=== PATIENT | male | born 1950 | race Caucasian/White ===

== ENCOUNTER 2017-01-28 09:51 | Outpatient (RCR) | payer MEDICARE | END 2017-02-01 | LOC: M PT 09:51 | PROVIDERS: ATTEND Family Medicine | DX: Z51.89 Encounter for other specified aftercare (principal); G91.9 Hydrocephalus, unspecified; R26.81 Unsteadiness on feet | CPT/HCPCS: 97110; 97162; G8978; G8979 ==

== ENCOUNTER → 2017-01-28 | Outpatient (CLI) | payer MEDICARE ==
--- NOTE | 2017-02-11 16:36 | REP ---
CT Head without contrast HISTORY: Hydrocephalus COMPARISON: None The examination is available for review at 04:30 p.m. 02/11/2017 Areas of decreased attenuation are present in the the right basal ganglia, internal capsule and thalamus. These represent old lacunar infarctions. Areas of decreased attenuation are present in the periventricular and subcortical white matter. This represents small-vessel ischemic disease. There is no intraparenchymal hemorrhage, acute infarct, mass or midline shift. A shunt is present in the anterior horn of the left lateral ventricle. The ventricular system and cortical sulci as well as subarachnoid space in the posterior fossa are dilated consistent with moderate volume loss. There is no extra cerebral collection. There is no fracture. The visualized sinuses are clear. IMPRESSION: 1. Old right basal ganglia , internal capsule and thalamic lacunar infarctions. 2. Small vessel ischemic disease. 3. Moderate volume loss. 4. A shunt is present in the left lateral ventricle. There is no hydrocephalus. Signed by Jean-Pierre Olvera MD 02/11/2017 04:28 P
== END ==
LOC: M RAD 08:36
PROVIDERS: ATTEND Psychiatry & Neurology Neurology
DX: G91.0 Communicating hydrocephalus (principal); R26.81 Unsteadiness on feet; I63.9 Cerebral infarction, unspecified; Z98.2 Presence of cerebrospinal fluid drainage device

== ENCOUNTER 2017-02-02 10:18 | Outpatient (RCR) | payer MEDICARE | END 2017-03-04 | LOC: M PT 10:18 | PROVIDERS: ATTEND Family Medicine | DX: Z51.89 Encounter for other specified aftercare (principal); G91.9 Hydrocephalus, unspecified; R26.81 Unsteadiness on feet ==

== ENCOUNTER 2018-07-25 13:12 | Inpatient (IN) | payer MEDICARE ==
[~2018-07-25] VITALS: Ht 175.3 cm; Wt 77.5 kg
[2018-07-25] MEDS ORDERED: ACETAMINOPHEN TAB 650MG DOSE (2X325MG) PO PRN (17:30)
[2018-07-25] MEDS ORDERED: DEXTROSE 50% 50 ML SYRINGE IV PRN (17:30)
[2018-07-25] MEDS ORDERED: GLUCAGON FOR INJ 1 MG VIAL (J1610) SC PRN (17:30)
[2018-07-25] MEDS ORDERED: GLUCOSE 4 GM CHEW TABLET PO PRN (17:30)
[2018-07-25] MEDS ORDERED: ONDANSETRON 4 MG TAB (S0181) PO PRN (17:30)
[2018-07-25 19:24] VITALS: BP 121/76
[2018-07-25] MEDS ORDERED: METF10004 PO (19:38)
[2018-07-25] MEDS ORDERED: HUMA100I3 SC (19:38)
[2018-07-25] MEDS ORDERED: NORC1TAB4 PO (19:38)
[2018-07-25] MEDS ORDERED: ATOR1TAB19 PO (19:38)
[2018-07-25] MEDS ORDERED: HYDR-3910 PO (19:38)
[2018-07-25] MEDS ORDERED: AMLO10TA5 PO (19:38)
[2018-07-25] MEDS ORDERED: LOSA25TA14 PO (19:38)
[2018-07-25] MEDS: HumaLOG INSULIN (NovoLOG) PER UNIT SC SCH (19:51)
[2018-07-25] MEDS ORDERED: PERCOCET 5MG/325MG TAB PO PRN (20:00)
[2018-07-25] MEDS ORDERED: PILL CRUSHER/CUTTER 1 EACH XX PRN (20:15)
[2018-07-25] MEDS: **hydrALAZINE HCL** 25 MG TAB PO SCH (20:21)
[2018-07-25] MEDS: HEPARIN SOD (PORCINE) 5000 UNITS/ML VIAL SQ SCH (20:22)
[2018-07-25] MEDS ORDERED: ATORVASTATIN 5MG PER 1/2 TABLET PO SCH (21:00)
[2018-07-25] MEDS ORDERED: **hydrALAZINE HCL** 25 MG TAB PO SCH (21:00)
[2018-07-25] MEDS ORDERED: ATORVASTATIN 10 MG TAB PO SCH (21:00)
[2018-07-26 06:00] VITALS: BP 133/78
[2018-07-26 06:48] LABS: BASO % 0.6 % (0.0-1.0); EOS # 0.4 10^3/uL (0.0-0.50); EOS % 5.9 % (0.0-3.0); HEMATOCRIT 36.7 % (42.0-52.0); HEMOGLOBIN 12.3 g/dl (13.5-17.5); LYMPH # 1.7 10^3/uL (1.5-4.5); LYMPH % 25.3 % (24.0-44.0); MEAN CORPUSCULAR HEMOGLOBIN 29.4 pg (27.0-33.0); MEAN CORPUSCULAR HGB CONC 33.5 g/dl (32.0-36.5); MEAN CORPUSCULAR VOLUME 87.6 fl (80.0-96.0); MONO # 0.5 10^3/uL (0.0-0.8); NEUTROPHILS % 59.9 % (36.0-66.0); PLATELET COUNT, AUTOMATED 264 10^3/uL (150-450); RED BLOOD COUNT 4.19 10^6/uL (4.30-6.10); WHITE BLOOD COUNT 6.6 10^3/uL (4.0-10.0)
[2018-07-26 07:18] LABS: ALBUMIN 3.2 GM/DL (3.2-5.2); ALT/SGPT 676 U/L (12-78); BILIRUBIN,TOTAL 0.5 MG/DL (0.2-1.0); BLOOD UREA NITROGEN 21 MG/DL (7-18); CALCIUM LEVEL 8.7 MG/DL (8.8-10.2); CARBON DIOXIDE LEVEL 23 MEQ/L (21-32); CHLORIDE LEVEL 103 MEQ/L (98-107); CREATININE FOR GFR 1.04 MG/DL (0.70-1.30); GLOMERULAR FILTRATION RATE > 60.0 (>49); GLUCOSE, FASTING 142 MG/DL (70-100); POTASSIUM SERUM 4.3 MEQ/L (3.5-5.1); SODIUM LEVEL 136 MEQ/L (136-145); TOTAL PROTEIN 6.5 GM/DL (6.4-8.2)
[2018-07-26] MEDS: HumaLOG INSULIN (NovoLOG) PER UNIT SC SCH ×3 (07:57→18:08)
[2018-07-26] MEDS: HEPARIN SOD (PORCINE) 5000 UNITS/ML VIAL SQ SCH ×2 (07:57→20:48)
[2018-07-26] MEDS: **hydrALAZINE HCL** 25 MG TAB PO SCH ×2 (07:58→20:48)
[2018-07-26] MEDS: LOSARTAN 25 MG TAB PO SCH (07:58)
[2018-07-26 09:42] VITALS: BP 113/69
[2018-07-26] MEDS: amLODIPine 10 MG TAB PO SCH (09:45)
--- NOTE | 2018-07-26 09:59 | HPEPDOC ---
[facility] Medical History & Physical Date of Admission Jul 26, 2018 History and Physical CONSULTATION REPORT FOR: Dr Thorne REASON FOR CONSULTATION: Medical Management ATTENDING: Dr. Cathy Aldana PCP: Dr Gutiérrez Neurosurgery [facility] Dr Albert Singh HPI: 67year old M admitted to [facility] 07/20/18-07/25/18 for revision of Rt ICHTHYOLOGY TEACHER shunt. Postoperatively complicated by pneumothorax s/p CT placement. Transferred to [facility] ARU 07/25/18 to the care of Dr Thorne. No acute medical complaints today. Denies any fevers, chills, weakness, fatigue, Headache, Chest Pain, Shortness of breath, cough, palpitations, abdominal pain, N/V/D or changes in bowel or bladder habits. PMHx: HTN DLP DM NPH S/P LP Shunt then Rt frontal VPS shunt first placed 05/19, followed by Dr Key since 01/17 with multiple revisions. SOCHX: Resides in: [facility] Marital Status: Tobacco use: denies ETOH: denies ROS: As noted in HPI, otherwise 11pt ROS of systems reviewed and remarkable only for S/P CT Rt chest now removed, area healed. PE: GEN: 67yoM, appears stated age. No acute distress. Alert and oriented x 3. Affect flat. Reduced facial expressions. HEENT: Normocephalic, atraumatic. Sclera are nonicteric. Conjunctiva without injection. No facial asymmetry. Moist mucous membranes. Dentition poor. CHEST: Regular rate and rhythm, +S1, +S2 LUNGS: Clear to auscultation bilaterally. No wheezes, rales, or rhonchi. ABD: Round, soft, non-tender, non-distended. +Bowel sounds throughout. No rebound or guarding. No costovertebral angle tenderness. EXT: Pulses 2+ bilaterally dorsalis pedis and radial. No lower extremity edema appreciated. SKIN: [place], dry, warm. No rashes. NEURO: Alert and oriented x 3. No focal deficits appreciated. A&P: 67year old M admitted to [facility] 07/20/18-07/25/18 for revision of Rt ICHTHYOLOGY TEACHER shunt. Postoperatively complicated by pneumothorax s/p CT placement. Transferred to [facility] ARU 07/25/18 to the care of Dr Thorne. 1. NPH S/P shunt revision. Mgmt as per Neurosurgery. Outpt f/u planned in 2 weeks. Mgmt as per ARU. Pain control as per ARU Bowel care . as per ARU PT/OT/ST as per ARU. DVT prophylaxis as per ARU. 2. HTN Hydralazine 75 mg BID Norvasc 10 mg daily. Losartan 12.5 mg daily. SBP 113-133. 3. DM. CC diet. FSBS Metformin 1000mg BID. 4. DLP. Lipitor 10 mg daily started recently per . 5. Transaminitis. Pt is asymptomatic. Temporarily HOLD Statin. Add Hepatitis profile. Add RUQ U/S. Obtain copy of last LFTs from [facility]. Monitor CMP. Pt states she believes he has had side effects with statin in the past. Recommend to consider GI consultation, discussed with attending Dr Thorne 07/26/18. Monitor. Vital Signs Vital Signs Date Time Temp Pulse Resp B/P (MAP) Pulse Ox O2 Delivery O2 Flow Rate FiO2 07/26/18 09:45 67 113/69 07/26/18 06:00 97.5 18 93 Room Air Laboratory Data Labs 24H Laboratory Tests 2 07/25/18 19:59: Bedside Glucose (Misc Panel) 157H 07/26/18 06:23: Immature Granulocyte % (Auto) 0.3, White Blood Count 6.6, Red Blood Count 4.19L, Hemoglobin 12.3L, Hematocrit 36.7L, Mean Corpuscular Volume 87.6, Mean Corpuscular Hemoglobin 29.4, Mean Corpuscular Hemoglobin Concent 33.5, Red Cell Distribution Width 13.1, Platelet Count 264, Neutrophils (%) (Auto) 59.9, Lymphocytes (%) (Auto) 25.3, Monocytes (%) (Auto) 8.0H, Eosinophils (%) (Auto) 5.9H, Basophils (%) (Auto) 0.6, Neutrophils # (Auto) 4.0, Lymphocytes # (Auto) 1.7, Monocytes # (Auto) 0.5, Eosinophils # (Auto) 0.4, Basophils # (Auto) 0.0, Nucleated Red Blood Cells % (auto) 0.0, Anion Gap 10, Glomerular Filtration Rate > 60.0, Blood Urea Nitrogen 21H, Creatinine 1.04, Sodium Level 136, Potassium Le martha 4.3, Chloride Level 103, Carbon Dioxide Level 23, Calcium Level 8.7L, Aspartate Amino Transf (AST/SGOT) 666H, Alanine Aminotransferase (ALT/SGPT) 676H, Alkaline Phosphatase 209H, Total Bilirubin 0.5, Total Protein 6.5, Albumin 3.2, Albumin/Globulin Ratio 0.97L CBC/BMP Laboratory Tests 07/26/18 06:23 Red Blood Count 4.19 L, Mean Corpuscular Volume 87.6, Mean Corpuscular He moglobin 29.4, Mean Corpuscular Hemoglobin Concent 33.5, Red Cell Distribution Width 13.1, Neutrophils (%) (Auto) 59.9, Lymphocytes (%) (Auto) 25.3, Monocytes (%) (Auto) 8.0 H, Eosinophils (%) (Auto) 5.9 H, Basophils (%) (Auto) 0.6, Neutrophils # (Auto) 4.0, Lymphocytes # (Auto) 1.7, Monocytes # (Auto) 0.5, Eosinophils # (Auto) 0.4, Basophils # (Auto) 0.0, Calcium Level 8.7 L, Aspartate Amino Transf (AST/SGOT) 666 H, Alanine Aminotransferase (ALT/SGPT) 676 H, Alkaline Phosphatase 209 H, Total Bilirubin 0.5, Total Protein 6.5, Albumin 3.2 Home Medications Scheduled Amlodipine Besylate (Amlodipine Besylate) 10 Mg Tab, 10 MG PO DAILY Atorvastatin Calcium (Atorvastatin Calcium) 10 Mg Tab, 5 MG PO QHS Hydralazine HCl (Hydralazine HCl) 25 Mg Tab, 75 MG PO BID Insulin Human Lispro (Humalog) 100 Unit/Ml Inj, 1 DOSE SC ACHS PER SLIDING SCALE BG 201-250 2 UNITS BG 251-300 4 UNITS BG 301-350 6 UNITS BG 351-400 8 UNITS Losartan Potassium (Losartan Potassium) 25 Mg Tab, 25 MG PO DAILY Metformin Hydrochloride (Metformin HCl) 1,000 Mg Tab, 1,000 MG PO BID Scheduled PRN Acetaminophen/Hydrocodone ([place] 5-325 mg) 1 Tab Tab, 1 TAB PO Q4H PRN for PAIN Allergies Coded Allergies: Penicillins (Unverified Allergy, Intermediate, RASH/HIVES, 07/25/18) Lillie Awad Jul 26, 2018 09:59
--- NOTE | 2018-07-26 11:26 | NUR ---
Pt w/ severe cognitive impairment s/p shunt replacement w/ medical complications. Recommend ELECTRONICS LEAD tx targeting orientation, memory, sequencing, and following directions. Addendum: 07/26/18 at 1127 by ANDRA RODRIGUEZ [facility] SP Amended: Links added.
[2018-07-26 14:00] VITALS: BP 142/78
--- NOTE | 2018-07-26 17:21 | REP ---
RIGHT UPPER QUADRANT ULTRASOUND: Real-time sonographic evaluation of the right upper quadrant performed. Gallbladder demonstrates no evidence of calculi, wall thickening or pericholecystic fluid. There is no intrahepatic or extrahepatic biliary dilatation, common duct measuring 6 mm. Some degree of fibrofatty infiltration is suspected of the liver. No gross liver or pancreatic mass is seen, pancreatic tail not well seen due to overlying bowel gas. Right kidney demonstrates no hydronephrosis with length of 9.5 cm. IMPRESSION: Essentially negative right upper quadrant ultrasound. Suspect mild fibrofatty infiltration of the liver. Electronically Signed by Chet Soto MD 07/26/2018 07:28 P
--- NOTE | 2018-07-26 17:33 | HPEPDOC ---
Criminal Justice Department Chair Note DATE OF ADMISSION: Jul 25, 2018 at 18:50 SOURCE OF ADMISSION INFORMATION: [place] [facility] records, patient and his CHIEF COMPLAINT: NPH s/p VPS HISTORY OF PRESENT ILLNESS: 67M pmh Normal Pressure Hydrocephalus s/p multiple shuntings recent complication in December 2017 by shunt infection secondary to diverticular disease followed by removal was referred to [facility] for VPS replacement. He was evaluated by Dr. Segura and Dr. Singh who on 07/20/18 performed a right sided VPS placement with a Medtronic Valve set at 1.[address] Albert Singh. CTH on 07/20/18 showed, Microvascular change in subcortical white matter and focal low-density in the upper white matter bilaterally without change compared to prior CT. Initially post-Op CXR was negative for pneumothorax, stating a right-sided chest tube and a right sided shunt catheter remain in place. Shunt series also performed on 07/21/18 showed, Uncomplicated appearance of ventriculo-pleural shunt catheter placemen. There is no evidence of catheter discontinuity or fracture. However the following day patient developed increase work of breathing and found to have a right sided pneumothorax and subcutaneous emphysema for which a chest tube was placed bedside. Repeat imaging initially showed increasing size of the pneumothorax which later resolved and chest tube was removed. He was evaluated by therapy and found to have significant ADL and gait impairments and deemed medically appropriate for discharge to ARU on 07/25/18. REVIEW OF SYSTEMS: The following is a completed review of systems and has been reviewed. Review of systems otherwise unremarkable. PAIN: Patient self reports no pain EYES: Negative EARS, NOSE, & THROAT: no dysphagia CARDIOVASCULAR: no chest pain PULMONARY: Negative. Denies shortness of breath GASTROINTESTINAL: Negative for constipation/diarrhea GENITOURINARY: Negative for dysuria MUSCULOSKELETAL: weakness NEUROLOGICAL:NPH s/p VPS HEMATOLOGICAL: Negative SKIN: right frontotemporal incision PSYCHIATRIC: Unremarkable All other review of systems found to be negative. PAST MEDICAL HISTORY: NPH, DM, HTN PAST SURGICAL HISTORY: multiple VPS ALLERGIES: Please see below. MEDICATIONS: Please see below. 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 GENERAL: Pleasant and cooperative. No acute distress. HEENT: PERRL. Extraocular movements intact. Clear conjunctiva CARDIOVASCULAR: Regular rate and rhythm. No murmurs, rubs, or gallops LUNGS: Clear to auscultation bilaterally. No wheezes. No rhonchi. ABDOMEN: Soft, nontender, nondistended. Positive bowel sounds. Normal active bowel sounds NEUROLOGICAL: Alert and oriented times three. Cranial nerves II through XII grossly intact. Sensation grossly intact. Able to follow 3 step commands, thought it was 2018, otherwise oriented EXTREMITIES:5 \5 strength bilateral upper extremities. >3/5 strength bilateral lower extremities +apraxia SKIN: right frontoparietal incision, right upper axillary chest tube incision healing well IMAGING: Imaging documentation personally reviewed by record FUNCTIONAL STATUS: Premorbid: Requiring assistance with activities of daily life as well as mobil ity On Admission: Mod-Max assist for functional transfers, dressing, bathing, ambulation with RW. GOALS: CG-Supervision for ambulation household distances wit RW, Min Assist for dressing/grooming/bathing, family training, medical optimization, assess for DME needs. 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 PLAN: 1. 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 Neuro: s/p at least 10 shunt revisions/replacements with recent ventriculopleural shunt placed on 07/20/18 will need f/u in one week with neurosurgery in [place] 2. Cardio: pmh HTN continue home meds-medicine consulted 3. Endo: pmh DM continue home meds and adjust prn 4. DVT ppx: heparin and 5. : f.u admission UA and monitor PVRs 6. Dispo: TBD POST ADMISSION PHYSICIAN EVALUATION: Medical and functional status: Description of medical status, medical assessment: As above. Rehabilitation diagnosis and current and prior cold morbid medical conditions as above. Risk of complications and plans to mitigate them as above. Description of functional status current status is as above. Prior status as above. Status compared to preadmission: There are no clinically significant differences between the patient's current status and the information described on the preadmission screening document. Treatment plan anticipated: Treatment plan is as described above. Required disciplines including physical therapy, occupational therapy, others as noted above Intensity of services: 3 hours a day, 6 days a week. Special considerations: There are no specific special or safety considerations that would likely preclude immediate implementation of an intensive rehabilitation program or subsequently influence the plan of care ATTESTATION: Considering all the information above, it is my best judgment that this patient requires intensive rehabilitation therapy as described above and an inpatient hospital environment due to the complexity of nursing, medical, and rehabilitation needs required by the patient. Furthermore, this patient can reasonably be expected to participate in an benefit from an inpatient rehabilitation stay with an interdisciplinary team approach to the delivery of rehabilitation care under the direction and supervision of rehabilitation physician PROGNOSIS: fair ESTIMATED LENGTH OF [id number] days. PROJECTED DISCHARGE DESTINATION: Home with family support and any durable medical equipment required to increase functional safety and mobility TIME SPENT COUNSELING AND COORDINATING INITIAL CARE: Greater than 70 minutes. Vital Signs Vital Sign - Last 24 Hours 07/25/18 07/25/18 07/26/18 07/26/18 19:24 20:21 06:00 07:58 Temp 98.8 97.5 Pulse 73 75 Resp 18 18 B/P (MAP) 121/76 (91) 121/76 133/78 (96) 127/70 Pulse Ox 95 93 O2 Delivery Room Air Room Air 07/26/18 07/26/18 07/26/18 07:58 09:42 09:45 Pulse 67 67 B/P (MAP) 127/70 113/69 (84) 113/69 Laboratory Data CBC/BMP Laboratory Tests 07/26/18 06:23 Red Blood Count 4.19 L, Mean Corpuscular Volume 87.6, Mean Corpuscular Hemoglobin 29.4, Mean Corpuscular Hemoglobin Concent 33.5, Red Cell Distribution Width 13.1, Neutrophils (%) (Auto) 59.9, Lymphocytes (%) (Auto) 25.3, Monocytes (%) (Auto) 8.0 H, Eosinophils (%) (Auto) 5.9 H, Basophils (%) (Auto) 0.6, Neutrophils # (Auto) 4.0, Lymphocytes # (Auto) 1.7, Monocytes # (Auto) 0.5, Eosinophils # (Auto) 0.4, Basophils # (Auto) 0.0, Calcium Level 8.7 L, Aspartate Amino Transf (AST/SGOT) 666 H, Alanine Aminotransferase (ALT/SGPT) 676 H, Alkaline Phosphatase 209 H, Total Bilirubin 0.5, Total Protein 6.5, Albumin 3.2 Labs 24H Laboratory Tests 2 07/25/18 19:59: Bedside Glucose (Misc Panel) 157H 1/22/19 06:23: Immature Granulocyte % (Auto) 0.3, White Blood Count 6.6, Red Blood Count 4.19L, Hemoglobin 12.3L, Hematocrit 36.7L, Mean Corpuscular Volume 87.6, Mean Corpuscular Hemoglobin 29.4, Mean Corpuscular Hemoglobin Concent 33.5, Red Cell Distribution Width 13.1, Platelet Count 264, Neutrophils (%) (Auto) 59.9, Lymphocytes (%) (Auto) 25.3, Monocytes (%) (Auto) 8.0H, Eosinophils (%) (Auto) 5.9H, Basophils (%) (Auto) 0.6, Neutrophils # (Auto) 4.0, Lymphocytes # (Auto) 1.7, Monocytes # (Auto) 0.5, Eosinophils # (Auto) 0.4, Basophils # (Auto) 0.0, Nucleated Red Blood Cells % (auto) 0.0, Anion Gap 10, Glomerular Filtration Rate > 60.0, Blood Urea Nitrogen 21H, Creatinine 1.04, Sodium Level 136, Potassium Level 4.3, Chloride Level 103, Carbon Dioxide Level 23, Calcium Level 8.7L, Aspartate Amino Transf (AST/SGOT) 666H, Alanine Aminotransferase (ALT/SGPT) 676H, Alkaline Phosphatase 209H, Total Bilirubin 0.5, Total Protein 6.5, Albumin 3.2, Albumin/Globulin Ratio 0.97L 07/26/18 10:19: 07/26/18 11:47: Bedside Glucose (Misc Panel) 147H FSBS Laboratory Tests Test 07/25/18 19:59 07/26/18 11:47 Range/Units Bedside Glucose (Misc Panel) 157 147 80-115 MG/DL Home Medications Scheduled Amlodipine Besylate (Amlodipine Besylate) 10 Mg Tab, 10 MG PO DAILY, (Reported) Atorvastatin Calcium (Atorvastatin Calcium) 10 Mg Tab, 5 MG PO QHS, (Reported) Hydralazine HCl (Hydralazine HCl) 25 Mg Tab, 75 MG PO BID, (Reported) Insulin Human Lispro (Humalog) 100 Unit/Ml Inj, 1 DOSE SC ACHS, (Reported) PER SLIDING SCALE BG 201-250 2 UNITS BG 251-300 4 UNITS BG 301-350 6 UNITS BG 351-400 8 UNITS Losartan Potassium (Losartan Potassium) 25 Mg Tab, 25 MG PO DAILY, (Reported) Metformin Hydrochloride (Metformin HCl) 1,000 Mg Tab, 1,000 MG PO BID, (Reported) Scheduled PRN Acetaminophen/Hydrocodone ([place] 5-325 mg) 1 Tab Tab, 1 TAB PO Q4H PRN for PAIN, (Reported) Allergies Coded Allergies: Penicillins (Unverified Allergy, Intermediate, RASH/HIVES, 07/25/18) PILY POLLARD MD Jul 26, 2018 14:36
[2018-07-26 20:00] VITALS: BP 135/85
[2018-07-27 06:00] VITALS: BP 161/85
[2018-07-27 06:53] LABS: ALBUMIN 3.2 GM/DL (3.2-5.2); ALT/SGPT 496 U/L (12-78); BILIRUBIN,TOTAL 0.5 MG/DL (0.2-1.0); BLOOD UREA NITROGEN 23 MG/DL (7-18); CARBON DIOXIDE LEVEL 23 MEQ/L (21-32); CHLORIDE LEVEL 104 MEQ/L (98-107); CREATININE FOR GFR 1.04 MG/DL (0.70-1.30); GLOMERULAR FILTRATION RATE > 60.0 (>49); GLUCOSE, FASTING 142 MG/DL (70-100); POTASSIUM SERUM 3.7 MEQ/L (3.5-5.1); SODIUM LEVEL 137 MEQ/L (136-145)
[2018-07-27] MEDS: HEPARIN SOD (PORCINE) 5000 UNITS/ML VIAL SQ SCH ×2 (08:22→21:00)
[2018-07-27] MEDS: HumaLOG INSULIN (NovoLOG) PER UNIT SC SCH ×3 (08:22→17:11)
[2018-07-27] MEDS: **hydrALAZINE HCL** 25 MG TAB PO SCH ×2 (08:22→21:00)
[2018-07-27] MEDS: LOSARTAN 25 MG TAB PO SCH (08:23)
--- NOTE | 2018-07-27 09:34 | NUR ---
Pt w/ mild pharyngeal phase dysphagia characterized by minimally delayed swallow and post-swallow cough on thin liquids via straw sips. Recommend regular solids and thin liquids no straw. Please encourage liquids via pt's personal water bottle as desired by . Please assist w/ meal set up and PO intake prn. Assist w/ oral care 3x/day. Addendum: 07/27/[address] [facility] SP Amended: Links added.
[2018-07-27] MEDS: amLODIPine 10 MG TAB PO SCH (11:13)
[2018-07-27 14:00] VITALS: BP 123/75
--- NOTE | 2018-07-27 15:12 | IPNPDOC ---
Date Seen The patient was seen on 07/27/18. Progress Note ATTENDING: Dr. Cathy Aldana PCP: Dr Gutiérrez Neurosurgery [facility] Dr Albert Singh HPI: 67year old M admitted to [facility] 07/20/18-07/25/18 for revision of Rt HOSPITALITY INTERNSHIP shunt. Postoperatively complicated by pneumothorax s/p CT placement. Transferred to [facility] 07/25/18 to the care of Dr Thorne. The pt is OOB working with therapy. Denies abdominal pain, N/V/D. Denies any fevers, chills, weakness, fatigue, Headache, Chest Pain, Shortness of breath, cough, palpitations, or changes in bowel or bladder habits. PMHx: HTN DLP DM NPH S/P LP Shunt then Rt frontal VPS shunt first placed 05/19, followed by Dr Key since 01/17 with multiple revisions. PE: GEN: 67yoM, appears stated age. Affect flat. Reduced facial expressions. HEENT: Normocephalic, atraumatic. Sclera are nonicteric. Conjunctiva without injection. Moist mucous membranes. CHEST: Regular rate and rhythm, +S1, +S2 LUNGS: Clear to auscultation bilaterally. No wheezes, rales, or rhonchi. ABD: Round, soft, non-tender, non-distended. +Bowel sounds throughout. No rebound or guarding. No costovertebral angle tenderness. EXT: No lower extremity edema appreciated. SKIN: [place], dry, warm. No rashes. A&P: 67year old M admitted to [facility] 07/20/18-07/25/18 for revision o f Rt HOSPITALITY INTERNSHIP shunt. Postoperatively complicated by pneumothorax s/p CT placement. Transferred to [facility]U 07/25/18 to the care of Dr Thorne. 1. NPH S/P shunt revision. Mgmt as per Neurosurgery. Outpt f/u planned in 2 weeks. Mgmt as per ARU. Pain control as per ARU Bowel care . as per ARU PT/OT/ST as per ARU. DVT prophylaxis as per ARU. 2. HTN Hydralazine 75 mg BID Norvasc 10 mg daily. Losartan 12.5 mg daily. 3. DM. CC diet. FSBS Metformin 1000mg BID. 4. DLP. Lipitor 10 mg daily started recently per . Statin on hold related to elevated LFTs. reports previous h/o adverse reaction with statins. 5. Transaminitis. Pt is asymptomatic. Trending downward this AM. Continue to HOLD Statin. Hepatitis profile pending. RUQ U/S with mild fatty infiltration. Obtain copy of last LFTs from [facility]. Consider GI consultation pending trend, discussed with attending Dr Thorne 07/26/18. Monitor CMP. VS, I&O, 24H, Fishbone Vital Signs/I&O Vital Signs Date Time Temp Pulse Resp B/P (MAP) Pulse Ox O2 Delivery O2 Flow Rate FiO2 07/27/18 11:13 83 132/74 07/27/18 06:00 97.3 18 96 Room Air I&O- Last 24 Hours up to 6 AM 07/27/18 06:00 Intake Total 270 ml Output Total 0 ml Balance 270 ml Laboratory Data 24H LABS Laboratory Tests 2 07/26/18 16:51: Bedside Glucose (Misc Panel) 136H 07/26/18 20:00: Bedside Glucose (Misc Panel) 225H 07/27/18 05:28: Anion Gap 10, Glomerular Filtration Rate > 60.0, Blood Urea Nitrogen 23H, Creatinine 1.04, Sodium Level 137, Potassium Level 3.7, Chloride Level 104, Carbon Dioxide Level 23, Calcium Level 9.0, Aspartate Amino Transf (AST/SGOT) 303H, Alanine Aminotransferase (ALT/SGPT) 496H, Alkaline Phosphatase 182H, Total Bilirubin 0.5, Total Protein 7.0, Albumin 3.2, Albumin/Globulin Ratio 0.84L CBC/BMP Laboratory Tests 07/27/18 05:28 Calcium Level 9.0, Aspartate Amino Transf (AST/SGOT) 303 H, Alanine Aminotransferase (ALT/SGPT) 496 H, Alkaline Phosphatase 182 H, Total Bilirubin 0.5, Total Protein 7.0, Albumin 3.2 Lillie Awad Jul 27, 2018 15:12
[2018-07-27 16:05] LABS: HEPATITIS A ANTIBODY IGM NEGATIVE (NEGATIVE); HEPATITIS B CORE ANTIBODY IGM NEGATIVE (NEGATIVE); HEPATITIS B SURFACE ANTIGEN NEGATIVE (NEGATIVE)
--- NOTE | 2018-07-27 19:59 | IPNPDOC ---
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 REVIEW OF SYSTEMS: The following is a completed review of systems and has been reviewed. Review of systems otherwise unremarkable. PAIN: Patient self reports no pain EYES: Negative EARS, NOSE, & THROAT: no dysphagia CARDIOVASCULAR: no chest pain PULMONARY: Negative. Denies shortness of breath GASTROINTESTINAL: Negative for constipation/diarrhea GENITOURINARY: Negative for dysuria MUSCULOSKELETAL: weakness NEUROLOGICAL:NPH s/p VPS HEMATOLOGICAL: Negative SKIN: right frontotemporal incision PSYCHIATRIC: Unremarkable All other review of systems found to be negative. PHYSICAL EXAMINATION: VITAL SIGNS: Please see below. GENERAL: Pleasant and cooperative. No acute distress. HEENT: PERRL. Extraocular movements intact. Clear conjunctiva CARDIOVASCULAR: Regular rate and rhythm. No murmurs, rubs, or gallops LUNGS: Clear to auscultation bilaterally. No wheezes. No rhonchi. ABDOMEN: Soft, nontender, nondistended. Positive bowel sounds. Normal active bowel sounds NEUROLOGICAL: Alert and oriented times three. Cranial nerves II through XII grossly intact. Sensation grossly intact. Able to follow 3 step commands, thought it was 2018, otherwise oriented EXTREMITIES:5 \5 strength bilateral upper extremities. >3/5 strength bilateral lower extremities +apraxia SKIN: right frontoparietal incision, right upper axillary chest tube incision healing well IMAGING: Imaging documentation personally reviewed by record FUNCTIONAL STATUS: Premorbid: Requiring assistance with activities of daily life as well as mobility On Admission: Mod-Max assist for functional transfers, dressing, bathing, ambulation with RW. GOALS: CG-Supervision for ambulation household distances wit RW, Min Assist for dressing/grooming/bathing, family training, medical optimization, assess for DME needs. 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 PLAN: 1. Rehab: OT and OT, PHARMACY GRAD INTERN, assess for DMEs, requiring two for [id number], therapists encouraged to utilize tilt table to work on truncal control and UE dexterity in lieu of standing frame which is not available at this time 2. Neuro: s/p at least 10 shunt revisions/replacements with recent ventriculopleural shunt placed on 07/20/18 will need f/u in one week with neurosurgery in [place] -elevate head of bed to 30 degrees 2. Cardio: pmh HTN continue home meds-medicine consulted, recs appreciated 3. Endo: pmh DM continue home meds and adjust prn 4 GI: elevated LFTs on admisison, holding statin and improving, Abdominal US + mildly fatty liver otherwise normal, patient not complaning of abdominal pain or tenderness, no nausea, eating fine -hepatitis panel negative, medicine recs appreciated 4. DVT ppx: heparin and 5. : f.u admission UA and monitor PVRs 6. Dispo: TBD Allergies Coded Allergies: Penicillins (Unverified Allergy, Intermediate, RASH/HIVES, 07/25/18) Vital Signs Vital Signs Date Time Temp Pulse Resp B/P (MAP) Pulse Ox O2 Delivery O2 Flow Rate FiO2 07/27/18 14:00 98.4 81 18 123/75 (91) 97 Room Air Laboratory Data CBC/BMP Laboratory Tests 07/27/18 05:28 Calcium Level 9.0, Aspartate Amino Transf (AST/SGOT) 303 H, Alanine Aminotransferase (ALT/SGPT) 496 H, Alkaline Phosphatase 182 H, Total Bilirubin 0.5, Total Protein 7.0, Albumin 3.2 Labs 24H Laboratory Tests 2 07/26/18 20:00: Bedside Glucose (Misc Panel) 225H 07/27/18 05:28: Anion Gap 10, Glomerular Filtration Rate > 60.0, Blood Urea Nitrogen 23H, Creatinine 1.04, Sodium Level 137, Potassium Level 3.7, Chloride Level 104, Carbon Dioxide Level 23, Calcium Level 9.0, Aspartate Amino Transf (AST/SGOT) 303H, Alanine Aminotransferase (ALT/SGPT) 496H, Alkaline Phosphatase 182H, Total Bilirubin 0.5, Total Protein 7.0, Albumin 3.2, Albumin/Globulin Ratio 0.84L Current Medications Current Medications Current Medications Acetaminophen (Tylenol Tab) 650 mg Q4HP PRN PO fever/MILD PAIN (PS 1-4) Last administered on 07/26/18at 07:59; Start 07/25/18 at 17:30 Amlodipine Besylate (Norvasc) 10 mg DAILY@1000 PO Last administered on 07/27/18at 11:13; Start 07/26/18 at 10:00 Atorvastatin Calcium (Lipitor) 5 mg QHS PO ; Start 07/25/18 at 21:00; Stop 07/25/18 at 21:00; Status DC Atorvastatin Calcium (Lipitor) 10 mg QHS PO Last administered on 07/25/18at 20:21; Start 07/25/18 at 21:00; Stop 07/26/18 at 11:25; Status DC Dextrose (Dextrose 50%) 25 ml ASDIRECTED PRN IV SEE LABEL COMMENTS; Start 07/25/18 at 17:30 Glucagon (Glucagon) 1 mg ASDIRECTED PRN SC SEE LABEL COMMENTS; Start 07/25/18 at 17:30 Glucose (Glucose) 16 GM ASDIRECTED PRN PO SEE LABEL COMMENTS; Start 07/25/18 at 17:30 Heparin Sodium (Porcine) (Heparin) 5,000 units Q12H SQ Last administered on 07/27/18at 08:22; Start 07/25/18 at 21:00 Home Med (Med Rec Complete!) ASDIRECTED XX ; Start 07/25/18 at 19:45; Stop 07/25/18 at 20:02; Status DC Hydralazine HCl (Apresoline) 75 mg BID PO ; Start 07/25/18 at 21:00; Stop 07/25/18 at 21:00; Status DC Hydralazine HCl (Apresoline) 75 mg BID PO Last administered on 07/27/18at 08:22; Start 07/25/18 at 21:00 Insulin Human Lispro (HumaLOG INSULIN) SEE PROTOCOL TABLE AC SC Last administered on 07/27/18at 17:11; Start 07/25/18 at 17:30 Losartan Potassium (Cozaar) 12.5 mg DAILY PO Last administered on 07/27/18at 08:23; Start 07/26/18 at 09:00 Ondansetron HCl (Zofran) 4 mg Q6HP PRN PO NAUSEA; Start 07/25/18 at 17:30 Oxycodone/ Acetaminophen (Percocet 5mg/ 325mg Tablet) 1 tab Q4HP PRN PO MILD/MODERATE PAIN (PS 1-7); Start 07/25/18 at 20:00 PILY POLLARD MD Jul 27, 2018 19:59
[2018-07-27 22:00] VITALS: BP 102/70
[2018-07-28 06:00] VITALS: BP 122/78
[2018-07-28 06:46] LABS: HEMATOCRIT 34.7 % (42.0-52.0); HEMOGLOBIN 11.8 g/dl (13.5-17.5); MEAN CORPUSCULAR HEMOGLOBIN 29.7 pg (27.0-33.0); MEAN CORPUSCULAR VOLUME 87.4 fl (80.0-96.0); PLATELET COUNT, AUTOMATED 243 10^3/uL (150-450); RED BLOOD COUNT 3.97 10^6/uL (4.30-6.10)
[2018-07-28 07:14] LABS: ALBUMIN 3.2 GM/DL (3.2-5.2); ALT/SGPT 496 U/L (12-78); BILIRUBIN,TOTAL 0.4 MG/DL (0.2-1.0); BLOOD UREA NITROGEN 24 MG/DL (7-18); CALCIUM LEVEL 8.7 MG/DL (8.8-10.2); CARBON DIOXIDE LEVEL 22 MEQ/L (21-32); CHLORIDE LEVEL 104 MEQ/L (98-107); CREATININE FOR GFR 1.05 MG/DL (0.70-1.30); GLOMERULAR FILTRATION RATE > 60.0 (>49); GLUCOSE, FASTING 149 MG/DL (70-100); POTASSIUM SERUM 3.8 MEQ/L (3.5-5.1); SODIUM LEVEL 137 MEQ/L (136-145); TOTAL PROTEIN 6.6 GM/DL (6.4-8.2)
[2018-07-28] MEDS: HEPARIN SOD (PORCINE) 5000 UNITS/ML VIAL SQ SCH ×2 (08:16→20:37)
[2018-07-28] MEDS: HumaLOG INSULIN (NovoLOG) PER UNIT SC SCH ×3 (08:16→17:35)
[2018-07-28] MEDS: LOSARTAN 25 MG TAB PO SCH (08:17)
[2018-07-28] MEDS: **hydrALAZINE HCL** 25 MG TAB PO SCH ×2 (08:17→20:37)
[2018-07-28] MEDS: amLODIPine 10 MG TAB PO SCH (10:15)
[2018-07-28 14:00] VITALS: BP 141/72
--- NOTE | 2018-07-28 14:09 | IPNPDOC ---
Date Seen The patient was seen on 07/28/18. Progress Note ATTENDING: Dr. Cathy Aldana PCP: Dr Gutiérrez Neurosurgery 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 Postoperatively complicated by pneumothorax s/p CT placement. Transferred to [facility] 07/25/18 to the care of Dr Thorne. The pt is in bed. Denies abdominal pain, N/V/D. Eating and drinking well. Denies any fevers, chills, weakness, fatigue, Headache, Chest Pain, Shortness of breath, cough, palpitations, or changes in bowel or bladder habits. PMHx: HTN DLP DM NPH S/P LP Shunt then Rt frontal VPS shunt first placed 05/19, followed by Dr Key since 01/17 with multiple revisions. PE: GEN: 67yoM, appears stated age. Affect flat. Reduced facial expressions. HEENT: Normocephalic, atraumatic. Sclera are nonicteric. Conjunctiva without injection. Moist mucous membranes. CHEST: Regular rate and rhythm, +S1, +S2 LUNGS: Clear to auscultation bilaterally. No wheezes, rales, or rhonchi. ABD: Round, soft, non-tender, non-distended. +Bowel sounds throughout. No rebound or guarding. No costovertebral angle tenderness. EXT: No lower extremity edema appreciated. SKIN: [place], dry, warm. No rashes. A&P: 67year old M admitted to [facility] 07/20/18-07/25/18 for revision of Rt EXCAVATOR OPERATOR shunt. Postoperatively complicated by pneumothorax s/p CT placement. Transferred to [facility] 07/25/18 to the care of Dr Thorne. 1. NPH S/P shunt revision. Mgmt as per Neurosurgery. Outpt f/u planned in 2 weeks. Mgmt as per ARU. Pain control as per ARU Bowel care . as per ARU PT/OT/ST as per ARU. DVT prophylaxis as per ARU. 2. HTN Hydralazine 75 mg BID Norvasc 10 mg daily. BP 121-142. 3. DM. CC diet. FSBS Metformin 1000mg BID. 4. DLP. Lipitor 10 mg daily started recently per . Statin on hold related to elevated LFTs. reports previous h/o adverse reaction with statins. 5. Transaminitis. Pt is asymptomatic. has been trending downward. Continue to HOLD Statin. Losartan on Hold. Avoid Tylenol. Hepatitis profile neg. RUQ U/S with mild fatty infiltration. Obtain copy of last LFTs from [facility]. Recommended to consider GI consultation discussed with attending Dr Thorne 07/26/18. This was also discussed with Pt who declined GI consultation or additional imaging at this time. Wishes to continue to monitor. Pt is asymptomatic. Monitor CMP. VS, I&O, 24H, Fishbone Vital Signs/I&O Vital Signs Date Time Temp Pulse Resp B/P (MAP) Pulse Ox O2 Delivery O2 Flow Rate FiO2 07/28/18 10:15 80 132/74 07/28/18 06:00 98.4 18 96 Room Air I&O- Last 24 Hours up to 6 AM 07/28/18 06:00 Intake Total 2720 ml Balance 2720 ml Laboratory Data 24H LABS Laboratory Tests 2 07/27/18 16:49: Bedside Glucose (Misc Panel) 174H 07/27/18 20:41: Bedside Glucose (Misc Panel) 174H 07/28/18 06:20: Nucleated Red Blood Cells % (auto) 0.0, Anion Gap 11, Glomerular Filtration Rate > 60.0, Blood Urea Nitrogen 24H, Creatinine 1.05, Sodium Level 137, Potassium Level 3.8, Chloride Level 104, Carbon Dioxide Level 22, Calcium Level 8.7L, Aspartate Amino Transf (AST/SGOT) 337H, Alanine Aminotransferase (ALT/SGPT) 496H, Alkaline Phosphatase 196H, Total Bilirubin 0.4, Total Protein 6.6, Albumin 3.2, Albumin/Globulin Ratio 0.94L 07/28/18 11:57: Bedside Glucose (Misc Panel) 154H CBC/BMP Laboratory Tests 07/28/18 06:20 Red Blood Count 3.97 L, Mean Corpuscular Volume 87.4, Mean Corpuscular Hemoglobin 29.7, Mean Corpuscular Hemoglobin Concent 34.0, Red Cell Distribution Width 13.2, Calcium Level 8.7 L, Aspartate Amino Transf (AST/SGOT) 337 H, Alanine Aminotransferase (ALT/SGPT) 496 H, Alkaline Phosphatase 196 H, Total Bilirubin 0.4, Total Protein 6.6, Albumin 3.2 Lillie Awad Jul 28, 2018 14:09
[2018-07-28 20:00] VITALS: BP_SYST 121; BP_SYST 162; BP_DIAS 74; BP_DIAS 84
--- NOTE | 2018-07-28 22:01 | IPNPDOC ---
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 REVIEW OF SYSTEMS: The following is a completed review of systems and has been reviewed. Review of systems otherwise unremarkable. PAIN: Patient self reports no pain EYES: Negative EARS, NOSE, & THROAT: no dysphagia CARDIOVASCULAR: no chest pain PULMONARY: Negative. Denies shortness of breath GASTROINTESTINAL: Negative for constipation/diarrhea GENITOURINARY: Negative for dysuria MUSCULOSKELETAL: weakness NEUROLOGICAL:NPH s/p VPS HEMATOLOGICAL: Negative SKIN: right frontotemporal incision PSYCHIATRIC: Unremarkable All other review of systems found to be negative. PHYSICAL EXAMINATION: VITAL SIGNS: Please see below. GENERAL: Pleasant and cooperative. No acute distress. HEENT: PERRL. Extraocular movements intact. Clear conjunctiva CARDIOVASCULAR: Regular rate and rhythm. No murmurs, rubs, or gallops LUNGS: Clear to auscultation bilaterally. No wheezes. No rhonchi. ABDOMEN: Soft, nontender, nondistended. Positive bowel sounds. Normal active bowel sounds NEUROLOGICAL: Alert and oriented times three. Cranial nerves II through XII grossly intact. Sensation grossly intact. Able to follow 3 step commands, thought it was 2018, otherwise oriented EXTREMITIES:5 \5 strength bilateral upper extremities. 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 PLAN: 1. Rehab: OT and OT, PATROL AGENT, assess for DMEs, requiring two for [id number], therapists encouraged to utilize tilt table to work on truncal control and UE dexterity in lieu of standing frame which is not available at this time 2. Neuro: s/p at least 10 shunt revisions/replacements with recent ventriculopleural shunt placed on 07/20/18 will need f/u in one week with neurosurgery in [employer] -elevate head of bed to 30 degrees 2. Cardio: pmh HTN continue home meds-medicine consulted, recs appreciated 3. Endo: pmh DM continue home meds and adjust prn 4 GI: elevated LFTs on admisison, holding statin and Losartan, Abdominal US + mildly fatty liver otherwise normal, patient not complaining of abdominal pain or tenderness, no nausea, eating fine- refusing GI work up at this time wi ll continue to trend, medicine following -hepatitis panel negative, medicine recs appreciated 4. DVT ppx: heparin and 5. : f.u admission UA and monitor PVRs 6. Dispo: 08/16/18 to home, slowly progressing towards goals Allergies Coded Allergies: Penicillins (Unverified Allergy, Intermediate, RASH/HIVES, 07/25/18) Vital Signs Vital Signs Date Time Temp Pulse Resp B/P (MAP) Pulse Ox O2 Delivery O2 Flow Rate FiO2 07/28/18 20:37 121/74 07/28/18 20:00 98.3 82 20 98 Room Air Laboratory Data CBC/BMP Laboratory Tests 07/28/18 06:20 Red Blood Count 3.97 L, Mean Corpuscular Volume 87.4, Mean Corpuscular Hemoglobin 29.7, Mean Corpuscular Hemoglobin Concent 34.0, Red Cell Distribution Width 13.2, Calcium Level 8.7 L, Aspartate Amino Transf (AST/SGOT) 337 H, Al anine Aminotransferase (ALT/SGPT) 496 H, Alkaline Phosphatase 196 H, Total Bilirubin 0.4, Total Protein 6.6, Albumin 3.2 Labs 24H Laboratory Tests 2 07/28/18 06:20: Nucleated Red Blood Cells % (auto) 0.0, Anion Gap 11, Glomerular Filtration Rate > 60.0, Blood Urea Nitrogen 24H, Creatinine 1.05, Sodium Level 137, Potassium Level 3.8, Chloride Level 104, Carbon Dioxide Level 22, Calcium Level 8.7L, Aspartate Amino Transf (AST/SGOT) 337H, Alanine Aminotransferase (ALT/SGPT) 496H, Alkaline Phosphatase 196H, Total Bilirubin 0.4, Total Protein 6.6, Albumin 3.2, Albumin/Globulin Ratio 0.94L 07/28/18 11:57: Bedside Glucose (Misc Panel) 154H 07/28/18 16:26: Bedside Glucose (Misc Panel) 165H Current Medications Current Medications Current Medications Acetaminophen (Tylenol Tab) 650 mg Q4HP PRN PO fever/MILD PAIN (PS 1-4) Last administered on 07/26/18at 07:59; Start 07/25/18 at 17:30; Stop 07/28/18 at 15:59; Status DC Amlodipine Besylate (Norvasc) 10 mg DAILY@1000 PO Last administered on 07/28/18at 10:15; Start 07/26/18 at 10:00 Atorvastatin Calcium (Lipitor) 5 mg QHS PO ; Start 07/25/18 at 21:00; Stop 07/25/18 at 21:00; Status DC Atorvastatin Calcium (Lipitor) 10 mg QHS PO Last administered on 07/25/18at 20:21; Start 07/25/18 at 21:00; Stop 07/26/18 at 11:25; Status DC Dextrose (Dextrose 50%) 25 ml ASDIRECTED PRN IV SEE LABEL COMMENTS; Start 07/25 at 17:30 Glucagon (Glucagon) 1 mg ASDIRECTED PRN SC SEE LABEL COMMENTS; Start 07/25/18 at 17:30 Glucose (Glucose) 16 GM ASDIRECTED PRN PO SEE LABEL COMMENTS; Start 07/25/18 at 17:30 Heparin Sodium (Porcine) (Heparin) 5,000 units Q12H SQ Last administered on 07/28/18at 20:37; Start 07/25/18 at 21:00 Home Med (Med Rec Complete!) ASDIRECTED XX ; Start 07/25/18 at 19:45; Stop 07/25/18 at 20:02; Status DC Hydralazine HCl (Apresoline) 75 mg BID PO ; Start 07/25/18 at 21:00; Stop 07/25/18 at 21:00; Status DC Hydralazine HCl (Apresoline) 75 mg BID PO Last administered on 07/28/18at 20:37; Start 07/25/18 at 21:00 Insulin Human Lispro (HumaLOG INSULIN) SEE PROTOCOL TABLE AC SC Last administe red on 07/28/18at 17:35; Start 07/25/18 at 17:30 Losartan Potassium (Cozaar) 12.5 mg DAILY PO Last administered on 07/28/18at 08:17; Start 07/26/18 at 09:00; Stop 07/28/18 at 15:56; Status DC Ondansetron HCl (Zofran) 4 mg Q6HP PRN PO NAUSEA; Start 07/25/18 at 17:30 Oxycodone/ Acetaminophen (Percocet 5mg/ 325mg Tablet) 1 tab Q4HP PRN PO MILD/MODERATE PAIN (PS 1-7); Start 07/25/18 at 20:00 PILY POLLARD MD Jul 28, 2018 22:01
[2018-07-29 06:00] VITALS: BP 142/80
[2018-07-29 08:11] LABS: ALBUMIN 3.1 GM/DL (3.2-5.2); ALT/SGPT 381 U/L (12-78); BILIRUBIN,TOTAL 0.4 MG/DL (0.2-1.0); BLOOD UREA NITROGEN 23 MG/DL (7-18); CALCIUM LEVEL 8.5 MG/DL (8.8-10.2); CARBON DIOXIDE LEVEL 23 MEQ/L (21-32); CHLORIDE LEVEL 105 MEQ/L (98-107); CREATININE FOR GFR 1.18 MG/DL (0.70-1.30); GLOMERULAR FILTRATION RATE > 60.0 (>49); GLUCOSE, FASTING 145 MG/DL (70-100); POTASSIUM SERUM 3.9 MEQ/L (3.5-5.1); SODIUM LEVEL 137 MEQ/L (136-145); TOTAL PROTEIN 6.6 GM/DL (6.4-8.2)
[2018-07-29] MEDS: HumaLOG INSULIN (NovoLOG) PER UNIT SC SCH ×3 (08:42→18:11)
[2018-07-29] MEDS: HEPARIN SOD (PORCINE) 5000 UNITS/ML VIAL SQ SCH ×2 (08:43→21:22)
[2018-07-29] MEDS: **hydrALAZINE HCL** 25 MG TAB PO SCH ×2 (08:44→21:22)
[2018-07-29] MEDS: amLODIPine 10 MG TAB PO SCH (11:21)
[2018-07-29 14:00] VITALS: BP 128/69
--- NOTE | 2018-07-29 14:28 | IPNPDOC ---
Date Seen The patient was seen on 07/29/18. Progress Note HPI: 67year old M admitted to 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 Postoperatively complicated by pneumothorax s/p CT placement. Transferred to [facility] 07/25/18 to the care of Dr Thorne. The pt is in bed. at bedside. States he feels tired today. Denies abdominal pain, N/V/D. Eating and drinking. Denies any fevers, chills, weakness, fatigue, Headache, Chest Pain, Shortness of breath, cough, palpitations, or changes in bowel or bladder habits. PMHx: HTN DLP DM NPH S/P LP Shunt then Rt frontal VPS shunt first placed 05/19, followed by Dr Key since 01/17 with multiple revisions. PE: GEN: 67yoM, appears stated age. Affect flat. Reduced facial expressions. HEENT: Normocephalic, atraumatic. Sclera are nonicteric. Conjunctiva without injection. Moist mucous membranes. CHEST: Regular rate and rhythm, +S1, +S2 LUNGS: Clear to auscultation bilaterally. No wheezes, rales, or rhonchi. ABD: Round, soft, non-tender, non-distended. +Bowel sounds throughout. No rebound or guarding. No costovertebral angle tenderness. EXT: No lower extremity edema appreciated. SKIN: [place], dry, warm. No rashes. A&P: 67year old M admitted to 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 Postoperatively complicated by pneumothorax s/p CT placement. Transferred to [facility] 07/25/18 to the care of Dr Thorne. 1. NPH S/P shunt revision. Mgmt as per Neurosurgery. Outpt f/u planned in 2 weeks. Mgmt as per ARU. Bowel care . as per ARU PT/OT/ST as per ARU. DVT prophylaxis as per ARU. SQ Heparin. 2. HTN Hydralazine 75 mg BID Norvasc 10 mg daily. BP controlled. 3. DM. CC diet. FSBS Metformin 1000mg BID. 4. DLP. Lipitor 10 mg daily started recently per . Statin on hold related to elevated LFTs. reports previous h/o adverse reaction with statins. 5. Transaminitis. Pt is asymptomatic. LFTs trending downward. Continue to HOLD Statin. Losartan on Hold. Avoid Tylenol. Hepatitis profile neg. RUQ U/S with mild fatty infiltration. Obtain copy of last LFTs from [facility]. Previously recommended to consider GI consultation discussed with attending Dr Thorne 07/26/18. This was also discussed with Pt who declined GI consultation or additional imaging at this time. Wishes to continue to monitor. Pt is asymptomatic. Monitor CMP. VS, I&O, 24H, Fishbone Vital Signs/I&O Vital Signs Date Time Temp Pulse Resp B/P (MAP) Pulse Ox O2 Delivery O2 Flow Rate FiO2 07/29/18 11:21 63 130/76 07/29/18 06:00 97.3 18 95 Room Air I&O- Last 24 Hours up to 6 AM 07/29/18 06:00 Intake Total 2220 ml Balance 2220 ml Laboratory Data 24H LABS Laboratory Tests 2 07/28/18 16:26: Bedside Glucose (Misc Panel) 165H 07/29/18 06:20: Bedside Glucose (Misc Panel) 150H 07/29/18 06:29: Anion Gap 9, Glomerular Filtration Rate > 60.0, Blood Urea Nitrogen 23H, Creatinine 1.18, Sodium Level 137, Potassium Level 3.9, Chloride Level 105, Carbon Dioxide Level 23, Calcium Level 8.5L, Aspartate Amino Transf (AST/SGOT) 183H, Alanine Aminotransferase (ALT/SGPT) 381H, Alkaline Phosphatase 169H, Total Bilirubin 0.4, Total Protein 6.6, Albumin 3.1L, Albumin/Globulin Ratio 0.89L 07/29/18 11:40: Bedside Glucose (Misc Panel) 189H CBC/BMP Laboratory Tests 07/29/18 06:29 Calcium Level 8.5 L, Aspartate Amino Transf (AST/SGOT) 183 H, Alanine Aminotransferase (ALT/SGPT) 381 H, Alkaline Phosphatase 169 H, Total Bilirubin 0.4, Total Protein 6.6, Albumin 3.1 L Lillie Awad Jul 29, 2018 14:28
[2018-07-29 20:00] VITALS: BP 143/70
[2018-07-30 07:00] VITALS: BP 152/82
[2018-07-30 08:20] LABS: ALBUMIN 3.4 GM/DL (3.2-5.2); ALT/SGPT 294 U/L (12-78); BILIRUBIN,TOTAL 0.4 MG/DL (0.2-1.0); BLOOD UREA NITROGEN 22 MG/DL (7-18); CALCIUM LEVEL 9.1 MG/DL (8.8-10.2); CARBON DIOXIDE LEVEL 25 MEQ/L (21-32); CHLORIDE LEVEL 106 MEQ/L (98-107); CREATININE FOR GFR 1.05 MG/DL (0.70-1.30); GLOMERULAR FILTRATION RATE > 60.0 (>49); GLUCOSE, FASTING 145 MG/DL (70-100); POTASSIUM SERUM 4.1 MEQ/L (3.5-5.1); SODIUM LEVEL 139 MEQ/L (136-145)
[2018-07-30] MEDS: HumaLOG INSULIN (NovoLOG) PER UNIT SC SCH ×3 (08:35→17:53)
[2018-07-30] MEDS: HEPARIN SOD (PORCINE) 5000 UNITS/ML VIAL SQ SCH ×2 (08:35→20:27)
[2018-07-30] MEDS: **hydrALAZINE HCL** 25 MG TAB PO SCH ×2 (08:36→20:25)
[2018-07-30] MEDS: amLODIPine 10 MG TAB PO SCH (10:00)
--- NOTE | 2018-07-30 12:36 | IPNPDOC ---
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 He is enjoying therapy. REVIEW OF SYSTEMS: The following is a completed review of systems and has been reviewed. Review of systems otherwise unremarkable. PAIN: Patient self reports no pain EYES: Negative EARS, NOSE, & THROAT: no dysphagia CARDIOVASCULAR: no chest pain PULMONARY: Negative. Denies shortness of breath GASTROINTESTINAL: Negative for constipation/diarrhea GENITOURINARY: Negative for dysuria MUSCULOSKELETAL: weakness NEUROLOGICAL:NPH s/p VPS HEMATOLOGICAL: Negative SKIN: right frontotemporal incision PSYCHIATRIC: Unremarkable All other review of systems found to be negative. PHYSICAL EXAMINATION: VITAL SIGNS: Please see below. GENERAL: Pleasant and cooperative. No acute distress. HEENT: PERRL. Extraocular movements intact. Clear conjunctiva CARDIOVASCULAR: Regular rate and rhythm. No murmurs, rubs, or gallops LUNGS: Clear to auscultation bilaterally. No wheezes. No rhonchi. ABDOMEN: Soft, nontender, nondistended. Positive bowel sounds. Normal active bowel sounds NEUROLOGICAL: Alert and oriented times three. Cranial nerves II through XII grossly intact. Sensation grossly intact. Able to follow 3 step commands, thought it was 2018, otherwise oriented EXTREMITIES:5 \5 strength bilateral upper extremities. 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 PLAN: 1. 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 Neuro: s/p at least 10 shunt revisions/replacements with recent ventriculopleural shunt placed on 07/20/18 will need f/u in one week with neurosurgery in [place] -elevate head of bed to 30 degrees 2. Cardio: pmh HTN continue home meds-medicine consulted, recs appreciated 3. Endo: pmh DM continue home meds and adjust prn 4 GI: elevated LFTs on admisison, holding statin and Losartan, Abdominal US + m ildly fatty liver otherwise normal, patient not complaining of abdominal pain or tenderness, no nausea, eating fine- refusing GI work up at this time will continue to trend, medicine following -hepatitis panel negative, medicine recs appreciated 4. DVT ppx: heparin and 5. : f.u admission UA and monitor PVRs 6. Dispo: 08/16/18 to home, slowly progressing towards goals Allergies Coded Allergies: Penicillins (Unverified Allergy, Intermediate, RASH/HIVES, 07/25/18) Vital Signs Vital Signs Date Time Temp Pulse Resp B/P (MAP) Pulse Ox O2 Delivery O2 Flow Rate FiO2 07/30/18 10:00 80 132/74 07/30/18 07:00 98.1 18 97 Room Air Laboratory Data CBC/BMP Laboratory Tests 07/30/18 07:32 Calcium Level 9.1, Aspartate Amino Transf (AST/SGOT) 119 H, Alanine Ami notransferase (ALT/SGPT) 294 H, Alkaline Phosphatase 172 H, Total Bilirubin 0.4, Total Protein 7.0, Albumin 3.4 Labs 24H Laboratory Tests 2 07/29/18 16:45: Bedside Glucose (Misc Panel) 156H 07/29/18 20:33: Bedside Glucose (Misc Panel) 231H 07/30/18 07:19: Bedside Glucose (Misc Panel) 140H 07/30/18 07:32: Anion Gap 8, Glomerular Filtration Rate > 60.0, Blood Urea Nitrogen 22H, Creatinine 1.05, Sodium Level 139, Potassium Level 4.1, Chloride Level 106, Carbon Dioxide Level 25, Calcium Level 9.1, Aspartate Amino Transf (AST/SGOT) 119H, Alanine Aminotransferase (ALT/SGPT) 294H, Alkaline Phosphatase 172H, Total Bilirubin 0.4, Total Protein 7.0, Albumin 3.4, Albumin/Globulin Ratio 0.94L Current Medications Current Medications Current Medications Acetaminophen (Tylenol Tab) 650 mg Q4HP PRN PO fever/MILD PAIN (PS 1-4) Last administered on 07/26/18at 07:59; Start 07/25/18 at 17:30; Stop 07/28/18 at 15:59; Status DC Amlodipine Besylate (Norvasc) 10 mg DAILY@1000 PO Last administered on 07/30/18at 10:00; Start 07/26/18 at 10:00 Atorvastatin Calcium (Lipitor) 5 mg QHS PO ; Start 07/25/18 at 21:00; Stop 07/25/18 at 21:00; Status DC Atorvastatin Calcium (Lipitor) 10 mg QHS PO Last administered on 07/25/18at 20:21; Start 07/25/18 at 21:00; Stop 07/26/18 at 11:25; Status DC Dextrose (Dextrose 50%) 25 ml ASDIRECTED PRN IV SEE LABEL COMMENTS; Start 07/25/18 at 17:30 Glucagon (Glucagon) 1 mg ASDIRECTED PRN SC SEE LABEL COMMENTS; Start 07/25/18 at 17:30 Glucose (Glucose) 16 GM ASDIRECTED PRN PO SEE LABEL COMMENTS; Start 07/25/18 at 17:30 Heparin Sodium (Porcine) (Heparin) 5,000 units Q12H SQ Last administered on 07/30/18at 08:35; Start 07/25/18 at 21:00 Home Med (Med Rec Complete!) ASDIRECTED XX ; Start 07/25/18 at 19:45; Stop 07/25/18 at 20:02; Status DC Hydralazine HCl (Apresoline) 75 mg BID PO ; Start 07/25/18 at 21:00; Stop 07/25/18 at 21:00; Status DC Hydralazine HCl (Apresoline) 75 mg BID PO Last administered on 07/30/18at 08:36; Start 07/25/18 at 21:00 Insulin Human Lispro (HumaLOG INSULIN) SEE PROTOCOL TABLE AC SC Last administered on 07/30/18at 08:35; Start 07/25/18 at 17:30 Losartan Potassium (Cozaar) 12.5 mg DAILY PO Last administered on 07/28/18at 08:17; Start 07/26/18 at 09:00; Stop 07/28/18 at 15:56; Status DC Ondansetron HCl (Zofran) 4 mg Q6HP PRN PO NAUSEA; Start 07/25/18 at 17:30 Oxycodone/ Acetaminophen (Percocet 5mg/ 325mg Tablet) 1 tab Q4HP PRN PO MILD/MODERATE PAIN (PS 1-7); Start 07/25/18 at 20:00; Stop 07/29/18 at 14:26; Status DC PILY POLLARD MD Jul 30, 2018 12:36
[2018-07-30 17:08] VITALS: BP 150/78
[2018-07-30 20:00] VITALS: BP 130/77
[2018-07-31 06:45] VITALS: BP 160/84
[2018-07-31 07:05] LABS: ALBUMIN 3.3 GM/DL (3.2-5.2); ALT/SGPT 267 U/L (12-78); BILIRUBIN,TOTAL 0.4 MG/DL (0.2-1.0); BLOOD UREA NITROGEN 20 MG/DL (7-18); CALCIUM LEVEL 8.6 MG/DL (8.8-10.2); CARBON DIOXIDE LEVEL 21 MEQ/L (21-32); CHLORIDE LEVEL 108 MEQ/L (98-107); CREATININE FOR GFR 1.07 MG/DL (0.70-1.30); GLOMERULAR FILTRATION RATE > 60.0 (>49); GLUCOSE, FASTING 144 MG/DL (70-100); POTASSIUM SERUM 4.3 MEQ/L (3.5-5.1); SODIUM LEVEL 139 MEQ/L (136-145); TOTAL PROTEIN 6.3 GM/DL (6.4-8.2)
[2018-07-31] MEDS: HEPARIN SOD (PORCINE) 5000 UNITS/ML VIAL SQ SCH ×2 (09:16→20:43)
[2018-07-31] MEDS: HumaLOG INSULIN (NovoLOG) PER UNIT SC SCH ×3 (09:17→16:57)
[2018-07-31] MEDS: **hydrALAZINE HCL** 25 MG TAB PO SCH ×2 (09:17→20:43)
[2018-07-31] MEDS: amLODIPine 10 MG TAB PO SCH (10:50)
[2018-07-31 18:00] VITALS: BP 134/74
[2018-07-31 20:00] VITALS: BP 128/76
[2018-08-01 05:43] VITALS: BP 139/79
[2018-08-01 06:42] LABS: ALBUMIN 3.3 GM/DL (3.2-5.2); ALT/SGPT 240 U/L (12-78); BILIRUBIN,TOTAL 0.4 MG/DL (0.2-1.0); BLOOD UREA NITROGEN 19 MG/DL (7-18); CALCIUM LEVEL 8.9 MG/DL (8.8-10.2); CARBON DIOXIDE LEVEL 22 MEQ/L (21-32); CHLORIDE LEVEL 109 MEQ/L (98-107); CREATININE FOR GFR 0.98 MG/DL (0.70-1.30); GLOMERULAR FILTRATION RATE > 60.0 (>49); GLUCOSE, FASTING 145 MG/DL (70-100); POTASSIUM SERUM 4.2 MEQ/L (3.5-5.1); SODIUM LEVEL 138 MEQ/L (136-145); TOTAL PROTEIN 6.8 GM/DL (6.4-8.2)
[2018-08-01] MEDS: HumaLOG INSULIN (NovoLOG) PER UNIT SC SCH ×3 (08:20→17:31)
[2018-08-01] MEDS: HEPARIN SOD (PORCINE) 5000 UNITS/ML VIAL SQ SCH ×2 (08:20→21:24)
[2018-08-01] MEDS: **hydrALAZINE HCL** 25 MG TAB PO SCH ×2 (08:21→21:24)
[2018-08-01] MEDS: amLODIPine 10 MG TAB PO SCH (10:28)
--- NOTE | 2018-08-01 13:38 | IPNPDOC ---
Date Seen The patient was seen on 08/01/18. Progress Note HPI: 67year old M admitted to [facility] 07/20/18-07/25/18 for revision of Rt SYRUP MIXER shunt. Postoperatively complicated by pneumothorax s/p CT placement. Transferred to [facility] 07/25/18 to the care of Dr Thorne. The pt is in bed. at bedside. She feels he is doing well today. Denies abdominal pain, N/V/D. Eating and drinking. Denies any fevers, chills, weakness, fatigue, Headache, Chest Pain, Shortness of breath, cough, palpitations, or changes in bowel or bladder habits. PMHx: HTN DLP DM NPH S/P LP Shunt then Rt frontal VPS shunt first placed 05/19, followed by Dr Key since 01/17 with multiple revisions. PE: GEN: 67yoM, appears stated age. Affect flat. Reduced facial expressions. HEENT: Normocephalic, atraumatic. Sclera are nonicteric. Conjunctiva without injection. Moist mucous membranes. CHEST: Regular rate and rhythm, +S1, +S2 LUNGS: Clear to auscultation bilaterally. No wheezes, rales, or rhonchi. ABD: Round, soft, non-tender, non-distended. +Bowel sounds throughout. No rebound or guarding. No costovertebral angle tenderness. EXT: No lower extremity edema appreciated. SKIN: [place], dry, warm. No rashes. A&P: 67year old M admitted to [facility] 07/20/18-07/25/18 for revision of Rt SYRUP MIXER shunt. Postoperatively complicated by pneumothorax s/p CT placement. Transferred to [facility] 07/25/18 to the care of Dr Thorne. 1. NPH S/P shunt revision. Mgmt as per Neurosurgery. Outpt f/u planned in 2 weeks. Mgmt as per ARU. Bowel care . as per ARU PT/OT/ST as per ARU. DVT prophylaxis as per ARU. SQ Heparin. 2. HTN Hydralazine 75 mg BID Norvasc 10 mg daily. BP controlled. 3. DM. CC diet. FSBS Metformin 1000mg BID. 4. DLP. Lipitor 10 mg daily started recently per . Statin on hold related to elevated LFTs. reports previous h/o adverse reaction with statins. 5. Transaminitis. Pt is asymptomatic. LFTs trending downward. Continue to HOLD Statin. Losartan on Hold. Avoid Tylenol. Hepatitis profile neg. RUQ U/S with mild fatty infiltration. Requested copy of [facility] LFTs from [facility]. Previously recommended to consider GI consultation discussed with attending Dr Thorne 07/26/18. This was also discussed with Pt who declined GI consultation or additional imaging at this time. Wishes to continue to monitor. Pt is asymptomatic. Monitor CMP. VS, I&O, 24H, Fishbone Vital Signs/I&O Vital Signs Date Time Temp Pulse Resp B/P (MAP) Pulse Ox O2 Delivery O2 Flow Rate FiO2 08/01/18 10:28 77 127/70 08/01/18 05:43 98.6 17 96 Room Air I&O- Last 24 Hours up to 6 AM 08/01/18 06:00 Intake Total 1440 ml Balance 1440 ml Laboratory Data 24H LABS Laboratory Tests 2 07/31/18 16:53: Bedside Glucose (Misc Panel) 149H 07/31/18 20:34: Bedside Glucose (Misc Panel) 191H 08/01/18 05:38: Bedside Glucose (Misc Panel) 143H 08/01/18 06:16: Anion Gap 7L, Glomerular Filtration Rate > 60.0, Blood Urea Nitrogen 19H, Creatinine 0.98, Sodium Level 138, Potassium Level 4.2, Chloride Level 109H, Carbon Dioxide Level 22, Calcium Level 8.9, Aspartate Amino Transf (AST/SGOT) 110H, Alanine Aminotransferase (ALT/SGPT) 240H, Alkaline Phosphatase 162H, Total Bilirubin 0.4, Total Protein 6.8, Albumin 3.3, Albumin/Globulin Ratio 0.94L 08/01/18 11:55: Bedside Glucose (Misc Panel) 207H CBC/BMP Laboratory Tests 08/01/18 06:16 Calcium Level 8.9, Aspartate Amino Transf (AST/SGOT) 110 H, Alanine Aminotransferase (ALT/SGPT) 240 H, Alkaline Phosphatase 162 H, Total Bilirubin 0.4, Total Protein 6.8, Albumin 3.3 Lillie Awad Aug 01, 2018 13:38
[2018-08-01 14:00] VITALS: BP 145/76
--- NOTE | 2018-08-01 15:50 | IPNPDOC ---
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 Review of systems otherwise unremarkable. PAIN: Patient self reports no pain EYES: Negative EARS, NOSE, & THROAT: no dysphagia CARDIOVASCULAR: no chest pain PULMONARY: Negative. Denies shortness of breath GASTROINTESTINAL: Negative for constipation/diarrhea GENITOURINARY: Negative for dysuria MUSCULOSKELETAL: weakness NEUROLOGICAL:NPH s/p VPS HEMATOLOGICAL: Negative SKIN: right frontotemporal incision PSYCHIATRIC: Unremarkable All other review of systems found to be negative. PHYSICAL EXAMINATION: VITAL SIGNS: Please see below. GENERAL: Pleasant and cooperative. No acute distress. HEENT: PERRL. Extraocular movements intact. Clear conjunctiva CARDIOVASCULAR: Regular rate and rhythm. No murmurs, rubs, or gallops LUNGS: Clear to auscultation bilaterally. No wheezes. No rhonchi. ABDOMEN: Soft, nontender, nondistended. Positive bowel sounds. Normal active bow el sounds NEUROLOGICAL: Alert and oriented times three. Cranial nerves II through XII grossly intact. Sensation grossly intact. Able to follow 3 step commands, thought it was 2018, otherwise oriented +babibksi bilat, no clonus +knee bilat flexion tone EXTREMITIES:5 \5 strength bilateral upper extremities. 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 PLAN: 1. 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 Neuro: s/p at least 10 shunt revisions/replacements with recent ventriculopleural shunt placed on 07/20/18 -has f/u with neurosurgery in [place] 08/03/18 prepared to transport him -elevate head of bed to 30 degrees -sill continue spasticity medication for LE tone if does not improve with stretching 2. Cardio: pmh HTN continue home meds-medicine consulted, recs appreciated 3. Endo: pmh DM continue home meds and adjust prn 4 GI: elevated LFTs on admisison, holding statin and Losartan, Abdominal US + mildly fatty liver otherwise normal, patient not complaining of abdominal pain or tenderness, no nausea, eating fine- refusing GI work up at this time will continue to trend, medicine following -hepatitis panel negative, medicine recs appreciated 4. DVT ppx: heparin and 5. : f.u admission UA and monitor PVRs 6. Dispo: 08/16/18 to home, slowly progressing towards goals Allergies Coded Allergies: Penicillins (Unverified Allergy, Intermediate, RASH/HIVES, 07/25/18) Vital Signs Vital Signs Date Time Temp Pulse Resp B/P (MAP) Pulse Ox O2 Delivery O2 Flow Rate FiO2 08/01/18 10:28 77 127/70 08/01/18 05:43 98.6 17 96 Room Air Laboratory Data CBC/BMP Laboratory Tests 08/01/18 06:16 Calcium Level 8.9, Aspartate Amino Transf (AST/SGOT) 110 H, Alanine Aminotransf erase (ALT/SGPT) 240 H, Alkaline Phosphatase 162 H, Total Bilirubin 0.4, Total Protein 6.8, Albumin 3.3 Labs 24H Laboratory Tests 2 07/31/18 16:53: Bedside Glucose (Misc Panel) 149H 07/31/18 20:34: Bedside Glucose (Misc Panel) 191H 08/01/18 05:38: Bedside Glucose (Misc Panel) 143H 08/01/18 06:16: Anion Gap 7L, Glomerular Filtration Rate > 60.0, Blood Urea Nitrogen 19H, Creatinine 0.98, Sodium Level 138, Potassium Level 4.2, Chloride Level 109H, Carbon Dioxide Level 22, Calcium Level 8.9, Aspartate Amino Transf (AST/SGOT) 110H, Alanine Aminotransferase (ALT/SGPT) 240H, Alkaline Phosphatase 162H, Total Bilirubin 0.4, Total Protein 6.8, Albumin 3.3, Albumin/Globulin Ratio 0.94L 08/01/18 11:55: Bedside Glucose (Misc Panel) 207H Current Medications Current Medications Current Medications Acetaminophen (Tylenol Tab) 650 mg Q4HP PRN PO fever/MILD PAIN (PS 1-4) Last administered on 07/26/18at 07:59; Start 07/25/18 at 17:30; Stop 07/28/18 at 15:59; Status DC Amlodipine Besylate (Norvasc) 10 mg DAILY@1000 PO Last administered on 08/01/18at 10:28; Start 07/26/18 at 10:00 Atorvastatin Calcium (Lipitor) 5 mg QHS PO ; Start 07/25/18 at 21:00; Stop 07/25/18 at 21:00; Status DC Atorvastatin Calcium (Lipitor) 10 mg QHS PO Last administered on 07/25/18at 20:21; Start 07/25/18 at 21:00; Stop 07/26/18 at 11:25; Status DC Dextrose (Dextrose 50%) 25 ml ASDIRECTED PRN IV SEE LABEL COMMENTS; Start 07/25/18 at 17:30 Glucagon (Glucagon) 1 mg ASDIRECTED PRN SC SEE LABEL COMMENTS; Start 07/25/18 at 17:30 Glucose (Glucose) 16 GM ASDIRECTED PRN PO SEE LABEL COMMENTS; Start 07/25/18 at 17:30 Heparin Sodium (Porcine) (Heparin) 5,000 units Q12H SQ Last administered on 08/01/18at 08:20; Start 07/25/18 at 21:00 Home Med (Med Rec Complete!) ASDIRECTED XX ; Start 07/25/18 at 19:45; Stop 07/25/18 at 20:02; Status DC Hydralazine HCl (Apresoline) 75 mg BID PO ; Start 07/25/18 at 21:00; Stop 07/25/18 at 21:00; Status DC Hydralazine HCl (Apresoline) 75 mg BID PO Last administered on 08/01/18at 08:21; Start 07/25/18 at 21:00 Insulin Human Lispro (HumaLOG INSULIN) SEE PROTOCOL TABLE AC SC Last administered on 08/01/18at 12:37; Start 07/25/18 at 17:30 Losartan Potassium (Cozaar) 12.5 mg DAILY PO Last administered on 07/28/18at 08:17; Start 07/26/18 at 09:00; Stop 07/28/18 at 15:56; Status DC Miscellaneous (Unresolved Clarification Entry) SEE LABEL COMMENTS DAILY XX Last administered on 08/01/18at 08:21; Start 08/01/18 at 09:00; Stop 08/01/18 at 10:35; Status DC Ondansetron HCl (Zofran) 4 mg Q6HP PRN PO NAUSEA; Start 07/25/18 at 17:30 Oxycodone/ Acetaminophen (Percocet 5mg/ 325mg Tablet) 1 tab Q4HP PRN PO MIL D/MODERATE PAIN (PS 1-7); Start 07/25/18 at 20:00; Stop 07/29/18 at 14:26; Status DC PILY POLLARD MD Aug 01, 2018 15:50
[2018-08-01 20:00] VITALS: BP 136/88
[2018-08-02 06:00] VITALS: BP 133/80
[2018-08-02] MEDS: HumaLOG INSULIN (NovoLOG) PER UNIT SC SCH ×3 (09:28→18:24)
[2018-08-02] MEDS: HEPARIN SOD (PORCINE) 5000 UNITS/ML VIAL SQ SCH ×2 (09:30→20:21)
[2018-08-02] MEDS: **hydrALAZINE HCL** 25 MG TAB PO SCH ×2 (09:30→20:21)
[2018-08-02] MEDS: amLODIPine 10 MG TAB PO SCH (11:35)
[2018-08-02 14:00] VITALS: BP 129/71
[2018-08-02 20:00] VITALS: BP 130/79
[2018-08-03] MEDS: BACTRIM 160MG/800MG DS TAB PO SCH ×2 (00:21→08:38)
[2018-08-03 07:30] VITALS: BP 150/91
[2018-08-03] MEDS: HumaLOG INSULIN (NovoLOG) PER UNIT SC SCH ×2 (08:37→12:00)
[2018-08-03 08:38] VITALS: BP 150/91
[2018-08-03] MEDS: HEPARIN SOD (PORCINE) 5000 UNITS/ML VIAL SQ SCH (08:38)
[2018-08-03] MEDS: LACTOBACILLUS ACIDOPHILUS CAP (BACID) PO SCH ×2 (08:38→12:15)
[2018-08-03] MEDS: **hydrALAZINE HCL** 25 MG TAB PO SCH (08:38)
[2018-08-03] MEDS ORDERED: ACETAMINOPHEN TAB 650MG DOSE (2X325MG) PO PRN (09:00)
[2018-08-03 09:49] LABS: ALBUMIN 3.7 GM/DL (3.2-5.2); ALT/SGPT 227 U/L (12-78); BILIRUBIN,TOTAL 0.6 MG/DL (0.2-1.0); BLOOD UREA NITROGEN 18 MG/DL (7-18); CALCIUM LEVEL 9.2 MG/DL (8.8-10.2); CARBON DIOXIDE LEVEL 24 MEQ/L (21-32); CHLORIDE LEVEL 104 MEQ/L (98-107); CREATININE FOR GFR 1.17 MG/DL (0.70-1.30); GLOMERULAR FILTRATION RATE > 60.0 (>49); GLUCOSE, FASTING 188 MG/DL (70-100); SODIUM LEVEL 136 MEQ/L (136-145)
[2018-08-03] MEDS: amLODIPine 10 MG TAB PO SCH (09:54)
--- NOTE | 2018-08-03 21:56 | IPNPDOC ---
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 REVIEW OF SYSTEMS: The following is a completed review of systems and has been reviewed. Review of systems otherwise unremarkable. PAIN: Patient self reports no pain EYES: Negative EARS, NOSE, & THROAT: no dysphagia CARDIOVASCULAR: no chest pain PULMONARY: Negative. Denies shortness of breath GASTROINTESTINAL: Negative for constipation/diarrhea GENITOURINARY: Negative for dysuria MUSCULOSKELETAL: weakness NEUROLOGICAL:NPH s/p VPS HEMATOLOGICAL: Negative SKIN: right frontotemporal incision PSYCHIATRIC: Unremarkable All other review of systems found to be negative. PHYSICAL EXAMINATION: VITAL SIGNS: Please see below. GENERAL: Pleasant and cooperative. No acute distress. HEENT: PERRL. Extraocular movements intact. Clear conjunctiva CARDIOVASCULAR: Regular rate and rhythm. No murmurs, rubs, or gallops LUNGS: Clear to auscultation bilaterally. No wheezes. No rhonchi. ABDOMEN: Soft, nontender, nondistended. Positive bowel sounds. Normal active bowel sounds NEUROLOGICAL: Alert and oriented times three. Cranial nerves II through XII grossly intact. Sensation grossly intact. Able to follow 3 step commands, thought it was 2018, otherwise oriented +babibksi bilat, no clonus +knee bilat flexion tone EXTREMITIES:5 \5 strength bilateral upper extremities. 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 PLAN: 1. 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 Neuro: s/p at least 10 shunt revisions/replacements with recent ventriculopleural shunt placed on 07/20/18 -has f/u with neurosurgery in [place] 08/03/18 prepared to transport him -elevate head of bed to 30 degrees -will continue spasticity medication for LE tone if does not improve with str etching 2. Cardio: pmh HTN continue home meds-medicine consulted, recs appreciated 3. Endo: pmh DM continue home meds and adjust prn 4 GI: elevated LFTs on admisison, holding statin and Losartan, Abdominal US + mildly fatty liver otherwise normal, patient not complaining of abdominal pain or tenderness, no nausea, eating fine- refusing GI work up at this time will continue to trend, medicine following -hepatitis panel negative, medicine recs appreciated 4. DVT ppx: heparin and 5. : admission UA with +LE, will start Bactrim and await culture and monitor PVRs 6. Dispo: 08/16/18 to home, slowly progressing towards goals Allergies Coded Allergies: Penicillins (Unverified Allergy, Intermediate, RASH/HIVES, 07/25/18) Vital Signs Vital Signs Date Time Temp Pulse Resp B/P (MAP) Pulse Ox O2 Delivery O2 Flow Rate FiO2 08/03/18 08:38 150/91 08/03/18 07:30 100.1 89 18 97 Room Air Laboratory Data CBC/BMP Laboratory Tests 08/03/18 09:02 Calcium Level 9.2, Aspartate Amino Transf (AST/SGOT) 98 H, Alanine Aminotransferase (ALT/SGPT) 227 H, Alkaline Phosphatase 178 H, Total Bilirubin 0.6, Total Protein 8.0, Albumin 3.7 Labs 24H Laboratory Tests 2 08/03/18 08:08: Bedside Glucose (Misc Panel) 155H 08/03/18 09:02: Anion Gap 8, Glomerular Filtration Rate > 60.0, Blood Urea Nitrogen 18, Cre atinine 1.17, Sodium Level 136, Potassium Level 4.0, Chloride Level 104, Carbon Dioxide Level 24, Calcium Level 9.2, Aspartate Amino Transf (AST/SGOT) 98H, Alanine Aminotransferase (ALT/SGPT) 227H, Alkaline Phosphatase 178H, Total Bilirubin 0.6, Total Protein 8.0, Albumin 3.7, Albumin/Globulin Ratio 0.86L Microbiology Microbiology 08/02/18 Urine Culture - Final, Complete Current Medications Current Medications Current Medications Acetaminophen (Tylenol Tab) 650 mg Q4HP PRN PO fever/MILD PAIN (PS 1-4) Last administered on 07/26/18at 07:59; Start 07/25/18 at 17:30; Stop 07/28/18 at 15:59; Status DC Acetaminophen (Tylenol Tab) 650 mg Q6HP PRN PO PAIN / FEVER Last administered on 08/03/18at 09:00; Start 08/03/18 at 09:00; Stop 08/03/18 at 14:57; Status DC Amlodipine Besylate (Norvasc) 10 mg DAILY@1000 PO Last administered on 08/02/18at 11:35; Start 07/26/18 at 10:00; Stop 08/03/18 at 14:57; Status DC Atorvastatin Calcium (Lipitor) 5 mg QHS PO ; Start 07/25/18 at 21:00; Stop 07/25/18 at 21:00; Status DC Atorvastatin Calcium (Lipitor) 10 mg QHS PO Last administered on 07/25/18at 20:21; Start 07/25/18 at 21:00; Stop 07/26/18 at 11:25; Status DC Dextrose (Dextrose 50%) 25 ml ASDIRECTED PRN IV SEE LABEL COMMENTS; Start 07/25/18 at 17:30; Stop 08/03/18 at 14:57; Status DC Glucagon (Glucagon) 1 mg ASDIRECTED PRN SC SEE LABEL COMMENTS; Start 07/25/18 at 17:30; Stop 08/03/18 at 14:57; Status DC Glucose (Glucose) 16 GM ASDIRECTED PRN PO SEE LABEL COMMENTS; Start 07/25/18 at 17:30; Stop 08/03/18 at 14:57; Status DC Heparin Sodium (Porcine) (Heparin) 5,000 units Q12H SQ Last administered on 08/03/18at 08:38; Start 07/25/18 at 21:00; Stop 08/03/18 at 14:57; Status DC Home Med (Med Rec Complete!) ASDIRECTED XX ; Start 07/25/18 at 19:45; Stop 07/25/18 at 20:02; Status DC Hydralazine HCl (Apresoline) 75 mg BID PO ; Start 07/25/18 at 21:00; Stop 07/25/18 at 21:00; Status DC Hydralazine HCl (Apresoline) 75 mg BID PO Last administered on 08/03/18at 08:38; Start 07/25/18 at 21:00; Stop 08/03/18 at 14:57; Status DC Insulin Human Lispro (HumaLOG INSULIN) SEE PROTOCOL TABLE AC SC Last administered on 08/03/18at 08:37; Start 07/25/18 at 17:30; Stop 08/03/18 at 14:57; Status DC Lactobacillus Acidophilus (Bacid) 2 ea WM PO Last administered on 08/03/18at 08:38; Start 08/03/18 at 08:00; Stop 08/03/18 at 14:57; Status DC Losartan Potassium (Cozaar) 12.5 mg DAILY PO Last administered on 07/28/18at 08:17; Start 07/26/18 at 09:00; Stop 07/28/18 at 15:56; Status DC Miscellaneous (Unresolved Clarification Entry) SEE LABEL COMMENTS DAILY XX Last administered on 08/01/18at 08:21; Start 08/01/18 at 09:00; Stop 08/01/18 at 10:35; Status DC Ondansetron HCl (Zofran) 4 mg Q6HP PRN PO NAUSEA; Start 07/25/18 at 17:30; Stop 08/03/18 at 14:57; Status DC Oxycodone/ Acetaminophen (Percocet 5mg/ 325mg Tablet) 1 tab Q4HP PRN PO MILD/MODERATE PAIN (PS 1-7); Start 07/25/18 at 20:00; Stop 07/29/18 at 14:26; Status DC Trimethoprim/ Sulfamethoxazole (Bactrim Ds, Septra Ds 160mg/ 800mg) 1 tab BID PO Last administered on 08/03/18at 08:38; Start 08/03/18 at 00:21; Stop 08/03/18 at 08:51; Status DC PILY POLLARD MD Aug 03, 2018 21:56
--- NOTE | 2018-08-09 19:28 | PMRDS ---
DATE OF ADMISSION: 07/25/2018 DATE OF DISCHARGE: 08/03/2018 DISCHARGE DIAGNOSIS/CHIEF COMPLAINT: Normal pressure hydrocephalus, status post ventriculoperitoneal (PLASTIC FIXTURE BUILDER) shunt. HISTORY OF PRESENT ILLNESS: This is a 67-year-old man with a past medical history of normal pressure hydrocephalus, status post multiple shuntings with recent complications in December of 2017, complicated by a shunt infection secondary to diverticular disease followed by removal and was referred to [facility] for a ventriculoperitoneal shunt (VPS) replacement. He was evaluated by Dr. Segura and Dr. Singh, who on 07/20/2018 performed a right-sided VPS placement with a Medtronic valve set at 1.[address] head on 07/20/2018 showed "microvascular change and subcortical white matter and focal low density in the upper white matter bilaterally without change compared to prior CT." Initially, postoperative chest x-ray was negative for pneumothorax stating "a right-sided chest tube and a right-sided shunt catheter remained in place." Shunt series also performed on 07/21/2018 showed "uncomplicated appearance of ventricular pleural shunt catheter placement." There was no evidence of catheter discontinuity or fracture. However, the following day, the patient developed increased work of breathing and was found to have a right-sided pneumothorax and subcutaneous emphysema for which a chest tube was placed at bedside. Repeat imaging initially showed increasing pneumothorax which later resolved when chest tube was removed. He was evaluated by therapy and found to have significant activities of daily living (ADLs) and gait impairments and deemed medically appropriate for discharge to acute rehabilitation unit on 07/25/2018. PAST MEDICAL HISTORY: 1. Normal pressure hydrocephalus. 2. Diabetes. 3. Hypertension. HOSPITAL COURSE: The patient was admitted and enrolled in a comprehensive physical therapy (PT), occupational therapy (OT), speech and language pathology program. He received 24-hour nursing supervision and weekly team meetings were held to discuss his prognosis. For his normal pressure hydrocephalus status post shunting, the patient had the head of his bed elevated to 30 degrees and received one hour rest each day after therapy per his 's request. His blood pressure was well-controlled with his home medications as well as his diabetes. He had elevated liver function tests (LFTs) on admission for which statin and losartan were held and the LFTs did trend down. Abdominal ultrasound was positive for a mildly fatty liver, otherwise was normal, and the patient did not complain of any abdominal pain, tenderness, nausea, and was eating well. refused gastrointestinal (GI) workup at the time and hepatitis panel was negative. The patient was maintained on heparin for deep vein thrombosis (DVT) prophylaxis. He was found to have positive leukocyte esterase on his admission urinalysis (UA) and was initially started on Bactrim. However, culture report was that specimen appeared contaminated. The patient left for a surgical evaluation on 08/03/2018 with his and upon arrival to the surgeon's office was found to have a temperature and was admitted and discharged from acute rehabilitation unit that day. DISCHARGE MEDICATIONS: Amlodipine, hydralazine, insulin, Zofran. FUNCTIONAL HISTORY: Upon discharge, the patient was dependent for car transfers, dependent for [id number], maximum assist for transfers times two.
== END 2018-08-03 14:10 | disposition short-term general hospital (02) | DRG 949 ==
LOC: M PM&R 18:50
PROVIDERS: ADMIT Physical Medicine & Rehabilitation; ATTEND Physical Medicine & Rehabilitation
DX: Z48.811 Encounter for surgical aftercare following surgery on the nervous system (principal); G91.2 (Idiopathic) normal pressure hydrocephalus; I10 Essential (primary) hypertension; E11.9 Type 2 diabetes mellitus without complications; Z88.0 Allergy status to penicillin; Z79.899 Other long term (current) drug therapy; R26.89 Other abnormalities of gait and mobility; Z98.2 Presence of cerebrospinal fluid drainage device

== ENCOUNTER → 2018-08-12 | Outpatient (REF) | payer MEDICARE ==
[~2018-08-12] MED LIST: AMLO10TA5 PO; ATOR1TAB19 PO; HUMA100I3 SC; HYDR-3910 PO; LOSA25TA14 PO; METF10004 PO; NORC1TAB4 PO
[2018-08-12 18:51] LABS: HEMATOCRIT 38.1 % (42.0-52.0); HEMOGLOBIN 12.4 g/dl (13.5-17.5); MEAN CORPUSCULAR HEMOGLOBIN 29.3 pg (27.0-33.0); MEAN CORPUSCULAR HGB CONC 32.5 g/dl (32.0-36.5); MEAN CORPUSCULAR VOLUME 90.1 fl (80.0-96.0); PLATELET COUNT, AUTOMATED 322 10^3/uL (150-450); RED BLOOD COUNT 4.23 10^6/uL (4.30-6.10); WHITE BLOOD COUNT 8.2 10^3/uL (4.0-10.0)
[2018-08-12 19:01] LABS: CREATININE FOR GFR 1.06 MG/DL (0.70-1.30); GLOMERULAR FILTRATION RATE > 60.0 (>49)
== END ==
LOC: M LAB REF 17:46
DX: A49.01 Methicillin susceptible Staphylococcus aureus infection, unspecified site (principal)

== ENCOUNTER → 2018-09-16 | Outpatient (CLI) | payer MEDICARE ==
[2018-09-16 18:04] LABS: ALBUMIN 4.6 GM/DL (3.2-5.2); ALT/SGPT 15 U/L (12-78); BILIRUBIN,TOTAL 0.4 MG/DL (0.2-1.0); BLOOD UREA NITROGEN 27 MG/DL (7-18); CALCIUM LEVEL 9.8 MG/DL (8.8-10.2); CARBON DIOXIDE LEVEL 24 MEQ/L (21-32); CHLORIDE LEVEL 104 MEQ/L (98-107); CREATININE FOR GFR 1.15 MG/DL (0.70-1.30); GLOMERULAR FILTRATION RATE > 60.0 (>49); GLUCOSE, FASTING 104 MG/DL (70-100); POTASSIUM SERUM 4.3 MEQ/L (3.5-5.1); SODIUM LEVEL 138 MEQ/L (136-145); TOTAL PROTEIN 8.5 GM/DL (6.4-8.2)
== END ==
LOC: M LAB 16:55
PROVIDERS: ATTEND Family Medicine
DX: Z01.812 Encounter for preprocedural laboratory examination (principal)

== ENCOUNTER → 2018-09-21 | Outpatient (CLI) | payer MEDICARE | LOC: M RAD 18:03 | DX: G91.2 (Idiopathic) normal pressure hydrocephalus (principal); Z53.9 Procedure and treatment not carried out, unspecified reason ==

== ENCOUNTER → 2019-01-23 | Outpatient (REF) | payer MEDICARE ==
[~2019-01-23] MED LIST changes: +CEFT1INJ65 IV; +ENOX80IN3 SQ; -NORC1TAB4 PO; +NORC1TAB7 PO; +VIMP100T PO
[2019-01-23 16:32] LABS: HEMATOCRIT 34.1 % (42.0-52.0); HEMOGLOBIN 10.7 g/dl (13.5-17.5); MEAN CORPUSCULAR HEMOGLOBIN 31.3 pg (27.0-33.0); MEAN CORPUSCULAR HGB CONC 31.4 g/dl (32.0-36.5); MEAN CORPUSCULAR VOLUME 99.7 fl (80.0-96.0); PLATELET COUNT, AUTOMATED 343 10^3/uL (150-450); RED BLOOD COUNT 3.42 10^6/uL (4.30-6.10); WHITE BLOOD COUNT 5.8 10^3/uL (4.0-10.0)
[2019-01-23 16:51] LABS: ALBUMIN 3.1 GM/DL (3.2-5.2); ALT/SGPT 35 U/L (12-78); BILIRUBIN,DIRECT < 0.1 MG/DL (0.0-0.2); BILIRUBIN,TOTAL 0.1 MG/DL (0.2-1.0); C REACTIVE PROTEIN QUANTITATIV < 0.30 MG/DL (0.00-0.30)
[2019-01-23 17:37] LABS: ERYTHROCYTE SEDIMENTATION RATE 67 mm/hr (0-20)
== END ==
LOC: M SHH 15:18
DX: G06.0 Intracranial abscess and granuloma (principal); T85.730D Infection and inflammatory reaction due to ventricular intracranial (communicating) shunt, subsequent encounter; B95.61 Methicillin susceptible Staphylococcus aureus infection as the cause of diseases classified elsewhere; Y84.8 Other medical procedures as the cause of abnormal reaction of the patient, or of later complication, without mention of misadventure at the time of the procedure

== ENCOUNTER 2019-01-27 16:16 | Emergency (ER) | payer MEDICARE ==
[~2019-01-27] VITALS: Ht 175.3 cm; Wt 68.2 kg
[~2019-01-27 16:16] MED LIST changes: -CEFT1INJ65 IV; -ENOX80IN3 SQ; -VIMP100T PO
[2019-01-27 16:18] VITALS: BP 114/72
[2019-01-27] MEDS ORDERED: ENOX80IN3 SQ (16:29)
[2019-01-27] MEDS ORDERED: VIMP100T PO (16:29)
[2019-01-27] MEDS ORDERED: CEFT1INJ65 IV (16:29)
== END 2019-01-27 19:15 | disposition left against medical advice (07) ==
LOC: M ED 16:16
DX: T82.898A Other specified complication of vascular prosthetic devices, implants and grafts, initial encounter (principal); Y92.9 Unspecified place or not applicable; Y93.9 Activity, unspecified; Z53.21 Procedure and treatment not carried out due to patient leaving prior to being seen by health care provider

== ENCOUNTER → 2019-01-30 | Outpatient (REF) | payer MEDICARE ==
[~2019-01-30] MED LIST changes: +CEFT1INJ65 IV; +ENOX80IN3 SQ; +VIMP100T PO
[2019-01-30 13:44] LABS: ALBUMIN 3.2 GM/DL (3.2-5.2); ALT/SGPT 15 U/L (12-78); BILIRUBIN,DIRECT < 0.1 MG/DL (0.0-0.2); BILIRUBIN,TOTAL 0.2 MG/DL (0.2-1.0); C REACTIVE PROTEIN QUANTITATIV < 0.30 MG/DL (0.00-0.30); HEMATOCRIT 35.5 % (42.0-52.0); MEAN CORPUSCULAR HEMOGLOBIN 31.6 pg (27.0-33.0); PLATELET COUNT, AUTOMATED 367 10^3/uL (150-450); RED BLOOD COUNT 3.48 10^6/uL (4.30-6.10); WHITE BLOOD COUNT 5.9 10^3/uL (4.0-10.0)
[2019-01-30 14:11] LABS: ERYTHROCYTE SEDIMENTATION RATE 43 mm/hr (0-20)
== END ==
LOC: M LAB REF 13:12
DX: G06.0 Intracranial abscess and granuloma (principal); T85.730D Infection and inflammatory reaction due to ventricular intracranial (communicating) shunt, subsequent encounter; S06.5X0A Traumatic subdural hemorrhage without loss of consciousness, initial encounter; B95.61 Methicillin susceptible Staphylococcus aureus infection as the cause of diseases classified elsewhere

== ENCOUNTER → 2019-02-03 | Outpatient (REF) | payer MEDICARE ==
[2019-02-03 16:06] LABS: HEMATOCRIT 40.8 % (42.0-52.0); HEMOGLOBIN 12.2 g/dl (13.5-17.5); MEAN CORPUSCULAR HEMOGLOBIN 30.3 pg (27.0-33.0); MEAN CORPUSCULAR HGB CONC 29.9 g/dl (32.0-36.5); MEAN CORPUSCULAR VOLUME 101.5 fl (80.0-96.0); PLATELET COUNT, AUTOMATED 374 10^3/uL (150-450); RED BLOOD COUNT 4.02 10^6/uL (4.30-6.10); WHITE BLOOD COUNT 12.4 10^3/uL (4.0-10.0)
[2019-02-03 16:28] LABS: ERYTHROCYTE SEDIMENTATION RATE 40 mm/hr (0-20)
[2019-02-03 16:32] LABS: ALBUMIN 3.2 GM/DL (3.2-5.2); ALT/SGPT 18 U/L (12-78); BILIRUBIN,DIRECT 0.1 MG/DL (0.0-0.2); BILIRUBIN,TOTAL 0.3 MG/DL (0.2-1.0); C REACTIVE PROTEIN QUANTITATIV < 0.30 MG/DL (0.00-0.30); TOTAL PROTEIN 7.2 GM/DL (6.4-8.2)
== END ==
LOC: M SHH 15:24
PROVIDERS: ATTEND Student in an Organized Health Care Education/Training Program
DX: G06.0 Intracranial abscess and granuloma (principal); T85.730D Infection and inflammatory reaction due to ventricular intracranial (communicating) shunt, subsequent encounter; B95.61 Methicillin susceptible Staphylococcus aureus infection as the cause of diseases classified elsewhere; Y83.1 Surgical operation with implant of artificial internal device as the cause of abnormal reaction of the patient, or of later complication, without mention of misadventure at the time of the procedure

== ENCOUNTER 2019-09-01 09:00 | Outpatient (RCR) | payer MEDICARE | END 2019-09-02 | LOC: M PT 09:00 | PROVIDERS: ATTEND Family Medicine | DX: G91.2 (Idiopathic) normal pressure hydrocephalus (principal) ==

== ENCOUNTER 2019-09-14 10:00 | Outpatient (RCR) | payer MEDICARE | END 2019-10-03 | LOC: M ST 10:00 | PROVIDERS: ATTEND Family Medicine | DX: Z51.89 Encounter for other specified aftercare (principal); G91.2 (Idiopathic) normal pressure hydrocephalus ==

== ENCOUNTER 2020-01-31 10:30 | Outpatient (RCR) | payer MEDICARE ==
[~2020-01-31 10:30] MED LIST changes: -AMLO10TA5 PO; +AMLO1TAB25 PO
== END 2020-02-02 ==
LOC: M PT 10:30
PROVIDERS: ATTEND Family Medicine
DX: Z98.890 Other specified postprocedural states (principal); G93.9 Disorder of brain, unspecified

== ENCOUNTER 2020-02-09 11:00 | Outpatient (RCR) | payer MEDICARE | END 2020-03-04 | LOC: M PT 11:00 | PROVIDERS: ATTEND Family Medicine | DX: G93.89 Other specified disorders of brain (principal) ==

== ENCOUNTER 2020-04-17 10:30 | Outpatient (RCR) | payer MEDICARE | END 2020-05-04 | LOC: M PT 10:30 | PROVIDERS: ATTEND Family Medicine | DX: G91.2 (Idiopathic) normal pressure hydrocephalus (principal) ==

== ENCOUNTER 2020-06-02 18:49 | Emergency (ER) | payer MEDICARE ==
[~2020-06-02] VITALS: Ht 175.3 cm; Wt 67.3 kg
[2020-06-02] MEDS ORDERED: ACET25TA12 PO (19:04)
[2020-06-02] MEDS ORDERED: ACET-683 PO (19:05)
[2020-06-02] MEDS ORDERED: METOCLOPRAMIDE INJ 10MG/2ML VIAL (J2765 PER 1) IV ONE (20:45)
[2020-06-02 21:08] LABS: BASO % 0.3 % (0.0-1.0); EOS # 0.1 10^3/uL (0.0-0.5); EOS % 0.7 % (0.0-3.0); HEMATOCRIT 43.3 % (42.0-52.0); HEMOGLOBIN 14.1 g/dl (13.5-17.5); LYMPH % 7.7 % (24.0-44.0); MEAN CORPUSCULAR HEMOGLOBIN 28.5 pg (27.0-33.0); MEAN CORPUSCULAR HGB CONC 32.6 g/dl (32.0-36.5); MEAN CORPUSCULAR VOLUME 87.5 fl (80.0-96.0); MONO # 0.7 10^3/uL (0.0-0.8); MONO % 5.1 % (0.0-5.0); NEUTROPHILS # 11.4 10^3/uL (1.5-8.5); NEUTROPHILS % 85.8 % (36.0-66.0); PLATELET COUNT, AUTOMATED 238 10^3/uL (150-450); RED BLOOD COUNT 4.95 10^6/uL (4.30-6.10); WHITE BLOOD COUNT 13.3 10^3/uL (4.0-10.0)
[2020-06-02 21:18] LABS: INR 0.99; PROTHROMBIN TIME 13.3 SECONDS (12.5-14.3)
[2020-06-02 21:49] LABS: VENOUS BASE EXCESS -8.5 (-2.0-2.0); VENOUS HCO3 15.4 MEQ/L (23.0-27.0); VENOUS PARTIAL PRESSURE CO2 27.7 mmHg (38.0-50.0); VENOUS PARTIAL PRESSURE O2 38.7 mmHg (30.0-50.0); VENOUS PH 7.363 UNITS (7.330-7.430); VENOUS STANDARD HCO3 17.2 MEQ/L; VENOUS TOTAL CO2 16.3 MEQ/L (24.0-28.0)
[2020-06-02] MEDS ORDERED: ISOVUE-370 76% 100ML VIAL As Ordered ONE (22:34)
[2020-06-02 22:54] LABS: ALBUMIN 3.9 GM/DL (3.2-5.2); ALT/SGPT 46 U/L (12-78); BILIRUBIN,DIRECT < 0.1 MG/DL (0.0-0.2); BILIRUBIN,TOTAL 0.4 MG/DL (0.2-1.0); BLOOD UREA NITROGEN 33 MG/DL (7-18); CALCIUM LEVEL 9.4 MG/DL (8.8-10.2); CARBON DIOXIDE LEVEL 21 MEQ/L (21-32); CHLORIDE LEVEL 106 MEQ/L (98-107); CK-MB VALUE MASS 3.9 NG/ML (<3.6); CPK CREATINE PHOSPHOKINASE 108 U/L (39-308); CREATININE FOR GFR 1.58 MG/DL (0.70-1.30); GLOMERULAR FILTRATION RATE 46.7 (>49); GLUCOSE, FASTING 223 MG/DL (70-100); MB/CK RELATIVE INDEX 3.61 (< OR =4); POTASSIUM SERUM 5.3 MEQ/L (3.5-5.1); SODIUM LEVEL 135 MEQ/L (136-145); TOTAL PROTEIN 7.9 GM/DL (6.4-8.2)
--- NOTE | 2020-06-02 22:55 | REPVR ---
PROCEDURE INFORMATION: Exam: XR Shunt Series With 4 XR Procedures Exam date and time: 06/02/2020 10:42 PM Age: 69 years old Clinical indication: Other: Shunt; Additional info: Tachypnea TECHNIQUE: Imaging protocol: XR Shunt Series was performed with skull less than 4 views, neck 1 view, chest 1 view, and abdomen 1 view. COMPARISON: CT Head without contrast 01/28/2017 8:48 AM FINDINGS: Tubes, catheters and devices: Codman Hakim intraventricular shunt demonstrated. Shunt pressure appears to be set at 80 mm. Shunt tubing is intact coiled in the patient's pelvis. Sinuses: Visualized paranasal sinuses are well aerated. Airway: Upper airway and trachea are unremarkable in the neck and chest. Lungs: No consolidations. Gastrointestinal tract: Peg tube demonstrated. Bowel is unremarkable. Bones/joints: Osteoporosis. Degenerative changes both hip joints. The spine demonstrates mild degenerative changes. Soft tissues: Stimulator battery pack in the right lower quadrant. Otherwise unremarkable. IMPRESSION: No acute findings. Electronically signed by: Varun Tirado On 06/02/2020 22:55:02 PM
--- NOTE | 2020-06-03 00:09 | REPVR ---
PROCEDURE INFORMATION: Exam: CT Head Without Contrast Exam date and time: 06/02/2020 11:45 PM Age: 69 years old Clinical indication: Pain; Headache; Additional info: Hydrocephaly TECHNIQUE: Imaging protocol: Computed tomography of the head without contrast. Radiation optimization: All CT scans at this facility use at least one of these dose optimization techniques: automated exposure control; mA and/or kV adjustment per patient size (includes targeted exams where dose is matched to clinical indication); or iterative reconstruction. COMPARISON: CT Head without contrast 01/28/2017 8:48 AM FINDINGS: Tubes, catheters and devices: Right frontal ventriculostomy catheter has been removed. There is a new right parietal ventriculostomy catheter terminating within the medial left frontal horn. Brain: Decreased attenuation of the supratentorial white matter is likely secondary to chronic microvascular ischemia. No acute intracranial hemorrhage or midline shift. Chronic lacunar infarcts involving the basal ganglia. There is bifrontal encephalomalacia. Cerebral ventricles: Interval increase in ventricular size. Third ventricle now measures up to 1.7 cm in width compared to 1.3 cm on prior. Right frontal horn measures up to 3.1 cm compared to 2 cm on prior. Left frontal horn measures up to 2.9 cm compared to 1.8 cm on prior. Bones/joints: There is calvarial postoperative change. No acute fracture. Paranasal sinuses: Visualized sinuses are unremarkable. No fluid levels. Mastoid air cells: Visualized mastoid air cells are well aerated. Soft tissues: Unremarkable. IMPRESSION: 1. Interval placement of right parietal ventriculostomy catheter as above with removal of previous right frontal catheter. 2. Interval increase in ventricular size as above. Electronically signed by: Maxim Pickering On 06/03/2020 00:09:04 AM
--- NOTE | 2020-06-03 00:16 | REPVR ---
PROCEDURE INFORMATION: Exam: CT Angiography Chest With Contrast Exam date and time: 06/02/2020 11:45 PM Age: 69 years old Clinical indication: Chest pain; Additional info: SOB TECHNIQUE: Imaging protocol: Computed tomographic angiography of the chest with intravenous contrast. 3D rendering (Not supervised by radiologist): MIP and/or 3D reconstructed images were created by the technologist. Radiation optimization: All CT scans at this facility use at least one of these dose optimization techniques: automated exposure control; mA and/or kV adjustment per patient size (includes targeted exams where dose is matched to clinical indication); or iterative reconstruction. Contrast material: ISO 370; Contrast volume: 75 ml; Contrast route: INTRAVENOUS (IV); COMPARISON: CR SHUNT SERIES 06/02/2020 10:23 PM FINDINGS: Limitations: Examination is limited by motion artifact. Tubes, catheters and devices: Percutaneous gastric tube in place. Pulmonary arteries: No large pulmonary emboli. Evaluation of the segmental pulmonary arteries are limited by motion. Aorta: Mild atherosclerotic disease. No aortic aneurysm. Tracheobronchial tree: Visualized airway is unremarkable. Lungs: Scattered linear atelectasis in the lungs. No acute consolidation. Pleural space: Unremarkable. No pneumothorax. No pleural effusion. Heart: Unremarkable. No cardiomegaly. No pericardial effusion. Coronary arteries: Moderate coronary artery calcification. Lymph nodes: Unremarkable. No enlarged lymph nodes. Gallbladder and bile ducts: Layering hyperdensity within the gallbladder. No gallbladder wall thickening. Bones/joints: Chronic right rib fractures. 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 Soft tissues: Unremarkable. IMPRESSION: 1. Limited evaluation. 2. No large pulmonary emboli. Evaluation of the segmental pulmonary arteries are limited by motion. 3. Layering hyperdensity within the gallbladder. Vicarious excretion of contrast versus gallstones. 4. Additional findings as described. Electronically signed by: Leeann Pickering On 06/03/2020 00:16:49 AM
[2020-06-03 01:30] VITALS: BP 114/77
--- NOTE | 2020-06-03 04:14 | ECGEPIP ---
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
--- NOTE | 2020-06-03 10:50 | ED PDOC ---
Post-Departure Follow-Up lashell vargas , charge hand , to contact pt, obtain n surgeon name and fax ct h ead for fu Chi Hammond MD Jun 03, 2020 10:50
== END 2020-06-03 01:40 | disposition home or self-care (01) ==
LOC: M ED 18:49
DX: R06.00 Dyspnea, unspecified (principal); G91.9 Hydrocephalus, unspecified; R00.0 Tachycardia, unspecified; I10 Essential (primary) hypertension; Z93.1 Gastrostomy status; Z79.899 Other long term (current) drug therapy; Z88.0 Allergy status to penicillin
CPT/HCPCS: 36600; 70450; 71275; 75809; 80048; 80076; 81001; 82550; 82553; 82803; 84484; 85025; 85610; 87486; 87581; 87633; 87798; 93005; 93041; 96374; 99285; J2765; Q9967

== ENCOUNTER 2021-04-24 11:29 | Emergency (ER) | payer MEDICARE ==
[~2021-04-24] VITALS: Ht 175.3 cm; Wt 81.8 kg
[~2021-04-24 11:29] MED LIST changes: +ACET-683 PO; +ACET25TA12 PO
[2021-04-24 11:31] VITALS: BP 124/84
--- OUTSIDE RECORDS SUMMARY | 2021-04-24 12:24 | CCD | Clinical Summary ---
Author Author [employer] [facility] Address [address] [place] [address] Phone Care Team Providers Care Solid Glass Rod Dowel Machine Operator Name Role Phone Marichuy CORBETT Clotilde Amin Unavailable [phone] Rob Gutiérrez DO PP [phone] Shahid HERRON, Ravinder Sands Unavailable [phone] Reason for Referral Date Encounter Description Provider Reason for Referral 04/17/21 Rob Gutiérrez DO Request Consultation By Specialist Reason for Visit and Chief Complaint visit for: Dario is a 70-year-old with normal pressure hydrocephalus he has fa iled multiple shunts he is here with his because he has been essentially le thargic for a few days. ~ ~Going back about a month ago they did a CSF culture o n his shunt which was negative he was intermittently having issues back then wit h lethargy and they called him and told him that his cultures were negative rece ntly did not pursue any further testing as far as the is reporting to me. ~ ~For the past 2 or so days he has been acting more sedated. He has not had fev ers he is not had vomiting no diarrhea no cough no signs of shortness of breath or respiratory difficulty ~ ~On physical exam he is a wheelchair-bound gentleman with contractures that appears to be in no acute distress but did appear lethar gic on exam today this is apparently naptime also for him. He is also had worse ruddy blood sugar readings has been running sometimes over 200 recently his blood sugar this morning was 163 average over 7 days of 180. ~ ~Vital signs were list ed pulse ox 93% on room air. ~ ~Cardiac exam regular without tachycardia lungs d iminished breath sounds but clear abdomen felt benign no signs of tenderness ~ ~ Evaluated in wheelchair contracture deformities of upper and lower extremities. ~ ~Assessment and plan as documented normal pressure hydrocephalus with possible UTI versus other work-up as outlined labs plus urinalysis and recommendations a fter seen. ~ ~ mocerate complexity OV with Dx treated - The Chief Complaint is: Patient brought to exam room 19 vis wheelchair with his . Per his , radha guzman has been having symtoms for approximately 2 months. Patient has stopped ta lking and his blood sugars have been higher than normal. He is very lethargic. Simone galaviz's suspects he may have a UTI. Screened for 10 minutes. Chely ORANTES Problems Includes: Problems addressed during this encounter and other active Problems Current Visit Onset Date - Time Resolved Date - Time Provider C ondition Status Diabetes Mellitus Type 2 04/17/2019 - 12:00AM Rob Gutiérrez DO Active Hydrocephalus Normal Pressure 08/03/2015 - 12:00AM Pul aski Nurse Active Note: Neuro on 10/15/16- CT s howed slight decrese in ventricle size and no transependymal fluid. no hygromass/SDH Past Visits Onset Date - Time Resolved Date - Time Provider Co ndition Status Risk: Dvt/pulmonary Embolism 02/13/2019 - 12:00AM Wendi Todd, RN Active Note: 2019 Chronic Cutaneous Pressure Ulcer Stage 2 12/27/2018 - 12:00AM Mary Rojas DO Active Arthralgia - Pelvis / Hip / Femur Right 12/27/2018 - 12:00AM Mary Rojas DO Active Kidney Injury Acute Nontraumatic 04/14/2017 - 12:00AM Rob Gutiérrez DO Active Note: hosp stay 2017 Abdominal Pain 11/09/2016 - 12:00AM Brandie Sullivan YARDAGE CONTROL CLERK Active Cellulitis 02/15/2016 - 12:00AM Kenyetta Pagan P Active Organic Sleep Apnea 09/23/2015 - 12:00AM Kenyetta león NP Active Urinary Incontinence 09/23/2015 - 12:00AM Kenyetta reyes NP Active Carpal tunnel syndrome, right upper limb 08/13/2015 - 12:00AM Kenyetta Muñoz YARDAGE CONTROL CLERK Active Prostate Cancer 08/13/2015 - 12:00AM Kenyetta pagan NP Active Obesity 08/13/2015 - 12:00AM Kenyetta A Creedon N P Active Hyperlipidemia 08/13/2015 - 12:00AM Kenyetta Muñoz YARDAGE CONTROL CLERK Active Hypertension (Systemic) 08/03/2015 - 12:00AM Kenyetta Muñoz NP Active Plan of Treatment Pending Tests Order Diagnosis Results Due Ordering Provi adrián Lab CBC w/ Auto Diff 10/14/21 Rob mcgill DO Lab COMPREHENSIVE METABOLIC PANEL 10/14/21 Rob Gutiérrez DO Lab Lyme Total Ab w/ Reflex,S 10/14/21 Pa ruma Gutiérrez DO Lab TSH 10/14/21 Rob floreso Lab URINALYSIS 10/14/21 Rob reina DO Lab URINE CULTURE 10/14/21 Rob hagen DO Future Appointments Date Time Location Provider [facility] 06/02/2021 9:00AM [facility] Rob ramos DO - Instructions for patient - Return to the clinic if condition wors ens or new symptoms arise - Follow-up visit Assessments Includes: Assessments from this encounter - Lethargy - Type 2 diabetes mellitus - Normal pressure hydrocephalus - Fatigue See updated problem list for history/discussion/assessment and plan for today's problems. See also health tab and appropriate flow sheets. Instructions Includes: Instructions from this encounter Instructions to patient Instructions for patient Education and Decision Aids were provide d during visit for: Patient appeared to understand therapeut ic regimen Medical Equipment - Implanted Devices Includes: Current DevicesNo Medical Equipment Recorded Medications Includes: Medications discussed during this encounter and other current Medicati ons Current Medications (continue as prescribed) Losartan Potassium 25 MG Oral Tablet 02/13/2021 Pro vider: Rob Gutiérrez DO Diagnosis: Essential (primary) hypertension once a day metFORMIN HCl 500 MG Oral Tablet 02/13/2021 Provide r: Rob Gutiérrez DO Diagnosis: Type 2 diabetes tanvir itus without complications once a day Lancets Miscellaneous 08/13/2020 Provider: Rob Gutiérrez DO Diagnosis: Type 2 diabetes tanvir itus with unspecified complications as directed use to test BG Four times pe r day. please dispense onetouch verio lancets OneTouch Verio In Vitro Strip 08/13/2020 Provider: Rob Gutiérrez DO Diagnosis: Type 2 diabetes tanvir itus with unspecified complications as directed use to test BG four times per day Acetaminophen 325 MG Oral Tablet 03/02/2020 Provide r: Diagnosis: Take 2 tabs (650mg) po every 4 hours prn Mupirocin 2% External Ointment 02/08/2020 Provider: Shea Jackson NP Diagnosis: sacral decub AAA TID- Vimpat 100 MG Oral Tablet 04/17/2019 Provider: Diagnosis: neuro OneTouch Verio w/Device Kit 04/27/2018 Provider: Iveth Chong NP Diagnosis: Type 2 diabetes tanvir itus with unspecified complications as directed dispence on meter Past Medications on file Mupirocin 2% External Ointment 09/09/2020 - 03/08/2021 Provi adrián: Rob Gutiérrez DO Diagnosis: AAA bid around G tube Medications Administered Includes: Administered Medications from this encounterNo Administered Medications Recorded Vital Signs Includes: Vital Signs from this encounter Vital Name 04/17/2021 01:48P 04/17/2021 01:15P Oxygen Saturation (%) 93 Flow Rate (l/min) (None (Room Air)) FiO2 (%) 21 Blood Pressure Sitting L 116/70 BP Cuff Size Large Pulse Rate-Sitting (bpm) 64 Respiration Rate (breaths/min) 20 Temp-Tympanic (F) 98.1 Pain Level 0 Results Includes: Results discussed during this encounter Hgb A1c In-House Labs Ordered by Rob Gutiérrez DO on 02/13/2021 Specimen Source: Whole blood Collected: 02/13/2021 Reported: 02/13/2021 15:56 Hgb A1c 6.6 A (Abnormal) Reviewed on 02/13/2021; All test result s are final unless otherwise noted. History of Present Illness Includes: History of Present Illness from this encounter Dario Shelton is a 70 year old male. - Allergy list reviewed - Medication reconciliation performed - Medication list reviewed with patient and updated in EMR - - No request for consultation by special ist no previous emergency room visit Social History Description Last Updated Smoking status 04/17/2021 : Never smoker 04/17/2021 No secondhand cigarette smoke exposure 03/08/2020 Physical disability 03/08/2020 Procedures and Surgical History Includes: Procedures from this encounter Procedures Code Diagnosis Performing Provider Service Location Service Date continue current medication except where otherwise no oscar Transition in care medication list update medical regimen review Clinical summary provided to patient Clinical summary provided to patient Summary provided electronically in CCDA format & reasonable certainty of receipt Surgical History Last Updated Surgical / procedural history 07/20/2018 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 03/08/2020 Medical History Includes: Medical History addressed during this encounter Description Last Updated Replacement of ventricular shunt 07/03/2017 03/08/2020 Family History Includes: Family History addressed during this encounter Description Last Updated Maternal history of not using drugs 03/08/2020 No maternal history of depression 03/08/2020 No paternal history of depression 03/08/2020 Paternal history of not using drugs 03/08/2020 Review of Systems Includes: Review of Systems from this encounterNo Review of Systems Recorded Mental Status Includes: Mental Status from this encounter Description Oriented to time, place, and person Functional Status Includes: Functional Status from this encounterNo Functional Status Recorded Physical Exam Includes: Physical Exam from this encounter Skin: -the skin color and pigmentation were normal -the skin general appearance was normal Eyes: -the conjunctiva exhibited no abnormalities -the extraocular movements were normal Ears, Nose, Throat: -no external nose deformities -no nasal discharge seen -the oropharynx was normal Neck: -the neck demonstrated no decrease in suppleness -the thyroid showed no abnormalities -no cervical mass was seen -No carotid bruits Lymph Nodes: -the supraclavicular lymph nodes were not enlarged -no adenopathy Lungs: -normal breath sounds/voice sounds -no wheezing was heard -no rhonchi were heard -no rales/crackles were heard Cardiovascular System: -no murmurs were heard -no pitting edema -heart rate and rhythm normal -no bradycardia present -no tachycardia present Abdomen: -abdominal non-tender Psychiatric Exam: -the affect was normal Head: -no evidence of a head injury -the head was normocephalic Neurological System: -oriented to time, place, and person General Status: -in no acute distress -well developed -well nourished Musculoskeletal System: -overall findings were normal Vital Signs: -current vital signs reviewed Immunizations Includes: Immunizations addressed during this encounterNo Immunizations Recorded Allergies Includes: Active Allergies Substance Type Reaction Onset Date - Time Resolved Date - Ti me Status Penicillin G Benzathine Allergy Skin Rashes, Hives 07/30/2015 - 12 :00AM Active Lipitor Intolerance abnormal LFT's 09/16/2018 - 12:00AM Active Cipro Allergy Skin Rashes, Hives 04/18/2018 - 12:00AM Active Note: per Encounters Encounter Provider Location Date Check-In Time Check-Out Time D iagnosis Acute L3 Rob Gutiérrez [facility] 04/17/2021 1:10PM 1:54PM Hydrocephalus Normal Pressure, Diabetes Mellitus Type 2, Lethargy, Fatigue Insurance Includes: Active Insurance Policies Plan Name Member ID Group # Subscriber Relationship Effective Da tereza 1 - [employer] [id number] Dario Shelton Self 07/2016 - Unknown 2 - [employer] [id number] Dario Shelton Self 07/2016 - Unknown Advance Directives Includes: Current Advance Directives Directive Pat Aware Third Republican Effective Date Reviewed Status RHIO Yes 07/30/2015 Current and Ve rified packet given Pt Bill of Rights, Priv Prac, Ad Dir Yes 08/08/2019 Current and Verified Note: Pt declined AD packet Ebola Screening Performed Yes 02/22/2020 Current and Verified Note: Within the last month, have you traveled outside of the [place]? - NO COVID Screening Performed Yes 04/17/2021 Current and Verified Health Concerns Includes: Health Concerns for current assessmentsNo Active Health Concerns Recorded Goals Includes: Active Goals for current assessmentsNo Active Goals Recorded Interventions Includes: Interventions for current assessmentsNo Interventions Recorded Evaluations & Outcomes Includes: Evaluations & Outcomes for current assessmentsNo Outcomes Recorded
--- OUTSIDE RECORDS SUMMARY | 2021-04-24 13:33 | CCD | Summary of Care ---
Author Author [facility] Organization [facility] Address Unknown Phone Unavailable Care Team Providers Care Ehr Trainer Name Role Phone NazarioRob mims DO PCP Reason for Visit * Reason Comments Neurologic Problem * Surgical (Routine) Referred By Contact Referred To Contact Status Reason Specialty Diagnoses / Procedures Gracia Silvestre PA [address] [facility] [address] [place] [phone] Email: [email or web address] Christopher Brenner MD [address] [facility] [address] [place] [phone] Email: [email or web address] Authorized Specialty Services Neurosurgery Diagnoses Required Hydrocephalus in adult S/P SHERIFF shunt Encounter Details Care Team Description Date Type Department Christopher Brenner MD [address] [facility] [address] [place] [phone] Hydrocephalus in adult (Primary Dx) 02/06/2021 Telemedicine [facility] [address] [facility] [address] [place] [phone] Allergies Comments Active Allergy Reactions Severity Noted Date Ciprofloxacin 2020 Penicillins Hives 05/26/2013 documented as of this encounter (statuses as of 02/06/2021) Medications End Date Status Medication Sig Dispensed Refills Start Date Active acetaminophen (TYLENOL) Take 1,000 mg 0 500 MG tablet by mouth every 6 (six) hours as needed for Pain Active losartan (COZAAR) 25 MG Take 25 mg by 0 tablet mouth every morning Active diphenhydramine-acetamino Take 2 0 phen (TYLENOL PM) 25-500 tablets by MG TABS mouth nightly as needed Active metFORMIN HCl 500 MG Oral Take 500 mg 0 Tablet (GLUCOPHAGE) by mouth daily with breakfast documented as of this encounter (statuses as of 02/06/2021) Active Problems Problem Noted Date Demand ischemia 12/19/2020 Acute coronary syndrome with high troponin 1 Weakness 12/18/2020 ACS (acute coronary syndrome) 12/18/2020 Generalized tonic-clonic seizure 12/06/2018 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 Continue IV Ciprofloxacin and Flagyl. 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 12/16 Essential hypertension 08/04/2017 Type 2 diabetes mellitus with hyperglycemia 08/04/19 18 Hydrocephalus in adult 08/03/2017 Back pain 03/26/2015 Urge incontinence of urine 12/05/2013 Distal radius fracture, right 08/29/2013 Stress incontinence, male 06/04/2013 Hyperlipidemia Prostate cancer Incontinence documented as of this encounter (statuses as of 02/06/2021) Resolved Problems Problem Noted Date Resolved Date Diverticulitis 12/18/2017 12/19/2017 documented as of this encounter (statuses as of 02/06/2021) Immunizations Name Administration Dates Next Due Influenza Quad IM Pres 08/26/2017 Free (0.5 mL dose) documented as of this encounter Social History Date Tobacco Use Types Packs/Day Years Used Never Smoker Smokeless Tobacco: Never Used Comments Alcohol Use Standard Drinks/Week No 0 (1 standard drink = 0.6 o z pure alcohol) Sex Assigned at Date Recorded Not on file Date Recorded COVID-19 Exposure Response 01/07/2021 11:16 AM EDT In the last month, have you been in contact with No / Unsure someone who was confirmed or suspected to have Coronavirus / COVID-19? documented as of this encounter Last Filed Vital Signs Not on filedocumented in this encounter Progress Notes * Christopher Brenner MD - 02/06/2021 1:00 PM EDT The telephone service was performed during the state of emergency during the COV ID-19 outbreak. I have discussed this request and the patient has given their verbal consent to use Telecommunications in lieu of a [id number] visit in the office. I have spent 70 minutes reviewing imaging and discussing current symptoms, findi ngs and recommendations. Patient with normal pressure hydrocephalus. He was recently admitted for emesis. He has had multiple shunt revisions. His last shunt revision was in 09/2020. His shunt history is as follows. Reason for Initial Placement: [facility] Type of Shunt Valve: Codman Hakim Shunt Setting per record: 30-40 Current Shunt Setting based on xray/interrogation: 40 Additions to shunt system: none Based on reviewing the patient's history and imaging studies it appears to me th at his present shunt is working. I do not think that the shunt needs to be revised or replaced. Today, he complains of inability to talk. He is currently sleeping. His states he has a poor quality of life. The patient is scheduled to see a neurosurgeon in [place]. He also has an appointment to see his primary care physician. I have encouraged her to keep the scheduled appointment. RTC PRN. documented in this encounter Plan of Treatment Order Schedule Name Type Priority Associated Diag noses Ordered: 2020 Referral to Neurosurgery Outpatient Routine [place] cephalus in adult Referral S/P SHERIFF shunt Health Maintenance Due Date Last Done Comments Lipid Disorder Screening 1950 MMR Vaccines (1 of 1 - [birth year]10/1951 Standard series) Varicella Vaccines (1 of [birth year]10/1951 2 - 2-dose childhood series) Pneumococcal Vaccine: 65+ 12[birth year]10/1956 Years (1 of 4 - PCV13) Pneumococcal Vaccine: 12[birth year]10/1956 Pediatrics (0 to 5 Years) and At-Risk Patients (6 to 64 Years) (1 of 4 - PCV13) DTaP,Tdap,and Td Vaccines 12/10/1958 (1 - Tdap) Diabetic Foot Exam 12/10/1969 Dilated Retinal Exam 12/10/1969 Urine Microalbumin 12/10/1969 Colon Cancer Screening 10 12/10/2001 yrs Zoster Vaccines (1 of 2) 12/10/2001 Influenza Vaccine 04/04/2021 06/20/2020, 04/17/2019, 03/28/2018, Additional history exists Hemoglobin A1c 06/20/2021 12/19/2020, 12/18/2020, 01/08/2018, Additional history exists Hepatitis C Screening (B. Completed 12/18/2017, [id number]) 12/18/2017 HIB Vaccines Aged Out No longer eligible based on patient's age to complete this topic Hepatitis A Vaccines Aged Out No longer eligibl e based on patient's age to complete this topic Hepatitis B Vaccines Aged Out No longer eligibl e based on patient's age to complete this topic IPV Vaccines Aged Out No longer eligible based on patient's age to complete this topic documented as of this encounter Implants Device Identifier Shelf Expiration Date Model / Serial / L ot Implanted Type Area Manufactur er 01/09/2018 [id number] / / [id number] Interstim Lead Kit Tined - [id number] N/A: Buttocks M [employer] Implanted: Qty: 1 on 03/12/2014 by [employer] Castillo Bass MD at [facility] 02/15/2015 [id number] / [id number] / Interstim Pulse Generator Quad - [employer] [id number] Implanted: Qty: 1 on 03/22/2014 by Castillo Bass MD at [facility] documented as of this encounter Results Not on filedocumented in this encounter Visit Diagnoses Diagnosis Hydrocephalus in adult - Primary documented in this encounter
--- OUTSIDE RECORDS SUMMARY | 2021-04-24 13:36 | CCD ---
Author Author [facility] Organization [facility] Address Unknown Phone Unavailable Care Team Providers Care Employment Coach Name Role Phone Brandon CASTANEDA MD Unavailable Unavailable Brandon CASTANEDA MD Unavailable Unavailable Brandon CASTANEDA MD Unavailable Unavailable Brandon CASTANEDA MD Unavailable Unavailable Derrick DURAN DPM Unavailable Unavailable Derrick DURAN DPM Unavailable Unavailable Derrick DURAN DPM Unavailable Unavailable Derrick DURAN DPM Unavailable Unavailable Derrick DURAN DPM Unavailable Unavailable Derrick DURAN DPM Unavailable Unavailable Derirck DURAN DPM Unavailable Unavailable Derrick DURAN DPM Unavailable Unavailable Derrick DURAN DPM Unavailable Unavailable Derrick DURAN DPM Unavailable Unavailable Derrick DURAN DPM Unavailable Unavailable Derrick DURAN DPM Unavailable Unavailable Derrick DURAN DPM Unavailable Unavailable Derrick DURAN DPM Unavailable Unavailable Derrick DURAN DPM Unavailable Unavailable Derrick DURAN DPM Unavailable Unavailable Derrick DURAN DPM Unavailable Unavailable Derrick DURAN DPM Unavailable Unavailable Derrick DURAN DPM Unavailable Unavailable Derrick DURAN DPM Unavailable Unavailable Derrick DURAN DPM Unavailable Unavailable Derrick DURAN DPM Unavailable Unavailable Derrick DURAN DPM Unavailable Unavailable MAJAK, R HOLDEN DPM Unavailable Unavailable MAJAK, R HOLDEN DPM Unavailable Unavailable MAJAK, R HOLDEN DPM Unavailable Unavailable MAJAK, R HOLDEN DPM Unavailable Unavailable MAJAK, R HOLDEN DPM Unavailable Unavailable MAJAK, R HOLDEN DPM Unavailable Unavailable MAJAK, R HOLDEN DPM Unavailable Unavailable MAJAK, R HOLDEN DPM Unavailable Unavailable Adin AMES MD Unavailable Unavailable Adin AMES MD Unavailable Unavailable Adin AMES MD Unavailable Unavailable Adin AMES MD Unavailable Unavailable Adin AMES MD Unavailable Unavailable Adin AMES MD Unavailable Unavailable Adin AMES MD Unavailable Unavailable Adin AMES MD Unavailable Unavailable Adin AMES MD Unavailable Unavailable Adin AMES MD Unavailable Unavailable Adin AMES MD Unavailable Unavailable Adin AMES MD Unavailable Unavailable Adin AMES MD Unavailable Unavailable Adin AMES MD Unavailable Unavailable Adin AMES MD Unavailable Unavailable BirklinArmando Unavailable Unavailable BirklinArmando Unavailable Unavailable BirklinArmando Unavailable Unavailable BirklinArmando Unavailable Unavailable BirklinArmando Unavailable Unavailable BirklinArmando Unavailable Unavailable BirklinArmando Unavailable Unavailable BirklinArmando Unavailable Unavailable BirklinArmando Unavailable Unavailable BirklinArmando Unavailable Unavailable BirklinArmando Unavailable Unavailable BirklinArmando Unavailable Unavailable BirklinArmando Unavailable Unavailable BirklinArmando Unavailable Unavailable BirklinArmando Unavailable Unavailable BirklinArmando Unavailable Unavailable BirklinArmando Unavailable Unavailable BirklinArmando Unavailable Unavailable BirklinArmando Unavailable Unavailable BirklinArmando Unavailable Unavailable BirklinArmando Unavailable Unavailable BirklinArmando Unavailable Unavailable BirklinArmando Unavailable Unavailable BirklinArmando Unavailable Unavailable BirklinArmando Unavailable Unavailable BirklinArmando Unavailable Unavailable BirklinArmando Unavailable Unavailable BirklinArmando Unavailable Unavailable Dianna Gutiérrez DO Unavailable Unavailable Carguello, J Rob DO Unavailable Unavailable Carguello J Rob DO Unavailable Unavailable Carguello, J Rob DO Unavailable Unavailable Carguello J Rob DO Unavailable Unavailable Carguello, J Rob DO Unavailable Unavailable Carguello, J Rob DO Unavailable Unavailable Carguello, J Rob DO Unavailable Unavailable Carguello, J Rob DO Unavailable Unavailable Carguello, J Rob DO Unavailable Unavailable Carguello, J Rob DO Unavailable Unavailable Carguello, J Rob DO Unavailable Unavailable Carguello, J Rob DO Unavailable Unavailable Carguello, J Rob DO Unavailable Unavailable Carguello, J Rob DO Unavailable Unavailable Carguello, J Rob DO Unavailable Unavailable Carguello, J Rob DO Unavailable Unavailable Carguello, J Rob DO Unavailable Unavailable Carguello, J Rob DO Unavailable Unavailable Carguello, J Rob DO Unavailable Unavailable Carguello, J Rob DO Unavailable Unavailable Carguello, J Rob DO Unavailable Unavailable Carguello, J Rob DO Unavailable Unavailable Carguello, J Rob DO Unavailable Unavailable Carguello J Rob DO Unavailable Unavailable Carguello J Rob DO Unavailable Unavailable Carguello J Rob DO Unavailable Unavailable Carguello, J Rob DO Unavailable Unavailable Carguello, J Rob DO Unavailable Unavailable Carguello, J Rob DO Unavailable Unavailable Carguello, J Rob DO Unavailable Unavailable Carguello, J Rob DO Unavailable Unavailable Carguello, J Rob DO Unavailable Unavailable Carguello, J Rob DO Unavailable Unavailable Carguello, J Rob DO Unavailable Unavailable Carguello, J Rob DO Unavailable Unavailable Carguello J Rob DO Unavailable Unavailable Carguello J Rob DO Unavailable Unavailable Carguello J Rob DO Unavailable Unavailable Carguello J Rob DO Unavailable Unavailable Carguello, J Rob DO Unavailable Unavailable Carguello, J Rob DO Unavailable Unavailable Carguello J Rob DO Unavailable Unavailable Carguello J Rob DO Unavailable Unavailable Carguello J Rob DO Unavailable Unavailable Carguello, J Rob DO Unavailable Unavailable Carguello, J Rob DO Unavailable Unavailable Carguello, J Rob DO Unavailable Unavailable Carguello J Rob DO Unavailable Unavailable Carguello J Rob DO Unavailable Unavailable Carguello J Rob DO Unavailable Unavailable Carguello, J Rob DO Unavailable Unavailable Carguello, J Rob DO Unavailable Unavailable Carguello, J Rob DO Unavailable Unavailable Carguello, J Rob DO Unavailable Unavailable Carguello, J Rob DO Unavailable Unavailable Carguello, J Rob DO Unavailable Unavailable Carguello, J Rob DO Unavailable Unavailable Carguello, J Rob DO Unavailable Unavailable Carguello, J Rob DO Unavailable Unavailable Carguello, J Rob DO Unavailable Unavailable Carguello, J Rob DO Unavailable Unavailable Carguello, J Rob DO Unavailable Unavailable Carguello, J Rob DO Unavailable Unavailable Carguello, J Rob DO Unavailable Unavailable Carguello, J Rob DO Unavailable Unavailable Carguello, J Rob DO Unavailable Unavailable Carguello, J Rob DO Unavailable Unavailable Carguello, J Rob DO Unavailable Unavailable Carguello, J Rob DO Unavailable Unavailable Carguello, J Rob DO Unavailable Unavailable Carguello, J Rob DO Unavailable Unavailable Carguello, J Rob DO Unavailable Unavailable Carguello, J Rob DO Unavailable Unavailable Carguello, J Rob DO Unavailable Unavailable Carguello, J Rob DO Unavailable Unavailable Carguello, J Rob DO Unavailable Unavailable Carguello, J Rob DO Unavailable Unavailable Carguello, J Rob DO Unavailable Unavailable Carguello, J Rob DO Unavailable Unavailable Carguello, J Rob DO Unavailable Unavailable Carguello, J Rob DO Unavailable Unavailable Carguello, J Rob DO Unavailable Unavailable Carguello, J Rob DO Unavailable Unavailable Carguello, J Rob DO Unavailable Unavailable Carguello, J Rob DO Unavailable Unavailable Carguello, J Rob DO Unavailable Unavailable Carguello, J Rob DO Unavailable Unavailable Stuck, K Gracia PA Unavailable Unavailable Stuck, K Gracia PA Unavailable Unavailable Stuck, K Gracia PA Unavailable Unavailable Stuck, K Gracia PA Unavailable Unavailable Stuck, K Gracia PA Unavailable Unavailable Stuck, K Gracia PA Unavailable Unavailable Stuck, K Gracia PA Unavailable Unavailable Stuck, K Gracia PA Unavailable Unavailable Stuck, K Gracia PA Unavailable Unavailable Stuck, K Gracia PA Unavailable Unavailable Stuck, K Gracia PA Unavailable Unavailable Stuck, K Gracia PA Unavailable Unavailable Stuck, K Gracia PA Unavailable Unavailable Stuck, K Gracia PA Unavailable Unavailable Stuck, K Gracia PA Unavailable Unavailable Stuck, K Gracia PA Unavailable Unavailable Stuck, K Gracia PA Unavailable Unavailable Stuck, K Gracia PA Unavailable Unavailable Stuck, K Gracia PA Unavailable Unavailable Stuck, K Gracia PA Unavailable Unavailable Stuck, K Gracia PA Unavailable Unavailable Stuck, K Gracia PA Unavailable Unavailable Stuck, K Gracia PA Unavailable Unavailable Stuck, K Gracia PA Unavailable Unavailable Stuck, K Gracia PA Unavailable Unavailable Stuck, K Gracia PA Unavailable Unavailable Stuck, K Gracia PA Unavailable Unavailable Stuck, K Gracia PA Unavailable Unavailable Stuck, K Gracia PA Unavailable Unavailable Stuck, K Gracia PA Unavailable Unavailable Stuck, K Gracia PA Unavailable Unavailable Stuck, K Gracia PA Unavailable Unavailable Stuck, K Gracia PA Unavailable Unavailable Stuck, K Gracia PA Unavailable Unavailable Stuck, K Gracia PA Unavailable Unavailable Stuck, K Gracia PA Unavailable Unavailable Stuck, K Gracia PA Unavailable Unavailable Stuck, K Gracia PA Unavailable Unavailable Stuck, K Gracia PA Unavailable Unavailable Stuck, K Gracia PA Unavailable Unavailable Stuck, K Gracia PA Unavailable Unavailable Stuck, K Gracia PA Unavailable Unavailable JOSIE HUI MD Unavailable Unavailable JOSIE HUI MD Unavailable Unavailable JOSIE HUI MD Unavailable Unavailable JOSIE HUI MD Unavailable Unavailable JOSIE HUI MD Unavailable Unavailable JOSIE HUI MD Unavailable Unavailable JOSIE HUI MD Unavailable Unavailable JOSIE HUI MD Unavailable Unavailable JOSIE HUI MD Unavailable Unavailable JOSIE HUI MD Unavailable Unavailable JOSIE HUI MD Unavailable Unavailable JOSIE HUI MD Unavailable Unavailable JOSIE HUI MD Unavailable Unavailable JOSIE HUI MD Unavailable Unavailable JOSIE HUI MD Unavailable Unavailable Rotella, D Lobito DO Unavailable Unavailable Rotella, D Lobito DO Unavailable Unavailable Rotella, D Lobito DO Unavailable Unavailable Rotella, D Lobito DO Unavailable Unavailable Rotella, D Lobito DO Unavailable Unavailable Rotella, D Lobito DO Unavailable Unavailable Rotella, D Lobito DO Unavailable Unavailable Rotella, D Lobito DO Unavailable Unavailable Rotella, D Lobito DO Unavailable Unavailable Rotella, D Lobito DO Unavailable Unavailable Rotella, D Lobito DO Unavailable Unavailable Rotella, D Lobito DO Unavailable Unavailable Rotella, D Lobito DO Unavailable Unavailable Rotella, D Lobito DO Unavailable Unavailable Rotella, D Lobito DO Unavailable Unavailable Rotella, D Lobito DO Unavailable Unavailable Rotella, D Lobito DO Unavailable Unavailable Rotella, D Lobito DO Unavailable Unavailable Rotella, D Lobito DO Unavailable Unavailable Rotella, D Lobito DO Unavailable Unavailable Rotella, D Lobito DO Unavailable Unavailable Rotella, D Lobito DO Unavailable Unavailable Rotella, D Lobito DO Unavailable Unavailable Rotella, D Lobito DO Unavailable Unavailable Rotella, D Lobito DO Unavailable Unavailable Rotella, D Lobito DO Unavailable Unavailable Rotella, D Lobito DO Unavailable Unavailable Rotella, D Lobito DO Unavailable Unavailable Rotella, D Lobito DO Unavailable Unavailable Rotella, D Lobito DO Unavailable Unavailable Rotella, D Lobito DO Unavailable Unavailable Rotella, D Lobito DO Unavailable Unavailable Rotella, D Lobito DO Unavailable Unavailable Rotella, D Lobito DO Unavailable Unavailable Rotella, D Lobito DO Unavailable Unavailable Rotella, D Lobito DO Unavailable Unavailable Rotella, D Lobito DO Unavailable Unavailable Rotella, D Lobito DO Unavailable Unavailable Rotella, D Lobito DO Unavailable Unavailable Rotella, D Lobito DO Unavailable Unavailable Rotella, D Lobito DO Unavailable Unavailable Rotella, D Lobito DO Unavailable Unavailable Rotella, D Lobito DO Unavailable Unavailable Rotella, D Lobito DO Unavailable Unavailable Rotella, D Lobito DO Unavailable Unavailable Rotella, D Lobito DO Unavailable Unavailable Rotella, D Lobito DO Unavailable Unavailable Rotella, D Lobito DO Unavailable Unavailable Rotella, D Lobito DO Unavailable Unavailable Rotella, D Lobito DO Unavailable Unavailable Rotella, D Lobito DO Unavailable Unavailable Rotella, D Lobito DO Unavailable Unavailable Rotella, D Lobito DO Unavailable Unavailable Rotella, D Lobito DO Unavailable Unavailable Rotella, D Lobito DO Unavailable Unavailable Rotella, D Lobito DO Unavailable Unavailable Rotella, D Lobito DO Unavailable Unavailable Rotella, D Lobito DO Unavailable Unavailable Rotella, D Lobito DO Unavailable Unavailable Rotella, D Lobito DO Unavailable Unavailable Rotella, D Lobito DO Unavailable Unavailable Rotella, D Lobito DO Unavailable Unavailable Rotella, D Lobito DO Unavailable Unavailable Rotella, D Lobito DO Unavailable Unavailable Rotella, D Lobito DO Unavailable Unavailable Rotella, D Lobito DO Unavailable Unavailable Rotella, D Lobito DO Unavailable Unavailable Rotella, D Lobito DO Unavailable Unavailable Rotella, D Lobito DO Unavailable Unavailable Carguello, J Rob DO Unavailable Unavailable Carguello, J Rob DO Unavailable Unavailable Carguello, J Rob DO Unavailable Unavailable Carguello J Rob DO Unavailable Unavailable Carguello, J Rob DO Unavailable Unavailable Carguello, J Rob DO Unavailable Unavailable Carguello, J Rob DO Unavailable Unavailable Carguello, J Rob DO Unavailable Unavailable Carguello, J Rob DO Unavailable Unavailable Carguello, J Rob DO Unavailable Unavailable Carguello, J Rob DO Unavailable Unavailable Carguello, J Rob DO Unavailable Unavailable Carguello, J Rob DO Unavailable Unavailable Carguello, J Rob DO Unavailable Unavailable Carguello, J Rob DO Unavailable Unavailable Carguello, J Rob DO Unavailable Unavailable Carguello, J Rob DO Unavailable Unavailable Carguello, J Rob DO Unavailable Unavailable Carguello, J Rob DO Unavailable Unavailable Carguello, J Rob DO Unavailable Unavailable Carguello, J Rob DO Unavailable Unavailable Carguello, J Rob DO Unavailable Unavailable Carguello J Rob DO Unavailable Unavailable Carguello J Rob DO Unavailable Unavailable Carguello J Rob DO Unavailable Unavailable Carguello, J Rob DO Unavailable Unavailable Carguello, J Rob DO Unavailable Unavailable Carguello, J Rob DO Unavailable Unavailable Carguello, J Rob DO Unavailable Unavailable Carguello J Rob DO Unavailable Unavailable Carguello, J Rob DO Unavailable Unavailable Carguello, J Rob DO Unavailable Unavailable Carguello, J Rob DO Unavailable Unavailable Carguello J Rob DO Unavailable Unavailable Carguello J Rob DO Unavailable Unavailable Carguello J Rob DO Unavailable Unavailable Carguello J Rob DO Unavailable Unavailable Carguello J Rob DO Unavailable Unavailable Carguello, J Rob DO Unavailable Unavailable Carguello J Rob DO Unavailable Unavailable Carguello J Rob DO Unavailable Unavailable Carguello J Rob DO Unavailable Unavailable Carguello J Rob DO Unavailable Unavailable Carguello, J Rob DO Unavailable Unavailable Carguello J Rob DO Unavailable Unavailable Carguello J Rob DO Unavailable Unavailable Carguello J Rob DO Unavailable Unavailable Carguello J Rob DO Unavailable Unavailable Carguello, J Rob DO Unavailable Unavailable CarguelloDianna Rob DO Unavailable Unavailable Carguello J Rob DO Unavailable Unavailable Carguello J Rob DO Unavailable Unavailable Carguello J Rob DO Unavailable Unavailable CarguelloDianna Rob DO Unavailable Unavailable Carguello J Rob DO Unavailable Unavailable Carguello J Rob DO Unavailable Unavailable Carguello J Rob DO Unavailable Unavailable Carguello J Rob DO Unavailable Unavailable Carguello J Rob DO Unavailable Unavailable Carguello J Rob DO Unavailable Unavailable Carguello J Rob DO Unavailable Unavailable Carguello J Rob DO Unavailable Unavailable Carguello J Rob DO Unavailable Unavailable Carguello J Rob DO Unavailable Unavailable Carguello J Rob DO Unavailable Unavailable CarguelloDianna Rob DO Unavailable Unavailable Carguello J Rob DO Unavailable Unavailable Carguello J Rob DO Unavailable Unavailable Carguello J Rob DO Unavailable Unavailable CarguelloDianna Rob DO Unavailable Unavailable Carguello J Rob DO Unavailable Unavailable CarguelloDianna Rob DO Unavailable Unavailable CarguelloDianna Rob DO Unavailable Unavailable CarguelloDianna Rob DO Unavailable Unavailable CarguelloDianna Rob DO Unavailable Unavailable Carguello J Rob DO Unavailable Unavailable CarguelloDianna Rob DO Unavailable Unavailable CarguelloDianna Rob DO Unavailable Unavailable CarguelloDianna Rob DO Unavailable Unavailable Carguello J Rob DO Unavailable Unavailable CarguelloDianna Rob DO Unavailable Unavailable Carguello J Rob DO Unavailable Unavailable CarguelloDianna Rob DO Unavailable Unavailable CarguelloDianna Rob DO Unavailable Unavailable CarguelloDianna Rob DO Unavailable Unavailable Carguello J Rob DO Unavailable Unavailable Carguello J Rob DO Unavailable Unavailable Carguello J Rob DO Unavailable Unavailable BRYAN RUFF MD Unavailable Unavailable BRYAN RUFF MD Unavailable Unavailable BRYAN RUFF MD Unavailable Unavailable BRYAN RUFF MD Unavailable Unavailable BRYAN RUFF MD Unavailable Unavailable BRYAN RUFF MD Unavailable Unavailable BRYAN RUFF MD Unavailable Unavailable BRYAN RUFF MD Unavailable Unavailable BRYAN RUFF MD Unavailable Unavailable BRYAN RUFF MD Unavailable Unavailable HEGAZY, HOUSAM MD Unavailable Unavailable HEGAZY, HOUSAM MD Unavailable Unavailable HEGAZY, HOUSAM MD Unavailable Unavailable HEGAZY, HOUSAM MD Unavailable Unavailable HEGAZY, HOUSAM MD Unavailable Unavailable HEGAZY, HOUSAM MD Unavailable Unavailable HEGAZY, HOUSAM MD Unavailable Unavailable Yadava, Javier Unavailable Unavailable Yadava, Javier Unavailable Unavailable Yadava, Javier Unavailable Unavailable Brenner, A Christopher MD Unavailable Unavailable Brenner, A Christopher MD Unavailable Unavailable Brenner, A Christopher MD Unavailable Unavailable Brenner, A Christopher MD Unavailable Unavailable Brenner, A Christopher MD Unavailable Unavailable Brenner, A Christopher MD Unavailable Unavailable Brenner, A Christopher MD Unavailable Unavailable Brenner, A Christopher MD Unavailable Unavailable Brenner, A Christopher MD Unavailable Unavailable Brenner, A Chritsopher MD Unavailable Unavailable Brenner, A Christopher MD Unavailable Unavailable Brenner, A Christopher MD Unavailable Unavailable Brenner, A Christopher MD Unavailable Unavailable Brenner, A Christopher MD Unavailable Unavailable Brenner, A Christopher MD Unavailable Unavailable Brenner, A Christopher MD Unavailable Unavailable Brenner, A Christopher MD Unavailable Unavailable Brenner, A Christopher MD Unavailable Unavailable Brenner, A Christopher MD Unavailable Unavailable Brenner, A Christopher MD Unavailable Unavailable Brenner, A Christopher MD Unavailable Unavailable Brenner, A Christopher MD Unavailable Unavailable Brenner, A Christopher MD Unavailable Unavailable Brenner, A Christopher MD Unavailable Unavailable Brenner, A Christopher MD Unavailable Unavailable Brenner, A Christopher MD Unavailable Unavailable Brenner, A Christopher MD Unavailable Unavailable Brenner, A Christopher MD Unavailable Unavailable Brenner, A Christopher MD Unavailable Unavailable Brenner, A Christopher MD Unavailable Unavailable Brenner, A Christopher MD Unavailable Unavailable Brenner, A Christopher MD Unavailable Unavailable Brenner, A Christopher MD Unavailable Unavailable Brenner, A Christopher MD Unavailable Unavailable Brennre, A Christopher MD Unavailable Unavailable Brenner, A Christopher MD Unavailable Unavailable Brenner, A Christopher MD Unavailable Unavailable Brenner, A Christopher MD Unavailable Unavailable Brenner, A Christopher MD Unavailable Unavailable Brenner, A Christopher MD Unavailable Unavailable Brenner, A Christopher MD Unavailable Unavailable Brenner, A Christopher MD Unavailable Unavailable Brenner, A Christopher MD Unavailable Unavailable Brenner, A Christopher MD Unavailable Unavailable Brenner, A Christopher MD Unavailable Unavailable Brenner, A Christopher MD Unavailable Unavailable Brenner, A Chrisotpher MD Unavailable Unavailable Brenner, A Christopher MD Unavailable Unavailable Brenner, A Christopher MD Unavailable Unavailable Brenner, A Christopher MD Unavailable Unavailable Brenner, A Christopher MD Unavailable Unavailable Brenner, A Christopher MD Unavailable Unavailable Brenner, A Christopher MD Unavailable Unavailable Brenner, A Christopher MD Unavailable Unavailable Brenner, A Christopher MD Unavailable Unavailable Brenner, A Christopher MD Unavailable Unavailable Brenner, A Christopher MD Unavailable Unavailable Brenner, A Christopher MD Unavailable Unavailable Brenner, A Christopher MD Unavailable Unavailable Brenner, A Christopher MD Unavailable Unavailable Brenner, A Christopher MD Unavailable Unavailable Brenner, A Christopher MD Unavailable Unavailable Brenner, A Christopher MD Unavailable Unavailable Brenner, A Christopher MD Unavailable Unavailable Brenner, A Christopher MD Unavailable Unavailable Brenner, A Christopher MD Unavailable Unavailable Brenner, A Christopher MD Unavailable Unavailable Brenner, A Christopher MD Unavailable Unavailable Brenner, A Christopher MD Unavailable Unavailable Brenner, A Christopher MD Unavailable Unavailable Brenner, A Christopher MD Unavailable Unavailable Brenner, A Christopher MD Unavailable Unavailable Brenner, A Christopher MD Unavailable Unavailable Brenner, A Christopher MD Unavailable Unavailable Brenner, A Christopher MD Unavailable Unavailable Brenner, A Christopher MD Unavailable Unavailable Brenner, A Christopher MD Unavailable Unavailable Brenner, A Christopher MD Unavailable Unavailable Brenner, A Christopher MD Unavailable Unavailable Brenner, A Christopher MD Unavailable Unavailable Brenner, A Christopher MD Unavailable Unavailable Brenner, A Christopher MD Unavailable Unavailable Brenner, A Christopher MD Unavailable Unavailable Brenner, A Christopher MD Unavailable Unavailable MargaritoBrandon MD Unavailable Unavailable Re-disclosure Warning The records that you are about to access may contain information from federally-assisted alcohol or drug abuse programs. If such information is present, then the following federally mandated warning applies: This information has been disclosed to you from records protected by federal confidentiality rules (42 CFR part 2). The federal rules prohibit you from making any further disclosure of this information unless further disclosure is expressly permitted by the written consent of the person to whom it pertains or as otherwise permitted by 42 CFR part 2. A general authorization for the release of medical or other information is NOT sufficient for this purpose. The Federal rules restrict any use of the information to criminally investigate or prosecute any alcohol or drug abuse patient.The records that you are about to access may contain highly sensitive health information, the redisclosure of which is protected by Article 27-F of the [facility] Public Health law. If you continue you may have access to information: Regarding HIV / AIDS; Provided by facilities licensed or operated by the [facility] Office of Mental Health; or Provided by the [facility] Office for People With Developmental Disabilities. If such information is present, then the following [facility] mandated warning applies: This information has been disclosed to you from confidential records which are protected by state law. State law prohibits you from making any further disclosure of this information without the specific written consent of the person to whom it pertains, or as otherwise permitted by law. Any unauthorized further disclosure in violation of state law may result in a fine or mcfp sentence or both. A general authorization for the release of medical or other information is NOT sufficient authorization for further disc losure. Advance Directives Directive Description Ctc Operator Vice Chancellor Status Observation Descr iption Data Source(s) COVID Screening Performed completed COVI D Screening [facility] Allergies and Adverse Reactions Type Description Substance Reaction Status Data Source(s ) Propensity to adverse reactions [facility] Family History Family Member Name Family Member Gender Family Member Status Date o f Status Description Data Source(s) Unknown Unknown Problem [facility] ([facility]) Unknown Unknown Problem [facility] ([facility]) Unknown Unknown Problem [facility] ([facility]) Unknown Female Encounters Encounter Providers Location Date Indications Data Source(s ) Outpatient Attender: Rob Gutiérrez DO 04/17/2021 04:57 :00 PM EDT 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 [facility] Outpatient Attender: Rob Gutiérrez DO 04/17/2021 02:00 :00 PM EDT Lab [facility] <td ID="encounterTypeDescriptionID0">Acu te L3</td><td>Rob Gutiérrez DO</td><td>[facility]</td><td>04/17/2021</td><td>1:10PM</td><td>1:54PM</td><td><content ID="encounterDiagnosisID0-0">Hydrocephalus Normal Pressure</content>, <content ID="encounterDiagnosisID0-1">Diabetes Mellitus Type 2</content>, <content ID="encounterDiagnosisID0-2">Lethargy</content>, <content ID="encounterDiagnosisID0-3">Fatigue</content></td>Outpatient Attender: Rob Gutiérrez DO [facility] 04/17/2021 01:10:00 PM EDT - 04/17/2021 01:54:47 PM EDT FatigueLethargyDiabetes Mellitus Type 2Hydrocephalus N ormal Pressure [facility] ([facility]) Fatigue Lethargy Diabetes Mellitus Type 2 Hydrocephalus Normal Pressure Outpatient Attender: Rob Gutiérrez DO 02/18/2021 12:02 :00 PM EDT pullab [facility] pullab Outpatient Attender: Christopher Brenner MDReferrer: Gracia MEREDITH [id number] 02/06/2021 12:00:00 AM EDT Hydrocephalus, unspecified [facility] Hydrocephalus, unspecified Outpatient Attender: Chet MEREDITH [id number] 01/07/2021 12:00:0 0 AM EDT [facility] Outpatient Referrer: Chet MEREDITH 01/07/2021 12 :00:00 AM EDT Fracture of unspecified part of neck of left femur, initial encounter for closed fracture [facility] Fracture of unspecified part of neck of left femur, initial encounter for closed fracture Inpatient Attender: JOSIE Amin DAttender: BRYAN RUFF MDAttender: ANTONIO CASTANEDA MDAttender: MEHDI AMES MDAdmitter: JOSIE HUI MDReferrer: Javier Corral [id number] 12/18/2020 12:00:00 AM EDT - 12/21/2020 04:45:00 PM EDT Shunt; failure to thrive; Headache [facility] Shunt; failure to thrive; Headache Patient discharged. Outpatient Attender: Gracia MEREDITH [id number] 12:00:00 AM EDT - 2020 04:16:51 PM EDT [facility] Outpatient Attender: Rob Gutiérrez DO 11/29/2020 03:02:00 PM EDT R10.9 Abd pain. 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 PEG and STERILE PREPARATION TECHNICIAN shunt placeme nt Outpatient Attender: Rob Gutiérrez DO 11/21/2020 03:26 :00 PM EDT Lab [facility] Outpatient<td ID="encounterTypeDescripti onID0">Acute L3</td><td>Rob Dianna Gutiérrez DO</td><td>[facility]</td><td>11/21/2020</td><td>1:45PM</td><td>3:28PM</td><td><content ID="encounterDiagnosisID0-0">Hydrocephalus Normal Pressure</content>, <content ID="encounterDiagnosisID0-1">Abdominal Pain</content></td> Attender: Rob Gutiérrez DO [facility] 11/21/2020 01:45:00 PM EDT - 11/21/2020 03:28:11 PM EDT Abdominal PainHydrocephalus Normal Pressure [facility] ( [facility]) Abdominal Pain Hydrocephalus Normal Pressure Outpatient Attender: Ravinder Pimentel MD 10/15/2020 01:0 4:00 PM EDT G91.0 communic hyrocephalus, G91.9 hyrdocephalus [facility] G91.0 communic hyrocephalus, G91.9 hyrdo cephalus Outpatient Attender: Ravinder Pimentel MD 10/10/2020 11:32:00 A M EDT lab 1 of 1 [facility] lab 1 of 1 Outpatient Attender: HOLDEN DURAN [facility] 07/05 02:30:00 PM EST [facility] ([facility] Outpatient<td ID="encounterTypeDescripti onID0">Primary Care Telehealth Qliq</td><td>Rob Gutiérrez DO</td><td>[facility]</td><td>06/20/2020</td><td><content ID="encounterDiagnosisID0- 0">Diabetes Mellitus Type 2</content>, <content ID="encounterDiagnosisID0- 1">Hydrocephalus Normal Pressure</content>, <content ID="encounterDiagnosisID0-2">Hypertension (systemic)</content></td> Attender: Rob Gutiérrez [facility] 06/20/2020 03:50:00 PM EST - 06/20/2020 11:59:00 PM EST Diabetes Mellitus Type 2Hypertension (sy stemic)Hydrocephalus Normal Pressure [facility] ([facility]) Diabetes Mellitus Type 2 Hypertension (systemic) Hydrocephalus Normal Pressure Outpatient Attender: Rob Gutiérrez DO 06/20/2020 11:21 :00 AM EST Lab [facility] <td ID="encounterTypeDescriptionID1">Lab Order</td><td>Rob Gutiérrez DO</td><td></td><td>06/20/2020</td><td></td>Obstetrics Attender: Rob Gutiérrez DO 06/20/2020 09:26:00 AM EST - 06/20/2020 11:59:00 PM EST [facility] ([facility]) Outpatient Attender: Ravinder Pimentel MD 05/08/2020 11:49:00 A M EST Lab [facility] <td ID="encounterTypeDescriptionID2">Cor respondence</td><td>Rob Gutiérrez DO</td><td></td><td>04/02/2020</td><td></td>Unknown Attender: Rob Gutiérrez DO 04/02/2020 01:48:00 PM EDT - 04/02/2020 11:59:00 PM EDT [facility] ([facility]) Unknown<td ID="encounterTypeDescriptionI D3">Referral Order</td><td>Rob Gutiérrez DO</td><td></td><td>03/29/2020</td><td></td> Attender: Rob Gutiérrez DO 03/29/2020 11:47:00 AM EDT - 03/29/2020 11:59:00 PM EDT [facility]) Outpatient Attender: Rob Gutiérrez DO 03/29/2020 11:41 :00 AM EDT Lab [facility] Obstetrics<td ID="encounterTypeDescripti onID4">Lab Order</td><td>Rob Gutiérrez DO</td><td></td><td>03/29/2020</td><td></td> Attender: Rob Gutiérrez DO 03/29/2020 10:38:00 AM EDT - 03/29/2020 11:59:00 PM EDT [facility] ([facility]) Obstetrics<td ID="encounterTypeDescripti onID5">Lab Order</td><td>Rob Gutiérrez DO</td><td></td><td>03/15/2020</td><td></td> Attender: Rob Gutiérrez DO 03/15/2020 08:43:00 AM EDT - 03/15/2020 11:59:00 PM EDT [facility]) Outpatient Attender: Rob Gutiérrez DO 03/13/2020 11:17 :00 AM EDT Lab [facility] <td ID="encounterTypeDescriptionID6">Acu te Follow-up Telephonic</td><td>Rob Gutiérrez DO</td><td></td><td>03/07/2020</td><td><content ID="encounterDiagnosisID6-0">Diabetes Mellitus Type 2</content>, <content ID="encounterDiagnosisID6-1">Hydrocephalus Normal Pressure</content>, <content ID="encounterDiagnosisID6-2">Hypertension (systemic)</content>, <content ID="encounterDiagnosisID6-3">Hyperlipidemia</content>, <content ID="encounterDiagnosisID6-4">Leukocytosis</content></td>Outpatient Attender: Rob Gutiérrez DO 03/07/2020 01:02:00 PM EDT - 03/07/2020 11:59:00 PM EDT LeukocytosisLeukocytosisDiabetes Mellitus Type 2Diabetes Mellitus Type 2HyperlipidemiaHyperlipidemiaHypertension (systemic)Hydrocephalus Normal PressureHypertension (systemic)Hydrocephalus Normal Pressure [facility] ([facility]) Leukocytosis Leukocytosis Diabetes Mellitus Type 2 Diabetes Mellitus Type 2 Hyperlipidemia Hyperlipidemia Hypertension (systemic) Hydrocephalus Normal Pressure Hypertension (systemic) Hydrocephalus Normal Pressure Obstetrics<td ID="encounterTypeDescripti onID7">Lab Order</td><td>Rob Gutiérrez DO</td><td></td><td>03/07/2020</td><td></td> Attender: Rob Gutiérrez DO 03/07/2020 11:49:00 AM EDT - 03/07/2020 11:59:00 PM [facility]<td ID="encounterTypeDescriptionI D8">Referral Order</td><td>Rob Gutiérrez DO</td><td></td><td>03/06/2020</td><td></td> Attender: Rob Gutiérrez DO 03/06/2020 01:35:00 PM EDT - 03/06/2020 11:59:00 PM EDT [facility] Outpatient Attender: Rob Gutiérrez DO 03/06/2020 01:20:00 PM EDT STAT- D72.829 Elevated White blood count [facility] STAT-D72.829 Elevated White blood count Outpatient<td ID="encounterTypeDescripti onID9">Acute Telehealth Qliq</td><td>Rob Gutiérrez DO</td><td>[facility]</td><td>03/04/2020</td><td><content ID="encounterDiagnosisID9-0"> Diabetes Mellitus Type 2</content>, <content ID="encounterDiagnosisID9- 1">Hydrocephalus Normal Pressure</content>, <content ID="encounterDiagnosisID9- 2">Hypertension (systemic)</content>, <content ID="encounterDiagnosisID9- 3">Hyperlipidemia</content>, <content ID="encounterDiagnosisID9-4">Leukocytosis</content></td> Attender: Rob Gutiérrez DO [facility] 03/04/2020 03:20:00 PM EDT - 03/04/2020 05:00:00 PM EDT LeukocytosisLeukocytosisLeukocytosisDiab etes Mellitus Type 2Diabetes Mellitus Type 2Diabetes Mellitus Type 2HyperlipidemiaHyperlipidemiaHyperlipidemiaHypertension (systemic)Hydrocephalus Normal PressureHypertension (systemic)Hydrocephalus Normal PressureHypertension (systemic)Hydrocephalus Normal Pressure [facility] ([facility]) Leukocytosis Leukocytosis Leukocytosis Diabetes Mellitus Type 2 Diabetes Mellitus Type 2 Diabetes Mellitus Type 2 Hyperlipidemia Hyperlipidemia Hyperlipidemia Hypertension (systemic) Hydrocephalus Normal Pressure Hypertension (systemic) Hydrocephalus Normal Pressure Hypertension (systemic) Hydrocephalus Normal Pressure Outpatient<td ID="encounterTypeDescripti onID10">Primary Care Telehealth Zoom</td><td>Lobito Skip Lee DO</td><td>[facility]</td><td>03/02/2020</td><td><content ID="ecdbefzhuCzxmgfvluNA37-6">Cellulitis</content></td> Attender: Lobito Lee DO [facility] 03/02/2020 12:03:00 PM EDT - 03/02/2020 12:38:00 PM EDT CellulitisCellulitisCellulitisCellulitis [facility] ([facility]) Cellulitis Cellulitis Cellulitis Cellulitis Outpatient Attender: Rob Gutiérrez DO 03/01/2020 11:32 :00 AM EDT Lab [facility] Outpatient Attender: Rob Gutiérrez DO 02/27/2020 02:05 :00 AM EDT 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 COVID-19 VACCINE Moderna 08/07/2020 12:00:00 AM EST completed [facility] Vaccine Series Complete: NOThis Data was Submitted to [facility] Via [employer]. IIV3. This is one of two codes replacing CVX 15, which is being retired. 06/20/2020 02:29:00 PM EST completed <td ID="Cfvfglbnvxpvj-Vgzhpocrmhf-AF7">Influenza, seasonal, injectable</td><td ID="ImmunizationDose-6">3</td><td>06/20/2020</td><td ID="Jimvfsocxvbuh-ArqepNisj-WH0">Right Deltoid</td><td></td><td ID="Frkfongkofnba-Ldwkxc-VO4">Complete (Administered)</td><td>[facility]td><td ID="Omfzivbvmhgfa-Gtsbn-Ougd-Comment-ID6"></td> [facility] Medications Medication Brand Name Start Date Product Form Dose Route Admi nistrative Instructions Pharmacy Instructions Status Indications Reaction Description Data Source(s) 25 mg 03/27/2021 12:00:00 AM EDT tablet 90 TAKE ONE TABLET BY MOUTH EVERY DAY TAKE ONE TABLET BY MOUTH EVERY DAY SOLD: 04/02/2021 [facility] 500 mg 02/14/2021 12:00:00 AM EDT tablet 90 TAKE ONE TABLET BY MOUTH EVERY DAY TAKE ONE TABLET BY MOUTH EVERY DAY SOLD: 02/20/2021 [facility] Metformin hydrochloride 500 MG Oral Tablet metFORMIN H Cl 500 MG Oral Tablet metFORMIN HCl 500 MG Oral Tablet 02/13/2021 12:00:00 AM EDT 1 active metformin hydrochloride 500 MG Oral Tablet [facility] Losartan Potassium 25 MG Oral Tablet Losartan Potassium 25 M G Oral Tablet 02/13/2021 12:00:00 AM EDT 1 active losartan potassium 25 MG Oral Tablet [facility] Amlodipine 5 MG Oral Tablet amlodipine (NORVASC) table t 5 mg amlodipine (NORVASC) tablet 5 mg 12/21/2020 09:00:00 AM EDT 5 mg Oral active 5 mg, Oral, Daily Standard, First dose on Wed12/21/20 at 0900, For 30 days
Check vital signs before administering
[facility] Medication administered onsite heparin (porcine) 5000 UNIT/ML injection 5,000 Units [id number] 12/20/2020 09:00:00 PM EDT 5000 U Subcutaneous active 5,000 Units, Subcutaneous, 2 Times Daily, First dose on Wed12/20/20 at 2100, For 30 days [facility] Medication administered onsite insulin lispro (HumaLOG) injection LOW DOSE EATING INS ULIN patients 1-8 Units [id number] 12/20/2020 08:00:00 AM EDT U Subcutaneous active 1-8 Units, Subcutaneous, Three Times Daily-With Meals, First dose on Wed12/20/20 at 0800, For 30 days
Nursing MUST open the 'SQ Insulin Dosing Charts' Sidebar Report, or, the Patient Summary or Summary Report within the ED.
[facility] Medication administered onsite NaCl infusion 0.9 % 12/19/2020 03:30:00 PM EDT Intravenous aborted at 75 mL/hr, Intrave nous, Continuous, Starting on Wed12/19/20 at 1530, For 12 hours [facility] Medication administered onsite Losartan Potassium 25 MG Oral Tablet losartan (COZAAR) tablet 25 mg losartan (COZAAR) tablet 25 mg 12/19/2020 09:00:00 AM EDT 25 mg Oral active 25 mg, Oral, Every morning, First dose on Wed12/19/20 at 0900, For 30 days
Check vital signs before administering
[facility] Medication administered onsite NaCl infusion 0.9 % 12/19/2020 01:30:00 AM EDT Intravenous completed at 75 mL/hr, Intrave nous, Continuous, Starting on Wed12/19/20 at 0130, For 12 hours [facility] Medication administered onsite Famotidine 20 MG Oral Tablet famotidine (PEPCID) table t 20 mg famotidine (PEPCID) tablet 20 mg 12/19/2020 01:30:00 AM EDT 20 mg Oral active 20 mg, Oral, Daily Standard, First dose on Wed12/19/20 at 0130, For 30 days [facility] Medication administered onsite Acetaminophen 325 MG Oral Tablet acetaminophen (TYLENO L) tablet 650 mg acetaminophen (TYLENOL) tablet 650 mg 12/18/2020 11:37:57 PM EDT 65 0 mg Oral active 650 mg, Oral, E very 4 hours PRN, Mild Pain (Pain Scale Score 1- 3), Starting on Wed12/18/20 at 2337, For 30 days
Maximum daily dose of acetaminophen is 3,000 mg from all sources in 24 hours.
[facility] Medication administered onsite Glucose 0.417 MG/MG Oral Gel glucose (GLUTOSE) 40 % or al gel 15 g glucose (GLUTOSE) 40 % oral gel 15 g 12/18/2020 11:32:53 PM EDT 15 g Oral active 15 g, Oral, PRN, Low blood s ugar, for gluose 55-69 mg/dl and able to take PO, Starting on Wed12/18/20 at 2332, For 30 days [facility] Medication administered onsite Glucagon 1 MG Injection glucagon (human recombinant) ( GLUCAGEN) injection 1 mg glucagon (human recombinant) (GLUCAGEN) injection 1 mg 12/18/2020 11:32:53 PM EDT 1 mg Intramuscular active 1 mg, Intramuscular, PRN, for glucose <55 without IV access, Starting on Wed12/18/20 at 2332, For 30 days [facility] Medication administered onsite dextrose 50 % IV solution 25 mL [id number] 12/18/2020 11:32:53 PM E DT 25 mL Intravenous active 25 mL, Intrav enous, PRN, Other, blood glucose <55, Starting on Wed12/18/20 at 2332, For 30 days
Not for midline administration.
[facility] Medication administered onsite lactated ringers bolus 1,000 mL [id number] 12/18/2020 06:15:00 PM EDT 1000 mL Intravenous completed 1,000 mL , Intravenous, Once, On Wed12/18/20 at 1815, For 1 dose [facility] Medication administered onsite 2 % 09/10/2020 12:00:00 AM EST ointment 22 APPLY TO AFFECTED AREA(S) TWO TIMES A DAY AROUND G-TUBE APPLY TO AFFECTED AREA(S) TWO TIMES A DA Y AROUND G-TUBE SOLD: 02/07/2021 [facility] 2 % 09/10/2020 12:00:00 AM EST ointment 22 APPLY TO AFFECTED AREA(S) TWO TIMES A DAY AROUND G-TUBE APPLY TO AFFECTED AREA(S) TWO TIMES A DA Y AROUND G-TUBE SOLD: 09/14/2020 [facility] Mupirocin 0.02 MG/MG Topical Ointment Mupirocin 2% Ext ernal Ointment Mupirocin 2% External Ointment 09/09/2020 12:00:00 AM EST completed mupirocin 0.02 MG/MG Topical Ointment [facility] ([facility]) BLOOD SUGAR DIAGNOSTIC 08/14/2020 12:00:00 AM EST strip 100 TEST BLOOD GLUCOSE FOUR TIMES A DAY DIRECTED TEST BLOOD GLUCOSE FOUR TIMES A DAY DIRECTED SOLD: 01/13/2021 [facility] 33 gauge 08/14/2020 12:00:00 AM EST misc 100 TEST BLOOD GLUCOSE FOUR TIMES A DAY DIRECTED TEST BLOOD GLUCOSE FOUR TIMES A DAY DIRECTED SOLD: 01/13/2021 [facility] 33 gauge 08/14/2020 12:00:00 AM EST misc 100 TEST BLOOD GLUCOSE FOUR TIMES A DAY DIRECTED TEST BLOOD GLUCOSE FOUR TIMES A DAY DIRECTED SOLD: 08/16/2020 [facility] 33 gauge 08/14/2020 12:00:00 AM EST misc 100 TEST BLOOD GLUCOSE FOUR TIMES A DAY DIRECTED TEST BLOOD GLUCOSE FOUR TIMES A DAY DIRECTED SOLD: 11/30/2020 [facility] BLOOD SUGAR DIAGNOSTIC 08/14/2020 12:00:00 AM EST strip 100 TEST BLOOD GLUCOSE FOUR TIMES A DAY DIRECTED TEST BLOOD GLUCOSE FOUR TIMES A DAY DIRECTED SOLD: 04/15/2021 [facility] BLOOD SUGAR DIAGNOSTIC 08/14/2020 12:00:00 AM EST strip 100 TEST BLOOD GLUCOSE FOUR TIMES A DAY DIRECTED TEST BLOOD GLUCOSE FOUR TIMES A DAY DIRECTED SOLD: 08/16/2020 [facility] Lancets Miscellaneous Lancets Miscellaneous 08/13/2020 12:00:00 AM EST active Lancets [facility] ([facility] OneTouch Verio In Vitro Strip OneTouch Verio In Vitro Strip 08/13/2020 12:00:00 AM EST active OneTouch Verio GR [facility] ([facility]) BLOOD SUGAR DIAGNOSTIC 05/22/2020 12:00:00 AM EST strip 100 USE TO TEST BLOOD SUGAR FOUR TIMES A DAY DIRECTED USE TO TEST BLOOD SUGAR FOUR TIMES A DAY DIRECTED SOLD: 06/04/2020 [facility] OneTouch Verio In Vitro Strip OneTouch Verio In Vitro Strip 05/21/2020 12:00:00 AM EST active OneTouch Verio GR [facility] ([facility]) 2 % 03/08/2020 12:00:00 AM EDT ointment 22 APPLY TO AFFECTED AREA AROUND G- TUBE TWO TIMES A DAY APPLY TO AFFECTED AREA AROUND G-TUBE TWO TIMES A DAY S OLD: 06/12/2020 [facility] 2 % 03/08/2020 12:00:00 AM EDT ointment 22 APPLY TO AFFECTED AREA AROUND G- TUBE TWO TIMES A DAY APPLY TO AFFECTED AREA AROUND G-TUBE TWO TIMES A DAY S OLD: 07/13/2020 [facility] 2 % 03/08/2020 12:00:00 AM EDT ointment 22 APPLY TO AFFECTED AREA AROUND G- TUBE TWO TIMES A DAY APPLY TO AFFECTED AREA AROUND G-TUBE TWO TIMES A DAY S OLD: 03/08/2020 [facility] 2 % 03/08/2020 12:00:00 AM EDT ointment 22 APPLY TO AFFECTED AREA AROUND G- TUBE TWO TIMES A DAY APPLY TO AFFECTED AREA AROUND G-TUBE TWO TIMES A DAY S OLD: 05/11/2020 [facility] 2 % 03/08/2020 12:00:00 AM EDT ointment 22 APPLY TO AFFECTED AREA AROUND G- TUBE TWO TIMES A DAY APPLY TO AFFECTED AREA AROUND G-TUBE TWO TIMES A DAY S OLD: 04/08/2020 [facility] 2 % 03/08/2020 12:00:00 AM EDT ointment 22 APPLY TO AFFECTED AREA AROUND G- TUBE TWO TIMES A DAY APPLY TO AFFECTED AREA AROUND G-TUBE TWO TIMES A DAY S OLD: 08/12/2020 [facility] Mupirocin 0.02 MG/MG Topical Ointment Mupirocin 2% Ext ernal Ointment Mupirocin 2% External Ointment 03/07/2020 12:00:00 AM EDT active mupirocin 0.02 MG/MG Topical Ointment [facility] ([facility]) 25 mg 03/02/2020 12:00:00 AM EDT tablet 90 TAKE ONE TABLET BY MOUTH EVERY DAY TAKE ONE TABLET BY MOUTH EVERY DAY SOLD: 09/30/2020 [facility] 25 mg 03/02/2020 12:00:00 AM EDT tablet 90 TAKE ONE TABLET BY MOUTH EVERY DAY TAKE ONE TABLET BY MOUTH EVERY DAY SOLD: 06/29/2020 [facility] 25 mg 03/02/2020 12:00:00 AM EDT tablet 90 TAKE ONE TABLET BY MOUTH EVERY DAY TAKE ONE TABLET BY MOUTH EVERY DAY SOLD: 12/30/2020 [facility] 25 mg 03/02/2020 12:00:00 AM EDT tablet 90 TAKE ONE TABLET BY MOUTH EVERY DAY TAKE ONE TABLET BY MOUTH EVERY DAY SOLD: 03/02/2020 [facility] Acetaminophen 325 MG Oral Tablet Acetaminophen 325 MG Oral T ablet 03/02/2020 12:00:00 AM EDT active acetamin ophen 325 MG Oral Tablet [facility] ([facility]) doxycycline hyclate 100 MG Oral Capsule Doxycycline Hy clate 100 MG Oral Capsule Doxycycline Hyclate 100 MG Oral Capsule 02/22/2020 12:00:00 AM EDT 1 aborted doxycycline hyclate 100 MG Oral Capsule [facility] ([facility]) 33 gauge 05/16/2019 12:00:00 AM EST misc 100 TEST FOUR TIMES A DAY TEST FOUR TIMES A DAY SOLD: 04/27/2020 [facility] OneTouch Verio In Vitro Strip OneTouch Verio In Vitro Strip 05/16/2019 12:00:00 AM EST aborted OneTouch Verio [facility] ([facility]) BLOOD SUGAR DIAGNOSTIC 05/16/2019 12:00:00 AM EST strip 100 TEST FOUR TIMES A DAY TEST FOUR TIMES A DAY SOLD: 02/23/2020 [facility] 0.4 ML Enoxaparin sodium 100 MG/ML Prefi lled Syringe [Lovenox] Lovenox 40 MG/0.4ML Subcutaneous Solution Lovenox 40 MG/0.4ML Subcutaneous Solution 04/27/2019 12:00:00 AM EDT 1 aborted 0.4 ML enoxaparin sodium 100 MG/ML Prefilled Syringe [Lovenox] [facility] Metformin hydrochloride 500 MG Oral Tablet METFORMIN HCL 04/18/2019 12:00:00 AM EDT tablet 60 TAKE ONE TABLET BY MOUTH TWI CE A DAY TAKE ONE TABLET BY MOUTH TWICE A DAY SOLD: 04/08/2020 [facility] 500 mg 04/18/2019 12:00:00 AM EDT tablet 60 TAKE ONE TABLET BY MOUTH TWICE A DAY TAKE ONE TABLET BY MOUTH TWICE A DAY SOLD: 03/02/2020 [facility] Acetaminophen 325 MG Oral Tablet Acetaminophen 325MG O ral Tablet Acetaminophen 325MG Oral Tablet 12/27/2018 12:00:00 AM EDT aborted acetaminophen 325 MG Oral Tablet [facility] ([facility]) Levetiracetam 1000 MG Oral Tablet levetiracetam (KEPPR A) 1000 MG tablet levetiracetam (KEPPRA) 1000 MG tablet 12/07/2018 12:00:00 AM EDT 10 00 mg Oral aborted Take 1 tablet by mouth Tw o Times Daily [facility] Diphenhydramine Hydrochloride 25 MG Oral Capsule diphenhydrAMINE (BENADRYL) 25 mg capsule diphenhydrAMINE (BENADRYL) 25 mg capsule 25 mg Oral aborted Take 25 mg by mouth nightly as needed [facility] Cefuroxime 250 MG Oral Tablet cefUROXime (CEFTIN) 250 MG tablet cefUROXime (CEFTIN) 250 MG tablet 500 mg Oral aborted Take 500 mg by mouth every 12 (twelve) hours For 10 days. Started 12/02/18 [facility] Hydralazine Hydrochloride 25 MG Oral Tab let hydrALAZINE (APRESOLINE) 25 MG tablet hydrALAZINE (APRESOLINE) 25 MG tablet 75 mg Oral aborted Take 75 mg by mouth every 8 (eight) hours [facility] Amlodipine 10 MG Oral Tablet amlodipine (NORVASC) 10 M G tablet amlodipine (NORVASC) 10 MG tablet 10 mg Oral aborted Take 10 mg by mouth every morning [facility] 24 HR Metformin hydrochloride 500 MG Ext ended Release Oral Tablet metformin (GLUCOPHAGE-XR) 500 MG 24 hr tablet metformin (GLUCOPHAGE-XR) 500 MG 24 hr tablet 500 mg Oral aborted Take 500 mg by m outh daily [facility] diphenhydrAMINE-APAP, sleep, (TYLENOL PM EXTRA STRENGTH PO) 500 mg Oral aborted Take 500 mg by mouth nightly [facility] Insurance Providers Payer name Policy type / Coverage type Policy ID Covered libertarian ID Covered libertarian's relationship to vazquez Policy Vazquez Plan Information BLUE CROSS [id number] SP [id number] BCBS GENERIC C [id number] Self NUAA [id number] [facility] Other 0 [id number] Self 0 BLUE CROSS [id number] SP [id number] [employer] of [facility] Other 0 [id number] Self 0 [employer] [facility] Other 0 [id number] Self 0 EXCELLUS C [id number] Self [id number] BLUE CROSS [id number] SP [id number] BLUE CROSS [id number] SP [id number] Medicare [place] Other 0 [id number] Self 0 MEDICARE A [id number] Self [id number] A BLUE CROSS [id number] SP [id number] [place] Other 0 [id number] Self 0 MEDICARE A [id number] Self [id number] Medicare [place] Other 0 [id number] Self 0 Medicare [place] Other 0 [id number] Self 0 Medicare [place] Other 0 [id number] Self 0 Medicare [place] Other 0 [id number] Self 0 Medicare [place] Other 0 [id number] Self 0 Medicare [place] Other 0 [id number] Self 0 [place] Other 0 [id number] Self 0 [place] Other 0 [id number] Self 0 Medicare [place] Other 0 [id number] Self 0 Medicare [place] Other 0 [id number] Self 0 [place] Other 0 [id number] Self 0 Medicare [place] Other 0 [id number] Self 0 Medicare [place] Other 0 [id number] Self 0 [place] Other 0 [id number] Self 0 Medicare [place] Other 0 [id number] Self 0 Medicare [place] Other 0 [id number] Self 0 Medicare [place] Other 0 [id number] Self 0 Medicare Part [place] Other 0 [id number] Self 0 Medicare Part [place] Other 0 [id number] Self 0 Medicare [place] Other 0 [id number] Self 0 MEDICARE [id number] SP [id number] MEDICARE [id number] SP [id number] A Medicare [place] Other 0 [id number] Self 0 Medicare Part [place] of [place] Other 0 [id number] Self 0 AARP HEALTHCARE OPTIONS [id number] SP [id number] AARP U [id number] Self [id number] AARP U [id number] Self [id number] AARP U [id number] Self [id number] MEDICARE [id number] SP [id number] W67 AARP HE[employer]CARE OPTIONS [id number] SP [id number] SELF PAY SELF PAY AARP HE[employer]CARE OPTIONS [id number] SP [id number] MEDICARE [id number] SP [id number] W67 A[employer] OPTIONS [id number] SP [id number] MEDICARE [id number] SP [id number] W67 SELF PAY AARP HE[employer]CARE OPTIONS [id number] SP [id number] SELF PAY MEDICARE [id number] SP [id number] W67 MEDICARE [id number] SP [id number] W67 SELF PAY A[employer] HE[employer] OPTIONS [id number] SP [id number] MEDICARE [id number] SP [id number] W67 SELF PAY A[employer] OPTIONS [id number] SP [id number] MEDICARE [id number] SP [id number] W67 SELF PAY A[employer] HE[employer] OPTIONS [id number] SP [id number] SELF PAY MEDICARE [id number] SP [id number] W67 A[employer] OPTIONS [id number] SP [id number] A[employer] OPTIONS [id number] SP [id number] MEDICARE [id number] SP [id number] W67 SELF PAY SELF PAY [employer] OPTIONS [id number] SP [id number] MEDICARE [id number] SP [id number] W67 SELF PAY [employer] OPTIONS [id number] SP [id number] MEDICARE [id number] SP [id number] W67 SELF PAY [employer] OPTIONS [id number] SP [id number] MEDICARE [id number] SP [id number] W67 SELF PAY MEDICARE [id number] SP [id number] W67 A[employer] OPTIONS [id number] SP [id number] [employer] OPTIONS [id number] SP [id number] SELF PAY MEDICARE [id number] SP [id number] W67 SELF PAY [employer] OPTIONS [id number] SP [id number] MEDICARE [id number] SP [id number] W67 [employer] OPTIONS [id number] SP [id number] MEDICARE [id number] SP [id number] W67 SELF PAY A[employer] OPTIONS [id number] SP [id number] MEDICARE [id number] SP [id number] W67 SELF PAY [employer] OPTIONS [id number] SP [id number] MEDICARE [id number] SP [id number] W67 SELF PAY [employer] OPTIONS [id number] SP [id number] MEDICARE [id number] SP [id number] W67 SELF PAY SELF PAY A[employer] OPTIONS [id number] SP [id number] MEDICARE [id number] SP [id number] W67 A[employer] OPTIONS [id number] SP [id number] MEDICARE [id number] SP [id number] W67 SELF PAY SELF PAY MEDICARE [id number] SP [id number] W67 [employer] OPTIONS [id number] SP [id number] MEDICARE [id number] SP [id number] W67 SELF PAY [employer] OPTIONS [id number] SP [id number] SELF PAY [employer] OPTIONS [id number] SP [id number] MEDICARE [id number] SP [id number] W67 A[employer] OPTIONS [id number] SP [id number] SELF PAY MEDICARE [id number] SP [id number] W67 [employer] OPTIONS [id number] SP [id number] MEDICARE [id number] SP [id number] W67 SELF PAY MEDICARE [id number] SP [id number] MEDICARE [id number] SP [id number] EXCELLUS BCBS B [id number] S NUA [id number] BCBS OF [place] WATN [id number] SP [id number] SELF PAY ONLY UNAVAILABLE UNAV AILABLE BCBS ANTHEM IN 130/630 [id number] SP [id number] BCBS/Blue Card Commercial [id number] Self BS [place] Commercial [id number] Self AARP HE[employer] CARE OPTIONS [id number] SP [id number] [facility] HMO BLUEPOINT O [id number] S [id number] ANTHEM B C B S O [id number] S NU [id number] BS ANTHEM [place] O [id number] NU [id number] [facility] HMO [employer] O [id number] S [id number] MEDICARE [id number] SP [id number] A UNAVAILABLE UNAVAILA BLE MEDICARE [id number] SP [id number] A Medicare Part A of [facility] [employer] Other 0 [id number] Self 0 Medicare Part A of [facility] [employer] Other 0 [id number] Self 0 Medicare Part A of [facility] [employer] Other 0 [id number] Self 0 MEDICARE C [id number] S [id number] AARP O [id number] S [id number] MEDICARE [id number] SP [id number] W67 MEDICARE C [id number] S [id number] A Problems, Conditions, and Diagnoses Code Display Name Description Problem Type Effective Dates Data Source(s) G91.2 (Idiopathic) normal pressure hydrocephal G91.2 - (Idiopathic) normal pressure hydrocephalus Diagnosis 04/17/2021 04:57:00 PM EDT [facility] lt R53.83 Other fatigue R53.83 - Other fatigue Diagnosis 04/04 04:57:00 PM EDT [facility] I10 Essential (primary) hypertension I10 - Essential (primary) hypertension Diagnosis 02/18/2021 12:02:00 PM EDT [facility] S72.002A Fracture of unspecified part of neck of left femur, initial encounter for closed fracture Fracture of unspecified part of neck of left femur, initial encounter for closed fracture Diagnosis 01/07/2021 11:22:11 AM EDT [facility] G91.9 Hydrocephalus, unspecified Hydrocephalus, unspecified Diagnosis 12/19/2020 11:10:09 AM EDT [facility] Shunt; failure to thrive; Headache Shunt; failur e to thrive; Headache Diagnosis 12/18/2020 03:26:00 PM EDT [facility] E11.9 Type 2 diabetes mellitus without complic ations E11.9 - Type 2 diabetes mellitus without complications Diagnosis 11/21/2020 03:26:00 PM EDT [facility] E78.5 Hyperlipidemia, unspecified E78.5 - Hyperlipidemia, un specified Diagnosis 06/20/2020 11:21:00 AM EST [facility] D72.829 Elevated white blood cell count, unspeci fied D72.829 - Elevated white blood cell count, unspecified Diagnosis 03/13/2020 11:17:00 AM EDT [facility] R32 Unspecified urinary incontinence R32 - Unspecifi ed urinary incontinence Diagnosis 02/27/2020 02:05:00 AM [facility] Sur[facility]Proced[facility] Procedure Description Date Indications Data Source(s) Summary provided electronically in CCDA format & reasonable certainty of receipt 04/17/2021 12:00:00 AM EDT - 04/17/2021 12:00:00 AM EDT [facility] ([facility]) Clinical summary provided to patient 12:00:00 AM EDT - 04/17/2021 12:00:00 AM EDT [facility] ([facility]) Clinical summary provided to patient 12:00:00 AM EDT - 04/17/2021 12:00:00 AM EDT [facility] medical regimen review 04/17/2021 12:00: 00 AM EDT - 04/17/2021 12:00:00 AM EDT [facility] ([facility]) Transition in care medication list update 04/17/2021 12:00:00 AM EDT - 04/17/2021 12:00:00 AM EDT [facility] ([facility]) continue current medication except where otherwise noted 04/17/2021 12:00:00 AM EDT - 04/17/2021 12:00:00 AM EDT [facility] POCT GLUCOSE, DOCKED <td>POCT GLUCOSE, DOCKED</td ><td>Routine</td><td>12/21/2020 11:59 AM EDT</td><td></td><td> </td> 12/21/2020 11:59:00 AM [facility] POCT GLUCOSE, DOCKED <td>POCT GLUCOSE, DOCKED</td ><td>Routine</td><td>12/21/2020 7:13 AM EDT</td><td></td><td> </td> 12/21/2020 07:13:00 AM [facility] BASIC METABOLIC PANEL CALCIUM TOTAL <td>BASIC METABOLI C PANEL</td><td>Routine</td><td>12/21/2020 2:28 AM EDT</td><td></td><td> </td> 12/21/2020 02:28:00 AM [facility] GLUCOSE QUANTITATIVE BLOOD XCPT REAGENT STRIP <td>POCT GLUCOSE, DOCKED</td><td>Routine</td><td>12/20/2020 10:01 PM EDT</td><td></td><td> </td> 12/20/2020 10:01:00 PM [facility] GLUCOSE QUANTITATIVE BLOOD XCPT REAGENT STRIP <td>POCT GLUCOSE, DOCKED</td><td>Routine</td><td>12/20/2020 4:23 PM EDT</td><td></td><td> </td> 12/20/2020 04:23:00 PM [facility] GLUCOSE QUANTITATIVE BLOOD XCPT REAGENT STRIP <td>POCT GLUCOSE, DOCKED</td><td>Routine</td><td>12/20/2020 11:09 AM EDT</td><td></td><td> </td> 12/20/2020 11:09:00 AM [facility] GLUCOSE QUANTITATIVE BLOOD XCPT REAGENT STRIP <td>POCT GLUCOSE, DOCKED</td><td>Routine</td><td>12/20/2020 7:23 AM EDT</td><td></td><td> </td> 12/20/2020 07:23:00 AM [facility] BLOOD COUNT COMPLETE AUTO&AUTO DIFRNTL WBC COUNT <td>C BC AND DIFFERENTIAL</td><td>Routine</td><td>12/20/2020 5:33 AM EDT</td><td></td><td> </td> 12/20/2020 05:33:00 AM [facility] BASIC METABOLIC PANEL CALCIUM TOTAL <td>BASIC METABOLI C PANEL</td><td>Routine</td><td>12/20/2020 5:33 AM EDT</td><td></td><td> </td> 12/20/2020 05:33:00 AM [facility] GLUCOSE QUANTITATIVE BLOOD XCPT REAGENT STRIP <td>POCT GLUCOSE, DOCKED</td><td>Routine</td><td>12/19/2020 9:45 PM EDT</td><td></td><td> </td> 12/19/2020 09:45:00 PM [facility] SEDIMENTATION RATE RBC AUTOMATED <td>SEDIMENTATION RAT E, AUTOMATED</td><td>Routine</td><td>12/19/2020 6:37 PM EDT</td><td></td><td> </td> 12/19/2020 06:37:00 PM [facility] GLUCOSE QUANTITATIVE BLOOD XCPT REAGENT STRIP <td>POCT GLUCOSE, DOCKED</td><td>Routine</td><td>12/19/2020 6:24 PM EDT</td><td></td><td> </td> 12/19/2020 06:24:00 PM [facility] GLUCOSE QUANTITATIVE BLOOD XCPT REAGENT STRIP <td>POCT GLUCOSE, DOCKED</td><td>Routine</td><td>12/19/2020 5:09 PM EDT</td><td></td><td> </td> 12/19/2020 05:09:00 PM [facility] GLUCOSE QUANTITATIVE BLOOD XCPT REAGENT STRIP <td>POCT GLUCOSE, DOCKED</td><td>Routine</td><td>12/19/2020 12:00 PM EDT</td><td></td><td> </td> 12/19/2020 12:00:00 PM [facility] XR HIP- UNILAT, MINIMUM OF 4 VIEWS 39943 <td>XR HIP- UNILAT, MINIMUM OF 4 VIEWS 21132</td><td>Urgent</td><td>12/19/2020 10:19 AM EDT</td><td></td><td> </td> 12/19/2020 10:19:00 AM [facility] URNLS DIP STICK/TABLET REAGENT AUTO MICROSCOPY <td>URI NALYSIS WITH MICROSCOPIC</td><td>STAT</td><td>12/19/2020 9:30 AM EDT</td><td></td><td> </td> 12/19/2020 09:30:00 AM [facility] GLUCOSE QUANTITATIVE BLOOD XCPT REAGENT STRIP <td>POCT GLUCOSE, DOCKED</td><td>Routine</td><td>12/19/2020 8:48 AM EDT</td><td></td><td> </td> 12/19/2020 08:48:00 AM [facility] ECHO TTHRC R-T 2D W/WOM-MODE COMPL SPEC&COLR DOP <td>E CHOCARDIOGRAM 2D COMPLETE</td><td>Routine</td><td>12/19/2020 8:24 AM EDT</td><td></td><td> </td> 12/19/2020 08:24:10 AM [facility] TROPONIN T HIGH SENSITIVITY <td>TROPONIN T HIGH SENSITIVITY</td><td>Timed</td><td>12/19/2020 7:15 AM EDT</td><td></td><td> </td> 12/19/2020 07:15:00 AM [facility] BLOOD COUNT COMPLETE AUTO&AUTO DIFRNTL WBC COUNT <td>C BC AND DIFFERENTIAL</td><td>Routine</td><td>12/19/2020 7:15 AM EDT</td><td></td><td> </td> 12/19/2020 07:15:00 AM [facility] C-REACTIVE PROTEIN <td>INFLAMMATORY C-REACTIVE PROTEIN (CRP)</td><td>Routine</td><td>12/19/2020 7:15 AM EDT</td><td></td><td> </td> 12/19/2020 07:15:00 AM [facility] EKG 12-LEAD - CMAXX REPORT <td>EKG 12-LEAD - CMAXX REPORT</td><td></td><td>12/19/2020 5:08 AM EDT</td><td></td><td></td> 12/19/2020 05:08:08 AM [facility] EKG 12-LEAD - CMAXX REPORT <td>EKG 12-LEAD - CMAXX REPORT</td><td></td><td>12/19/2020 5:08 AM EDT</td><td></td><td></td> 12/19/2020 05:08:08 AM [facility] EKG 12-LEAD <td>EKG 12-LEAD</td><td>Rout ine</td><td>12/19/2020 5:08 AM EDT</td><td></td><td> </td> 12/19/2020 05:08:08 AM [facility] GLUCOSE QUANTITATIVE BLOOD XCPT REAGENT STRIP <td>POCT GLUCOSE, DOCKED</td><td>Routine</td><td>12/19/2020 5:00 AM EDT</td><td></td><td> </td> 12/19/2020 05:00:00 AM [facility] RADIOLOGIC EXAMINATION PELVIS 1/2 VIEWS <td>XR PELVIS 1-2 VIEWS 93421</td><td>Routine</td><td>12/19/2020 3:37 AM EDT</td><td></td><td> </td> 12/19/2020 03:37:00 AM [facility] TROPONIN T HIGH SENSITIVITY <td>TROPONIN T HIGH SENSITIVITY</td><td>Routine</td><td>12/19/2020 3:09 AM EDT</td><td></td><td> </td> 12/19/2020 03:09:00 AM [facility] BLOOD COUNT COMPLETE AUTO&AUTO DIFRNTL WBC COUNT <td>C BC AND DIFFERENTIAL</td><td>Routine</td><td>12/19/2020 3:09 AM EDT</td><td></td><td> </td> 12/19/2020 03:09:00 AM [facility] BASIC METABOLIC PANEL CALCIUM TOTAL <td>BASIC METABOLI C PANEL</td><td>Routine</td><td>12/19/2020 3:09 AM EDT</td><td></td><td> </td> 12/19/2020 03:09:00 AM [facility] ECHO TTHRC R-T 2D W/WOM-MODE COMPL SPEC&COLR DOP <td>E CHOCARDIOGRAM 2D COMPLETE</td><td>Pending Discharge</td><td>12/19/2020 2:33 AM EDT</td><td></td><td></td> 12/19/2020 02:33:04 AM EDT [facility] EKG ED PHYSICIAN INTERPRETATION <td>EKG ED PHYSICIAN INTERPRETATION</td><td>Routine</td><td>12/18/2020 10:21 PM EDT</td><td></td><td> </td> 12/18/2020 10:21:06 PM [facility] BLOOD GASES ANY COMBINATION PH PCO2 PO2 CO2 HCO3 <td>P OCT ISTAT VBG/LAC</td><td>Routine</td><td>12/18/2020 10:00 PM EDT</td><td></td><td> </td> 12/18/2020 10:00:00 PM [facility] TROPONIN T HIGH SENSITIVITY <td>TROPONIN T HIGH SENSITIVITY</td><td>STAT</td><td>12/18/2020 9:58 PM EDT</td><td></td><td> </td> 12/18/2020 09:58:00 PM [facility] EKG 12 LEAD (UNSOLICITED COMPUTER ORDER) <td>EKG 12 LE AD (UNSOLICITED COMPUTER ORDER)</td><td>Routine</td><td>12/18/2020 9:46 PM EDT</td><td></td><td></td> 12/18/2020 09:46:47 PM [facility] EKG 12-LEAD - CMAXX REPORT <td>EKG 12-LEAD - CMAXX REPORT</td><td></td><td>12/18/2020 9:46 PM EDT</td><td></td><td></td> 12/18/2020 09:46:47 PM [facility] EKG 12-LEAD - CMAXX REPORT <td>EKG 12-LEAD - CMAXX REPORT</td><td></td><td>12/18/2020 9:46 PM EDT</td><td></td><td></td> 12/18/2020 09:46:47 PM [facility] EKG 12-LEAD <td>EKG 12-LEAD</td><td>STAT </td><td>12/18/2020 9:46 PM EDT</td><td></td><td> </td> 12/18/2020 09:46:47 PM [facility] EKG 12-LEAD - CMAXX REPORT <td>EKG 12-LEAD - CMAXX REPORT</td><td></td><td>12/18/2020 9:46 PM EDT</td><td></td><td></td> 12/18/2020 09:46:00 PM [facility] GLUCOSE QUANTITATIVE BLOOD XCPT REAGENT STRIP <td>POCT GLUCOSE, DOCKED</td><td>Routine</td><td>12/18/2020 9:21 PM EDT</td><td></td><td> </td> 12/18/2020 09:21:00 PM [facility] RESPIRATORY PATHOGEN PANEL <td>RESPIRATORY PATHOGEN PANEL</td><td>Routine</td><td>12/18/2020 8:11 PM EDT</td><td></td><td> </td> 12/18/2020 08:11:00 PM [facility] COVID-19 PCR <td>COVID-19 PCR</td><td>Rou saud</td><td>12/18/2020 8:11 PM EDT</td><td></td><td> </td> 12/18/2020 08:11:[address] [facility] [address] HEAD/BRAIN W/O CONTRAST MATERIAL <td>CT HEAD WITHOU T CONTRAST 81115</td><td>STAT</td><td>12/18/2020 7:51 PM EDT</td><td></td><td> </td> 12/18/2020 07:51:06 PM [facility] XR ABDOMEN AP SUPINE AND LATERAL VIEW 50685 <td>XR ABD OMEN AP SUPINE AND LATERAL VIEW 23832</td><td>STAT</td><td>12/18/2020 7:29 PM EDT</td><td></td><td> </td> 12/18/2020 07:29:00 PM [facility] RADIOLOGIC EXAMINATION SKULL < 4 VIEWS <td>XR SKULL LI MITED 62800</td><td>STAT</td><td>12/18/2020 7:29 PM EDT</td><td></td><td> </td> 12/18/2020 07:29:00 PM [facility] XR CHEST FRONTAL AND LATERAL 40060 <td>XR CHEST FRONTA L AND LATERAL 71791</td><td>STAT</td><td>12/18/2020 7:29 PM EDT</td><td></td><td> </td> 12/18/2020 07:29:00 PM [facility] BASIC METABOLIC PANEL CALCIUM IONIZED <td>POCT ISTAT CHEM8</td><td>Routine</td><td>12/18/2020 6:46 PM EDT</td><td></td><td> </td> 12/18/2020 06:46:00 PM [facility] EKG ED PHYSICIAN INTERPRETATION <td>EKG ED PHYSICIAN INTERPRETATION</td><td>Routine</td><td>12/18/2020 6:32 PM EDT</td><td></td><td> </td> 12/18/2020 06:32:03 PM [facility] BLOOD GASES ANY COMBINATION PH PCO2 PO2 CO2 HCO3 <td>P OCT ISTAT VBG/LAC</td><td>Routine</td><td>12/18/2020 6:29 PM EDT</td><td></td><td> </td> 12/18/2020 06:29:00 PM [facility] EKG 12 LEAD (UNSOLICITED COMPUTER ORDER) <td>EKG 12 LE AD (UNSOLICITED COMPUTER ORDER)</td><td>Routine</td><td>12/18/2020 6:15 PM EDT</td><td></td><td></td> 12/18/2020 06:15:43 PM [facility] EKG 12-LEAD - CMAXX REPORT <td>EKG 12-LEAD - CMAXX REPORT</td><td></td><td>12/18/2020 6:15 PM EDT</td><td></td><td></td> 12/18/2020 06:15:43 PM [facility] EKG 12-LEAD - CMAXX REPORT <td>EKG 12-LEAD - CMAXX REPORT</td><td></td><td>12/18/2020 6:15 PM EDT</td><td></td><td></td> 12/18/2020 06:15:43 PM [facility] EKG 12-LEAD <td>EKG 12-LEAD</td><td>STAT </td><td>12/18/2020 6:15 PM EDT</td><td></td><td> </td> 12/18/2020 06:15:43 PM [facility] TROPONIN T HIGH SENSITIVITY <td>TROPONIN T HIGH SENSITIVITY</td><td>STAT</td><td>12/18/2020 6:15 PM EDT</td><td></td><td> </td> 12/18/2020 06:15:00 PM [facility] EKG 12-LEAD - CMAXX REPORT <td>EKG 12-LEAD - CMAXX REPORT</td><td></td><td>12/18/2020 6:15 PM EDT</td><td></td><td></td> 12/18/2020 06:15:00 PM [facility] CULTURE BACTERIAL BLOOD AEROBIC W/ID ISOLATES <td>BLOO D CULTURE</td><td>Routine</td><td>12/18/2020 6:15 PM EDT</td><td></td><td></td> 12/18/2020 06:15:00 PM [facility] CULTURE BACTERIAL BLOOD AEROBIC W/ID ISOLATES <td>BLOO D CULTURE</td><td>Routine</td><td>12/18/2020 6:15 PM EDT</td><td></td><td></td> 12/18/2020 06:15:00 PM [facility] PROTHROMBIN TIME <td>PROTIME INR</td><td>STAT </td><td>12/18/2020 6:15 PM EDT</td><td></td><td> </td> 12/18/2020 06:15:00 PM [facility] BLOOD COUNT COMPLETE AUTO&AUTO DIFRNTL WBC COUNT <td>C BC AND DIFFERENTIAL</td><td>Routine</td><td>12/18/2020 6:15 PM EDT</td><td></td><td> </td> 12/18/2020 06:15:00 PM [facility] HEMOGLOBIN GLYCOSYLATED A1C <td>HEMOGLOBIN A1C</td><td>Routine</td><td>12/18/2020 6:15 PM EDT</td><td></td><td> </td> 12/18/2020 06:15:00 PM [facility] AMMONIA <td>AMMONIA LEVEL</td><td>ST AT</td><td>12/18/2020 6:15 PM EDT</td><td></td><td> </td> 12/18/2020 06:15:00 PM [facility] HEPATIC FUNCTION PANEL <td>HEPATIC FUNCTION PANEL A</td><td>STAT</td><td>12/18/2020 6:15 PM EDT</td><td></td><td> </td> 12/18/2020 06:15:00 PM [facility] BASIC METABOLIC PANEL CALCIUM TOTAL <td>BASIC METABOLI C PANEL</td><td>STAT</td><td>12/18/2020 6:15 PM EDT</td><td></td><td> </td> 12/18/2020 06:15:00 PM [facility] GLUCOSE QUANTITATIVE BLOOD XCPT REAGENT STRIP <td>POCT GLUCOSE, DOCKED</td><td>Routine</td><td>12/18/2020 3:48 PM EDT</td><td></td><td> </td> 12/18/2020 03:48:00 PM [facility] Summary provided electronically in CCDA format & reasonable certainty of receipt 11/21/2020 12:00:00 AM EDT - 11/21/2020 12:00:00 AM EDT [facility] ([facility]) Clinical summary provided to patient 12:00:00 AM EDT - 11/21/2020 12:00:00 AM EDT [facility]) Clinical summary provided to patient 12:00:00 AM EDT - 11/21/2020 12:00:00 AM EDT [facility] ([facility]) medical regimen review 11/21/2020 12:00: 00 AM EDT - 11/21/2020 12:00:00 AM EDT [facility] ([facility]) Transition in care medication list update 11/21/2020 12:00:00 AM EDT - 11/21/2020 12:00:00 AM EDT [facility] ([facility]) continue current medication except where otherwise noted 11/21/2020 12:00:00 AM EDT - 11/21/2020 12:00:00 AM EDT [facility] ([facility]) DEBRIDEMENT NAIL ANY METHOD /> 07/17/2020 12:00:00 AM EST [facility] ([facility] Influenza virus vaccine, preservative free, 6 months a nd up Influenza virus vaccine, preservative free, 6 months and up 06/20/2020 12:00:00 AM EST [facility] Surgical / procedural history 07/20/2018 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 Surgical / procedural history 07/20/2018 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 03/08/2020 12:00:00 AM EDT [facility] Surgical / procedural history 07/20/2018 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 Surgical / procedural history 07/20/2018 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 03/08/2020 12:00:00 AM EDT [facility] ([facility]) Replacement of ventricular shunt 07/03/2017 Replacemen t of ventricular shunt 07/03/2017 03/08/2020 12:00:00 AM EDT [facility] ([facility]) Surgical / procedural history 07/20/2018 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 Surgical / procedural history 07/20/2018 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 03/08/2020 12:00:00 AM EDT [facility] ([facility]) RHC/FQHC code for distant site telehealt h services (Synchronous telemedicine service rendered via real-time interactive audio and video telecommunication system) [facility]/FQ code for distant site telehealt h services (Synchronous telemedicine service rendered via real-time interactive audio and video telecommunication system) 03/04/2020 12:00:00 AM EDT [facility] ([facility]) Replacement of ventricular shunt 07/03/2017 Replacemen t of ventricular shunt 07/03/2017 03/04/2020 12:00:00 AM EDT [facility] ([employer] [facility]) Surgical / procedural history 07/20/2018 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 Surgical / procedural history 07/20/2018 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 03/04/2020 12:00:00 AM EDT JADIEL ([facility]) [facility] code for distant site telehealth services [facility] /[facility] code for distant site telehealth services 03/02/2020 12:00:00 AM EDT JADIEL ([facility]) Results ID Date Data Source [id number] 04/18/2021 02:26:00 PM EDT [facility] Run: 04/20/21 0730 INTERFACED REPORT Name: VarunbenDario Age/Sex: 70/M Location: [facility] Acct: [id number] Unit: [id number] Status: REG REF Room/Bed: Re04/17/21 Disch: Att Dr: Rob Gutiérrez DO Specimen #: [id number] Ordered : 04/18/21 Collected : 04/18/21 By: JONATAN Received: 04/18/21 By: JONATAN Source: URINE CC Specimen Description: Procedure Result - COLONY COUNT Final COLONY COUNT 10,000 CFU/ML URINE CULTURE Final NO SIGNIFICANT GROWTH 24 HOURS NO SIGNIFICANT GROWTH 48 HOURS URINE CULTURE Preliminary (Corrected) NO SIGNIFICANT GROWTH 24 HOURS END OF REPORT Name Value Range Interpretation Code Description Data Dinora rce(s) Supporting Document(s) COLOR,UR YELLOW YELLOW [facility] APPEARANCE,UR CLEAR CLEAR [facility] PH,UR 5.0 5.0-8.0 [facility] SPECIFIC GRAVITY,UR 1.012 1.002-1.035 [facility] PROTEIN,UR NEGATIVE MG/DL NEGATIVE [facility] GLUCOSE, UR 50 MG/DL NEGATIVE A [facility] KETONES,UR NEGATIVE MG/DL NEGATIVE [facility] OCCULT BLOOD,UR NEGATIVE NEGATIVE [facility] NITRATE,UR NEGATIVE NEGATIVE [facility] LEUKOCYTE ESTERASE ,UR NEGATIVE NEGATIVE [facility] BILIRUBIN,UR NEGATIVE NEGATIVE [facility] UROBILINOGEN,UR 0.2-1.0 EU MG/DL NEG-0-1.0 [facility] ID Date Data Source [id number] 04/20/2021 07:29:00 AM EDT [facility] Run: 04/20/21 0730 INTERFACED REPORT Name: Dario Shelton Age/Sex: 70/M Location: [facility] Acct: [id number] Unit: [id number] Status: REG REF Room/Bed: Re04/17/21 Disch: Att Dr: Rob Gutiérrez DO Specimen #: [id number] Ordered : 04/18/21 Collected : 04/18/21 By: JONATAN Received: 04/18/21 By: JONATAN Source: URINE CC Specimen Description: Procedure Result - COLONY COUNT Final COLONY COUNT 10,000 CFU/ML URINE CULTURE Final NO SIGNIFICANT GROWTH 24 HOURS NO SIGNIFICANT GROWTH 48 HOURS URINE CULTURE Preliminary (Corrected) NO SIGNIFICANT GROWTH 24 HOURS END OF REPORT Name Value Range Interpretation Code Description Data Dinora rce(s) Supporting Document(s) ID Date Data Source [id number] 04/17/2021 05:36:00 PM EDT [facility] Run: 04/20/21 0730 INTERFACED REPORT Name: Dario Shelton Age/Sex: 70/M Location: [facility] Acct: [id number] Unit: [id number] Status: REG REF Room/Bed: Re04/17/21 Disch: Shankar Dr: Rob Gutiérrez DO Specimen #: [id number] Ordered : 04/18/21 Collected : 04/18/21 By: JONATAN Received: 04/18/21 By: JONATAN Source: URINE CC Specimen Description: Procedure Result - COLONY COUNT Final COLONY COUNT 10,000 CFU/ML URINE CULTURE Final NO SIGNIFICANT GROWTH 24 HOURS NO SIGNIFICANT GROWTH 48 HOURS URINE CULTURE Preliminary (Corrected) NO SIGNIFICANT GROWTH 24 HOURS END OF REPORT Name Value Range Interpretation Code Description Data Dinora rce(s) Supporting Document(s) WHITE BLOOD COUNT 13.21 10^3/uL 4.00-10.50 [facility] 4.84 10^6/uL 4.30-5.80 [facility] 14.8 G/DL 13.0-17.5 N [facility] HEMATOCRIT 46.0 % 41.0-53.0 N [facility] MCV 95.0 FL 80.0-100.0 N [facility] MCH 30.6 PG 27.0-34.0 N [facility] MCHC 32.2 G/DL 32-36 N [facility] RDW 14.5 % 11.5-14.5 N [facility] PLATELET COUNT 278 10^3/uL 130-400 N [facility] MPV 10.7 FL 8.7-13.2 N [facility] GRAN % (AUTO) 66.5 % 42.0-75.0 N [facility] LYMPH % (AUTO) 27.2 % 20.0-51.0 N [facility] MONO % (AUTO) 4.6 % 2.0-15.0 N [facility] EOS % (AUTO) 0.9 % 0.0-11.0 N [facility] BASO % (AUTO) 0.4 % 0.0-2.0 N [facility] IG % (AUTO) 0.4 % 1.00-5.00 [facility] IG # (AUTO) 0.1 10^3/uL <0.5 [facility] GRAN # (AUTO) 8.79 10^3/uL 1.50-6.50 [facility] LYMPH # (AUTO) 3.6 k/uL 1.0-5.0 N [facility] MONO # (AUTO) 0.61 k/uL 0.20-1.50 N [facility] EOS # (AUTO) 0.12 10^3/uL 0.00-1.10 N [facility] BASO # (AUTO) 0.05 10^3/uL 0.00-0.20 N [facility] ID Date Data Source [id number] 04/17/2021 06:03:00 PM EDT [facility] Run: 04/20/21 0730 INTERFACED REPORT Name: Dario Shelton Age/Sex: 70/M Location: [facility] Acct: [id number] Unit: [id number] Status: REG REF Room/Bed: Re04/17/21 Disch: Att Dr: Rob Gutiérrez DO Specimen #: [id number] Ordered : 04/18/21 Collected : 04/18/21 By: JONATAN Received: 04/18/21 By: JONATAN Source: URINE CC Specimen Description: Procedure Result - COLONY COUNT Final COLONY COUNT 10,000 CFU/ML URINE CULTURE Final NO SIGNIFICANT GROWTH 24 HOURS NO SIGNIFICANT GROWTH 48 HOURS URINE CULTURE Preliminary (Corrected) NO SIGNIFICANT GROWTH 24 HOURS END OF REPORT Name Value Range Interpretation Code Description Data Dinora rce(s) Supporting Document(s) SODIUM 144 MEQ/L 135-145 N [facility] POTASSIUM 4.5 MEQ/L 3.5-5.3 N [facility] CHLORIDE 114 MEQ/L 94-110 [facility] CARBON DIOXIDE 16 MEQ/L 22-33 L [facility] ANION GAP 19 5-16 H [facility] BLOOD UREA NITRO 65 MG/DL 7-25 H [facility] CREATININE 1.6 MG/DL 0.6-1.4 H [facility] GFR 43.1 ML/MIN [facility] Stage G3b - Moderately to severely decr eased kidney function The GFR is an estimate of the Glomerular Filtration Rate. It is an aid to assess a patient's renal function. It is not a conclusive diagnosis of kidney disease. GFR normal is >=90 The MDRD GFR calculation is considered valid between the ages of 18 and 75 years only. BUN/CREAT RATIO 40 8-36 H [facility] GLUCOSE 285 MG/DL 70-100 H [facility] CA 10.0 MG/DL 8.7-10.5 N [facility] BILIRUBIN,TOTAL 0.7 MG/DL 0.1-1.3 N [facility] AST 20 U/L 5-40 N [facility] ALT 39 U/L 5-48 N [facility] ALKALINE PHOSPHATASE 101 U/L 40-140 N [facility] TOTAL PROTEIN 7.4 G/DL 5.9-8.3 N [facility] ALBUMIN 4.7 G/DL 3.0-5.1 N [facility] GLOBULIN 2.7 G/DL 1.5-3.5 N [facility] ALB/GLOB RATIO 1.7 G/DL 1.0-3.0 N [facility] ID Date Data Source [id number] 04/19/2021 11:47:00 PM EDT [facility] Run: 04/20/21 0730 INTERFACED REPORT Name: Dario Shelton Age/Sex: 70/M Location: [facility] Acct: [id number] Unit: [id number] Status: REG REF Room/Bed: Re04/17/21 Disch: Att Dr: Rob Gutiérrez DO Specimen #: [id number] Ordered : 04/18/21 Collected : 04/18/21 By: JONATAN Received: 04/18/21 By: JONATAN Source: URINE CC Specimen Description: Procedure Result - COLONY COUNT Final COLONY COUNT 10,000 CFU/ML URINE CULTURE Final NO SIGNIFICANT GROWTH 24 HOURS NO SIGNIFICANT GROWTH 48 HOURS URINE CULTURE Preliminary (Corrected) NO SIGNIFICANT GROWTH 24 HOURS END OF REPORT Name Value Range Interpretation Code Description Data Dinora rce(s) Supporting Document(s) Lyme IgG/IgM Ab,S <0.91 ISR 0.00-0.90 [facility] Negativ e <0.91 Equivocal 0.91 - 1.09 Positive >1.09 Performed at: RN - [facility] [address] [id number] Skid Wrapper: Beth Huizar MD, Phone: [phone] CDC Recommendations for Lyme Disease Testing 1.The Western Blot should not be run without first performing an EIA or IFA. 2.The Western Blot should not be run if the EIA or IFA tests are negative. 3.A positive IgM Western Blot is only meaningful during the first 4 weeks of illness 4.If the patient has been ill for longer than 4-6 weeks and the IgG Western Blot test is negative, it is unlikely that the patient has Lyme disease, even if the IgM immunoblot is positive. ID Date Data Source [id number] 04/17/2021 06:03:00 PM EDT [facility] Run: 04/20/21 0730 INTERFACED REPORT Name: Dario Shelton Age/Sex: 70/M Location: [facility] Acct: [id number] Unit: [id number] Status: REG REF Room/Bed: Re04/17/21 Disch: Att Dr: Rob Gutiérrez DO Specimen #: [id number] Ordered : 04/18/21 Collected : 04/18/21 By: JONATAN Received: 04/18/21 By: JONATAN Source: URINE CC Specimen Description: Procedure Result - COLONY COUNT Final COLONY COUNT 10,000 CFU/ML URINE CULTURE Final NO SIGNIFICANT GROWTH 24 HOURS NO SIGNIFICANT GROWTH 48 HOURS URINE CULTURE Preliminary (Corrected) NO SIGNIFICANT GROWTH 24 HOURS END OF REPORT Name Value Range Interpretation Code Description Data Dinora rce(s) Supporting Document(s) TSH 1.088 uIU/ML 0.470-4.200 N [facility] Patients should not be tested for 73 ho urs post fluorescein dye angiography. A false depression of result may occur. ID Date Data Source [id number] 04/18/2021 08:56:00 AM EDT [facility] NO URINE REC'D FOR UA AND CULTURE Name Value Range Interpretation Code Description Data Dinora rce(s) Supporting Document(s) NO URINE RECEIVED FROM PATIENT NO URINE RECEIVED [facility] Patient informed to return with specime n. ID Date Data Source [id number] 02/18/2021 01:40:00 PM EDT [facility] Name Value Range Interpretation Code Description Data Dinora rce(s) Supporting Document(s) WHITE BLOOD COUNT 9.09 10^3/uL 4.00-10.50 N [facility] RED BLOOD COUNT 4.62 10^6/uL 4.30-5.80 N [facility] th HEMOGLOBIN 13.9 G/DL 13.0-17.5 N [facility] HEMATOCRIT 42.8 % 41.0-53.0 N [facility] MCV 92.6 FL 80.0-100.0 N [facility] MCH 30.1 PG 27.0-34.0 N [facility] MCHC 32.5 G/DL 32-36 N [facility] RDW 13.2 % 11.5-14.5 N [facility] PLATELET COUNT 290 10^3/uL 130-400 N [facility] MPV 9.5 FL 8.7-13.2 N [facility] GRAN % (AUTO) 55.4 % 42.0-75.0 N [facility] LYMPH % (AUTO) 34.9 % 20.0-51.0 N [facility] MONO % (AUTO) 6.4 % 2.0-15.0 N [facility] EOS % (AUTO) 2.4 % 0.0-11.0 N [facility] BASO % (AUTO) 0.6 % 0.0-2.0 N [facility] IG % (AUTO) 0.3 % 1.00-5.00 [facility] IG # (AUTO) 0.0 10^3/uL <0.5 [facility] GRAN # (AUTO) 5.04 10^3/uL 1.50-6.50 N [facility] LYMPH # (AUTO) 3.2 k/uL 1.0-5.0 N [facility] MONO # (AUTO) 0.58 k/uL 0.20-1.50 N [facility] EOS # (AUTO) 0.22 10^3/uL 0.00-1.10 N [facility] BASO # (AUTO) 0.05 10^3/uL 0.00-0.20 N [facility] ID Date Data Source [id number] 02/20/2021 08:20:00 AM EDT [facility] Name Value Range Interpretation Code Description Data Dinora rce(s) Supporting Document(s) Lyme IgG/IgM Ab,S <0.91 ISR 0.00-0.90 [facility] Negativ e <0.91 Equivocal 0.91 - 1.09 Positive >1.09 Performed at: RN - [facility] [address] [id number] Skid Wrapper: Beth Huizar MD, Phone: [phone] CDC Recommendations for Lyme Disease Testing 1.The Western Blot should not be run without first performing an EIA or IFA. 2.The Western Blot should not be run if the EIA or IFA tests are negative. 3.A positive IgM Western Blot is only meaningful during the first 4 weeks of illness 4.If the patient has been ill for longer than 4-6 weeks and the IgG Western Blot test is negative, it is unlikely that the patient has Lyme disease, even if the IgM immunoblot is positive. ID Date Data Source [id number] 02/13/2021 03:56:00 PM EDT [facility]) Name Value Range Interpretation Code Description Data Dinora rce(s) Supporting Document(s) Hemoglobin A1c/Hemoglobin.total in Blood 6.6 Abnormal (applies to non-numeric results) Hgb A1c [facility] ID Date Data Source [id number] 02/07/2021 12:00:00 AM EDT [facility] Name Value Range Interpretation Code Description Data Dinora rce(s) Supporting Document(s) COVID PCR NEGATIVE [facility] This lab was ordered by [facility] are and reported by [facility]. ID Date Data Source [id number] 02/06/2021 02:55:09 PM EDT [facility] Name Value Range Interpretation Code Description Data Dinora rce(s) Supporting Document(s) Progress Note [facility] GEGHGs9hJxTUDjRy88/YTZbwKWQwf7EhKFrhVJc1DLrpIGAaM3GeYNS3hX0nMZR3QXgGAkNrCyInOLI9 lbm TmYrtAIeBgJJVuCwmWItEoTBgtLwdhbREoQB4YeDE4FREpT79bQUHaNPIzB8GuYUH1BHI+Kk3QHIAjqN AnNU4GMzoN1FzKkaj1LB4i3C6ZiTAbBFZ88W9IQqQZOwnzRiMYTxO3V4CnMC3bB5thFaX/E4NP8Jtqm3 nwpjN8hF9yQE1nB621AXBfpOo/96IV+o7jiMW/5a9h xWR4pcf4J6Rv7couc4NdyFQFjBzIFeNW+lsKnt5dwtioEy5vRgDjL291SVVsqs5WIWY5/6TzVHT/EtJ1 aWggvmdzTO4AKLmGDV/VoHVCX7g0TDmiLrqWTGZRsMViFOjVYxuVRetIHgqAR8BrerO0AOfUifxqfQ5C rS2lIJks0Fw6GurRdPU31zePkxc7ledw1xjWpLHJdm TDRrOQ1eFLEp0havpyQiHbtDgVN4DE4qvTCy9R9SE62Uh2DEES3AUCMCYi0UppwensL7+yG9CUWIFfdw NClQjH18MdWLFNhuW/3TW5rcShLocC/vR5UYl6Aasn+N48bij08Rm5UUn7qTEfo17NQqHTMpWzJzPNM8 yTe09jNu0yiopv3J59ruo19ykgIt3XIPBbQknHolBn ywPitp0DZCF2VCf8OM3dXL94fdBMptopqR62x/p6ZpqsSXdwG09P+4izXxKicaGX93a6uDUNyk4Ikxa2 mcU8TcV+j8w7z7N1G245U1QlFanMcPtad+fwRBy90/OtLNB6o20JBj3+7njXy/HIolstJi/E50p/Kwzl WzWIkwa5rhQ+TmwmUAWzQoYlszhndjg+Q1nsbaP9wU AXxBm/O23qjyDRh3u/SS5CZouecdYkCzb7UzWY9w2rvqYW4MzbmKqSD51UJSBdwNRgviun42ChUpAEGq 9arXVP6eykPY4gr2EgCNOkbRoc05sd4hnp5pMA65yC+F50U/Peter+kCYZrq7cgXf0UNxvl29Jrqthe421 [file] EX8aHEy+Gh8Kl9BcheN8dzSwWZlvADPyVi3YSTOWE4BUTv== ID Date Data Source [id number] 01/08/2021 08:22:25 AM EDT [facility] XR FEMUR, MINIMUM OF 2 VIEWS [id number] RESULTInterpreted by:MARY Hebertlinical history: Left proximal femur fractureViews: 2 views left femurIndication: Check left hip fractureFindings: The patient's previous Tanaf[place] femoral neck fracture is once again identified. Fracture is displaced with collapse of the head and some proximal migration of the femur. Remaining midshaft of the femur appears uninjured. Extensive atherosclerotic disease of the femur is appreciated.Impression: Impending nonunion of left femoral neck fractureThis document has been electronically signed by Samuel Johnson MD on 01/08/2021 8:20 AM Name Value Range Interpretation Code Description Data Dinora rce(s) Supporting Document(s) ID Date Data Source [id number] 01/07/2021 04:50:29 PM T [facility] Name Value Range Interpretation Code Description Data Dinora rce(s) Supporting Document(s) Progress Note [facility] SRYSHs7yLbOLZiSt57/UQYsnBXOrl3KsQWozZBq5TKuwMNQxS7PzLIE4rI7sVCY0YXtKNrMtLqYkCnS3 lbm [file] rvYENUQlY1CpjdGBvwWAFHNn4Z ID Date Data Source [id number] 01/03/2021 12:41:59 PM EDT [facility] Name Value Range Interpretation Code Description Data Dinora rce(s) Supporting Document(s) Consultation [facility] TAABHc2qVxLTUuOx23/HXJsyHQCtz8CpHQgcDOx3QRhbHJZlI6XvPAU0bR2fYIQ5HJvYWiVjCaFyJsQe lbm [file] ICAgICAgICAgICAgICAgICAgICAgICAgICAgICAgIC AgICAgICAgICAgICAgICAgICAgICAgICAgICAgICAgICAgICAgICAgICAgICAgICAgICAgICAgDQogIC AgICAgICAgICAgICAgICAgICAgICAgICAgICAgICAgICAgICAgICAgICAgICAgICAgICAgICAgICAgIC AgICAgICAgICAgICAgICAgICAgICAgICAgICAgICAg ICAgICAgDQogICAgICAgICAgICAgICAgICAgICAgICAgICAgICAgICAgICAgICAgICAgICAgICAgICAg ICAgICAgICAgICAgICAgICAgICAgICAgICAgICAgICAgICAgICAgICAgICAgICAgDQogICAgICAgICAg ICAgICAgICAgICAgICAgICAgICAgICAgICAgICAgIC AgICAgICAgICAgICAgICAgICAgICAgICAgICAgICAgICAgICAgICAgICAgICAgICAgICAgICAgICAgDQ ogICAgICAgICAgICAgICAgICAgICAgICAgICAgICAgICAgICAgICAgICAgICAgICAgICAgICAgICAgIC AgICAgICAgICAgICAgICAgICAgICAgICAgICAgICAg ICAgICAgICAgDQogICAgICAgICAgICAgICAgICAgICAgICAgICAgICAgICAgICAgICAgICAgICAgICAg ICAgICAgICAgICAgICAgICAgICAgICAgICAgICAgICAgICAgICAgICAgICAgICAgICAgDQogICAgICAg ICAgICAgICAgICAgICAgICAgICAgICAgICAgICAgIC AgICAgICAgICAgICAgICAgICAgICAgICAgICAgICAgICAgICAgICAgICAgICAgICAgICAgICAgICAgIC AgDQogICAgICAgICAgICAgICAgICAgICAgICAgICAgICAgICAgICAgICAgICAgICAgICAgICAgICAgIC AgICAgICAgICAgICAgICAgICAgICAgICAgICAgICAg ICAgICAgICAgICAgDQogICAgICAgICAgICAgICAgICAgICAgICAgICAgICAgICAgICAgICAgICAgICAg ICAgICAgICAgICAgICAgICAgICAgICAgICAgICAgICAgICAgICAgICAgICAgICAgICAgICAgDQogICAg ICAgICAgICAgICAgICAgICAgICAgICAgICAgICAgIC AgICAgICAgICAgICAgICAgICAgICAgICAgICAgICAgICAgICAgICAgICAgICAgICAgICAgICAgICAgIC FpFWBwQSs3Y9gvHGJbASObJZ7nDXi2Qo5+SFmMKvXiQLW0pyRcjI7YQK1qi4TcCVxzPWRdy3LdTTi6JB 2OUBPbZNxkZP7HQYoyft3GEAFjKXHhkXMQw3rrTzCl UAA1FWEfIhssYG9YLAHfC7auljJqTUAoZZIFDAlkFXAYFRczJHLWGPXpBSNlNtCvZnLrGFQbDRVtHCMX HY3UCrMxH1CkhU08JRMCXq3+YOpmgcGsXivVAdD4NLOob1ZcVYs8CP6RSFPfQnrom6CdJoIaLIIFSAci ZI3XYDQ7LSV1WMDlQv0HRPYcU144drDtNB7ZZb0RCa IpJD7vxe7EAvPdJMEdRemOWvj9RVlqSE0LkQAwHDkNv46gfCv9kxJrmNXMxiWoKTppEoSZWLhkmGDqCP EMBEAvqOK3UqX6RbGtGoTmZPK3QwUoYT5aUPmaXY4SFKK2TMgiZVDgTRQfY6qSTqUyPLSqBHNirTfnKU 5KIyEuG2YoznWmsHJfJEDcSNEUXe0+DQplbmRvYmoN UaA6QIYiw7DiBSb1VV7GLCRzQNiuRO2QVMMwrT2qBAlxGC1BKvPsQqFeLBTONzWlS25yuEAxRWt1Z6Fg YmVkZGVkRmlsZXMgPDwvTmFtZXMgWyBdDQogID4+ID4+LVevZI9RZWjqgeKhYEMuVe4GPWMsKQGwTT6k OJRpZMQgC3P5iNetEQMHUrDfG7kvufxnUX8yPWMhJ0 61rGnzkqQrAHG2CJKeNr0THQTzZDT1NCHvwOIoYgEaAWNXBOovNL0EgSRcJSU8kQ6nBKbiYDUoJNLnJ4 kOUdTnqQkqKN57sEtferIndCGmEEv+Ok9WUL7mi8CeBNj5btInHZcpELX2ZHhqRVZdFAKtZLJgAUQ4NS E0ZZRPJkWpTIClZUBvLKkpHNBlHBStpa4SGQSoVEBp Axq2DRRlSJTyODEvJCtkGXPqZWK1FsDbRXWbNQCjHT2WZqIzGUZpHJYlVJrvMOBlCHQpmb4YBSZqIULo RvX6GmEiJWDxOVYqODdiOPXrXWOvAMf5ULZqOWQdAG2YZyLbXPUkGIWcExdwDIAkUENfkx9ESKXdKUUy FaC5UwKvNHNfZCCxBKblITDaRKE6QBrtAJUxKOTwPP 6JKiHhYAKcGAnaMWDgMPBdEXEevo0GRDGhJGQkWxF8RRGkKUXyMYHgNKrcFOKeDDZqOwc6FGXtKTIxZA 6GGbWlZBTvLWDdUkSeBRYyFSSjkd8DCTBcNJHqShS9ERGkEWEoDZUyBAtdCYYrGXT5YYT3SVNtXCVyTW 6LZyLpSIStWUnrMvYcOONoTYYfmf8DBEUeWIXfGHL2 SuSjKWPkLWMzXZuiKWClVTGlVCb5UFSuULMwDA5YHfRvZXJzMsX1HoCdKIHeUITgeb2ORRQiEZXhALQg VRAjENIlDCPpPEubWOVxHHChWACpEAYmMFLnIM0WPtHwCORdClMdRcBaZAVcAWNuxw2XEURyFBUzWyd6 BRFtFNYyOJMvMYxbECQjWWErDLo3TUEaWAYxSI5IGg QmVTNvVfJzMyEzPDFuGHNebr1HVEQhXKBlJXo4VmFeXIBiPQAuSYooLWYsGBN4BPN5HEQfLFKcZB5MFl HpDYWsZeCnBdQhHJMtNTKvfz8KOWTjLABxZBIhLzVxHZOfOKSfEOgtHDRpNSB5KcN3HZNcJWBdKF8OJy DjCWLyVgP1BPBdNLJrWOOqsz7KAOAcAHIvDrr9VQXm AJMzPYQdHXyrWOBmLOE3NMP6YIYdNZUvOD9LEoXsYJUqOgj2LTXpRHDnBPTduj1KQZXpLKMbLPl7VeHl XBFuRHCyXXsfNHMrWPN7XIJxGHHtZDLkGK8MLiAtAGVrYpwfQZynAHIgPYCqvt1EqLPyiHbwhn8BKKhA Zc5GjLpvKUX0ZKzxZq7jdALlMuBkXHYLFz8GnuGjQG KzOZHKLEgmIPOuWUJaCKLuG0IdLgRfPqQtCdZgWmAuQSR2P8EeI8IaDxt7FxX2BPBpHcH3WqKoAiTcNl RwDOV8IbY9KkHzDHXeFDD7Yvb+CS0gVUm+Qv3Lv2CsjrK6miLzRVhkJCNjPf1PWJFIU4QMKx== ID Date Data Source [id number] 12/30/2020 07:26:03 AM EDT [facility] Name Value Range Interpretation Code Description Data Dinora rce(s) Supporting Document(s) Discharge Summary [facility] PGISIs7xIvYJAwWd38/HIAtgRIKlc3KuZBgzGGc1NQhkBFOoN2GqJYT1tV9sRGS3VLiNEaNlEbIxCsW9 lbm [file] ICAgICAgICAgICAgICAgICAgICAgICAgICAgICAgIC AgICAgICAgICAgICAgICAgICAgICAgICAgICAgICAgICAgICAgICAgICAgICAgICAgICAgICAgICAgIC JlHNEaUJ2ZYVWpZEIzVHLjPBCnGMOvALVoMXUeYNEcQXWjWYPjGUSrWVRiNTSaKCLrWTNeQFDwDRFgRS AgICAgICAgICAgICAgICAgICAgICAgICAgICAgICAg OVMuTDVbTHKvURTgXNJiTT3XEXFxVXTsJCWwPFXvFDNhKZJmWXPpTEOxBHXxQAKsEWEdPEVlJVBsCRHq PLNiOMXaOTXsCRPzBWPaMJPyFHQtTYWwIJRjXWGjETSvWAUtCYZbOFNgUTHbZHIlFOFyEJToBHZoBP0U ICAgICAgICAgICAgICAgICAgICAgICAgICAgICAgIC AgICAgICAgICAgICAgICAgICAgICAgICAgICAgICAgICAgICAgICAgICAgICAgICAgICAgICAgICAgIC OrDSKwHXYaZV6PASVoSENyGCWnGICyRAIyPMHyPVYsWYGnGNRmJZBqJYIxATLeELCuJGBbRTJvJDWcCT AgICAgICAgICAgICAgICAgICAgICAgICAgICAgICAg GLDoBSXnRWShUZZfHZTzOUHiOJ2CTZLjJJLnOVPzPALlMOZdYGFkMPHuHGCeXLNvEEWoZAHkWWSrTJTa ICAgICAgICAgICAgICAgICAgICAgICAgICAgICAgICAgICAgICAgICAgICAgICAgICAgICAgICAgICAg PZ8YTKZyYHXzNHXsWCDzPHSlKKOiIQYpWRJcHTJmIH AgICAgICAgICAgICAgICAgICAgICAgICAgICAgICAgICAgICAgICAgICAgICAgICAgICAgICAgICAgIC YzLOUgAXXqZDLaVV9QRLFiMYDzWJViWIByXJEkRAQwHIFdYCLfFPDbKPRqMGPrCLBfQNQyBDEzYPTqMZ AgICAgICAgICAgICAgICAgICAgICAgICAgICAgICAg XDPwMPSbNLTdXCOxGZMeGKMoJPWtWC4MUVPnDSTiRHVcRCNmANHaIKFgIBSvOLDwDANxHWHeYTUaIEHd ICAgICAgICAgICAgICAgICAgICAgICAgICAgICAgICAgICAgICAgICAgICAgICAgICAgICAgICAgICAg ZIRjAU3XZTIjKPFyANJzWRJrMFXwBTIcQGNpCJGgGO AgICAgICAgICAgICAgICAgICAgICAgICAgICAgICAgICAgICAgICAgICAgICAgICAgICAgICAgICAgIC WvPRRwGRGdRZGiAAXsOY1CKX48kARyo4G7HFQkCZ8unrr/Qn9XXSjfnlObzMAxGQ9FXmJfON9htu8LVa FoJX4nwr5EXRuUDgGfX2I6kQHiLVBtHAEQPrKdL20w BQitPk47XYojZVMhGpHqHLs4Pa1UZgSiA7khAAUnSyV8DBViNjN6JKJvSeW8KEQsQkMxDMjqXC2Vv7Qf dCAzDQo+Nd0FAP1as1QoTDpnQSQmJB7upq0LGLeRRwTgN4VnsjI0OLKpDVTaLl6TWDMjQOVniYCnVmMc KVXRXpKtM3RgoZ68JOGGIs1+DQplbmRvYmoNCjIyID Lot1WxITb1OP9AVGQwQEj1yYNvXNvnA9zslhbjKUF4hT3zhflhYgnlMju1YL3kLAZfnAZciQKoBCghCX BsPMJhNr8nIC0vQIKdJZP9YaX9YWMXBU4NDGLaTOJibQFbAHEqWLDIYE2QSXlwSKH5ESKtafQrySPfJM raAU4MRCPggtLkUkBtCJMTQWr+Md6NHF5kp8UqSXtz PhSgBC0fyv1OKYdDTuChR8R9uHStG0Q1FSfoTg9NWSCmLPRlZQwjWOWXIJblFB4SQJ3rboT3DB6DlASn AXSzGFQmpSLrRWl6M11eqAOhDRwkAA5ISMD+Denise+Hs0PUUNcYKYsDCUrSiAbSWFOLmKxL6FiL4BZu0Ax L7LsJQ03wYdsumKeKQpqUC3HRD4eEPSnNWKRNC7HfR YhiV6rbuOvWMWxSIPFGtLoA04fjVTbGDJrGMMxMOVpPh6SOOHwG0TflxAolXcqriPqXVHfRRYVPZ4VLR lgxcPruRJguVwrUT33tGlkHM4MIf3JNzXdZH8ayc1XnKJzTs4GZWJvXY1UXNZvGGMuEAReKYI0JVNyVu EpCNuwXLVmOATdKGN5PSWdGQZsSH0NNvOsENGdNPJ9 CTGbQMZyFZVpcc0TDORbSYKfEJqsVbJgVJFtZROuCPtiZFFhDQUwGMU1QSQlHQEoYP9CZeOkJWOqNZD7 YgXmQEIdAKUoxs4VRBVcNSNsUBRdOYQcTMSuKUMlFJsoXSIvWEL5EHXcNSMyEBKeFA2SIjLzGOLkVGe3 YwUfZGRiEPLbab5HNXUoKAXkEIunTuApLLRwRVIdYI tbBMWdJDB6TTP2FZJeBEJvYO2IOkGlDFGuYZJ3TublKAFzZAWuol0NPIRyNPWzSPG3HHDpOKVyCHUbIV xbCYRoGGRfVpL6JCGdSOSeXP9LCoSbTWRbMLGqNSEcLYMkUOYstn4TXODcQRJyQhNfGZArVATxJPHiPP ieLLRgEXXlJsY0HZRaZHPhOC1MYjJaURHuQMM9LzDd FJZbVQSwwp5XBDGxLFLcMxj8NAZrJEMqWUMcCQwrHFMaZHRrEXYsALQxCJNlNG5ILkYyABEfENVoMKWu SDHyZXDusc5OEPGxCTZaJEeyApFhSLWeDILzJVuyLLErOHM6YYM0IHLcYSNxMJ8AFlOzKEXqFXLkIQjw ZSJbWMVxrd4FhMVpgFkdgt8PTFaXQk9FrMezOIW9VT pgYs5mjSWqBaQqOXNVFr6WqhUkUGGqTBCLPUunMZHoUIqiFUJ8RAYwWrUeZEBjNZywJOJwLodbFbI0Ad PtCFbmIyK8YHDiLkqbCtFcFMJ2FNQ8YJG2B1AcGPLbZTjzNrM8ZYJ+JT9nLFv+Gp8Eq9NqdhH4ulFiBA gyMkTsUc7JESSOM6JLIi== ID Date Data Source [id number] 12/26/2020 12:36:12 PM EDT [facility] CT PELVIS WITHOUT CONTRAST [id number] RE SULTInterpreted by:EDDA PazROCEDURE INFORMATION: Exam: CT Pelvis Without Contrast; Skeletal Exam date and time: 12/19/2020 3:18 PM Age: 70 years old Clinical indication: Weakness; Other: FX; Additional info: Fracture TECHNIQUE: Imaging protocol: Computed tomography images of the pelvis without contrast. Exam focused on the skeletal structures. Radiation optimization: All CT scans at this facility use at least one of these dose optimization techniques: automated exposure control; mA and/or kV adjustment per patient size (includes targeted exams where dose is matched to clinical indication); or iterative reconstruction. COMPARISON: 1. CT ABDOMEN PELVIS WITH CONTRAST [id number] 12/20/2017 8:42 PM 2. 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 Stomach and bowel: Rectum is distended with stool. Is the patient clinically constipated?; Impression. Bones/joints: There is a displaced com minuted transcervical fracture of the left femur with superior subluxation of the femoral shaft. Redemonstrated compression deformity of L4, unchanged. Degenerative disc disease lumbosacral level. Compression deformity of L3 with approximately 50% loss of height, not present on the prior examination but not radiographically acute. Soft tissues: Unremarkable. IMPRESSION: 1. There is a displaced comminuted transcervical fracture of the left femur with superior subluxation of the femoral shaft. 2. Compression deformity of L3 with approximately 50% loss of height, not present on the prior examination but not radiographically acute. THIS DOCUMENT HAS BEEN ELECTRONICALLY SIGNED BY KATLIN HUGHES MDThis document has been electronically signed by Katlin Hughes MD on 12/26/2020 12:35 PM Name Value Range Interpretation Code Description Data Dinora rce(s) Supporting Document(s) ID Date Data Source [id number] 12/21/2020 12:01:47 PM EDT [facility] Name Value Range Interpretation Code Description Data Dinora rce(s) Supporting Document(s) Glucose [Mass/volume] in Capillary blood by Glucometer 141 mg/dL 70- 140 [facility] ID Date Data Source [id number] 12/21/2020 08:40:06 AM EDT [facility] Name Value Range Interpretation Code Description Data Dinora rce(s) Supporting Document(s) ED Provider Note [facility] CPNOLv0yHfBPCtHy75/PRMjbWAIkq9SbLSevLEv8SXdcIABsG3DjSPD5yO4zNFE0BIjEMvRnQpFbBbY8 lbm [file] K7gXYziXkAej7KNtEtBwHcTXj6+X3S5Gr9rn7RUA8E4JSg1D6XN+vp integration/xFaBf9qG8H5Rq97jNuFL9991h [file] gx/4M8RdcRxCs+objsa71Od3k44FvNXVmIHMBa+EMjgsLxBfebyafGmk0QmntBm9LlfmXAlTl/OM/+RIM ROLLER SETTER [file] 0KICA+Denise+Gn4FFKYdUEDiNCQbVwPhPBJGTaYpS1TfD7JFb6BgK7BbOA52jRggrqLjUIzgLL3QNE6kVM HdCRLULD0OzWBwqB1sobB7WNHeXLZKRtVnK00hqMFf MCYiHTKfYHZdZc8WXIOlU9HnorYdkUkwvrGwLXSyISFLNI0NUBvzkkNmsDBpkGohML82vHqpNF1VNd7N DbZmZM9baq1NeWZkPn1LIEN9ML9RYOCdCWWnAENePIL7YERtLvMaEQxpMPPgFFBeXIJ8BXJkJBYfVX6F UhLhPNAnRjA8OgKhIIEhHIRxid6TNVThWUV0JqJrDY HnIKVvEEQaKRbuRQBiNOAlINO3TGIfOAPcMM6JBlDqHKXsRKN5YsFoIFDvJUJord7CLIWjKEMtGFO4LR WuYBEoGSGaVCwcQYGhQNU9BRJvDYTqPKEcMU7EQyXqKRJvFIxqVstdAVDvLBOvrn2RKQVtWCBhHLS6PN KkGUSiZRSfQGqqQFXmEJClAZjdVHNoSJVfZL8BSsLk GXYfRDC9VFCsYLDlJXAhjm0YRJYsPXWvYKZ7ZGAgCIBhWBMbDLqgSDAiIFG7NxTpBCHmIGUwKF4UImMw CUDgUAl6VZUxIMAzGUPssk4UYYGeXQSwPQlrRqUyHSYfDRVeTTkuHOJdSTRhBRGzPNHlUYNwOW7SGwFn ADQfRmO1MIBbMJRyHANwwo9KXSEaTQOaYNLzNNQiSB ByVMOiSGqbYRFsKXM0LBR9OTDePUHxPA0MNjLnSENgQvhmDoZqQMIrHNFtqm0GVPNsAFSuJTc0SHYxAV JhXDKoAOrtJWYhATYfMZJdVAIwBAXjBQ2OBmKoWCZiLwP8KUkgUCOuXZPppe4PCPSjXETqCJY6EBNjWG ZpWLTuXWwgESQnQXX3YWMhONAcIXXoVJ0UUhDgNWOf XugiFjLvKIMlONCvzz9NPBRqFUJ7PAZwPNNnHIJqZHUfESndQQLsBIIgPJV0NBTbIFZlRO3MHqGyIFQu PQOhZdPkKDCbDHEqlz8XQCXaPFR3YMKrWzNdFEXkJXAaZKknUZJtESI7Fce6GNWtXHChOD7ERsLxTBOb FCT4LIKbAIGoBQDpso9XHYTaAIP3QnZ8JzGvFTAjIW HsESalUAWuIJW1OdYkJLRtSLAwWO9ZPvTlINOdRSj1QlLpKHHhPLGurb5UGTDjIPI3ADk7UgVxUCEdPH IoBOztXANqABQ2XEg1GOIqXWYtYJ0YXtTmRBNfXNucTENiKQNnUIPgmy3YJEOvGBN0AJX3MxBlNXDeBG SmUUgbPOQgGFWvHXD8XFIjIUBdYD3SOpSwXENqAMB6 CsDfTKQrNSDvup0ADEQjWXC3WlIkLvDeCOHkRADnZMfcCMBeKZQhChM0STYwMOJnQD3FJoEcXEJiJxA8 BwFrZLWrKLZvqg4BWLIwHAN2Gbo3HoXjNIYgUOKqCCapCPOpZDOhXDJ9QQYjSCYbAB6PDpDoUJGdAkB4 WnSgZXBuCCKiex7SZQJfSHH8SAV2PISkXDAjWFRtYM emPKCmOEG8FmX2TBAvQNNxYO3BXoSoWZZlJmXfVfKiDLDfAIIvuh5JAWJmXUL1ZBU9AkGzXXBmMUOxZH olBEWyJRS7ADRiMNHwRCNkGW8RStSsTCTmUcE3MIYnIRVpCXAzhs9PNXJhXIW9GiCsNGUxZJSwOBOtXL uxIKZkNSF5FNr1BISpLVJtGX7VIkCrNTZrLjg9MpAr IADpVNPxpr2OCZAqRMU3Psy7CuUkKGFyCANfPQwdUOZaSIH2QIFjVAWpRJDsGX3JSsPpYBBbCbwtSPGg AEHdXIHnud5KhZSsqZndfu2FCGeEAz4PiQhiQLCvPWngCt1unJF6HZInDNHTIr1WhyZxEUWaIVIOTXon AWNaWVU2APM3GhGqQtn7UJFmMPPuPDw7G4RzPNNdWQ Z0ZIZyQgZ5WfNwHzB3Q0MzSNa3FXVbFDCnFhsgO2A8GMPuAKS0OmM+SU3cZZv+Rr5Dh3CryqI3pbFpCT v1PBQ1Aq4NVDWAS1SMIv== ID Date Data Source [id number] 12/21/2020 07:35:19 AM [facility] Name Value Range Interpretation Code Description Data Dinora rce(s) Supporting Document(s) Glucose [Mass/volume] in Capillary blood by Glucometer 154 mg/dL 70- 140 H [facility] ID Date Data Source [id number] 12/21/2020 03:33:17 AM [facility] Name Value Range Interpretation Code Description Data Dinora rce(s) Supporting Document(s) Bicarbonate [Moles/volume] in Serum 20 mmol/L 22-29 L [facility] Chloride [Moles/volume] in Serum or Plasma 104 mmol/L 98-107 [facility] Creatinine [Mass/volume] in Serum or Plasma 1.13 mg/dL 0.70-1.20 [facility] Glucose [Mass/volume] in Serum or Plasma 142 mg/dL 70-140 H [facility] Potassium [Moles/volume] in Serum or Plasma 4.0 mmol/L 3.4-5.1 [facility] Sodium [Moles/volume] in Serum or Plasma 137 mmol/L 136-145 [facility] Urea nitrogen [Mass/volume] in Serum or Plasma 24 mg/dL 8-23 H [facility] Anion gap 3 in Serum or Plasma 13 mmol/L 8-15 [facility] Osmolality of Serum or Plasma by calculation 290 mosm/kg 275-300 [facility] Creatinine/Urea nitrogen [Mass Ratio] in Serum or Plasma 21 [facility] Calcium [Mass/volume] in Serum or Plasma 8.9 mg/dL 8.8-10.2 [facility] Glomerular filtration rate/1.73 sq M pre dicted among non-blacks [Volume Rate/Area] in Serum or Plasma by Creatinine-based formula (MDRD) 64 mL/min/1.73m2 >60 [facility] Glomerular filtration rate/1.73 sq M pre dicted among blacks [Volume Rate/Area] in Serum or Plasma by Creatinine-based formula (MDRD) 75 mL/min/1.73m2 >60 [facility] ID Date Data Source [id number] 12/20/2020 10:03:22 PM [facility] Name Value Range Interpretation Code Description Data Dinora rce(s) Supporting Document(s) Glucose [Mass/volume] in Capillary blood by Glucometer 157 mg/dL 70- 140 H [facility] ID Date Data Source [id number] 12/20/2020 04:35:16 PM [facility] Value Range Interpretation Code Description Data Dinora rce(s) Supporting Document(s) Glucose [Mass/volume] in Capillary blood by Glucometer 184 mg/dL 70- 140 H [facility] ID Date Data Source [id number] 12/20/2020 01:32:03 PM [facility] Name Value Range Interpretation Code Description Data Dinora rce(s) Supporting Document(s) [facility] MHVOXe8dRaBMJzUs22/JEYcjEEJkk7WkSH[id number] [facility] [file] o= ID Date Data Source [id number] 12/20/2020 11:17:16 AM [facility] Name Value Range Interpretation Code Description Data Dinora rce(s) Supporting Document(s) Glucose [Mass/volume] in Capillary blood by Glucometer 151 mg/dL 70- 140 H [facility] ID Date Data Source [id number] 12/20/2020 07:32:21 AM [facility] Value Range Interpretation Code Description Data Dinora rce(s) Supporting Document(s) Glucose [Mass/volume] in Capillary blood by Glucometer 131 mg/dL 70- 140 [facility] ID Date Data Source [id number] 12/20/2020 06:34:09 AM [facility] Value Range Interpretation Code Description Data Dinora rce(s) Supporting Document(s) Leukocytes [#/volume] in Blood by Automated count 7.0 10*3/uL 4-10 [facility] Erythrocytes [#/volume] in Blood by Automated count 4.37 10*6/uL 4.6- 6.1 L [facility] Hemoglobin [Mass/volume] in Blood 13.1 g/dL 13.5-18 L [facility] Hematocrit [Volume Fraction] of Blood by Automated count 39.5 % 4 1-53 L [facility] Erythrocyte mean corpuscular volume [Entitic volume] by Auto mated count 90.4 fL 80-96 [facility] Erythrocyte mean corpuscular hemoglobin [Entitic mass] by Automated count 30.0 pg 27-33 [facility] Erythrocyte mean corpuscular hemoglobin concentration [Mass/volume] by Automated count 33.2 g/dL 32.0-[facility] width [Ratio] by Automated count 14.4 % 11.5-14.5 [facility] Platelets [#/volume] in Blood by Automated count 226 10*3/uL 150-400 [facility] Differential cell count method - Blood [facility] Neutrophils/100 leukocytes in Blood by Automated count 53 % [facility] Lymphocytes/100 leukocytes in Blood by Automated count 33 % [facility] Monocytes/100 leukocytes in Blood by Automated count 9 % [facility] Eosinophils/100 leukocytes in Blood by Automated count 4 % [facility] Basophils/100 leukocytes in Blood by Automated count 1 % [facility] Neutrophils [#/volume] in Blood by Automated count 3.74 10*3/uL 1.8-7 .0 [facility] Lymphocytes [#/volume] in Blood by Automated count 2.29 10*3/uL 1.2-4 .0 [facility] Monocytes [#/volume] in Blood by Automated count 0.61 10*3/uL 0-0.8 [facility] Eosinophils [#/volume] in Blood by Automated count 0.29 10*3/uL 0-0.5 [facility] Basophils [#/volume] in Blood by Automated count 0.05 10*3/uL 0-0.2 [facility] Nucleated erythrocytes/100 leukocytes [Ratio] in Blood by Automated count 0 /100{WBCs} 0-0 [facility] ID Date Data Source [id number] 12/20/2020 06:52:21 AM EDT [facility] Name Value Range Interpretation Code Description Data Dinora rce(s) Supporting Document(s) Bicarbonate [Moles/volume] in Serum 19 mmol/L 22-29 L [facility] Chloride [Moles/volume] in Serum or Plasma 101 mmol/L 98-107 [facility] Creatinine [Mass/volume] in Serum or Plasma 0.96 mg/dL 0.70-1.20 [facility] Glucose [Mass/volume] in Serum or Plasma 127 mg/dL 70-140 [facility] Potassium [Moles/volume] in Serum or Plasma 4.2 mmol/L 3.4-5.1 [facility] Sodium [Moles/volume] in Serum or Plasma 132 mmol/L 136-145 L [facility] Urea nitrogen [Mass/volume] in Serum or Plasma 21 mg/dL 8-23 [facility] Anion gap 3 in Serum or Plasma 12 mmol/L 8-15 [facility] Osmolality of Serum or Plasma by calculation 279 mosm/kg 275-300 [facility] Creatinine/Urea nitrogen [Mass Ratio] in Serum or Plasma 22 [facility] Calcium [Mass/volume] in Serum or Plasma 9.6 mg/dL 8.8-10.2 [facility] Glomerular filtration rate/1.73 sq M pre dicted among non-blacks [Volume Rate/Area] in Serum or Plasma by Creatinine-based formula (MDRD) 83 mL/min/1.73m2 >60 [facility] Glomerular filtration rate/1.73 sq M pre dicted among blacks [Volume Rate/Area] in Serum or Plasma by Creatinine-based formula (MDRD) >60 [facility] ID Date Data Source [id number] 12/19/2020 09:46:37 PM [facility] Value Range Interpretation Code Description Data Dinora rce(s) Supporting Document(s) Glucose [Mass/volume] in Capillary blood by Glucometer 170 mg/dL 70- 140 H [facility] ID Date Data Source [id number] 12/19/2020 07:30:05 PM [facility] Value Range Interpretation Code Description Data Dinora rce(s) Supporting Document(s) Erythrocyte sedimentation rate 21 mm/hr <20 H [facility] ID Date Data Source [id number] 12/19/2020 06:43:44 PM [facility] Value Range Interpretation Code Description Data Dinora rce(s) Supporting Document(s) Glucose [Mass/volume] in Capillary blood by Glucometer 109 mg/dL 70- 140 [facility] ID Date Data Source [id number] 12/19/2020 05:21:52 PM [facility] Value Range Interpretation Code Description Data Dinora rce(s) Supporting Document(s) Glucose [Mass/volume] in Capillary blood by Glucometer 108 mg/dL 70- 140 [facility] ID Date Data Source [id number] 12/19/2020 12:20:18 PM [facility] Value Range Interpretation Code Description Data Dinora rce(s) Supporting Document(s) [facility] FISXOt5fSdBCRwLg19/NINocPFAsq0QoUKynCBy8DTiqYGUfS5PxEFX5gJ8tEVH9FYtKTlYlGpJyNxO6 lbm [file] ICAgICAgICAgICAgICAgICAgICAgICAgICAgICAgIC AgICAgICAgICAgICAgICAgICAgICAgICAgICAgICAgICAgICAgICAgICAgICAgICAgICAgICAgICAgIC AgICAgICAgDQogICAgICAgICAgICAgICAgICAgICAgICAgICAgICAgICAgICAgICAgICAgICAgICAgIC AgICAgICAgICAgICAgICAgICAgICAgICAgICAgICAg ICAgICAgICAgICAgICAgICAgDQogICAgICAgICAgICAgICAgICAgICAgICAgICAgICAgICAgICAgICAg ICAgICAgICAgICAgICAgICAgICAgICAgICAgICAgICAgICAgICAgICAgICAgICAgICAgICAgICAgICAg DQogICAgICAgICAgICAgICAgICAgICAgICAgICAgIC AgICAgICAgICAgICAgICAgICAgICAgICAgICAgICAgICAgICAgICAgICAgICAgICAgICAgICAgICAgIC AgICAgICAgICAgDQogICAgICAgICAgICAgICAgICAgICAgICAgICAgICAgICAgICAgICAgICAgICAgIC AgICAgICAgICAgICAgICAgICAgICAgICAgICAgICAg ICAgICAgICAgICAgICAgICAgICAgDQogICAgICAgICAgICAgICAgICAgICAgICAgICAgICAgICAgICAg ICAgICAgICAgICAgICAgICAgICAgICAgICAgICAgICAgICAgICAgICAgICAgICAgICAgICAgICAgICAg ICAgDQogICAgICAgICAgICAgICAgICAgICAgICAgIC AgICAgICAgICAgICAgICAgICAgICAgICAgICAgICAgICAgICAgICAgICAgICAgICAgICAgICAgICAgIC AgICAgICAgICAgICAgDQogICAgICAgICAgICAgICAgICAgICAgICAgICAgICAgICAgICAgICAgICAgIC AgICAgICAgICAgICAgICAgICAgICAgICAgICAgICAg ICAgICAgICAgICAgICAgICAgICAgICAgDQogICAgICAgICAgICAgICAgICAgICAgICAgICAgICAgICAg ICAgICAgICAgICAgICAgICAgICAgICAgICAgICAgICAgICAgICAgICAgICAgICAgICAgICAgICAgICAg ICAgICAgDQogICAgICAgICAgICAgICAgICAgICAgIC AgICAgICAgICAgICAgICAgICAgICAgICAgICAgICAgICAgICAgICAgICAgICAgICAgICAgICAgICAgIC HuCRDmLEOdRIZmLPHfGUZvIIw9B7wdQBFcXUVhLC3fKWw5Fx0+EMyYBkPcBSP9mdLkeH8JTI3gt3XrMI abXFPky3ZnHQk4FL9BVFOiEPiqNM0NVVvyhd2DMVCo UOJdkIYIp7zbMrLhVFI7FIEtEtzyBZ4DZTBcO7agczYvMPXoQUEZAXtwYZZYFMmoLSRAHNEfNABxDrUp WKtsDS8Cg9EuvMS6TKn+Po4NRY3ri4MjDMdjLFKeNG3chh7XFFzDGgYrF9JwohB4DVRdUOHaCe7EGDBe JFRfuWAqHfWeOEZUBcPnE8LzuI35RMCTGt0+DQplbm VuGtpJPxUpSWFhc6TfEEg2SM1UXIYoDPm3fQMcN14qj7GzeDDbPqwcL8FvFDZrOT7ejALoIEPISBLsvE V7GgB3JmZbSpPpDXD1OuZsLM4mYCtiAN2SOEO0SYvrMUVzSLPtN9uSLqHxQBLkQWHboOtyFM7RKoQeT6 BhcmVudCAzMSAwIFINCj4+DQplbmRvYmoNCjMzIDAg k4KsDXh6ZO1HRRIlWOqiWD9ZLGFluB3eNUmgIQ3SXpIiAONtRUBPMePcY11epLEyKTu9T1ZxAoGhIDDj RmlsZXMgPDwvTmFtZXMgWyBdDQogID4+ID4+DHzzIK0SJHnlacZdHMBdGl9UBDHlWGFcAC6gWPKrDTLh Q2E3bQdqBFMOTiXgR8omzwlbSF7pLGTyC745jVswju TaUMJvLQPjHa7ASPLuCBU8DBMcbUUpJbCwHUFRQNasBK2XiSEhPJH1zW2kCExlOKAtLRHbG9lEIxGwvS oaRV52qJbahsHjdHTlKFr+Cs5IOY6gm0QzEHp9xbZfSPnyXTQ9OWjuVSYpWCLoSOGnDVM4SCG0WSQCJr ZtEAAvECNfDJxlOVXhFKNqzj3SRXCuTOLgLWUbUQMl GLNkKPNuKKhcVCJqJPFjCpptHRDnHZEgTI7FMdFjMQLuKDQyBWivCQRfKXVisb7DSLKlDJUaGyMyWePh QKCdJVNuEIseZMVxNEVrFjEsNTFiRVUwJV9ROkEkUJQsZWX4ZIEwHGYcKVMebi8RJHRwCROeRdp9YKSi AEVbDFEaEVjtMQZsARJmLaG6QBCrJUFoKD1SFfMfJL AgQCZ0DurbNJBbSKEczt9WDVWbHSPnTrr7GLAgGHGvESFoZQonUBWeGSQpDJhsZCKsUXFsLK6WYyQgLC AeRLP4VGFnEAFzGAPxhd9FYBGiEKVlQQKfSIJjYPIqAPWrUEpaKEGcNIA0YiQoHRBqEGSrJJ8CLgIxBW VwCYWoKVZrBIRoPUHjix0DUUPuPKQlRBL2JjCuBVAk TUEtUJjqOJBxIMV1EzowKWXvHJGoGL9HTiHsQKHfLHO6DqQhQCFgHHOuyp4DGKYqBIQbXnlgQaLqZDHk LRTuWGylRQJfKEV5ORCbRRUeVSEwRE5EExOoCKHoCpguGJKpYYSqCAGidr8UXPFkJKJwUDzjSyOnHPIa KAKuJJueJCIcRKE7NRAtIYRlITOfCP1PMsZaRNUeRr kaEnZcJLHlOWTajs0DLAMbLGJaJJBjFlEhJTXuPNScIHeyGUJtYUZeDzLpAMIoGNWwZK7VGjFjTKWaUq K8NawdDEGnWXGtnl8FNMOtRADjNDCpYyMtMFXxQCTrVFvyGGEjZBHkZWVjEWKtABDiYD6SYbSpAIHcNy A1RLazLPDzEEXgws3WQNGbJYXxSdJ7XRBkNUQmYQWy PNozRBXyOAXsQuZ2FJQwRIGhRJ6FYnGbSYhiRJLLAtg7XNbiB9q1ZEAwJA6PN4Ngj9QlQdEjWUSIEFto IE8mhcZrNRPpDo5WX9oEQxinEOSwJSC0LIHxDVVeB8BiVoGoVuzqOdjiLWNcYJa6VC0dMIShAOR8Bcb2 FDS1ZkB7HGB7HdRoFcQgAZTeZ4YnVSVaMiYfLS3XKf7PSbK9IKY3aHImKm3IEcS9ZoRZUpWxAF4QCSe= ID Date Data Source [id number] 12/19/2020 12:03:29 PM EDT [facility] Name Value Range Interpretation Code Description Data Dinora rce(s) Supporting Document(s) Glucose [Mass/volume] in Capillary blood by Glucometer 117 mg/dL 70- 140 [facility] ID Date Data Source [id number] 12/19/2020 11:13:40 AM EDT [facility] Name Value Range Interpretation Code Description Data Dinora rce(s) Supporting Document(s) History and Physical [facility] IFIXXu0yEuBGWnXa34/JSHpyJZYaz3YdRFtkBJm0LVraJXDsQ9ZlHYU2fG5wHOA2NPsMCwKxGmFcDpO9 lbm [file] kaNVcRiY60phzwxc66g/zbbvjX9mLS1W9jcp/zMnJn1+7wp5Ib2+Pz7N6mc+qm9e/Dp+[employer]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 The bones are diffusely osteopenic. There is a chronic appearing femoral neck fracture identified with slight superior/lateral displacement of the femur compared to the femoral head which remains grossly located within the [place] acetabulum. The age of this fracture is difficult to assess. It is new compared to a previous CT examination from 12/20/2017. Clinical correlation is recommended. Periarticular soft tissues are notable for an extensive distribution of vascular calcifications. There is tubing seen overlying the pelvis along with a wire electrode presumably related to the sacrum.IMPRESSION: Likely old femoral neck fracture which nevertheless is new compared to 12/20/2017. There is diffuse osteopenia and incidental findings as discussed above. Clinical correlation is suggested as to the need for further or follow-up imaging.This document has been electronically signed by Heriberto Soto MD on 12/19/2020 10:27 AM Name Value Range Interpretation Code Description Data Dinora rce(s) Supporting Document(s) ID Date Data Source [id number] 12/19/2020 10:06:[facility] Value [facility] Interpretation Code Description Data Dinora rce(s) Supporting Document(s) [facility] VPUDGf3hAsOAHqUpu8TyVaCoJYYgLN7hily7F8E7tHWxC5TkmWKnp7qlM0JnY4WtDACbXYMIVO6BiJUr jb2 [file] h/Vrdl0d66a1/gd/gd/oA/9Hg9zwrY0WduPrWj dYcWylAmE3fNnJ7zJeJ6xKpV5wNtC33ZqX07EfG28iTK96jKBh7yTul6jlxQ2AlfRkUhvPtJppTvNWpT eAPxBuINxBuIN+774Jm+/fbto6++2/Av+Nft/4F4A/HUyFbE20K8S/EVdQeO22S1I/RDnLtP62R7Z/FO XN+E0akagFbi30D1wdj+E/RQjYeJ55G8D/DotFaK26 K8C/FcyMsM22Y65WwPuKMBGoD2GjSGIl3r7PoWfXBXLpA8KLdufoT7ZW/7aIQtXuNLPX3K7ITHMtx8qQ FvLmFMOR9N7JMBTks6oVUzKsDORX6B2OVTIgw3uHDeEaNJKv6n4PLYDmy2wZ7Hx6Am2Cl0DM/AP+Gf8C /4F/knwpK4ZR2NgBVmOoQ3OF8NkOUiQe+kxP3u2ctR /EVdv8SJIqzuUfuqcKMjin/gX/Bv+K/eULl6Q+WBf8A/7Ko9ZO2PU+E3+A1+h9/hD/gRryBeQbyCeKGv EUnJyx3D+ygfzdX4GdUyXOeGqk3A+tpwenK3CzHhFTcCfk4F+mxA5GohYlLzvIzLqeHyMdkMeVDzYQ7z qa/ebfgFfsSb+it3Luwc3rs1YA0Km5xHIK4iGqgb0+ pntft+pLbg3/El4mG8sJb4xE0hghU8JE1m0Du/6jET1phdgfZDnaxu/DcxQ97s6l6/EPl1Ln7AigV/nz jOibfaOvE+0qhHr8XUxOsKNiLUwgn+erfhH/WUn3xER0cX4mugsrbbPtgoHOwXMgcpk6svQpomC3G+0s D8PWcsM+YwXNnbvwR1oeeU6elcD8RsF+/7r84H/gE/ +dMOs785KevSa8Mw6Mm3Ne/DH/RMhcgyrlM6Q/2zikum7vHO4HgBd42PbFNMK3VkC7jf65dpwPkF/+bU 5lOT/RpsLe3q7v38fyxSIi/Efb6AD4BpodMgaIw2Z8WmaJ6lmXO4M7m/6i4P84sD/VwtmvivE539cr/L Y5XYXd3RU95hcTdpq1KzkOWO653/idj4716qawz//f X7V7z/+yz6UaW0kEOvabbGjRmOCNej2PppMi6CtW7453O79FNr22RUCcBHA/Fans/RV+/M5k+0AJl70X a5mtNe0eiQxf/xvn8S/JMoQZ6ZbsuIRNE61tDacMvtG4at5l1OoDR2J+qrd/z3ONe8vhNrXPyWIb8iwy y5/feKG77vn+aZGcp81Zu/5wmxU80B9+EP+AP+Cf+E f8G/4L/1BXtufcHGrS/PzLAt9Y/4BX6BX+FX+A3+rC+b53c00R6LH/AH/BP+Cf+Cf8G/4d/XLzf/bPLA P+Qt1Nh0Le/Cr/Ab/XgYQJ5iVaI1aftC0AxiiRfdU1z7ynQD/342q8dUVhowrtjl1QM/gF/gF/gVfoXf 0Hz0Td1kEeiqketjaWAiK54gjQB+2/Av+Bf8G/59/U uq7gQNzqw9D/rQjkrKMqpg2Sy8Dk0ln+S+MORELAND/JbYf/6tIXmGWZvm5Fn5d/xGvpP/HW9oJ/wX/hfZ08Eo 7RV9/t+/ujr7al/8Rb2wK/wK/iY59mD3tln/gd/kJrRuln3H/4F/wL/g3/fr8uA86ly05oSgIKDV+sbY H/tCz7Mvj5qZduL4HMKvxmcCMA+uD4Thh++0/WB7Nv Z30w+1vwggpA3v+6ixTQ01MmxCxvuxshHBgsn/hbTkf0sqKgiR70H3f23m+/jv0+v5C/MuSvDPkrQ/7K qI9d2L7I+CeKoPQyKqQ63T/wb/jv+5Fl/pcrFKj77ycMJG6xgdI+pi4lnrWZJ9Na+L3hOLe+XFgPI8bT /AH/hH/Cv+Cx8VD3Yk5jp1hsn24j+Dp5A973wncxbd mY003s86dn1VBkC2dyF22s5F6MpfHrGid8gytk0NtEfl/e7a/fnxuvPw/8A/6Tz5Zs9Jc2Vt/Bb/A7/A 5/wB/wT/gn/Av+Bf+GH/NRxWlZ68s3wq+08k0S9Rr8IS6WN/GO+/4Rar6jQ4mBbXpm1vqGB+5jOimr3/ iSf9/2J146jF5D8ZddW63xe5/yD2Iv/R0KwkYmDQ/n 8JtBK5Ds0/srl/u+76mvJP/e9X3/itndip0Xr9I/9x2xKC70alUwiwb/4A/4J/wT/gX/gn/Dv+/5ZP7q pEj01m6eflslsllNa8jU/AMzoScuQz1ngcHWn494l+PIX7ne+q/K14qB67wxkK/w+/u+76gPOuqDjvqg yp5mQL4448W4coz5V46b87tZ8yfVP/Qf7fbV6yvEd7 2Fbwaiuq0veN165yRT+tRiNrczOmzbs417bDK+3LxZMxKQnxlbus4iaC054pOM+nXcRtgpVtnrn726eK M+4WmVAiqLyeqspf5rrD081lGY+aKfDdkpUcyvu206eED+1PbBBikJydwkz63Wljh4vYzN45jdX4m2bd 6hrxzfXzm+v/L6/kkHeQCgqiby39ro0p8UrCK53gI3 m/oq7/F583We+pv01K2D9+BuNqUP8j+pr/J+bavc62cewynsi/gD/gxj1QIMij3R10/gX/Bv+AIs0ox9 +046sV235uZC+qAjf+GbEqbko800rLB4D574/+ho2dt0AfxKwtQI3++630/1ljtA51C/6itfNz/p++af DlXPB10adT25L07L00ZlvxEqQYk2YoP+uykqwobU47 Nh4/qmvqrtCf+Ef8G/bn+o+mBtf+MK5K8C+Estrada/jqHHueTYzH0aRE0VJKuIILQC/HWZO3nYV2C6UqJ8d FAfTBQHwzUB+N81vbb9TpO1XmnFYw3aZC+5caGQY1nBgQDGFAfdiB07MbWO++KZwBasLwtNtofCg480X xhXmbbwYwShY27akd/7ml2j68i5Cwczk/YSKdGt4Dz rdWwkr5j/VXI/r93GA9etnIKmX5dop5b5OCPupwQ5XpOKI8l5YxSha/qqzxPufWUkIA/haKZHJVCh58R 7Uwb6ESxucfFSps33Ek9aymXsqle23/iYI7Mrv9d6ObKJE0zdl2w4ID76VWm5tWSI/XB/A2ur6I/p76q 33ryv5VvjlRIyl46088Qrfhr+cyX4j6Y2lhg2123OW [file] dKFGGSoLvIYrOGRHLELHDRghqvFdp0Br8VKMCWeqmC vzU9qVzrZTlN62KhQVrBq9vhBGuJZmfE0BwGEQzKa7WWZdOzJPkSuzKwCZeIkEMsI6OGgdSfSY2X4yT6 RjQwHOpYxtWeDJ2X5iJ7FcLlOEJU5hDOXcR0qPZxxf3+5WqnpPg4567GvFVm5+cU8onosQFr5Q/lPqnz s+83FXJ1brFXlfZlYzU2Fp194Am0IEs7yV3/fPzdN+ 5e795N//54+QXm99wOnaPa1Salsm90zybd/PLx1W/ffP7mK+s5EdtfS2867JQx8eCHT/r42cu22lhTF/ 3T129/hJMNXq2MpCTP8k/2oi15GdO///Xb3z++/xr7y5ymXl0xhWx11fFzaf5wk40sqts4872+/P5X9u vnuMy92pwFe22+TL09kQw59oTwS9//TYwXi93X++iT lITpvsjQM0uz7mj9m5/noixs831ohlsigpp/se/5JXzu+8Wbt2++cB3Jc933/LDx32p6Ud389+Hl3ZtX j3/84m7c243pK49/f/TyKa0chOm59EdRG02+//t89aFu9vcJn+rtVv74wSadmgm+XZR/+TzMV+9eXn95 fo7PH5+/kOyi2z5pw9fnuLqwZ/6y2fw307++fPu4Dr 7y98989+H1b5/mh9+7jUv7dXNJS08/e3yjPz/PWu/rPM+HPOSrT/EDMod02yC7p3/fv/sq0YyOa/F3z5 O/ef/6ty9f/F996jb335GjXdtqPa/mb+l5ldnpb9/20vu2Ld/7uZzg9f876jr+3N+e//D48h+eI25DXp mfdP/l41/+7uu3z8/yj2/ePa/6v/z9zw+00iJJsc7x lCh1giC0fKXA6v+RvBaVPv/t9Y8//Ouffvr+uz8+/tf/KZ660pe/+Qnybxs949927mM4d//luc43vmn5 j98+P4Trv/i179jcMl9lHl81Pp34Ype8nfwMu368o7N0Hd7OB9y4//2v/1ica3slztxG/z2i7Fw3ILvo fvz2/kGhVtHfLM0u+BoFsIIE3pdG18/zVvYYis/VG2 /tADWqe0jp1/m4A9dov1cYb+/+0umfdih7ptZ7iH/19p+eg+/6yt201j8WT2KiE0A/p0E28yp6go7mbY ++FcP8XtlxAxA7HT0nScEPBsF9N17463Tu/uHx07d/+bbqW12jhVAVub3+7lZs5q12E+0Ae21AQ258/O cBh9b82//59j//xuEvSj8+vO35I3ew37m/sH9+9/7x x/96fvY//fjDzw+/9ib48uAiCWn3lp1+/c8f/gD8+QUvwLvOXz9/64c47MW/Wv0y4+cnjOfPVYC/ahyC 0RrBn/N2Q1/18f1sCob+/e/v/nkUb4605Z26FeUuduil2OyJ//npo7v/4wvxxbf/+dEFjo/Q19/+1x++ /eGfzv0gq///7lWgrl5+/8lx/yS12P0EF/14fj36Wu x6d0myfRCeNsj6x4/74U9/yW3nh2d2ZyJ22x4wW5uv+ue/ARmARh271gs2T26lmRj2ah/47dtbzG1Ma9 Xz6/v/r9i7J45sq51hT568h747kWfW//rgHd/M1K84i91/b/b4hm16PY1Is2jfUs8MW4jRI5XAY6MHy9 +x182rpcTtg7cjZ4/18glksiujtYubj4qt3C6QerWu oWrpepEjlYJjUA4PIV7cf3MhNyG0PEMfy0XkUNbsRKy9wXLoJNzzhiRpl8UnefufB7Uvo3QhGdFrXYRl JsOmAbo8MQTjCrW7yCOiIjEsBFQpZ3UaSTQaRiE9ArJqNIVBMK2PPZJvoiInZzAyCJH+MpFuHC2wdoxi KBJmy4AoVAdnVRwgXJQzX0X5qLsiXJMzV4KxgE05RA MlF7GqzcH1ONM0IFCsZmHlTQQjlTWfLVJwZPG+JjNlXU9slrqeMTUjm9EkDNmeVFZ4yG7yDJbHWLWWHL rLZWkoZtF4r02kbzWPKZRnEIPlXT5RfrVrlUwjsmCfyGMlGNW9EvMhFVL2PSceINZ2LDCELNVbBJHaOT UkOXRdK3EhdIvcEEkTFKAMEEtASXtrOjMlq9A6XKNa tpLYMEXEKV1BTLNIWLmKTZBkPfO4WGP4NZbnX6U5GsobJ9DgZY2AL7PfCYQjHSNUOBNbmdLaZO8AzhSy yN2wCAqVOOEOIWwEQWekRlM3q68jdrGVIBJgTTBiPOdbTGCzZSMyOLLrWJZsVFVpVLEkDGUaVC4FP1Oc KLEbJHMZTDP7g1PfMAChvvvrwihgKu5aipSuTfs+Pg onVBXgq4JyTFoyI1G7dLRxJ4OcZ7QbCJ8DxOMbDEhgHUSfGDRcPMCdU855ziNuGT4+II3zr8PpLzftTN AWHBBtCRKgDOLdNPY2EmKqDWVyBTWpITMoLqR4AeFmOwGEXGBuHMZ0DsR3PeRqMWZcEHNhBXxnSUIaCK XqSDHmFDRrEXAuBC6nFaQdOYAwAxWzEVMlTPJfDYVf seRDURLlCHQmTAHoVSH9GKLuLAImCRdtDFHaZLLnENX5ABBrSYJgXM1nJzKnPIPuPTQqHxgpBSWvCLTu yiGPGIZeDZNsEBI9MgZhTKYcHUQvRGsvFPFzVLLwZsd3OCTcXCNgQY8bPrFeTJTxYHE5YBbpQBXvSDKw biAKMDAwMDAwMDUyMyAwMDAwMCBuIAowMDAwMDAwNj XvZRHbXECcKZ3dXvPfPAEmRWM5WNVnWYWvNOAfxkITOMRjPBFfMHt1CPVcRHGmASOqPPpwAZAlDGTiIZ R4KHIvGZUoYL7aBoKcHQYpNZOrTLYkHSWpYMSlrmWLMPHyNGDwZKG5BHMpEXZhPKLwZAdrIGAyKRQmLx w1LQAnYXOkOI2xLdDaGTCaFUK4PQEgNZJiLXTinwHV HEHqOGP0CEfiTUEaUJZkWAGgOPepTRUrJMVuUeX7MNSdKRPkOU1aUlWoSAHlZPM6AaEoPWWpTWIrnpME UPSvHAZsWCG9DqMyRDSmNRZcZIqkULNqMFWgJZOzVHG3EPM9LRXjIeSkWRylVLEZTUoHL7NrbmKpQkBR V2dlDg0sOaLbHQNBC0Ejy7IrUYIfVTBGFg6+ZoY6PLJ1qZVnTto1VoUmGcruHJUJIr== ID Date Data Source [id number] 12/19/2020 10:04:01 AM EDT [facility] Name Value Range Interpretation Code Description Data Dinora rce(s) Supporting Document(s) [facility] YETIXe8gDyRRGjVao5BhQoElKTZpBM5euyj4V0B9xODcS5MwpZIau5zwA8LzN4UmXUNmZMFGHC0BrQSq jb2 [file] xURZGDhYYKslWXFH1J5VER9NnIdwUUmoPrxWacb/Wolof KIrYfSBu/+nBToqGX0NS3XL9JWtpP2LxqxSckZzniAOG+f28AhuBNVVAxcU5nNXSTTT3SpbFcIeJKSRm xoKVrc1HqH8AcnTHXtmIY3aVlkQWFT9N1Fyyja6PxHgYuRxL5xVPzz2JRYaNsU9sGkVPWxkcT42+C6c3 DdObg/Zj1983nu43QTrD/GRKuBt1hvldPH3AigrGkD jxBkHzHhuubw3EWbRYz7XCyn4UjjRA0xwxdF/aT4IoPO7LMZfhNgks/k4Xqp3gadKUyi0eL+gPHEeOOJ 8wLlG3qwQtroBLUOdfJQfhVKF7QRHBpRRyjJdAkvvNZGgB6UXpuF95FtlYwWDQsUyF0MjnWlq3L4qwJe HEV763I1CgEmZ4PLK5Qm8VbyFQpHk+PCxJwpJtaZon vyINkmkeZjlE927gVFRKwhopaTEKrMH7XdvBHXfWnyHpGqLefDpXJRtRw7sA8kYwtP3izBxGiXGmLEFO k8UC3OJGXMVUx6DF7A5KiSyftcxjBPvEIWeTieNjVLes8zA30QA2swHTjvMsMwj71t144LHTN8gxPuj9 11gL8EEL41wyxknJCcmm68ilkzR0deVEE1hn5qYCR5 0lL0juqUjAIjOCPmVfZWOHUYmwVpiG+15xD4tzlEJfRTcnde6U/q5Wp1Rq+nDPDMtt25eyIEf/a93H8K RmxABX9f1taNbGMD0+rW8+h5LPgCmvHb2UZq42rFyZOgydwMIDSZEfcgZXuLK8pQzuRRN0qNdZlNwK+m wrcGHiLvEATY7zhEEJV4GArxstdpuTOKF0ep7/enKZ 3d6o9h2+Oz+0NNnkvzjHvt6+/z/V3OX5k/n+cce//r/sWMYv1yBZ4+P9G/c+b9r0+rZ//+4mvEH3it/D 4+v3u+Pz6/R/1fh71UzGRlbo/oca8k8y+3/+uX8vc/tb/P8/P+rme/aT/35a8C55n4W/5Z1ka5+9ZHnw fP/b5Un79ys3gui+rNX4++59H7381wx6NseU+gXL92 06Ov5e+B0iGfN41VI8B+rxJb5uEdo45+M4G/5/x9+/fZnvu+AOigp7k/pQ3Uwq9Ky/6gv1j3f2m2y85l Nie80eH9p/rlfG9Efhr961W14ms++Av7zVYox10fdDLyd+Uh7o++e9Tz5/c8MPlh/Ge0+TcPrn+fFb8r 8yaxP1m/wPKb8e62+HJ6s6Aya//ouyV/j/tdRlw/H0 ffVc/XbgP+PCr1p8Fe+77v+0Wz8qzbc8++glv8vl5cuRh4x83p+Xz0fZ/1tzA2pUa+4vBef0zR/drBoa 3UH52JrxE3oh0l/L7x+76/B/w5nuv/YkkoJTlslbv49jvHabtFfRg/wPeNo+/Id46+2QHh1F1vr700Tf 484/eJ3yd+X/y50bnS3/r7fB0Enp/9p1z/nAMyW1Hc 1Flxut7/tOo0y77glaqk/5b123xAvx7t0GR2d80W3th+Ikribj556/2N/MW490N7+ZQ1b6zP+77M9Tmj vfksvXotw++N02xzH6FX/hiPlt9+xaMiUzd05yIrc35r6j/HsjVA7xAekJ3Uc/1jrGXwl32Or8vPt+u1 /1Ocq55PgoT8+zb08Alyj0kbso/oqkwB2sU/L9RnXT /ZGI/2/q1qLBi4N+cI+fdZvt/9HCD/vq/h86WGp8+w8ngyFQAH71EmNV2m888Z21Egt5H3qrZ0F/79Pb 797Tk1/i8vti7fsGctHn+R8e/j8bxuGGn4//CrqrPc/uqcFr/P+F2fm/b68zkp/bRt9h3K66d6uWdnPT st4RowWm5sKHC/Pgd+D/w+8fvE7+o3xQ4De7Pvqy8u +AT6Te2Kuuc1rnzdhqr0DFeh+NtNsOjctI6T26l3zbGtreT/jTI6Gdq11+hvD5ha29+e0+DVz5/D4N86 rGt/sxQoWDpd1skkYT/OfM6Bn/wQv8tQRDUs7p8+/AWhrb9d1lu1j+DU3mhDr5J/za4/4Z0kGqeP+nzy r9TGmLg+/Bbrr2wjZuba+H19+tg75n8cu/aM2iUz0W zta5YY07Gw+/vL5hd1CrWc8O4Yq06VRoXjeRPUq/rJc9a7+kGm9Vz7jf28fh+GzMR7a5wQ3Fm4iPF2ts v72mfc/nhKL47I094Yi0/xS5Xh8Wzth6Rqae4D/yozyTRRh3HG+eUbmvzqcLBzqPuPB+ME9y008lO2/H l/H3/8byeO3zkjq1S90+33kl+UGhf48gy28RkK/X3G 9w3B+3d+nO6gaaNUr/nHnR+mM8jpAIUtS/E1L560Vw3Frf/0exH4bv3d2Fnua7YlU41/+u6mTcnv2y4+ 7x9+QXyucgJ8ywze+ZY7De+merchandiser seasonal+c74/Ybh1+9z37rM/32D/NQM44E1ybCl33/mpc/60R/zbqippkwu1PP +31noX8+/Yc1hKBbeh/92OrE2i13he5co2/q1iTvM4 71+mHyq/QV5FiQR451V3DeP609eldoJo+jr2T+R9/81a18u6/pgj8v+HPyq/WY3cgLi/f9je+77/z3nM V+8z/8qso9/CpjI+rh7al1L394/t3iB91936jWI21/uAO/w5/3vP5w+HSF1pFwr9xwpf3anyiKBGOb+N X3+ThZIiJhd46rl9rbag+Z90uc77GRT36i3xq4B5o+ Ffn7+K2Pjwmv7HHGYR4v+dXKd+XgQ6wl00XwfLZ945C5W/K/3/txzB7rpLy/ep/x+/2+pqTd8XYzW8J1 Roda4wrdyw1Tio2fgn0FAjoVb0xcn5xQ5D7GUhepFKDvgbTHn2rbI/lnrf8EGK/mqerIyw/OoeqI/HaH L5O0ezOyfy/uWGA17iU/zQPVoXVq+lMwdS2paeTEt7 NveH4Yv/HPdiMTa48wsTf+6KuV/8qnj07A/dBUuj8u/xtoL14T5H22/oRC85bpxnJ4gMwgc1P0XrshzM 3nAHXUubLDr+oI+eFXuSnynJ7+GwPq+WM3y/BPvrgJmuZji6V0+8ouAc1Ize/AW6Wqwu/DygtH7PxlOw N8Jb5OWiO/j72ss4nhT/KHPye/Lg1MM989yz1o8Qfb jTs/oeBS1G7cioX5u48luo/S/sFIV16l+YJl/Xh8Jn7qv2/x6O/c3KciwTU04I8ZfqDM58W3sl7irOOj +y2Ofv0iL6/jSll3LE9f4kcrCi7C18c6/jkQ/mfIjst1VIr+Pjt+v/PBcxb6/S5++5zjO2520SlzZbs2 rUNfv/JJuwj92orgl+/ztX/Gr+pjHt7gDP7i4OfRzw 1zJM3z9IxJGf4qiz4lY5z4ov3Z+SRvzoNLnxf3o/rWjs7bn6rdd7WL+k7oO/R6M093Tk67Pa91twa/dc a5VO8GaprddqVz+2T8dmg4WjDdlstQ5U80LdN6e7iiyY5jBvOWM/89n/7kw6/h39gmJtFcr1E1EME+my cr82ckV1+2QW1W5C8Sz914jGN/WpM493p89q2xtX73 QKsFeT2L/rBu3vhnWep6ij94aO4/2M+1773gt674/nb1nsag93eoad+2fxeY9xqzj0aqne8Lc4hri8+9 86qdWpdkgN8W5C02jdF+Vb/DnzN+Vc/0rzr081IxlJZN+CbUAmszH6o8Ql/y922Svk6k/y38HZfAP2op Vvk+431H/s65nRkk90wj2TMAFPr1T7nt2qkKy/vn8d u61Wt9Jr1/2+/I+EGdS4X460tgso/0U901Gj+/t2k2NiPt3tmX5/6B8jq1tUSn5BmZoKH3A2F7r13pQi 71Pn/cm2d17ll8r7/2Zz0e5hdMW+/08zKzY10HT6c3+32+5ccw47m5/p5dKZb7DlxdMJ+HBt6/8bqh+L 3Fv6cbql0Jss1Lzqy+WAdwn+yeZp6J5Qolz/iz6fUH w/q0L20wAt+q3+HP5tf+h1/xBl0iU29jvxU675Qo3boa9N+u1IN2KQJm7oAsOA09XCE2NY4D7jUy1Z5J LR7pgI0Tbet5lQ7V0/59oF7aemN6Inl2ik0cYG2ZEqk8bcUQ+13GjU+JylJ4Eb2XIq6wjAF9ecsN4xlD xq/eZ/++4zeeM/zyjeE3/kw3nq3Dya7y/CrtlvGrOn [id number]0O3c0M85wa+VV+R/Ep8YxLygVTj0tK0Zq0OUyp2HbtXoxj+fNIfp K1PJ5Rcfu84y4owi3L7LsUeAoM2MXj9rZo5MiS+vV88YhlmLuPCc/7KjMUS4y84kzc3sXjQZA/33jsmD founder and chief technical officer+rowzJf3x2oVb8Rh0I4Oi/p+N3x/uXPYwZ+nyh3 ve0x52r1U3fYlq/dJvRdd/1l0Lec7kWUJi/vPQeCiw+a27Z0Gi8tlrv/aZM/5+93/WggfjUWvu+6+1VG 8qu0/7rz/WG5fz0dmwvA+FXlua/8vP550n8/p33zzaIqS3cVoj+m5hx6Yn/Wz0il37H8kL6XZ3byp8Fk +ZJ1P14ByJJxDEtEzwZJ+K4Zw1cz466sByuxqHrol/ 7c+a8/d/7rz13/9eeu/zrWB/258RzH+qBn/JlRNP19omZP8Tyw+FU+3/UUf+19bo57lu/VuC79ln90db 0vvH/n+63vm4xFW982fhN0GO8iqbwRNK21aGB/ldf+c7r90F5b9hb/Qt5p8u0nxil27sn47Vbjl4f146 e9uCzU/0tnKU612ZUDD8ynektm/qusf+6/qtOvR1/J P7IW63oo/F9czPwa/ivNZ+qx9Re5R5C7iafrFLtv/1XV8/mdI47Fh8/eFoQuU0xnHs76oNEk3/Hdk19Z Hm+946/n+hN8vdxy93fhjx6/wjQQt14j6csY1hM8HWxtt68mTxqoBHBk3+93y+Nph1+pfg/pnmM5/+YZ 8ZAwR3hbJCRJC8/v8+f9Gli73Vvnkx+/ly4bv3/0lT ry+hY7E8pbdV8r6TPuq13h0n2+VXU+/KoO9R1+9G97vZWQtzwHcQy+89H3/xVJ698BML+413Hy12TrY+ c2MBwScRtCnhiPVxj8/LLv5IIajp88A5Ett7X5vh7jz7b/gqR1iyoxV/y1C763uB2501i3WcvzB9J5/O 7XrzJ+VWnv+Os+kT/6K1+oZ+3KeVif50j63lL6pjJI 0LI609WlbpPqurzvghyz4Ar0/u0piXEuNIqBUway11UbT+dgHn9KcR/C+vPRcnb8EKr+8f6++Jy3C3dV OtYHvdYH8/btg5vpf6CWrWu2zbuPxd/LE05DK3uge7/2uF36uuPndz+8+2G73dfkAB/7+vPhV+Xnya/e 54mF5q5R3IQ9Z/QHu2LlRrx/6rPecH60BM1Ex+P7Jr /V143cwnTpZH2T1Jp027C2tNG+Uriel/WB/2opEacoJ39n1j8/haA5Zxf/OSpdRpe4xOejsK1rwkilAWrJ +Rz90/6dh/5cmvss/au99x3U/l++8V1b5Ep05nW6+O5+6vi+tu9ek0IUJ/WhQ47Gp8xv/x3PYbz+2vAu hKzz1DKW3YCU+MJ/B7IJ+LnU95YOi6/cZz++dIfnX8 ETZePD94sP75q/v/mUv1anv7s6zy+nMkv/J85+5nCIG+svhpFU7D+2B/e4jj/evPIbd/DpnIH/rK3b8R +nQ8G+ISphp5asp0586OQbD8SnV/43fC+IZ+B3wfev+NPDJ8b9nmoXN8Hb+xgu6A4ba1W42WL3+/+ buJ1JtTb6h+[place]/4bdvfzR+6/yjrk/ss2ap92y7vxt8 [file] X737z7+pnBqgCKc4gMacuJY4E22L735e3M2379+PK3 H7/89d+47n6Vh0E7rI/rdx9/+PD+8i9euCmSMs/45786/f7/ef/904gaeLO6uIu8oAri45x5smwdsb/8 q3/14mC9c4//7l28p1u+0n66e5Y3/dXHr95///PC3/7Dq/5vvv/qi/cf3r5+tdWPL3NAEhVXr/0Wvv/8 y/e//hka09uxLtVzH59Nd+8//89/47b7E3/h8t6yjm 9mj+zdh/tfzV4BUf+/vB94+/xi2jtSx2/W9B/e/vU//fDNq5f/4BXE86y655//kmH93Oql2/QkB6fpv+ 3r9+++ePv+EkDnW890+e77t1+93y1+bQ4y7e9Lt1IEW7Z067gfxhVEQvOah0mz4Q/e3v/juyIpHb0FH6 x+uoruNDUv7b+8mR24/a7t8z//6d/+8Jc//vT7t//6 f99+/ec//8///tNf/sdPP/3D2/c//s+//uHtux9//+NrfLP/69+//flPb/WWlY7AD12+o9AkT2r53+v/ IGvbLO67ww/+8t/C5cIDmXlj1L0/J0qrJcZDl+vL/w/g/ay5wWJZ3p0x4ab4IZZ6dK29G/Fv0uQp5h2+ JIe9sV+fv+by2/Ygub9uExsXE300y4/+8pfNsc/e3r 5/981/effbt9++++Sebb8FcE1PxU2sVk0cP7noHo8o1R55q9hxq14vu1zfoDMhK99bGss9c6/+9Nd/fP vLj3/1nWxEbdZC8SDpa/5U22KMX3sv/Wy1C1643r3Zo/rrT3/5Pz/+r79R/EImp4AQ7a6u2+e1H+yfP3 z/9vv//er7H/78u12Jw1Jv/kb2hTOB/vnjL//54+/4 stclwF8/LY0kcKaM+x7/DoUZwkTurte/T8TvbZyH8RfFgs55M/vuFx9+8fHtx//3p3//w4WpiZIC82Wp uxO9X4W88g//1vrr5ecy+PWP/+uTN7w+QT//8X//7sd//8OPf/qPzz+M+PDnP//xs1+19bMbTo+//vPv WnNisGM1hxlO1TAr1/33P/1dy519Xnj5salQ5jU4m4 qSuPff//oSnN9/5u2HV22/nT76r6o1Mi5f2/379590q58//sn6ifXfE/0zX7+/52t+fN/ev4jXN/T9Fx 8/gyCl9dPhd78Y1/qHY8Oh3VR2+p989/nn3/6eqwfv91+ifH9CN9xFpfn/F8KMs2KIJJ8ku4KdLYBgSa OsHE8xnddcFFQxWE0evuf4P9KulHwpCGaRGWLzFy0y fLKvVI4WTUP7ICvkDHZaRTFtM2XjmX4yQ55gpNCsElBbDZSIJO0VqoG6OUI0HSX4IOMxJfOaIDIiKI25 UDYjZXKSFs8agbSqOjnPNpMwUP6hpms1K0O9hDIoM407xXwiddUjGG3Rs0YdoBFnQH0WjHVjhVPdOZIp HHScO5dty1RrHIqpJAFWVs9qujNjPmnMCvUtWI2nop d9F8H2uUyiczJuOXHERPwjXgtmCI7acSetjrgdV1NgzDMeCFLgX5ZzGJRpf36MNSMmOBjTTrRrZgHvVv R1HCLeDGouJtFpPVCgQZZxMAStMR0TbHZqDBYcPVDKFVveLabjKXHrzM7gjHXNw3TtANEYBPdLZpkfQS iTCQnRKWU7UVOmVBzgQH8DnOLrKMX9PDdTMILIULnF ANggEiRcu7U4FUDdI9DaMAXgeuOaKCSGNUkrWkgjOR7duHlhaytyF4UebWDuJHQKAADqWLRwPVStWUVo U3Qcr0T7V1XzLQxSNYUPOYvNSMsbZlP6g18pegGFDJNhGIGbUZ5+ZU5bo6MvLn8PFBBeJN0mlxx2VH5X jWDsIL3LXJtjrbEmJ1vlneSmSwBqUCNZWJ2fY0BflU 50IDE+LkXvNA0uynh2ipCcKeVcCDQsVBMqVCNmJYepMFBcLMDwHGYyFCA6ULP5UIGtAaVqVVSqJhG1Oc vfTXAhZYBvakZPDZVpBHU7PoBqIxAsRRPlZMAyGYqbBAQfCTR5TFYfIAYpUXQiXH6dAxDgTZSfPFLxDL PwLhR4ZnQyZiRZBICrJBVfNOHqKsJjUPBfMFYiVWme HOMjPOFhISn0YBOzJCSiHL5dVpFgQXEeUBYcLRBrHSIrXVFjhaGKSDSzTANaQJB7ZQNuQYMjJJUoGPnm QMUrRRWgQJT5RPZxPWPqSX1oBuJuZTRgXMM3PtHcUTLzYUYdunZMNKHhKSIfEYU3WWCbUFVbMFVqDEwg XMQmIUArFvU4KJSyYDWqSU8nXuRhBCWiIQS6GFZpQG QqAMVjpqZGNVQvDJBfHUc7FhWtBLHrSGOhALclBCDjMUXtEFqrTWUiYDPbNB8cDcCfZJZzRLXzXSFsMD QuDECmqrYBOKBvVZDoLKO0QhHxCQDfZSWoQDhlSZOxSEKdASZ0KZIaDRKpOG4sNjFvKQNsYsUfKcJoLO AwMDAgbiAKMDAwMDAwMTYwOSAwMDAwMCBuIAowMDAw IEEjKkI9VCFxFAYnKJ1wPlYfRVRgCHJ2GNIfOCFjMNSduaVXNXEpMRJcEALvPNV4VYAsXICeUMk0nmVe cRXcBjv0Lm7NxLomTKL4Fx7SprXgDCRcZLHCAr4Gc549TKBfEZZWAmk+ZsrtkKJokIcyPLWXNeV2IlQA GXBUX0N= ID Date Data Source [id number] 12/19/2020 10:01:37 AM EDT [facility] Name Value Range Interpretation Code Description Data Dinora rce(s) Supporting Document(s) [facility] HVOLIp5sBdBALqUot1WzGnCrEDTlIU8zafe1U9H2vMCjS8KjhOMix2ogZ4JcP6VbKASlVTKWNN2UbANw jb2 [file] fN/9Pjve3/OBjp2m3hv/general counsel+nndR4FHp/pRlYYqmuu6et+m/Os94f/1KWilqI5Y0dJqHD1yN/hsYrwL9 N9B/A+Nz+k0EH0AYGbkFW8uettaNGv2c7axBhMcFE7 2qnd8N8H2ZL4vdrI1+A/KO64/tle0n55xv3vvU3N/VN/5vu3n2xBGLh8eqtVk9xNPgLmq7mJQC6Qks84 N1SkpPY/G6EN8vhrf4X4goce1Dps6uQqy1Nq/Gp2IL8xufe/P6n21e/3LU7EY4g4pbheTwAC8LyYydy1 rvIe+EvAvyLvTfxFfn+ep/Ik5K1i6dwyrpp1Q+C+27 ZYZ9soR9g5G+ia/PJ63tbOmkh6fI2yxJjs4gXuhIn41gbwP30731p/2kCyu9q3Cn3P9oAWMLrfrl3392 He+v/4t5w1859dH82yxJjQ66V9cQnGzG+a/arJUnHJ55jxiYlz4TBuch66A/2NN/Vd/c+ajX/mA9I3/I K3c+3aD8z5e14u/tc1bQVn4aZiD+Ir1EIucIUdT/hX Doo1RGV+7J3PVlmeoW6BOl6mUierJ14O/8vYnD73h9nby5860v2YmHF/X8eb/IjH8pBpx5B7708sOTO8 yf8hGemg8MS6gj+by+11MCsAD5U1t4ctEi6A9p3t0Idp032T77pHs/6F9ir1cen1pg13IH8uR+Bnu2O1 244HbRlJGFupaxQko8HxQ+8ca9L2bDe//06mu3lKwK 1Xcv1DQ78dwitFn39Jl6C728Gx1j/HqsfO1To/dfo78jdnpn2eIUO3ZiU39o+MSNr2x+Q4qC70y7l38x 9tp1rydK//Rms3azsI4m7B5M1Zpf7SPEcihunm/ytooY/sjbKvhXb/3xC7To9K64BZhbmlPP+iK3MAFx meRrps26/xNoBtceDyV5lkn3/5Q9jE13dRo7/jt+OE Z9v9s3+5jcgex88y/9vJvaPv5Q9mUr8bk83hzY13x/txe+3x2Vuf3Dzv605Y8MEnlO502/PWDPcfFGj7 ve7+m/Os9f/N+Fv9dGrhw8P9iasi5pCm6OG+TZx62n5oaoZ137vLn/Tf9Vq+lbr4WWZh8+rFw5WT9yF/ h5Vo5X4+60tR8GkBkCtl0uRpu0Ju12FF5/c5/X/9zn 1ep53B8QOM6jq4OM0j+q5+uf7Om/qrR+83I7N8t2Frm+3/qn/3vAAlBpoy7NuTgov+74k/6r83y/X9c/ 2dddD/F605Q45nY4bGLe3E5Zku7lE/K//sm+rn+if3A3ywtQ40y73J/TfzXz/WX1gsL2Z0F3/oyfFRt7 9492qO+sGbhcoA1WmcP4h/h+r265l0ry25cH+473He /8P83vFQ5cwuKsKnuG6+/ecGxsen9q3s1/hIP3YL760Mm907cOPuqZwq8nqgYvoTDX49/3lXxc88jOc0 9vertpO/Tu7ZR1MaF3bn+W7zibX0Q2j1895qf0gb/l+3v+iaB58eG/14snXW//5mSsXFBVbe51w16/MX xveN/nwqOt359fsw4701tfyV76V124OCZkaNUg+Grm B8nk11l5uf0Wc+T46Vva8vr71yKI508Gbo5/oTNypLruD06/+Svj2t28o4bKk4oK95j1Hel+4/uJ7ye+ O4gXhG4v+Pk61G4Ha7/mZg2kmsbi/acua6X3+v4W8DjxmzMxQ7/2Clu73v8fE/B+jVt78we+madhu+8dtUX 6gKVQicJ8c8j/bEFUiv9nLhnG6/7++5oX7/+HPfrz3 BxN6ubx96x/JXj/JXDf+UOe4b/yh3tW/uDWf+F+t/51wPyYn/QsT/oIXiv+B79N/cHK8+7/nXgKwe+8r hcBkt8Lp/QQ4mi9lI9jxN5V75CjG/4PgD15hwlpm6A8LUzW96w/7OP63/0hw87Mkw2OShqD+07IO+4/g 2H/1jU0Z6Q/+lkhA1pj291u8/lXJP+q5xr0n+lGY27 5c15J/3S3bdrz2nqd6rjb6y5xhi4qpZq1Y0H84XzfK5z17M8M8X1Ze30vbpM+0D+A/wYuW76C/F+4T3k Nn0BroX3/pswFa2aewkoUr/wX/m6+NnX3T/ruwbGcbXX7T/6Ql7rhvpA+rOiJ6pe8p/I54lcqKnCde9B fejqi7m7++8Oka0+NG7555Ply77699kHgp6r8N+Kdv [file] mmAuDfN5n/2mfokrP2gZs1d4ItPz+t7liL/K9/UePqHZ/shari/2t9V1/omq919378jP9v+rx+ApDfZMFyW sdg9U7mtbhasjlvBVfk344fgK/4q5+nW42D1p+tX4T i9smpiep6GTdBo+63merQie+nTTQ23zlmPowMti3In5BlYFW/zhtfZh27dKuI3qpCl7J4WII/uw4r+social secretary SrfU/H/R9CO08E2VXSn8tzyfDi+JalX8k+tYe3hztlhPM+G0V5stno/TaKX27JLMreH5x0KNuY7/DeZl f96Nhn9oa6P97zvPigeMJyg/J/6vqV/2vXr7z/L/0q 1o9qR0Fr8eJ/L/0i3cquF/c0M66miM9cwA0EkPh9bP5hmeTHI07hpMA/Xr+U53Q8mbzv/8j/9XRfJk7d 7kxxW8E68CjVI8J+FW1w/nqkdH8dwdrG8/pVPFuz/tMcMho0mZ0Xp8/9DLE1Im5fStSookY0RYeMpRza Z6C6OGkY2f4PLZ8cS8n2frim+u2cNb4zW/R5S131Hd p1eQjPC9Jxn16ckcf4C7z3e/3K+5DhGv9GH40N029qpeiad1L3t8N9LtvB9AnXzN/jS6boqCnAxP5i5L v4R/PK+WfpVyGfpV+dBs3Mjo//G8/WXAdnzf8+ud0HbD7Fkjm9Le1u3oDzucy095V/HjsDEq1oF6nr0f wVZRPjvbp+MmQ75qxq+sM4V8Z7v8M9DLcN9fBrn3v+ hNLsq6Bmr+hLf5a9bKo2omZ/qldD/Q3v7ec/ZgmhttbHZ7xkPikqH/UZh6cJ0599Vw6qit8jWq/yNhTX z9Q06pCY3iDB+/YkL3F1wlPj4ers7rcNj0iRl+pq9ZMS2dSYebqugQyMCZ8j/6T8P8xi+Pq7/c51stiv a7aM70mB8dUd207Ga39kc3foGDYbu9oxt7LvbA0CI2 +S83N1+1W8q51+WN1+Fe3p2Q+X/Hu0kyF9vV1eQKaqxRR1I12kO5X4o0kcoUagVgkrCT+u6M/LfhUyd/ yE0vlh28+Kl+4k7lr5Ln/fZb/vlLMATuDtmrBVI6DSO5Gju8Gm35h+wRR9hhv/y9Kvom+5fsMnrlh4I6 qzMAENE0fn/F+5lhFe2pl79PnJLcNqCS4Ob1eG/cqv p35VXb/yqjk3EfE6DF+433dZ80ZTBdCpp/LvcvuV/6a2K4zGBGjzyfz/nFr949i8Loy0VfF5I2H/Nfxf w/+F/qlIrwGWaP8b0HMupT3hqiALG2k0Iwnc9dlNHlx/eo9aii95zdk006NUo6xZla8wy2ydA02/Q7+K vfoKjgcV4frlPWyfW8CS613S2a6nnXrkU/09x0Xz/W +Q1fj7C2+6WpTtlJd+alg0OqNfHMjD7Kpy15tuS5EY1Ms/br/y8dXT/pnwHJL5NZOjmk0m+lXMaUu/ir lT9hnuv8xftQ/2O2RpolG9ssIaiJ2ipU5VUb/yMeL2K+//br/y9o+247IXj8eaWBdnPF+G/arCflVdv4 x2SRll54x9tYbf89PzY/ob51fYywdT+symV88Zunu2 Yv2daX+uM+5K9s0YVx8Stxl1z1isCmNm76bPAjfN84/xwwA8DgY4uJngsxtQLbes+bw0MV/NPF/QK/e/ hiU0CjBXy3jEIqp7GvBn8GApD+i1Ccyzdp247+cKSYm+oOICNj9gIYyLGiCyty0Mny3doao6D2T0zlr0 5m0baa54DuBoyh6ZoEpuqXP/2qH3AEI/Yz9nqO4P22 /inuzPK/6e6LCy1341bYKBhidIB/LBnm15bq1tdx/gJr7tA85Wdk/q+pVfl9z/tlX0zbAczUycvs6gKm HnV7jJ/ikN3qmYVpJP99d+fBAPUz0a4QlmxtD8+EjrIs6xIJwd6qN9gzzm1mk5kZW/0or+XHO/oDXPy9 A1b95B4Zg/veJ7Xb+Ue1qK9k5XdzfwkKUFufF8kHOd +cpnAIN76G6lqpE2G0P5QmM/Gp6ygoK4CpY6N8EvZ4pARU9DE8Z/A7v8ou3T/XzQ5b/0K1/pOeFV1JHj lwZsI8ejkm2D63/97Kkx4wulmxtvrn2bh+wA23FoL6bJw5kdWHCdVD2TkXAUhFoL6qdjedzzqzmGFyei 9f84n5Zs48veEk+Kq6l68KpQgLz4rInNN+ZM1m7j8W 4vVzEtbCRKg8mDwqk3+piy9b3+9s464aVpJwWjUWgYmH4T56r7irX2QPVpoOg4Hy9/2uWzzmrD/NwE19 GfW+ob2jA/43xQXb/dweTxfTdzIfrlS0ygm8eShu+m2O2Me5vvW5sFSvegs6xwKH+3ut1s1ezCTe/zBX R70P0zhiK90ttv+pX/7010iKo9czh7sV8nfH5hw4hs v/O6cqk0lik+FXXm+HEFy6Yr1MnM4KPsxaaC2dAtIdN+h+Z20iv0t2mMj27Qjq1dHI8F8q/DhdivyA7Z +5Xfn/qG1ctYV/ag3SK0CuZcrxAts+p8tdulw3fd63+W7q1uv/Ox3YuhRxO7c5UF9SxeHjh7gpbbn/uk tyHtk+g0i9dkoyeufCSr5STBYEz2HzjYWi0Gzpmk6/ u7fpmOb0/DHGjX0wyx2DUxMWwd/kmGvbSIGOXlXR9bvo09/7Ur+4B2azFfgG3xgYfpY/kcPCu5dtB5i5 6Ciwqh0Wu6Y3zSleKmwf37Ph+cfs/73gEhIKWa21FL/l/t84H5y3a4un0wVaoLUezky+PXBN/r+lX3cs 6TPngZrpZ9dZH2MiL86rgwcvLuZCfmbfE40niRg+J6 W1lxq8IU+zLF5k0jE+/Y718YxsW87QDh+zMXR0808N5p9Sq+g6r8a1LaIt57ioWRA6gbk6uamx3qS47f v+K8TmrkC5e/4J5rA5zlC2dd10Z3/mklEjjxu7VhVFX/K+8D7n/lY8H9r+Ke3C+Y+1+5HOB/ZfC/suOT e2icJOa4a4a82N+6/3H0LvpvWOp9taj+V/7x4n9T94 /B3I28Tsm5EN+XX7O3B6BxnRB6525+f/sfjHaiAP2I7lyE/5VZnqeYoT+H/1NWc27g6O4kt/7nbd0L9E 0jf9G4T/S1Fp3ta/XIXL/aloNUA0rs/R4ebjlwwY/jfNAaxm/C14t234IA2lesck+3cca4r8jlt8Tn+b M9+63br+L6+l7x+3M/aO5/FXUu+5XPjW6/8v/l9qso h2uYE02r10sovX0m3Pc/sF9Z+N5SFh3CB71r64jXSbCok14gvz7SOP23N8xR/suAF80gN8YJtC2z0Ean a5bwQqcBtgtyS0JEr8t5XVHps9munmH/cfuV/5eR+19z/uqa4RDd2wfr1TUn5bvxlvH571H+OStAYv/T 1hY7mD7Aa1Qq4CpYlU7qVi5o3/WKpV/kux6tuzj6D5 nccp7439OYb0jwPU3f+9UV5Wy/268kyin/yxOm5Bcdg1/oGzPX3+c25sIffvyY7afloOSzFfyJg4otW9 W/7vuFKB/1h75l358fq7o+LwjcgQiXuxV00jo+iwkMk2K+0ZZ+hoC3367dbd1P9a707diQ7FNkcJ+Jw4 t4C16qn/RbdU0tx0lr6b5eo7rE0r+uea+Vtf81v//e /of3Yzr4kZd1bKf8rZpCzjp/w7muuN+stgziHs0T1m1zUlsHMti4t3+3CGK/3Qpc754TtkjD0mngFLsH bv0q/ILarV+XX5lzh94YNcY74Iv/k2pIg7K/q+b+V94H3P/K//PBf3rengVecfsbf3vdjD9no8v/Nsn5 fip0qSr8ruOuTam/Z8c6r4S667nxt1/h3+5tzqipf8 f0Z/dv92+hqM6kHn1wp+oGI2pukLo5/NWfKdbpn9x+kjg0Zisqm3toR1Zg/irf5loEtp3WM28GX51kfM /n51bz/Mc5wxEwlXN6/cq/S3P/2zT3+61mJo3Y7H0pCfz6H4jo32/HxasjxGwyaO6BH/tvShgzFn00r5 XpiwiFtxL7y2Dv+195H/bzQR/HmrvnuAfns2Qk/l/X z8hEovhyz0Mmu4Q+4TTt8ntePfjNqjVeiRBKs0gcj2is5T0sCrP/E83CEkwu9Jzzz8gv4YgL6pwNvef+ rs2jjlC2ujkS9/3/+rOK9+b+t8H/slHX32yvpj0+6l1yh3aJc2il+9UhZ1JCcl4G/7rm9iu/r9v7ssb+ 7cPtfH8k3O+y99xCB5yWu4Z9xB91wg9BrbqFhdk2gu hek25163p/bh3/t+d+v/n5oM+Tbr/yebJ7/ABQPa2H31/f6+2Kfo2tK+sv/T0w7NaQ/odQ1MkUmhli1W ZtYP11+1Xcg/qN7CgqUrY6qsN9bQ21300u4B18Zd3uL64U8zZ/Bv+rkvMw6ywSq1vKsnZkExZFfFu/6p uBnj7yh++wR2czHQ2brxf7iX/rifVoZvxRg/9Vm5iv 3H7l/y0eD10z4NaHrqZo239YMsVr+F+18L+629yvtG/0K+fnfuX+t/z6WVEtQ/kyj0o3kyasccJFdjK5 o1+3BiUh67/7qn9si7A/36+G+zvuT/+2hgQ61IZ/1a+J+4J15nQIi8nN/GMcxC5xgQ0X/GnL3iq8/ttL 7hd6yf/bl/0E4HTnbpo417+yKNs+Q+nufyVRxvV+9P aFchZzwsrbe+ugoG7959Lc+P2J15ZmCK/ERdCR1s3B0oQ8GEu3rossu++iuJ7+tE49TXlifr4dL7E2KM d+sMP/qsP/jimA1IldoM/sFd/r9ivvh+F/NM5GstOxQ6bi+ck1eh9K/0mA28Zc78+wx/io86Ywk8Rfyd rSftVrnu/3mvEpvaI/42c4zj1iy2myydE/VQy8U24g k55aA4z68RDd9RkdZ4ohr6m/ZNf0z+ulO9N38Z9hDbKQ5sNc1n6FAp+L81T9EMg5HNcJQ/xbolb1zN10 cj15s7aQfzbtTX0oa2U+3Z6xZpqkphP+4M283695m9b8/u411UXqp1Jb83tT+IVuE/Xg/4Z/u5SaOMfr 7A3f2/C9Dd/bMD/fzVU96Hw6D7nmo/tV1I/5uWF+br n+2xTDI7oua3qmtzxoypi/Zj0d/3jtnbn2x2c91ULP7qj85/RJ3Q8aKL9/3c7un329SKskc/1+2n333J e70vy07L/8+kB70J/dfuX/uXZ0Oll6KR/ib3TxvmD7N9W/WR+C6/HVFxwaH4vh8+xvA/154P+1msSmz0 7VR/wo2AHarl2DC/i/9Z64iYq9RiQ8qy/ZssXnvH5x P7v/8Q0zRcnomH+FftVdv/QtpalsSipb515oLvVd6ZtqrG7y/Y67Nxil6/8i4hf67JsNWgnV6b/8/rH0 Z30kYQ9N3c+TMczeM4qOp/8aV/pPjqviuuJ+/10jPfa7MG+vH6vjjqU/2YB+NaBfDfhfjfC/8nrSPjmW fnE7b5l0OdwmkU4cHZjH+yGPZb/y+I7VSa9slX76P8 h+FfXnecpw/3m63t1qBfgnc4XLF4fTuW9MykWsEcPUD1G82Jc9L37/z02Srxiq6oSO4L7xCW2OT+hXfk /ub3ehxy7Bfe0PCh/8kzZiy87sTacDoK3ZS/imTOb1Xje/GSt+qY6gAmi9cKgvdtdbmKQlbbQB3W05Qy ea589R4NSq9oDb/ODw+EHx+b12sE3au1d7JC8Tsb/3 /9CmFn9VcZD1E313ykaQhtCVfjKB6RtovNuO71vCG86s+3tX/VX9qiTZkuvjYNSWG/3Z5Z/i4xP6Ip36 937j4cE6lc4sEA/o96f+ALpfn1km+qPooC1ZEJ/OqDicFyPqWHxtmLKBWhc319yKjv/FsEaPd0ul/jxU cd1wv+F6w/7g2ume1d0qar9SnjaDpWDraxbn9Hjp7I dRznoM/AeasdTpn9Znvw4pjWcg5wOvK+0nmq3N0k8lBlldq7SK+Pi2AmvrJJ29d00xIK12yZK7+F63X7 k8W/qlUjxzjguqdMp69NwQKb9VskytrdfOYtaS4d5V6/+FGqEoi6E5N01zo2ka5liob9KiV7HB/9Vw+5 WPwZ7+SKOn/8aA/PhhV4Tg+L/uf+X/boris+cLj/lc+B 7n/l73X/K2+P+1/GjtU0AC82qfS1499+Er25cu89fJ+V/xf3v+tExsou1KzbsdXiE7FzB55pDob/cjvY EEmC8bD48Ur8judepHM+MgYqF8KK+L/uf+X/3B3heF1xQHhe+dfuf+XfNdL+Jaclyn+dwxcz/w5A/GDY2a8 7FN9fWlYMZ+4nvGhY+T95TkJca3FVrmp9lsU+1/5t0 x8b/hf+XWsv26/jnw76eV/G/NFQc88z+0RpG7pulESc9FO71MS15MRypDSrNB8IZ/PK+1O74i2vBqvpS ml/+D60n3kKo/a5TP/oTj4Lmv864zbV9qS6sBE2e85xfnPActKK/GDs+H01cee47zdv5lngen//VVmyf 9WABduMulFd1P440Qy9ezY0t6z8o742tjmb+4XZhl4 b+2NHhv119R110+S/uvYwteEr0jF030ergwRc21mnJVFO+P+aD9LicKjPBj286c4I16le/6wvkVyvpp+ Lhm2GbZ/Up2amSfaLeylJpxx3piV23cxfKowQjoJXZ+aNe2xE/7tE/7tE+eDs+Z+w8i289e4kglBZ/5X s+b6O+HfPsO/Bjn2vjo1R+Oliver+Oliver/sX2DcmF457ku O3k7mXuOBHoo76Rk3xYovtG/6rCf+rCf+uWjvLhJ1quwW52C7uf/LruT+abr+qfk/lw9YtSfDa2k1z/K +m26+tTFC0GO+E/3O7yFa4v12n2opa2Li+37kF01he4Tu+BjGXfnXKuD/8T0jgDv3kKX4sjf4i/Q35Ga wtVvx0yUSgHjQGv6D18Nbnh8Z64C8w+jK557z545E1 [file] u+zNEqcijp70771a0SJ+/sewE51l132685/7r87a8/social secretary/40ocyy7b8K/uE82360nXhdWnXp94//pu3H+ Vc4DvvvI1H/32dbgHkjx45241b2fk6o7/5z19+/vbJa3/3K2/c70c6pVqwYpx+cN/19v7zX//0iwLY9y 9he337OyHA23aZ4012w4AbX/cDb9/+89tVo+eU+Sb1 s2r/+ThufTUiq3shrW/76eWyh4wSsTll3aGM6/72/Ye3X/0xMzY3sa6+/Z3/tNK4//5R3Tombvri/d/7 XByjFZJ26x4K2wzPdf3o6TgcLl0H97Bps9/8QG1vv/zlL/+oZ0awCqE//emf/n8QkgXfg8kp4x0+AL/e iVUOX6/f/S3dqh3bXs1gHn/l9S0OafvhGm8HtxWLEv EuLW+/+BOdAyhsg92Bzzp9rxHy8te+/PSvP/31rz/94e3//F+oen16cNyBd6x50o+9++LdD+5mV3njT6 3+lz//6x//+rrKG69kg/34P/7jj2/f/fiHH9++/stf/sd/++mv//2nn/h4NyCQd0RlbdDLF+lqktknBa WR0xVFc/11Z301++uP//Gs/aWHvHlWovumP/E3ravJ K9J+Tlvcyhiu9V0//o+f/vp integration///kfn9y0LmAn5e68ixtEf9snyR/58PHtD//z1fY//uXPP69+2jL0TcJa [file] m0YJAeWWrdAV8emzUaIYJdYylhWd0nmHC5RNTaTjdSEc8Az8FstiG7ufZjQib1BRW2LhPhVG4G ID Date Data Source [id number] 12/19/2020 10:32:45 AM EDT [facility] Name Value Range Interpretation Code Description Data Dinora rce(s) Supporting Document(s) Color of Urine [facility] Clarity of Urine [facility] Specific gravity of Urine by Refractometry automated 1.014 1.003 -1.030 [facility] pH of Urine by Automated test strip 5.0 5.0-8.0 [facility] Protein [Mass/volume] in Urine by Automated test strip Neg [facility] Glucose [Mass/volume] in Urine by Automated test strip Neg [facility] Ketones [Mass/volume] in Urine by Automated test strip Neg [facility] Bilirubin.total [Presence] in Urine by Automated test strip Negative [facility] Hemoglobin [Presence] in Urine by Automated test strip Neg ative [facility] Leukocyte esterase [Presence] in Urine by Automated test strip Negative [facility] Nitrite [Presence] in Urine by Automated test strip Negati ve [facility] Leukocytes [#/area] in Urine sediment by Automated count 2 /HPF 0 -5 [facility] Erythrocytes [#/area] in Urine sediment by Automated count 3 /HPF 0-3 [facility] ID Date Data Source [id number] 12/19/2020 08:57:52 AM EDT [facility] Name Value Range Interpretation Code Description Data Dinora rce(s) Supporting Document(s) Glucose [Mass/volume] in Capillary blood by Glucometer 123 mg/dL 70- 140 [facility] ID Date Data Source [id number] 12/19/2020 08:12:56 AM EDT [facility] Name Value Range Interpretation Code Description Data Dinora rce(s) Supporting Document(s) Leukocytes [#/volume] in Blood by Automated count 7.2 10*3/uL 4-10 [facility] Erythrocytes [#/volume] in Blood by Automated count 4.13 10*6/uL 4.6- 6.1 L [facility] Hemoglobin [Mass/volume] in Blood 12.4 g/dL 13.5-18 L [facility] Hematocrit [Volume Fraction] of Blood by Automated count 36.9 % 4 1-53 L [facility] Erythrocyte mean corpuscular volume [Entitic volume] by Auto mated count 89.5 fL 80-96 [facility] Erythrocyte mean corpuscular hemoglobin [Entitic mass] by Automated count 30.1 pg 27-33 [facility] Erythrocyte mean corpuscular hemoglobin concentration [Mass/volume] by Automated count 33.6 g/dL 32.0-36.0 [facility] distribution width [Ratio] by Automated count 14.8 % 11.5-14.5 H [facility] Platelets [#/volume] in Blood by Automated count 228 10*3/uL 150-400 [facility] Differential cell count method - Blood [facility] Neutrophils/100 leukocytes in Blood by Automated count 57 % [facility] Lymphocytes/100 leukocytes in Blood by Automated count 30 % [facility] Monocytes/100 leukocytes in Blood by Automated count 8 % [facility] Eosinophils/100 leukocytes in Blood by Automated count 4 % [facility] Basophils/100 leukocytes in Blood by Automated count 1 % [facility] Neutrophils [#/volume] in Blood by Automated count 4.04 10*3/uL 1.8-7 .0 [facility] Lymphocytes [#/volume] in Blood by Automated count 2.19 10*3/uL 1.2-4 .0 [facility] Monocytes [#/volume] in Blood by Automated count 0.59 10*3/uL 0-0.8 [facility] Eosinophils [#/volume] in Blood by Automated count 0.31 10*3/uL 0-0.5 [facility] Basophils [#/volume] in Blood by Automated count 0.05 10*3/uL 0-0.2 [facility] Nucleated erythrocytes/100 leukocytes [Ratio] in Blood by Automated count 0 /100{WBCs} 0-0 [facility] ID Date Data Source [id number] 12/19/2020 08:56:29 AM EDT [facility] Name Value Range Interpretation Code Description Data Dinora rce(s) Supporting Document(s) Cardiactroponin T pnl SerPlHS 183 ng/L <22 [facility] Previous critical result was called with in the last 48 hours. ID Date Data Source [id number] 12/19/2020 06:56:18 PM EDT [facility] Value Range Interpretation Code Description Data Dinora rce(s) Supporting Document(s) C reactive protein [Mass/volume] in Serum or Plasma <8.0 [facility] ID Date Data Source [id number] 12/19/2020 06:46:06 AM EDT [facility] Value Range Interpretation Code Description Data Dinora rce(s) Supporting Document(s) [facility] XJKDJv8pBrFOTzFs36/QWLvrFPImg5YbIBqqBNq9QMjmXZRoJ9RdIHQ3fK9rKFV6HNzRPzEwKyUjMbR0 lbm [file] ICAgICAgICAgICAgICAgICAgICAgICAgICAgICAgIC AgICAgICAgICAgICAgICAgICAgICAgICAgICANCiAgICAgICAgICAgICAgICAgICAgICAgICAgICAgIC AgICAgICAgICAgICAgICAgICAgICAgICAgICAgICAgICAgICAgICAgICAgICAgICAgICAgICAgICAgIC AgICAgICAgICANCiAgICAgICAgICAgICAgICAgICAg ICAgICAgICAgICAgICAgICAgICAgICAgICAgICAgICAgICAgICAgICAgICAgICAgICAgICAgICAgICAg ICAgICAgICAgICAgICAgICAgICANCiAgICAgICAgICAgICAgICAgICAgICAgICAgICAgICAgICAgICAg ICAgICAgICAgICAgICAgICAgICAgICAgICAgICAgIC AgICAgICAgICAgICAgICAgICAgICAgICAgICAgICANCiAgICAgICAgICAgICAgICAgICAgICAgICAgIC AgICAgICAgICAgICAgICAgICAgICAgICAgICAgICAgICAgICAgICAgICAgICAgICAgICAgICAgICAgIC AgICAgICAgICAgICANCiAgICAgICAgICAgICAgICAg ICAgICAgICAgICAgICAgICAgICAgICAgICAgICAgICAgICAgICAgICAgICAgICAgICAgICAgICAgICAg ICAgICAgICAgICAgICAgICAgICAgICANCiAgICAgICAgICAgICAgICAgICAgICAgICAgICAgICAgICAg ICAgICAgICAgICAgICAgICAgICAgICAgICAgICAgIC AgICAgICAgICAgICAgICAgICAgICAgICAgICAgICAgICANCiAgICAgICAgICAgICAgICAgICAgICAgIC AgICAgICAgICAgICAgICAgICAgICAgICAgICAgICAgICAgICAgICAgICAgICAgICAgICAgICAgICAgIC AgICAgICAgICAgICAgICANCiAgICAgICAgICAgICAg ICAgICAgICAgICAgICAgICAgICAgICAgICAgICAgICAgICAgICAgICAgICAgICAgICAgICAgICAgICAg ICAgICAgICAgICAgICAgICAgICAgICAgICANCiAgICAgICAgICAgICAgICAgICAgICAgICAgICAgICAg ICAgICAgICAgICAgICAgICAgICAgICAgICAgICAgIC AgICAgICAgICAgICAgICAgICAgICAgICAgICAgICAgICAgICANCjw/gVFjV1deeSYmvnG1J6ivEn9OSw 7QVI7nl8ZtVDWmMXcgbsWyYlvEQmAoIXJgMmpGJka8UZxdRW1PqJFhU3BiB7GoDBydCU0VDUHbYPZlqP PaLZXoIUNtYnJ5DIKaAQciIK5PqKSqLXfdQYRvMFIz LfDqTBOpHFMrBGMbWVStTVVKQVZyHGHnNfLmLOzoFA0Kj1ZsnDT9RIq+Zu9GPW2xv0MbTElwLnMsMW3n bi1MYWwQOzWbS2RtnjV6FBK8OCLhQi1YBLAfIYPzwUDnWKIvATEBDnXnY0JbgK05VJRKZy2+DQplbmRv KnrJZhS6TMWqi7KyYKf7YM7UNRAaVWe7kSHvY95ef1 TxsMVcXqeuTuEiekJozaQVHTenaYfeezDggdsoADQyAWOaRp6sTz0rYTVrAUHpPdRoVCRUEA9MQEXgVU ZywSPeYHKrYHFBFL1ZAThuXEG0UFPzrlVuaAUqWRduHM6WLITfntRhGmXxTFVWMFu+Fx9FRJ2zz0WuQQ ftFNUfOK4ewd2UZUhSNtBqS3I5pOXhF9B9RAnzGl0B TUQuXRNvJnNkLRNMFOtqBR0QVI8ttcY7VK3BbDJaPWVtNGQrtTXfCPl7O25frRQuHLyiWM3QJJA+Denise+ Oc8ZWTBpNVPdHKCyCpHvMLTGFnYlZ0ZlS1DWc4HbT5DvPG05kQorjyCxXXhvBP3CZV6nBLAlSZNADW1S sHTyiK9ltaFfUrCyXJEQFkRkV00ziBItDLDbBJUzWG FdKe8LHIUcU8DegcYyzLujlnXpAYEaPCVNXK0MSKdrlgHzsRZbdZckIW86yPwlSR7KHi6IFrVpHC7axh 4VqZHnGa1JWJEyRh8AJDNmDVJrVUVgJBE9CDTyQkFlZOzfKFNbEOTdQJB8HFSeZESzCV4KSnJiMGLkUx VlBVGwOZOuWFHywx7PFQLdEBWiQkj2MqYrGHXxAJIw QRiwFBCbUADdYOM3AGEgSBTcQR0MXvNvXISnGKU2JFunURGhMROruj9AWNViCOVbSwf1QnPxRTZsZCJg UOtsKKZpQQY3RyQ5DDFqLUAnXA3DKtKoWOJaNKZ5VRkjUXOpZTAyfu4PLTMrLEUjAHrqSPCzAAFtOJAh CKnjCDDiWTI2EPBpTCUaWJBvGM4BPwNuHNZcBAI9Lt hbSTPwOBTczi2ENLBrIXQtGDb1GVAjGNHhDFAvNWefEOOnXRNpTcOkFWVxFCHfWB5UGiVmJZNnYDF1PT wvYMNcPDYziv0MABXqEUDzUJObXzQxPMVuCQXyCRkfYSDqVUT0QxR5KSJzXYHjFQ5OPeHkBLFrTGX4MQ acYVWyVDPtzf9EUXNdROOwMQq9JmTdZCObSDPrRBux FHRxZCY2PTZ5JVFsUJGzKH8JCmGjWYNuVFJvCiPoTEBvZHJyxg9JMIErNFXmHsJ7EmTiGQSsWXOcDZmz IGScLKB7JmyeIGOxTQSrZQ1EVxAjYFHnBDs7YuJcRVBeBGVxdg2VZZZwRAHyONo6FSOcBAAfLLSsTSiz LHNbIXA7Hpu9GTSxDYCfNZ3SZcRbGNEyFny1GPtgPO GcLOCqpv1LRHZiNIPqJIqeBcXvACEzPYCtSMvoKXRvXKN2XHceARJlMMLpGD7XNeAoLULuCeG7YKguGU TzYBUrtb9KCJReXOKjZAJpRNZzEQOwQBBsSCndYXSzMAAjEBnaGJJaKRJtFO4WXiGwSUYfGiK0NGEoVE QgFBIzkt5GGZLvNWOrSjP1BFBgHXVoAQJzVPpvIDHv RICiUFVuEIYkTYPsKR5FFtSqQSHjOkEbEXehMEVyLZTzid4TfIGhtFtgbx1XOEkDAa8SnMzgTBW5DJna Fj9dwUPaEVAbWEOMSm5AbhWaALKiTQIVUYnqJEYsVNOhBHM4ZBOwSTO6ELR3KEV4DiViGSmfT5WeIvQi V1P9FgU2JEK1QLaeYCTgIRUvVRf3LXC6GYSvKOTeEw MbQGL0MlR+EE0aLCt+Sh8Ud5IwlwL3tsXhGYriZoD3Np6WXGPWW1SDGj== ID Date Data Source [id number] 12/19/2020 06:02:40 AM EDT [facility] XR PELVIS 1-2 VIEWS [id number] RESULTInt erpreted by:TOMY AndradeEDLAMINE INFORMATION: Exam: XR Pelvis Exam date and time: 12/19/20 (2:47am)Age: 70 years old Clinical indication: Weakness. Concern for left femoral neck fracture.TECHNIQUE: Imaging protocol: XR pelvisViews: 1 view COMPARISON: Abdomen plain films of 12/18/20CT ABDOMEN PELVIS of 12/20/17 FINDINGS: A single supine view of the pelvis is provided. Much fecal matter in the rectum.A right- sided V-P shunt catheter is again seen, coursing in the RLQ area and mid pelvis.Impacted fracture (age uncertain -- probably old)) at the base of the left femoral head (probable subcapital neck fracture).Suspect some bone resorption at the inferior portion of the left femoral head.Varus deformity at the left hip.No hip dislocation is seen. The left hip and proximal left femur appear intact on CT scan done in December 2017.IMPRESSION: Left femoral neck fracture (probable subcapital neck fracture), of uncertain age (probably old).Varus deformity at the left hip. No hip dislocation is seen.Suspect some bone resorption at the inferior portion of the left femoral head. Cannot exclude chronic infection / inflammation at the fracture site, eg.THIS DOCUMENT HAS BEEN ELECTRONICALLY SIGNED BY JOSE ALVARADO MDThis document has been electronically signed by Jose Alvarado MD on 12/19/2020 6:02 AM Name Value Range Interpretation Code Description Data Dinora rce(s) Supporting Document(s) ID Date Data Source [id number] 12/19/2020 05:02:10 AM [facility] Name Value Range Interpretation Code Description Data Dinora rce(s) Supporting Document(s) Glucose [Mass/volume] in Capillary blood by Glucometer 113 mg/dL 70- 140 [facility] ID Date Data Source [id number] 12/19/2020 04:02:26 AM [facility] Name Value Range Interpretation Code Description Data Dinora rce(s) Supporting Document(s) Leukocytes [#/volume] in Blood by Automated count 8.7 10*3/uL 4-10 [facility] Erythrocytes [#/volume] in Blood by Automated count 4.24 10*6/uL 4.6- 6.1 L [facility] Hemoglobin [Mass/volume] in Blood 12.8 g/dL 13.5-18 L [facility] Hematocrit [Volume Fraction] of Blood by Automated count 37.9 % 4 1-53 L [facility] Erythrocyte mean corpuscular volume [Entitic volume] by Auto mated count 89.2 fL 80-96 [facility] Erythrocyte mean corpuscular hemoglobin [Entitic mass] by Automated count 30.1 pg 27-33 [facility] Erythrocyte mean corpuscular hemoglobin concentration [Mass/volume] by Automated count 33.8 g/dL 32.0-36.0 [facility] width [Ratio] by Automated count 14.7 % 11.5-14.5 H [facility] Platelets [#/volume] in Blood by Automated count 251 10*3/uL 150-400 [facility] Differential cell count method - Blood [facility] Neutrophils/100 leukocytes in Blood by Automated count 58 % [facility] Lymphocytes/100 leukocytes in Blood by Automated count 30 % [facility] Monocytes/100 leukocytes in Blood by Automated count 8 % [facility] Eosinophils/100 leukocytes in Blood by Automated count 4 % [facility] Basophils/100 leukocytes in Blood by Automated count 0 % [facility] Neutrophils [#/volume] in Blood by Automated count 5.07 10*3/uL 1.8-7 .0 [facility] Lymphocytes [#/volume] in Blood by Automated count 2.58 10*3/uL 1.2-4 .0 [facility] Monocytes [#/volume] in Blood by Automated count 0.66 10*3/uL 0-0.8 [facility] Eosinophils [#/volume] in Blood by Automated count 0.33 10*3/uL 0-0.5 [facility] Basophils [#/volume] in Blood by Automated count 0.04 10*3/uL 0-0.2 [facility] Nucleated erythrocytes/100 leukocytes [Ratio] in Blood by Automated count 0 /100{WBCs} 0-0 [facility] ID Date Data Source [id number] 12/19/2020 04:28:26 AM [facility] Name Value Range Interpretation Code Description Data Dinora rce(s) Supporting Document(s) Cardiactroponin T pnl SerPlHS 163 ng/L <[address] [facility] Results called to and read back by JUAN AGUAYO RN [id number] ID Date Data Source [id number] 12/19/2020 04:28:26 AM [facility] Value Range Interpretation Code Description Data Dinora rce(s) Supporting Document(s) Bicarbonate [Moles/volume] in Serum 24 mmol/L 22-29 [facility] Chloride [Moles/volume] in Serum or Plasma 103 mmol/L 98-107 [facility] Creatinine [Mass/volume] in Serum or Plasma 1.14 mg/dL 0.70-1.20 [facility] Glucose [Mass/volume] in Serum or Plasma 129 mg/dL 70-140 [facility] Potassium [Moles/volume] in Serum or Plasma 4.0 mmol/L 3.4-5.1 [facility] Sodium [Moles/volume] in Serum or Plasma 137 mmol/L 136-145 [facility] Urea nitrogen [Mass/volume] in Serum or Plasma 22 mg/dL 8-23 [facility] Anion gap 3 in Serum or Plasma 10 mmol/L 8-15 [facility] Osmolality of Serum or Plasma by calculation 289 mosm/kg 275-300 [facility] Creatinine/Urea nitrogen [Mass Ratio] in Serum or Plasma 19 [facility] Calcium [Mass/volume] in Serum or Plasma 9.5 mg/dL 8.8-10.2 [facility] Glomerular filtration rate/1.73 sq M pre dicted among non-blacks [Volume Rate/Area] in Serum or Plasma by Creatinine-based formula (MDRD) 64 mL/min/1.73m2 >60 [facility] Glomerular filtration rate/1.73 sq M pre dicted among blacks [Volume Rate/Area] in Serum or Plasma by Creatinine-based formula (MDRD) 74 mL/min/1.73m2 >60 [facility] ID Date Data Source [id number] 12/18/2020 10:03:36 PM EDT [facility] Name Value Range Interpretation Code Description Data Dinora rce(s) Supporting Document(s) pH of Venous blood 7.42 7.36-7.41 H [facility] Carbon dioxide [Partial pressure] in Venous blood 38 mmHg 40-45 L [facility] Oxygen [Partial pressure] in Venous blood 24 mmHg [facility] Base excess standard in Venous blood by calculation 1 mmol/L [facility] Oxygen saturation Calculated from oxygen partial pressure in Venous blood 44 % 60-85 L [facility] Lactate [Moles/volume] in Venous blood 1.6 mmol/L 0.5-2.2 [facility] Bicarbonate [Moles/volume] in Venous blood 26 mmol/L [facility] ID Date Data Source [id number] 12/18/2020 11:32:03 PM EDT [facility] Name Value Range Interpretation Code Description Data Dinora rce(s) Supporting Document(s) Cardiactroponin T pnl SerPlHS 104 ng/L <[address] [facility] HemolyzedPrevious critical result was ca lled within the last 48 hours ID Date Data Source [id number] 12/18/2020 09:42:16 PM EDT [facility] CT HEAD WITHOUT CONTRAST [id number] RESU LTInterpreted by:Ashley Florence MBBCHORDERING CLINICAL INFORMATION: Altered mental status, inability to ambulate, hx of shunt TECHNIQUE: CT of the brain was performed without intravenous contrast. Automated dose lowering techniques and/or adjustment according to patient size were utilized for this examCOMPARISON: CT head dated 10/15/2020.FINDINGS: Stable positioning of the right posterior approach ventriculostomy catheter, the tip is noted in the left lateral ventricle near the midline. Mild dilatation of the ventricles, however, it appears stable in size and configuration compared to prior CT. No acute intracranial hemorrhage. No evidence of acute major arterial territorial infarct. Ill-defined small periventricular white matter hypodensities, mostly in the bilateral frontal lobes, nonspecific, likely represent chronic microvascular ischemic disease. No mass lesion, mass effect, or midline shift. The basal cisterns are patent. No abnormal extra-axial fluid collection.There is mild diffuse brain volume loss. Left frontal and right parietal deshawn holes are noted. Otherwise, the visualized skull base and calvarium are intact.The visualized paranasal sinuses and mastoid air cells are clear.IMPRESSION: 1. No acute intracranial hemorrhage or evidence of acute major arterial territorial infarct.2. Stable position of the right posterior approach ventriculostomy catheter. 3. Mild ventriculomegaly, however, it is stable in size and configuration compared to prior study.4. Mild chronic microvascular ischemic disease of the white matter.5. Mild diffuse brain volume loss/atrophy.This document has been electronically signed by Asmita Gaxiola MD on 12/18/2020 9:40 PM Name Value Range Interpretation Code Description Data Dinora rce(s) Supporting Document(s) ID Date Data Source [id number] 12/18/2020 09:23:33 PM EDT [facility] Name Value Range Interpretation Code Description Data Dinora rce(s) Supporting Document(s) Glucose [Mass/volume] in Capillary blood by Glucometer 111 mg/dL 70- 140 [facility] ID Date Data Source [id number] 12/18/2020 08:11:00 PM EDT [facility] Name Value Range Interpretation Code Description Data Dinora rce(s) Supporting Document(s) SARS-CoV-2 RNA 2019 nCoV Real-Time RT-PCR: NOT DETECTED [facility] This lab was ordered by [facility] and reported by [facility]. ID Date Data Source [id number] 12/18/2020 09:40:17 PM EDT [facility] Service Cmnt XXX-Imp : NoneRespiratory P CR Panel : PCR ResultsMicroorganism XXX Cult : See Labs Tab for 2019 nCoV RT-PCR resultsHAdV DNA QI MAHENDRA+non-probe : Not DetectedHCoV [id number] Nph QI MAHENDRA+non-probe : Not DetectedHCoV [id number] Nph QI MAHENDRA+non-probe : Not [id number] RNA Nph QI MAHENDRA+non-probe : Not [id number] RNA Upper resp QI MAHENDRA+probe : Not DetectedhMPV RNA Nph QINAA+non-probe : Not DetectedRV+EV RNA Nph QI MAHENDRA+non-probe : Not DetectedFLUAV RNA Nph QI MAHENDRA+ non-probe : Not DetectedFLUBV RNA Nph QI MAHENDRA+non-probe : Not DetectedHPIV1 RNA NphQINAA+non-probe : Not DetectedHPIV2 RNA Nph QINAA+non-probe : Not DetectedHPVI3 RNA Nph MAHENDRA+non-probe : Not DetectedHPIV4 RNA Nph Q MAHENDRA+non-probe : Not DetectedRSV RNA Nph Q MAHENDRA+non-probe : Not DetectedB pert.PT PrmtNph Q MAHENDRA+non-probe : Not DetectedC pneum DNA Nph Q MAHENDRA+non-probe : Not DetectedM pneum DNA Nph Q MAHENDRA+non-probe : Not DetectedB [id number] DNA Nph MAHENDRA+non-probe : Not Detected Name Value Range Interpretation Code Description Data Dinora rce(s) Supporting Document(s) ID Date Data Source [id number] 12/18/2020 09:38:31 PM EDT [facility] Name Value Range Interpretation Code Description Data Dinora rce(s) Supporting Document(s) Specimen source [Identifier] of Unspecified specimen [facility] SARS-CoV-2 RNA 2019 nCoV Real-Time RT-PCR: NOT DETECTED [facility] Assay Performed [facility] Patients first test for [facility] Patient employed in healthcare setting [facility] Patient has symptoms related to [facility] When did you start to experience these symptoms [Date and time] [Phen X] [facility] Patient was hospitalized because of this condition [facility] patient was admitted to ICU for condition [facility] Patient resides in a congregate care setting [facility] status [facility] ID Date Data Source [id number] 12/18/2020 08:06:01 PM EDT [facility] XR ABDOMEN AP SUPINE AND LATERAL VIEW 74 019FINAL RESULTInterpreted by:Jeffery Donato MDINDICATION: 70-year-old male with history of hydrocephalus and [employer]CH[employer]ICIAN shunt placement presents for evaluation of malfunctioning shunt.TECHNIQUE: 2 radiographs of the skull; 2 radiographs of the chest; 3 radiographs of the abdomen and pelvis were obtained to perform a shunt series.COMPARISON: [employer] shunt series dated 10/17/2020.FINDINGS:Accounting for slight changes in positioning, the right parietal [employer]CH[employer]ICIAN shunt is in stable position with the tip projecting in the expected region of the ventricles. The shunt setting appears unchanged. There is no acute angulation or kink of the shunt in the region of the skull or the soft tissues of the neck. The shunt courses into the soft tissues of the chest wall. There is possible flattening of the shunt at the T4 level that was not clearly visualized on the prior examination. The shunt courses through the soft tissues distally and enters the peritoneum the level of L3. The shunt coils within the peritoneum and the tip is positioned in the right hemipelvis.A gastrostomy tube is again demonstrated with the balloon projecting in the region of the stomach. A neurostimulator is again demonstrated with the generator along the right back.There is stable moderate osteopenia throughout the study.There is a stable kyphotic exaggeration of the thoracic spine. Low lung volumes are present bilaterally, with partially visualized linear opacities in the lung bases favored to represent atelectasis. Cardiac contour is unchanged. There is no pleural effusion or pneumothorax demonstrated on this examination.The bowel gas pattern is nonobstructive. There is a moderate amount of stool visualized in the colon to the level of the rectum. A cortical defect of the left femoral head is demonstrated. The left femoral head was last seen on a [employer]CHNICIAN shunt series dated 05/16/2020 and was intact. Although comparison is limited, an age indeterminant left femoral neck fracture is suspected. There is sclerotic change at the femoral head and greater trochanter.Suspected compression deformities at L2, L3, L4 are of indeterminate age. There is a stable compression deformity of T11, in comparison to shunt series dated 10/17/2020.IMPRESSION:1. Ventriculoperitoneal shunt is in stable position. There is a apparent flattening of the shunt within the chest wall at level of T4. This may be projectional.2. There is diffuse moderate osteopenia throughout the study. Degenerative changes are present in multiple levels of the thoracic and lumbar spine. There are chronic appearing compression deformities in the thoracic and lumbar spine as described above.3. An age indeterminant fracture of the left femoral neck is suspected. Correlation with clinical findings is recommended.4. 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 The shunt setting appears unchanged. There is no acute angulation or kink of the shunt in the region of the skull or the soft tissues of the neck. The shunt courses into the soft tissues of the chest wall. There is possible flattening of the shunt at the T4 level that was not clearly visualized on the prior examination. The shunt courses through the soft tissues distally and enters the peritoneum the level of L3. The shunt coils within the peritoneum and the tip is positioned in the right hemipelvis.A gastrostomy tube is again demonstrated with the balloon projecting in the region of the stomach. A neurostimulator is again demonstrated with the generator along the right back.There is stable moderate osteopenia throughout the study.There is a stable kyphotic exaggeration of the thoracic spine. Low lung volumes are present bilaterally, with partially visualized linear opacities in the lung bases favored to represent atelectasis. Cardiac contour is unchanged. There is no pleural effusion or pneumothorax demonstrated on this examination.The bowel gas pattern is nonobstructive. There is a moderate amount of stool visualized in the colon to the level of the rectum. A cortical defect of the left femoral head is demonstrated. The left femoral head was last seen on a [employer]CHNICIAN shunt series dated 05/16/2020 and was intact. Although comparison is limited, an age indeterminant left femoral neck fracture is suspected. There is sclerotic change at the femoral head and greater trochanter.Suspected compression deformities at L2, L3, L4 are of indeterminate age. There is a stable compression deformity of T11, in comparison to shunt series dated 10/17/2020.IMPRESSION:1. Ventriculoperitoneal shunt is in stable position. There is a apparent flattening of the shunt within the chest wall at level of T4. This may be projectional.2. There is diffuse moderate osteopenia throughout the study. Degenerative changes are present in multiple levels of the thoracic and lumbar spine. There are chronic appearing compression deformities in the thoracic and lumbar spine as described above.3. An age indeterminant fracture of the left femoral neck is suspected. Correlation with clinical findings is recommended.4. 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 The shunt setting appears unchanged. There is no acute angulation or kink of the shunt in the region of the skull or the soft tissues of the neck. The shunt courses into the soft tissues of the chest wall. There is possible flattening of the shunt at the T4 level that was not clearly visualized on the prior examination. The shunt courses through the soft tissues distally and enters the peritoneum the level of L3. The shunt coils wi thin the peritoneum and the tip is positioned in the right hemipelvis.A gastrostomy tube is again demonstrated with the balloon projecting in the region of the stomach. A neurostimulator is again demonstrated with the generator along the right back.There is stable moderate osteopenia throughout the study.There is a stable kyphotic exaggeration of the thoracic spine. Low lung volumes are present bilaterally, with partially visualized linear opacities in the lung bases favored to represent atelectasis. Cardiac contour is unchanged. There is no pleural effusion or pneumothorax demonstrated on this exam ination.The bowel gas pattern is nonobstructive. There is a moderate amount of stool visualized in the colon to the level of the rectum. A cortical defect of the left femoral head is demonstrated. The left femoral head was last seen on a [employer] TECHNICIAN shunt series dated 05/16/2020 and was intact. Although comparison is limited, an age indeterminant left femoral neck fracture is suspected. There is sclerotic change at the femoral head and greater trochanter.Suspected compression deformities at L2, L3, L4 are of indeterminate age. There is a stable compression deformity of T11, in comparison to shunt series dated 10/17/2020.IMPRESSION:1. Ventriculoperitoneal shunt is in stable position. There is a apparent flattening of the shunt within the chest wall at level of T4. This may be projectional.2. There is diffuse moderate osteopenia throughout the study. Degenerative changes are present in multiple levels of the thoracic and lumbar spine. There are chronic appearing compression deformities in the thoracic and lumbar spine as described above.3. An age indeterminant fracture of the left femoral neck is suspected. Correlation with clinical findings is recommended.4. Stable positioning of gastrostomy tube and right posterior neurostimulator.This document has been electronically signed by Wero Peace MD on 12/18/2020 8:03 PM Name Value Range Interpretation Code Description Data Dinora rce(s) Supporting Document(s) ID Date Data Source [id number] 12/18/2020 06:52:25 PM [facility] Value Range Interpretation Code Description Data Dinora rce(s) Supporting Document(s) Sodium [Moles/volume] in Blood 139 mmol/L 136-145 [facility] Potassium [Moles/volume] in Blood 4.3 mmol/L 3.4-5.1 [facility] Chloride [Moles/volume] in Blood 105 mmol/L 98-107 [facility] Carbon dioxide, total [Moles/volume] in Blood 23 mmol/L 22-29 [facility] Calcium.ionized [Moles/volume] in Blood 1.33 mmol/L 1.13-1.32 [facility] Glucose [Mass/volume] in Blood 115 mg/dL 70-140 [facility] Urea nitrogen [Mass/volume] in Blood 31 mg/dL 8-23 H [facility] Creatinine [Mass/volume] in Blood 1.2 mg/dL 0.70-1.20 [facility] Hematocrit [Volume Fraction] of Blood 65 % 41-[address] [facility] Hemoglobin [Mass/volume] in Blood by calculation 22.1 g/dL 13.5-18.0 H [facility] ID Date Data Source [id number] 12/18/2020 06:38:43 PM [facility] Name Value Range Interpretation Code Description Data Dinora rce(s) Supporting Document(s) pH of Venous blood 7.32 7.36-7.41 L [facility] Carbon dioxide [Partial pressure] in Venous blood 50 mmHg 40-45 H [facility] Oxygen [Partial pressure] in Venous blood 18 mmHg [facility] Base excess standard in Venous blood by calculation [facility] Oxygen saturation Calculated from oxygen partial pressure in Venous blood 24 % 60-85 L [facility] Lactate [Moles/volume] in Venous blood 2.9 mmol/L 0.5-2.2 [facility] Bicarbonate [Moles/volume] in Venous blood 27 mmol/L [facility] ID Date Data Source [id number] 12/23/2020 01:12:29 PM [facility] Service Cmnt XXX-Imp : Specimen source n ot given.Microorganism XXX Cult : No growth 5 days Name Value Range Interpretation Code Description Data Dinora rce(s) Supporting Document(s) ID Date Data Source [id number] 12/23/2020 01:12:29 PM [facility] Service Cmnt XXX-Imp : Specimen source n ot given.Microorganism XXX Cult : No growth 5 days Name Value Range Interpretation Code Description Data Dinora rce(s) Supporting Document(s) ID Date Data Source [id number] 12/19/2020 01:42:45 AM [facility] Name Value Range Interpretation Code Description Data Dinora rce(s) Supporting Document(s) Hemoglobin A1c/Hemoglobin.total in Blood by HPLC 6.8 % 4.0-6.0 H [facility] (NOTE)<5.7% Average risk of diabetes (ADA)5.7-6.4% Increased risk of diabetes(ADA)>/= 6.5% Diagnostic for diabetes(ADA) Glucose mean value [Mass/volume] in Blood Estimated fr om glycated hemoglobin 147 mg/dL <126 H [facility] ID Date Data Source [id number] 12/18/2020 07:49:39 PM [facility] Name Value Range Interpretation Code Description Data Dinora rce(s) Supporting Document(s) Prothrombin time (PT) 12.6 s 12.5-14.9 [facility] INR in Platelet poor plasma by Coagulation assay 0.94 [facility] Routine intensity oral anticoagulation I NR is typically 2.0-3.0. Target INR must be clinically individualized. ID Date Data Source [id number] 12/18/2020 07:56:49 PM [facility] Name Value Range Interpretation Code Description Data Dinora rce(s) Supporting Document(s) Leukocytes [#/volume] in Blood by Automated count 9.1 10*3/uL 4-10 [facility] Erythrocytes [#/volume] in Blood by Automated count 4.53 10*6/uL 4.6- 6.1 L [facility] Hemoglobin [Mass/volume] in Blood 13.4 g/dL 13.5-18 L [facility] Hematocrit [Volume Fraction] of Blood by Automated count 40.6 % 4 1-53 L [facility] Erythrocyte mean corpuscular volume [Entitic volume] by Auto mated count 89.6 fL 80-96 [facility] Erythrocyte mean corpuscular hemoglobin [Entitic mass] by Automated count 29.7 pg 27-33 [facility] Erythrocyte mean corpuscular hemoglobin concentration [Mass/volume] by Automated count 33.1 g/dL 32.0-36.[facility] Erythrocyte distribution width [Ratio] by Automated count 14.8 % 11.5-14.5 H [facility] Platelets [#/volume] in Blood by Automated count 275 10*3/uL 150-400 [facility] Differential cell count method - Blood [facility] Neutrophils/100 leukocytes in Blood by Automated count 64 % [facility] Lymphocytes/100 leukocytes in Blood by Automated count 25 % [facility] Monocytes/100 leukocytes in Blood by Automated count 7 % [facility] Eosinophils/100 leukocytes in Blood by Automated count 3 % [facility] Basophils/100 leukocytes in Blood by Automated count 1 % [facility] Neutrophils [#/volume] in Blood by Automated count 5.81 10*3/uL 1.8-7 .0 [facility] Lymphocytes [#/volume] in Blood by Automated count 2.27 10*3/uL 1.2-4 .0 [facility] Monocytes [#/volume] in Blood by Automated count 0.66 10*3/uL 0-0.8 [facility] Eosinophils [#/volume] in Blood by Automated count 0.29 10*3/uL 0-0.5 [facility] Basophils [#/volume] in Blood by Automated count 0.06 10*3/uL 0-0.2 [facility] Nucleated erythrocytes/100 leukocytes [Ratio] in Blood by Automated count 0 /100{WBCs} 0-0 [facility] ID Date Data Source [id number] 12/18/2020 08:02:13 PM EDT [facility] Name Value Range Interpretation Code Description Data Dinora rce(s) Supporting Document(s) Albumin [Mass/volume] in Serum or Plasma by Bromocresol green (BCG) dye binding method 4.5 g/dL 3[facility]5-5.2 [facility] Bilirubin.total [Mass/volume] in Serum or Plasma 0.3 mg/dL <1.2 [facility] Bilirubin.direct [Mass/volume] in Serum or Plasma <0.3 [facility] Hemolyzed Alkaline phosphatase [Enzymatic activity/volume] in Serum or Plasma 95 U/L 40-129 [facility] Aspartate aminotransferase [Enzymatic activity/volume] in Serum or Plasma 15 U/L <40 [facility] Hemolyzed Alanine aminotransferase [Enzymatic activity/volume] in Seru m or Plasma 13 U/L <41 [facility] Protein [Mass/volume] in Serum or Plasma 7.8 g/dL 6.4-8.3 [facility] ID Date Data Source [id number] 12/18/2020 08:02:13 PM [facility] Name Value Range Interpretation Code Description Data Dinora rce(s) Supporting Document(s) Cardiactroponin T pnl SerPlHS 126 ng/L <22 [facility] Results called to and read back by DIRECTOR OF HOME HEALTH SERVICESDOROTHY MIRANDA AT [id number] ID Date Data Source [id number] 12/18/2020 08:02:13 PM [facility] Value Range Interpretation Code Description Data Dinora rce(s) Supporting Document(s) Bicarbonate [Moles/volume] in Serum 21 mmol/L 22-29 L [facility] Chloride [Moles/volume] in Serum or Plasma 105 mmol/L 98-107 [facility] Creatinine [Mass/volume] in Serum or Plasma 1.17 mg/dL 0.70-1.20 [facility] Glucose [Mass/volume] in Serum or Plasma 116 mg/dL 70-140 [facility] Potassium [Moles/volume] in Serum or Plasma 5.6 mmol/L 3.4-5.1 H [facility] Hemolyzed Sodium [Moles/volume] in Serum or Plasma 139 mmol/L 136-145 [facility] Urea nitrogen [Mass/volume] in Serum or Plasma 26 mg/dL 8-23 H [facility] Anion gap 3 in Serum or Plasma 13 mmol/L 8-15 [facility] Osmolality of Serum or Plasma by calculation 294 mosm/kg 275-300 [facility] Creatinine/Urea nitrogen [Mass Ratio] in Serum or Plasma 22 [facility] Calcium [Mass/volume] in Serum or Plasma 10.0 mg/dL 8.8-10.2 [facility] Glomerular filtration rate/1.73 sq M pre dicted among non-blacks [Volume Rate/Area] in Serum or Plasma by Creatinine-based formula (MDRD) 62 mL/min/1.73m2 >60 [facility] Glomerular filtration rate/1.73 sq M pre dicted among blacks [Volume Rate/Area] in Serum or Plasma by Creatinine-based formula (MDRD) 72 mL/min/1.73m2 >60 [facility] ID Date Data Source [id number] 12/18/2020 07:07:02 PM EDT [facility] Name Value Range Interpretation Code Description Data Dinora rce(s) Supporting Document(s) Ammonia [Moles/volume] in Plasma 14 umol/L 16-60 L [facility] Hemolyzed ID Date Data Source [id number] 12/18/2020 03:49:49 PM EDT [facility] Value Range Interpretation Code Description Data Dinora rce(s) Supporting Document(s) Glucose [Mass/volume] in Capillary blood by Glucometer 121 mg/dL 70- 140 [facility] ID Date Data Source [id number] 2020 04:44:14 PM EDT [facility] Name Value Range Interpretation Code Description Data Dinora rce(s) Supporting Document(s) Progress Note [facility] [id number] lbm [file] [id number] secretary [file] [id number] ID Date Data Source [id number] 11/29/2020 03:37:00 [place] [id number] Patient Name: Dario Shelton Exam Date: 11/29/20 : 1950 Ordering Doctor: Rob Gutiérrez DO Attending Doctor: Rob Gutiérrez DO CC: EXAMINATION: CT Abdomen, and Pelvis INDICATION: Abdominal pain, 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 In addition, oral contrast was administered per PEG. Thin section reformatted images are obtained in the sagital and coronal planes. One or more of the following dose reduction techniques were utilized in effectively lowering the radiation dose for this examination: Automated Exposure Control, Adjustment of the mA and/or kV according to patient size, or Iterative reconstruction. FINDINGS: There is a mild degree of respiratory motion which degrades a few of the images of the lower chest. There is an area of lingular atelectasis. Visualized lung bases are otherwise unremarkable. There is no pleural fluid. There is aortic valvular calcification which may be an indicator of aortic stenosis. Dense coronary artery calcification is a likely indicator of underlying coronary artery disease. No focal lesions are demonstrated in the liver. There is no evidence of intrahepatic biliary dilatation. There is hyperdense material layering dependently within the gallbladder representing small calculi versus sludge, unchanged. The spleen is unremarkable. The pancreas is unremarkable. The adrenal glands are unremarkable. The kidneys are unremarkable. There is no intra-abdominal adenopathy. There is a percutaneous gastrostomy tube in place, appropriately placed within the lumen of the stomach. There is no extravasation of contrast material from the entry site. The stomach is well distended with contrast material and gas, unremarkable. The small bowel and mesentery are unremarkable. There is no ascites. There is no free intraperitoneal air. The abdominal aorta is normal in caliber. There is no retroperitoneal adenopathy. There is diastases of the rectus sheath just above the level of the umbilicus with herniation of a small amount of omental fat. Ventriculoperitoneal shunt catheter is demonstrated to extend along the soft tissues of the anterior chest and to enter the peritoneum within the mid right abdomen. The catheter is intact in its visualized portion. There is no fluid collection at its distal tip. There is a very large amount of stool within the rectosigmoid region possibility of fecal impaction. There is no rectal wall thickening. There are no pericolonic inflammatory changes. The prostate is surgically absent. There is no pelvic free fluid, adenopathy or mass. The urinary bladder is unremarkable.> There is a small fat-containing left inguinal hernia. There is a left femoral neck fracture which appears chronic in nature. There is no associated moderate-sized left hip effusion. There is moderate wedge compression of the L3 and L4 vertebral bodies. Severe degenerative disc changes noted at L5-S1. A transsacral stimulator is noted. IMPRESSION: There is no evidence of acute intra-abdominal process. There is appropriate intragastric gastrostomy tube placement. Visualized portion of the ventricular peritoneal shunt catheter is intact without abnormal fluid collection at its distal tip. There is a chronic appearing left hip fracture associated with a moderate left hip effusion. Professional interpretation performed by [facility] Medical [facility] at [facility] . End of diagnostic report: [id number] Signed: Donaldo Marquez MD 11/29/20 160 Interpreted by: Nell MarquezoTranscribed by: Donaldo Marquez Name Value Range Interpretation Code Description Data Dinora rce(s) Supporting Document(s) ID Date Data Source [id number] 11/21/2020 05:35:00 PM EDT [facility] Name Value Range Interpretation Code Description Data [facility] rce(s) Supporting Document(s) WHITE BLOOD COUNT 10.18 10^3/uL 4.00-10.50 N [facility] RED BLOOD COUNT 4.73 10^6/uL 4.30-5.80 N [facility] th HEMOGLOBIN 13.6 G/DL 13.0-17.5 N [facility] HEMATOCRIT 42.1 % 41.0-53.0 N [facility] MCV 89.0 FL 80.0-100.0 N [facility] MCH 28.8 PG 27.0-34.0 N [facility] MCHC 32.3 G/DL 32-36 N [facility] RDW 14.0 % 11.5-14.5 N [facility] PLATELET COUNT 328 10^3/uL 130-400 N [facility] MPV 9.8 FL 8.7-13.2 [facility] GRAN % (AUTO) 58.1 % 42.0-75.0 N [facility] LYMPH % (AUTO) 30.2 % 20.0-51.0 N [facility] MONO % (AUTO) 7.7 % 2.0-15.0 N [facility] EOS % (AUTO) 3.3 % 0.0-11.0 N [facility] BASO % (AUTO) 0.5 % 0.0-2.0 N [facility] IG % (AUTO) 0.2 % 1.00-5.00 [facility] IG # (AUTO) 0.0 10^3/uL <0.5 [facility] GRAN # (AUTO) 5.92 10^3/uL 1.50-6.50 [facility] LYMPH # (AUTO) 3.1 k/uL 1.0-5.0 N [facility] MONO # (AUTO) 0.78 k/uL 0.20-1.50 [facility] EOS # (AUTO) 0.34 10^3/uL 0.00-1.10 N [facility] BASO # (AUTO) 0.05 10^3/uL 0.00-0.20 N [facility] ID Date Data Source [id number] 11/21/2020 06:39:00 PM EDT [facility] Name Value Range Interpretation Code Description Data Dinora rce(s) Supporting Document(s) SODIUM 140 MEQ/L 135-145 [facility] POTASSIUM 4.6 MEQ/L 3.5-5.3 N [facility] CHLORIDE 111 MEQ/L 94-110 [facility] CARBON DIOXIDE 18 MEQ/L 22-33 L [facility] ANION GAP 16 5-16 N [facility] BLOOD UREA NITRO 41 MG/DL 7-25 [facility] CREATININE 1.4 MG/DL 0.6-1.4 N [facility] GFR 50.4 ML/MIN [facility] Stage G3a - Mildly to moderately decrea sed kidney function The GFR is an estimate of the Glomerular Filtration Rate. It is an aid to assess a patient's renal function. It is not a conclusive diagnosis of kidney disease. GFR normal is >=90 The MDRD GFR calculation is considered valid between the ages of 18 and 75 years only. BUN/CREAT RATIO 29 8-36 N [facility] GLUCOSE 136 MG/DL 70-100 H [facility] CA 9.8 MG/DL 8.7-10.5 N [facility] BILIRUBIN,TOTAL 0.3 MG/DL 0.1-1.3 N [facility] AST 19 U/L 5-40 [facility] ALT 22 U/L 5-48 [facility] ALKALINE PHOSPHATASE 105 U/L 40-140 [facility] TOTAL PROTEIN 7.2 G/DL 5.9-8.3 N [facility] ALBUMIN 4.7 G/DL 3.0-5.1 N [facility] GLOBULIN 2.5 G/DL 1.5-3.5 N [facility] ALB/GLOB RATIO 1.9 G/DL 1.0-3.0 N [facility] ID Date Data Source "" 10/15/2020 02:44:00 [place] [id number] Patient Name: Dario Shelton Exam Date: 10/15/20 : 1950 Ordering Doctor: Ravinder Pimentel MD Attending Doctor: Ravinder Pimentel MD CC: EXAM: CT Head without contrast INDICATION: Shunt revision. TECHNIQUE: 5mm Multidetector axial slices were obtained from the skull base to the vertex without contrast. COMPARISON: 10/20/2019. FINDINGS: A ventricular catheter enters through a right parietal occipital approach with the distal tip terminating in the left lateral ventricle, unchanged from the previous examination. The lateral and third ventricles are enlarged, not significantly changed in size. No intracranial hemorrhage is identified. There is no mass, mass-effect or shift of the midline structures. Diffuse cerebral volume loss is present with a frontal lobe predominance. There is encephalomalacia in both frontal lobes and left frontal craniotomy and small right frontal deshawn hole are noted. Intracranial atherosclerosis is present. Punctate chronic lacunar infarcts are noted in the bilateral basal ganglia. No fracture of the calvarium is identified. The visualized paranasal sinuses and the mastoid air cells are clear. IMPRESSION: Right parietal occipital approach ventricular catheter, unchanged position. The enlarged lateral and third ventricles are unchanged in size and configuration. No evidence of acute intracranial disease. X1 End of diagnostic report: [id number] Signed: Hortensia Patrick MD 10/15/20 1450 Interpreted by: Hortensia PatrickeTranscribed by: Hortensia Patrick Name Value Range Interpretation Code Description Data Dinora rce(s) Supporting Document(s) ID Date Data Source [id number] 10/10/2020 04:13:00 PM EDT [facility] Name Value Range Interpretation Code Description Data Dinora rce(s) Supporting Document(s) WHITE BLOOD COUNT 9.24 10^3/uL 4.00-10.50 N [facility] RED BLOOD COUNT 4.53 10^6/uL 4.30-5.80 N [facility] th HEMOGLOBIN 13.4 G/DL 13.0-17.5 N [facility] HEMATOCRIT 40.4 % 41.0-53.0 L [facility] MCV 89.2 FL 80.0-100.0 N [facility] MCH 29.6 PG 27.0-34.0 N [facility] MCHC 33.2 G/DL 32-36 N [facility] RDW 13.7 % 11.5-14.5 N [facility] PLATELET COUNT 297 10^3/uL 130-400 N [facility] MPV 10.5 FL 8.7-13.2 N [facility] GRAN % (AUTO) 58.4 % 42.0-75.0 N [facility] LYMPH % (AUTO) 31.5 % 20.0-51.0 N [facility] MONO % (AUTO) 6.0 % 2.0-15.0 N [facility] EOS % (AUTO) 2.9 % 0.0-11.0 N [facility] BASO % (AUTO) 0.6 % 0.0-2.0 N [facility] IG % (AUTO) 0.6 % 1.00-5.00 [facility] IG # (AUTO) 0.1 10^3/uL <0.5 [facility] GRAN # (AUTO) 5.39 10^3/uL 1.50-6.50 [facility] LYMPH # (AUTO) 2.9 k/uL 1.0-5.0 N [facility] MONO # (AUTO) 0.55 k/uL 0.20-1.50 N [facility] EOS # (AUTO) 0.27 10^3/uL 0.00-1.10 N [facility] BASO # (AUTO) 0.06 10^3/uL 0.00-0.20 [facility] ID Date Data Source [id number] 06/20/2020 11:30:00 AM [facility] ([facility]) Name Value Range Interpretation Code Description Data Dinora rce(s) Supporting Document(s) Reported Physicians See Note Reported Physicians [facility] ([facility]) Note: Reported Physicians:Ordering: Rob De Jesusending: Rob Gutiérrez ID Date Data Source [id number] 06/20/2020 11:30:00 AM EST [facility] ([facility]) Name Value Range Interpretation Code Description Data Dinora rce(s) Supporting Document(s) NO URINE RECEIVED FROM PATIENT NO URINE RECEIVED NO URINE RECEIVED FROM PATIENT [facility]) Note: Patient informed to return with s tommie.Responsible Observer: STELLA VELIZIVD NO URINE RECEIVED FORM PATIENT 200.6095 (A) ID Date Data Source [id number] 06/20/2020 11:31:00 AM EST [facility] Name Value Range Interpretation Code Description Data Dinora rce(s) Supporting Document(s) NO URINE RECEIVED FROM PATIENT NO URINE RECEIVED [facility] Patient informed to return with specime n. ID Date Data Source [id number] 06/20/2020 11:29:00 AM EST [facility] ([facility]) Name Value Range Interpretation Code Description Data Dinora rce(s) Supporting Document(s) Reported Physicians See Note Reported Physicians [facility]) Note: Reported Physicians:Ordering: Rob De Jesusending: Rob Gutiérrez ID Date Data Source [id number] 06/20/2020 11:29:00 AM EST [facility] (Counts Include [facility]) Name Value Range Interpretation Code Description Data Dinora rce(s) Supporting Document(s) Albumin/Globulin [Mass Ratio] in Amniotic fluid 2.2 G/DL Normal ALB/GLOB RATIO [facility]) Note: Responsible Observer: A/G RATIO AL B/GLOB RATIO 300.4100 (A) Albumin [Mass/volume] in Synovial fluid 4.9 G/DL Normal ALBUMIN [facility]) Note: Responsible Observer: ALB ALBUMIN 300.3900 (A) Alkaline phosphatase isoenzyme [Units/volume] in Serum or Plasma 248 U/L Above high normal ALKALINE PHOSPHATASE [facility]) Note: Responsible Observer: ALK PHOS ALK AKASH PHOSPHATASE 300.3110 (A) Alanine aminotransferase [Enzymatic activity/volume] in Seru m or Plasma 25 U/L Normal ALT [facility]) Note: Responsible Observer: ALT/SGPT ALT 300.3100 (A) Aspartate aminotransferase [Enzymatic activity/volume] in Serum or Plasma 22 U/L Normal AST [facility] ([facility]) Note: Responsible Observer: AST/SGOT AST 300.3050 (A) Urea nitrogen/Creatinine [Mass Ratio] in Serum or Plasma 25 Normal BUN/CREAT RATIO [facility] ([facility]) Note: Responsible Observer: BUN/CREAT RA SARAH BUN/CREAT RATIO 300.0450 (A) Bilirubin.total [Mass/volume] in Serum or Plasma 0.5 MG/DL Normal BILIRUBIN,TOTAL [facility] ([facility]) Note: Responsible Observer: TOTAL BILI T OTAL BILIRUBIN 300.2700 (A) BLOOD UREA NITRO 30 MG/DL Above high normal BLOOD UREA N ITRO [facility] ([facility]) Note: Responsible Observer: BUN BLOOD UR EA NITROGEN 300.0350 (A) CA 9.9 MG/DL Normal CA [facility] ([facility]) Note: Responsible Observer: CA CALCIUM 300.2200 (A) Chloride [Moles/volume] in Serum, Plasma or Blood 101 MEQ/L Normal CHLORIDE [facility] ([facility]) Note: Responsible Observer: CL CHLORIDE 300.0200 (A) Carbon dioxide, total [Moles/volume] in Serum or Plasma 24 MEQ/L Normal CARBON DIOXIDE [facility] ([facility]) Note: Responsible Observer: CO2 CARBON D IOXIDE 300.0250 (A) Creatine/Creatinine [Mass Ratio] in Urine 1.2 MG/DL Brea l CREATININE [facility] ([facility]) Note: Responsible Observer: CREAT CREATI NINE 300.0400 (A) Anion gap in Blood 14 Normal ANION GAP [facility] ([facility]) Note: Responsible Observer: ANION GAP AN ION GAP 300.0300 (A) GFR 60.2 ML/MIN GFR [facility] ([facility]) Note: Stage G2 - Mildly decreased kidne y function The GFR is an estimate of the Glomerular Filtration Rate. It is an aid to assess a patient's renal function. It is not a conclusive diagnosis of kidney disease. GFR normal is >=90 The MDRD GFR calculation is considered valid between the ages of 18 and 75 years only.Responsible Observer: GFR GFR 300.0410 (A) Globulin [Mass/volume] in Serum by calculation 2.2 G/DL Normal GLOBULIN [facility] ([facility]) Note: Responsible Observer: GLOB GLOBULI N 300.4050 (A) Glucose [Presence] in Urine 233 MG/DL Above high normal G LUCOSE [facility]) Note: Responsible Observer: GLU GLUCOSE 300.0500 (A) Potassium [Mass/volume] in Blood 5.5 MEQ/L Above high nor mal POTASSIUM [facility] ([facility]) Note: Responsible Observer: K POTASSIUM 300.0150 (A) Sodium [Moles/volume] in Serum, Plasma or Blood 133 MEQ/L Below low normal SODIUM [facility]) Note: Responsible Observer: NA SODIUM 3 00.0100 (A) Protein [Mass/volume] in Synovial fluid 7.1 G/DL Normal TOTAL PROTEIN [facility]) Note: Responsible Observer: TP TOTAL PRO TEIN 300.3750 (A) ID Date Data Source [id number] 06/20/2020 11:29:00 AM EST [facility]) Name Value Range Interpretation Code Description Data Dinora rce(s) Supporting Document(s) Reported Physicians See Note Reported Physicians [facility]) Note: Reported Physicians:Ordering: Rob De Jesusending: Rob Gutiérrez ID Date Data Source [id number] 06/20/2020 11:29:00 AM EST [facility]) Name Value Range Interpretation Code Description Data [facility] rce(s) Supporting Document(s) Thyrotropin [Units/volume] in Serum or Plasma by Detec tion limit <= 0.05 mIU/L 1.198 uIU/ML Normal TSH [facility]) Note: Patients should not be tested for 72 hours post fluorescein dye angiography. A false depression of result may occur.Responsible Observer: TSH TSH 300.5500 (A) ID Date Data Source [id number] 06/20/2020 11:29:00 AM EST [facility]) Name Value Range Interpretation Code Description Data [facility] rce(s) Supporting Document(s) Deprecated Cholesterol.in LDL/Cholestero l.in HDL [Mass ratio] in Serum or Plasma 7.4 Above high normal CHOL/HDL RATIO [facility] ([facility]) Note: Responsible Observer: CHOL/HDL RAT IO CHOL/HDL RATIO 300.4700 (A) Cholesterol crystals [Presence] in Stone by Infrared spectroscop y 251 MG/DL Above high normal CHOLESTEROL [facility]) Note: Responsible Observer: CHOL CHOLEST MARIFER 300.4350 (A) Cholesterol in HDL [Mass/volume] in Serum or Plasma ultracen trifugate 34 MG/DL Below low normal HDL CHOLESTEROL [facility]) Note: Responsible Observer: HDL HDL CHOL ESTEROL 300.4600 (A) Cholesterol in LDL [Mass/volume] in Serum or Plasma by Direct as say 163 MG/DL Above high normal LDL CHOLESTEROL [facility]) Note: Responsible Observer: LDL LDL CHOL ESTEROL 300.4400 (A) Triglyceride [Mass/volume] in Serum or Plasma 270 MG/DL Above high normal TRIGLYCERIDES [facility]) Note: Responsible Observer: TRIG TRIGLYC ERIDES 300.4300 (A) ID Date Data Source [id number] 06/20/2020 11:29:00 AM EST [facility] ([facility]) Name Value Range Interpretation Code Description Data [facility] rce(s) Supporting Document(s) Hemoglobin A1c/Hemoglobin.total in Blood 6.7 % Above high normal GLYCOSYLATED HGBA1C [facility]) Note: Responsible Observer: HGB A1C GLYC OSYLATED HGBA1C 300.0800 (A) ID Date Data Source [id number] 06/20/2020 11:29:00 AM EST [facility] ([facility]) Name Value Range Interpretation Code Description Data [facility] rce(s) Supporting Document(s) BASO # (AUTO) 0.04 10\\^3/uL Normal BASO # (AUTO) [facility] ([facility]) Note: Responsible Observer: BASO # (AUTO ) BASO # (AUTO) 100.1500 (A) BASO % (AUTO) 0.5 % Normal BASO % (AUTO) [facility] ([facility]) Note: Responsible Observer: BASO % (AUTO ) BASO % (AUTO) 100.1250 (A) EOS # (AUTO) 0.27 10\\^3/uL Normal EOS # (AUTO) [facility] ( [facility]) Note: Responsible Observer: EOS # (AUTO) EOS # (AUTO) 100.1450 (A) EOS % (AUTO) 3.2 % Normal EOS % (AUTO) [facility] ([facility]) Note: Responsible Observer: EOS % (AUTO) EOS % (AUTO) 100.1200 (A) GRAN # (AUTO) 5.96 10\\^3/uL Normal GRAN # (AUTO) [facility] ([facility]) Note: Responsible Observer: GRAN # (AUTO ) GRAN #(AUTO) 100.1325 (A) GRAN % (AUTO) 69.9 % Normal GRAN % (AUTO) [facility] ([facility]) Note: Responsible Observer: GRAN % (AUTO ) GRAN % (AUTO) 100.1000 (A) Hematocrit [Volume Fraction] of Blood by Automated count 41.4 % Normal HEMATOCRIT [facility] ([facility]) Note: Responsible Observer: HCT HEMATOCR IT 100.0400 (A) Hemoglobin [Mass/volume] in Blood 13.3 G/DL Normal HE MOGLOBIN [facility] ([facility]) Note: Responsible Observer: HGB HEMOGLOB IN 100.0300 (A) IG # (AUTO) 0.0 10\\^3/uL IG # (AUTO) [facility] ([facility]) Note: Responsible Observer: IG # (AUTO) IG # (AUTO) 100.1260 (A) IG % (AUTO) 0.4 % IG % (AUTO) [facility] ([facility]) Note: Responsible Observer: IG % (AUTO) IG % (AUTO) 100.1255 (A) LYMPH # (AUTO) 1.8 k/uL Normal LYMPH # (AUTO) [facility] ( formerly [facility]) Note: Responsible Observer: LYMPH # (AUT O) LYMPH # (AUTO) 100.1350 (A) LYMPH % (AUTO) 21.2 % Normal LYMPH % (AUTO) [facility] ( [facility]) Note: Responsible Observer: LYMPH % (AUT O) LYMPH % (AUTO) 100.1100 (A) Erythrocyte mean corpuscular hemoglobin [Entitic mass] by Automated count 28.2 PG Normal MCH [facility] ([facility]) Note: Responsible Observer: MCH MCH 100 .0600 (A) Erythrocyte mean corpuscular hemoglobin concentration [Mass/volume] by Automated count 32.1 G/DL Normal MCHC [facility] ([facility]) Note: Responsible Observer: MCHC MCHC 1 00.0650 (A) Erythrocyte mean corpuscular volume [Entitic volume] by Auto mated count 87.9 FL Normal MCV [facility] ([facility]) Note: Responsible Observer: MCV MCV 100 .0550 (A) MONO # (AUTO) 0.41 k/uL Normal MONO # (AUTO) JADIEL ([facility]) Note: Responsible Observer: MONO # (AUTO ) MONO # (AUTO) 100.1400 (A) MONO % (AUTO) 4.8 % Normal MONO % (AUTO) JADIEL ([facility]) Note: Responsible Observer: MONO % (AUTO ) MONO% (AUTO) 100.1150 (A) MPV 9.4 FL Normal MPV JADIEL ([facility]) Note: Responsible Observer: MPV MPV 100 .0950 (A) Platelets [#/volume] in Plasma by Automated count 457 10\\^3/uL Above high normal PLATELET COUNT [facility] ([facility]) Note: Responsible Observer: PLT PLATELET COUNT 100.0850 (A) Erythrocytes [#/volume] in Blood by Automated count 4.71 10\\^6/uL Normal RED BLOOD COUNT [facility] ([facility]) Note: Responsible Observer: RBC RED BLOO D COUNT 100.0250 (A) Erythrocyte distribution width [Ratio] by Automated count 13.7 % Normal RDW [facility] ([facility]) Note: Responsible Observer: RDW RDW 100 .0700 (A) Leukocytes [#/volume] in Blood by Automated count 8.51 10\\^3/uL Normal WHITE BLOOD COUNT [facility] ([facility]) Note: Responsible Observer: WBC WHITE BL OOD COUNT 100.0150 (A) ID Date Data Source [id number] 06/20/2020 02:06:00 PM [facility] Name Value Range Interpretation Code Description Data Dinora rce(s) Supporting Document(s) SODIUM 133 MEQ/L 135-145 L [facility] POTASSIUM 5.5 MEQ/L 3.5-5.3 [facility] CHLORIDE 101 MEQ/L 94-110 [facility] CARBON DIOXIDE 24 MEQ/L 22-33 [facility] ANION GAP 14 5-16 [facility] BLOOD UREA NITRO 30 MG/DL 7-25 [facility] CREATININE 1.2 MG/DL 0.6-1.4 N [facility] GFR 60.2 ML/MIN [facility] Stage G2 - Mildly decreased kidney func tion The GFR is an estimate of the Glomerular Filtration Rate. It is an aid to assess a patient's renal function. It is not a conclusive diagnosis of kidney disease. GFR normal is >=90 The MDRD GFR calculation is considered valid between the ages of 18 and 75 years only. BUN/CREAT RATIO 25 8-36 N [facility] GLUCOSE 233 MG/DL 70-100 H [facility] CA 9.9 MG/DL 8.7-10.5 N [facility] BILIRUBIN,TOTAL 0.5 MG/DL 0.1-1.3 N [facility] AST 22 U/L 5-40 N [facility] ALT 25 U/L 5-48 [facility] ALKALINE PHOSPHATASE 248 U/L 40-140 H [facility] alth TOTAL PROTEIN 7.1 G/DL 5.9-8.3 N [facility] ALBUMIN 4.9 G/DL 3.0-5.1 [facility] GLOBULIN 2.2 G/DL 1.5-3.5 [facility] ALB/GLOB RATIO 2.2 G/DL 1.0-3.0 [facility] ID Date Data Source [id number] 06/20/2020 01:23:00 PM EST [facility] Name Value Range Interpretation Code Description Data Dinora rce(s) Supporting Document(s) WHITE BLOOD COUNT 8.51 10^3/uL 4.00-10.50 N [facility] ealth RED BLOOD COUNT 4.71 10^6/uL 4.30-5.80 [facility] th HEMOGLOBIN 13.3 G/DL 13.0-17.5 [facility] HEMATOCRIT 41.4 % 41.0-53.0 [facility] MCV 87.9 FL 80.0-100.0 [facility] MCH 28.2 PG 27.0-34.0 [facility] MCHC 32.1 G/DL 32-36 [facility] RDW 13.7 % 11.5-14.5 [facility] PLATELET COUNT 457 10^3/uL 130-400 H [facility] MPV 9.4 FL 8.7-13.2 [facility] GRAN % (AUTO) 69.9 % 42.0-75.0 [facility] LYMPH % (AUTO) 21.2 % 20.0-51.0 N [facility] MONO % (AUTO) 4.8 % 2.0-15.0 N [facility] EOS % (AUTO) 3.2 % 0.0-11.0 N [facility] BASO % (AUTO) 0.5 % 0.0-2.0 N [facility] IG % (AUTO) 0.4 % 1.00-5.00 [facility] IG # (AUTO) 0.0 10^3/uL <0.5 [facility] GRAN # (AUTO) 5.96 10^3/uL 1.50-6.50 N [facility] LYMPH # (AUTO) 1.8 k/uL 1.0-5.0 N [facility] MONO # (AUTO) 0.41 k/uL 0.20-1.50 N [facility] EOS # (AUTO) 0.27 10^3/uL 0.00-1.10 N [facility] BASO # (AUTO) 0.04 10^3/uL 0.00-0.20 N [facility] ID Date Data Source [id number] 06/20/2020 02:06:00 PM EST [facility] Name Value Range Interpretation Code Description Data Dniora rce(s) Supporting Document(s) GLYCOSYLATED HGBA1C 6.7 % 4.1-6.5 [facility] ID Date Data Source [id number] 06/20/2020 02:06:00 PM EST [facility] Name Value Range Interpretation Code Description Data Dinora rce(s) Supporting Document(s) TRIGLYCERIDES 270 MG/DL 45-150 H [facility] CHOLESTEROL 251 MG/DL 125-200 [facility] LDL CHOLESTEROL 163 MG/DL 50-130 H [facility] HDL CHOLESTEROL 34 MG/DL 39-96 L [facility] CHOL/HDL RATIO 7.4 0-4.9 H [facility] ID Date Data Source [id number] 06/20/2020 02:06:00 PM EST [facility] Name Value Range Interpretation Code Description Data Dinora rce(s) Supporting Document(s) TSH 1.198 uIU/ML 0.470-4.200 N [facility] Patients should not be tested for 73 ho urs post fluorescein dye angiography. A false depression of result may occur. ID Date Data Source [id number] 06/02/2020 08:45:00 PM EST [facility] Name Value Range Interpretation Code Description Data Dinora rce(s) Supporting Document(s) SARS-CoV-2 (COVID 19) [facility] This lab was ordered by [facility] a nd reported by [facility]. ID Date Data Source [id number] 05/08/2020 01:48:00 PM EST [facility] Name Value Range Interpretation Code Description Data Dinora rce(s) Supporting Document(s) WHITE BLOOD COUNT 7.39 10^3/uL 4.00-10.50 [facility] RED BLOOD COUNT 4.55 10^6/uL 4.30-5.80 [facility] HEMOGLOBIN 12.8 G/DL 13.0-17.5 L [facility] HEMATOCRIT 38.4 % 41.0-53.0 L [facility] MCV 84.4 FL 80.0-100.0 [facility] MCH 28.1 PG 27.0-34.0 [facility] MCHC 33.3 G/DL 32-36 [facility] RDW 14.4 % 11.5-14.5 [facility] PLATELET COUNT 257 10^3/uL 130-400 [facility] MPV 9.5 FL 8.7-13.2 N [facility] GRAN % (AUTO) 59.1 % 42.0-75.0 N [facility] LYMPH % (AUTO) 29.9 % 20.0-51.0 N [facility] MONO % (AUTO) 5.8 % 2.0-15.0 N [facility] EOS % (AUTO) 4.1 % 0.0-11.0 N [facility] BASO % (AUTO) 0.8 % 0.0-2.0 N [facility] IG % (AUTO) 0.3 % 1.00-5.00 [facility] IG # (AUTO) 0.0 10^3/uL <0.5 [facility] GRAN # (AUTO) 4.37 10^3/uL 1.50-6.50 N [facility] LYMPH # (AUTO) 2.2 k/uL 1.0-5.0 N [facility] MONO # (AUTO) 0.43 k/uL 0.20-1.50 N [facility] EOS # (AUTO) 0.30 10^3/uL 0.00-1.10 [facility] BASO # (AUTO) 0.06 10^3/uL 0.00-0.20 [facility] ID Date Data Source [id number] 03/29/2020 11:45:00 AM EDT JADIEL ([employer]) Name Value Range Interpretation Code Description Data Dinora rce(s) Supporting Document(s) Reported Physicians See Note Reported Physicians [facility] ([facility]) Note: Reported Physicians:Ordering: Rob De Jesusending: Rob Gutiérrez ID Date Data Source [id number] 03/29/2020 11:45:00 AM EDT [facility] ([facility]) Name Value Range Interpretation Code Description Data Dinora rce(s) Supporting Document(s) Albumin/Globulin [Mass Ratio] in Amniotic fluid 2.1 G/DL Normal ALB/GLOB RATIO [facility] ([facility]) Note: Responsible Observer: A/G RATIO AL B/GLOB RATIO 300.4100 (A) Albumin [Mass/volume] in Synovial fluid 4.9 G/DL Normal ALBUMIN [facility] ([facility]) Note: Responsible Observer: ALB ALBUMIN 300.3900 (A) Alkaline phosphatase isoenzyme [Units/volume] in Serum or Plasma 96 U/L Normal ALKALINE PHOSPHATASE [facility] ([facility]) Note: Responsible Observer: ALK PHOS ALK AKASH PHOSPHATASE 300.3110 (A) Alanine aminotransferase [Enzymatic activity/volume] in Seru m or Plasma 24 U/L Normal ALT [facility] ([facility]) Note: Responsible Observer: ALT/SGPT ALT 300.3100 (A) Aspartate aminotransferase [Enzymatic activity/volume] in Serum or Plasma 30 U/L Normal AST [facility] ([facility]) Note: Responsible Observer: AST/SGOT AST 300.3050 (A) Urea nitrogen/Creatinine [Mass Ratio] in Serum or Plasma 23 Normal BUN/CREAT RATIO [facility] ([facility]) Note: Responsible Observer: BUN/CREAT RA SARAH BUN/CREAT RATIO 300.0450 (A) Bilirubin.total [Mass/volume] in Serum or Plasma 0.5 MG/DL Normal BILIRUBIN,TOTAL [facility] ([facility]) Note: Responsible Observer: TOTAL BILI T OTAL BILIRUBIN 300.2700 (A) BLOOD UREA NITRO 30 MG/DL Above high normal BLOOD UREA N ITRO [facility] ([facility]) Note: Responsible Observer: BUN BLOOD UR EA NITROGEN 300.0350 (A) CA 10.0 MG/DL Normal CA JADIEL ([facility]) Note: Responsible Observer: CA CALCIUM 300.2200 (A) Chloride [Moles/volume] in Serum, Plasma or Blood 105 MEQ/L Normal CHLORIDE [facility] ([facility]) Note: Responsible Observer: CL CHLORIDE 300.0200 (A) Carbon dioxide, total [Moles/volume] in Serum or Plasma 24 MEQ/L Normal CARBON DIOXIDE [facility] ([facility]) Note: Responsible Observer: CO2 CARBON D IOXIDE 300.0250 (A) Creatine/Creatinine [Mass Ratio] in Urine 1.3 MG/DL Brea l CREATININE [facility] ([facility]) Note: Responsible Observer: CREAT CREATI NINE 300.0400 (A) Anion gap in Blood 15 Normal ANION GAP [facility]ADIEL ([facility]) Note: Responsible Observer: ANION GAP AN ION GAP 300.0300 (A) GFR 54.9 ML/MIN GFR [facility]EL ([facility]) Note: Stage G3a - Mildly to moderately decreased kidney function The GFR is an estimate of the Glomerular Filtration Rate. It is an aid to assess a patient's renal function. It is not a conclusive diagnosis of kidney disease. GFR normal is >=90 The MDRD GFR calculation is considered valid between the ages of 18 and 75 years only.Responsible Observer: GFR GFR 300.0410 (A) Globulin [Mass/volume] in Serum by calculation 2.3 G/DL Normal GLOBULIN [facility] ([facility]) Note: Responsible Observer: GLOB GLOBULI N 300.4050 (A) Glucose [Presence] in Urine 156 MG/DL Above high normal G LUCOSE [facility] ([facility]) Note: Responsible Observer: GLU GLUCOSE 300.0500 (A) Potassium [Mass/volume] in Blood 5.3 MEQ/L Normal POT ASSIUM [facility] ([facility]) Note: Responsible Observer: K POTASSIUM 300.0150 (A) Sodium [Moles/volume] in Serum, Plasma or Blood 139 MEQ/L Normal SODIUM [facility] ([facility]) Note: Responsible Observer: NA SODIUM 3 00.0100 (A) Protein [Mass/volume] in Synovial fluid 7.2 G/DL Normal TOTAL PROTEIN [facility] ([facility]) Note: Responsible Observer: TP TOTAL PRO TEIN 300.3750 (A) ID Date Data Source [id number] 03/29/2020 11:45:00 AM EDT [facility] ([facility]) Name Value Range Interpretation Code Description Data Dinora rce(s) Supporting Document(s) BASO # (AUTO) 0.05 10\\^3/uL Normal BASO # (AUTO) [facility] ([facility]) Note: Responsible Observer: BASO # (AUTO ) BASO # (AUTO) 100.1500 (A) BASO % (AUTO) 0.6 % Normal BASO % (AUTO) JADIEL ([facility]) Note: Responsible Observer: BASO % (AUTO ) BASO % (AUTO) 100.1250 (A) EOS # (AUTO) 0.62 10\\^3/uL Normal EOS # (AUTO) [facility] ( [facility]) Note: Responsible Observer: EOS # (AUTO) EOS # (AUTO) 100.1450 (A) EOS % (AUTO) 7.8 % Normal EOS % (AUTO) [facility]ADIEL ([facility]) Note: Responsible Observer: EOS % (AUTO) EOS % (AUTO) 100.1200 (A) GRAN # (AUTO) 4.55 10\\^3/uL Normal GRAN # (AUTO) [facility] ([facility]) Note: Responsible Observer: GRAN # (AUTO ) GRAN #(AUTO) 100.1325 (A) GRAN % (AUTO) 57.1 % Normal GRAN % (AUTO) JADIEL ([facility]) Note: Responsible Observer: GRAN % (AUTO ) GRAN % (AUTO) 100.1000 (A) Hematocrit [Volume Fraction] of Blood by Automated count 41.3 % Normal HEMATOCRIT [facility] ([facility]) Note: Responsible Observer: HCT HEMATOCR IT 100.0400 (A) Hemoglobin [Mass/volume] in Blood 13.0 G/DL Normal HE MOGLOBIN [facility] ([facility]) Note: Responsible Observer: HGB HEMOGLOB IN 100.0300 (A) IG # (AUTO) 0.0 10\\^3/uL IG # (AUTO) [facility] ([facility]) Note: Responsible Observer: IG # (AUTO) IG # (AUTO) 100.1260 (A) IG % (AUTO) 0.3 % IG % (AUTO) [facility]IEL ([facility]) Note: Responsible Observer: IG % (AUTO) IG % (AUTO) 100.1255 (A) LYMPH # (AUTO) 2.2 k/uL Normal LYMPH # (AUTO) [facility] ( [facility]) Note: Responsible Observer: LYMPH # (AUT O) LYMPH # (AUTO) 100.1350 (A) LYMPH % (AUTO) 27.9 % Normal LYMPH % (AUTO) [facility] ( [facility]) Note: Responsible Observer: LYMPH % (AUT O) LYMPH % (AUTO) 100.1100 (A) Erythrocyte mean corpuscular hemoglobin [Entitic mass] by Automated count 27.3 PG Normal MCH [facility] ([facility]) Note: Responsible Observer: MCH MCH 100 .0600 (A) Erythrocyte mean corpuscular hemoglobin concentration [Mass/volume] by Automated count 31.5 G/DL Below low normal MCHC [facility]EL ([facility]) Note: Responsible Observer: MCHC MCHC 1 00.0650 (A) Erythrocyte mean corpuscular volume [Entitic volume] by Auto mated count 86.8 FL Normal MCV [facility] ([facility]) Note: Responsible Observer: MCV MCV 100 .0550 (A) MONO # (AUTO) 0.50 k/uL Normal MONO # (AUTO) [facility] ([facility]) Note: Responsible Observer: MONO # (AUTO ) MONO # (AUTO) 100.1400 (A) MONO % (AUTO) 6.3 % Normal MONO % (AUTO) [facility] ([facility]) Note: Responsible Observer: MONO % (AUTO ) MONO% (AUTO) 100.1150 (A) MPV 9.4 FL Normal MPV [facility] Note: Responsible Observer: MPV MPV 100 .0950 (A) Platelets [#/volume] in Plasma by Automated count 307 10\\^3/uL Normal PLATELET COUNT [facility] ([facility]) Note: Responsible Observer: PLT PLATELET COUNT 100.0850 (A) Erythrocytes [#/volume] in Blood by Automated count 4.76 10\\^6/uL Normal RED BLOOD COUNT [facility] ([facility]) Note: Responsible Observer: RBC RED BLOO D COUNT 100.0250 (A) Erythrocyte distribution width [Ratio] by Automated count 14.8 % Above high normal RDW [facility] ([facility]) Note: Responsible Observer: RDW RDW 100 .0700 (A) Leukocytes [#/volume] in Blood by Automated count 7.96 10\\^3/uL Normal WHITE BLOOD COUNT [facility] ([facility]) Note: Responsible Observer: WBC WHITE BL OOD COUNT 100.0150 (A) ID Date Data Source [id number] 03/29/2020 01:29:00 PM EDT [facility] Name Value Range Interpretation Code Description Data Dinora rce(s) Supporting Document(s) WHITE BLOOD COUNT 7.96 10^3/uL 4.00-10.50 N [facility] ealth RED BLOOD COUNT 4.76 10^6/uL 4.30-5.80 N [facility] HEMOGLOBIN 13.0 G/DL 13.0-17.5 N [facility] HEMATOCRIT 41.3 % 41.0-53.0 N [facility] MCV 86.8 FL 80.0-100.0 N [facility] MCH 27.3 PG 27.0-34.0 N [facility] MCHC 31.5 G/DL 32-36 L [facility] RDW 14.8 % 11.5-14.5 H [facility] PLATELET COUNT 307 10^3/uL 130-400 N [facility] MPV 9.4 FL 8.7-13.2 N [facility] GRAN % (AUTO) 57.1 % 42.0-75.0 N [facility] LYMPH % (AUTO) 27.9 % 20.0-51.0 N [facility] MONO % (AUTO) 6.3 % 2.0-15.0 N [facility] EOS % (AUTO) 7.8 % 0.0-11.0 N [facility] BASO % (AUTO) 0.6 % 0.0-2.0 N [facility] IG % (AUTO) 0.3 % 1.00-5.00 [facility] IG # (AUTO) 0.0 10^3/uL <0.5 [facility] GRAN # (AUTO) 4.55 10^3/uL 1.50-6.50 N [facility] LYMPH # (AUTO) 2.2 k/uL 1.0-5.0 N [facility] MONO # (AUTO) 0.50 k/uL 0.20-1.50 N [facility] EOS # (AUTO) 0.62 10^3/uL 0.00-1.10 N [facility] BASO # (AUTO) 0.05 10^3/uL 0.00-0.20 N [facility] ID Date Data Source [id number] 03/29/2020 02:22:00 PM EDT [facility] Name Value Range Interpretation Code Description Data Dinora rce(s) Supporting Document(s) SODIUM 139 MEQ/L 135-145 N [facility] POTASSIUM 5.3 MEQ/L 3.5-5.3 [facility] CHLORIDE 105 MEQ/L 94-110 [facility] CARBON DIOXIDE 24 MEQ/L 22-33 N [facility] ANION GAP 15 5-16 N [facility] BLOOD UREA NITRO 30 MG/DL 7-25 H [facility] CREATININE 1.3 MG/DL 0.6-1.4 [facility] GFR 54.9 ML/MIN [facility] Stage G3a - Mildly to moderately decrea sed kidney function The GFR is an estimate of the Glomerular Filtration Rate. It is an aid to assess a patient's renal function. It is not a conclusive diagnosis of kidney disease. GFR normal is >=90 The MDRD GFR calculation is considered valid between the ages of 18 and 75 years only. BUN/CREAT RATIO 23 8-36 N [facility] GLUCOSE 156 MG/DL 70-100 H [facility] CA 10.0 MG/DL 8.7-10.5 N [facility] BILIRUBIN,TOTAL 0.5 MG/DL 0.1-1.3 N [facility] AST 30 U/L 5-40 N [facility] ALT 24 U/L 5-48 [facility] ALKALINE PHOSPHATASE 96 U/L 40-140 N [facility] alth TOTAL PROTEIN 7.2 G/DL 5.9-8.3 N [facility] ALBUMIN 4.9 G/DL 3.0-5.1 [facility] GLOBULIN 2.3 G/DL 1.5-3.5 [facility] ALB/GLOB RATIO 2.1 G/DL 1.0-3.0 N [facility] ID Date Data Source [id number] 03/13/2020 11:21:00 AM EDT JADIEL ([facility]) Name Value Range Interpretation Code Description Data Dinora rce(s) Supporting Document(s) Reported Physicians See Note Reported Physicians [facility] ([facility]) Note: Reported Physicians:Ordering: Rob De Jesusending: Rob Gutiérrez ID Date Data Source [id number] 03/13/2020 11:21:00 AM EDT JADIEL ([employer]) Name Value Range Interpretation Code Description Data Dinora rce(s) Supporting Document(s) Albumin/Globulin [Mass Ratio] in Amniotic fluid 1.8 G/DL Normal ALB/GLOB RATIO [facility]) Note: Responsible Observer: A/G RATIO AL B/GLOB RATIO 300.4100 (A) Albumin [Mass/volume] in Synovial fluid 4.4 G/DL Normal ALBUMIN [facility] ([facility]) Note: Responsible Observer: ALB ALBUMIN 300.3900 (A) Alkaline phosphatase isoenzyme [Units/volume] in Serum or Plasma 113 U/L Normal ALKALINE PHOSPHATASE [facility] ([facility]) Note: Responsible Observer: ALK PHOS ALK AKASH PHOSPHATASE 300.3110 (A) Alanine aminotransferase [Enzymatic activity/volume] in Seru m or Plasma 22 U/L Normal ALT [facility] ([facility]) Note: Responsible Observer: ALT/SGPT ALT 300.3100 (A) Aspartate aminotransferase [Enzymatic activity/volume] in Serum or Plasma 19 U/L Normal AST [facility] ([facility]) Note: Responsible Observer: AST/SGOT AST 300.3050 (A) Urea nitrogen/Creatinine [Mass Ratio] in Serum or Plasma 22 Normal BUN/CREAT RATIO [facility] ([facility]) Note: Responsible Observer: BUN/CREAT RA SARAH BUN/CREAT RATIO 300.0450 (A) Bilirubin.total [Mass/volume] in Serum or Plasma 0.4 MG/DL Normal BILIRUBIN,TOTAL [facility] ([facility]) Note: Responsible Observer: TOTAL BILI T OTAL BILIRUBIN 300.2700 (A) BLOOD UREA NITRO 29 MG/DL Above high normal BLOOD UREA N ITRO [facility] ([facility]) Note: Responsible Observer: BUN BLOOD UR EA NITROGEN 300.0350 (A) CA 9.4 MG/DL Normal CA JADIEL ([facility]) Note: Responsible Observer: CA CALCIUM 300.2200 (A) Chloride [Moles/volume] in Serum, Plasma or Blood 98 MEQ/L Normal CHLORIDE [facility] ([facility]) Note: Responsible Observer: CL CHLORIDE 300.0200 (A) Carbon dioxide, total [Moles/volume] in Serum or Plasma 25 MEQ/L Normal CARBON DIOXIDE [facility]IEL ([facility]) Note: Responsible Observer: CO2 CARBON D IOXIDE 300.0250 (A) Creatine/Creatinine [Mass Ratio] in Urine 1.3 MG/DL Brea l CREATININE [facility]EL ([facility]) Note: Responsible Observer: CREAT CREATI NINE 300.0400 (A) Anion gap in Blood 14 Normal ANION GAP [facility]ADIEL ([facility]) Note: Responsible Observer: ANION GAP AN ION GAP 300.0300 (A) GFR 54.9 ML/MIN GFR [facility]IEL ([facility]) Note: Stage G3a - Mildly to moderately decreased kidney function The GFR is an estimate of the Glomerular Filtration Rate. It is an aid to assess a patient's renal function. It is not a conclusive diagnosis of kidney disease. GFR normal is >=90 The MDRD GFR calculation is considered valid between the ages of 18 and 75 years only.Responsible Observer: GFR GFR 300.0410 (A) Globulin [Mass/volume] in Serum by calculation 2.5 G/DL Normal GLOBULIN [facility] ([facility]) Note: Responsible Observer: GLOB GLOBULI N 300.4050 (A) Glucose [Presence] in Urine 194 MG/DL Above high normal G LUCOSE [facility] ([facility]) Note: Responsible Observer: GLU GLUCOSE 300.0500 (A) Potassium [Mass/volume] in Blood 4.6 MEQ/L Normal POT ASSIUM [facility] ([facility]) Note: Responsible Observer: K POTASSIUM 300.0150 (A) Sodium [Moles/volume] in Serum, Plasma or Blood 132 MEQ/L Below low normal SODIUM [facility] ([facility]) Note: Responsible Observer: NA SODIUM 3 00.0100 (A) Protein [Mass/volume] in Synovial fluid 6.9 G/DL Normal TOTAL PROTEIN [facility] ([facility]) Note: Responsible Observer: TP TOTAL PRO TEIN 300.3750 (A) ID Date Data Source [id number] 03/13/2020 11:21:00 AM EDT JADIEL ([facility]) Name Value Range Interpretation Code Description Data Dinora rce(s) Supporting Document(s) BASO # (AUTO) 0.05 10\\^3/uL Normal BASO # (AUTO) [facility] ([facility]) Note: Responsible Observer: BASO # (AUTO ) BASO # (AUTO) 100.1500 (A) BASO % (AUTO) 0.5 % Normal BASO % (AUTO) JADIEL ([facility]) Note: Responsible Observer: BASO % (AUTO ) BASO % (AUTO) 100.1250 (A) EOS # (AUTO) 0.64 10\\^3/uL Normal EOS # (AUTO) [facility]ADIEL ( [facility]) Note: Responsible Observer: EOS # (AUTO) EOS # (AUTO) 100.1450 (A) EOS % (AUTO) 6.9 % Normal EOS % (AUTO) JADIEL ([facility]) Note: Responsible Observer: EOS % (AUTO) EOS % (AUTO) 100.1200 (A) GRAN # (AUTO) 5.64 10\\^3/uL Normal GRAN # (AUTO) [facility] ([facility]) Note: Responsible Observer: GRAN # (AUTO ) GRAN #(AUTO) 100.1325 (A) GRAN % (AUTO) 61.0 % Normal GRAN % (AUTO) JADIEL ([facility]) Note: Responsible Observer: GRAN % (AUTO ) GRAN % (AUTO) 100.1000 (A) Hematocrit [Volume Fraction] of Blood by Automated count 38.1 % Below low normal HEMATOCRIT J[facility]IEL ([facility]) Note: Responsible Observer: HCT HEMATOCR IT 100.0400 (A) Hemoglobin [Mass/volume] in Blood 12.2 G/DL Below low nor mal HEMOGLOBIN [facility]IEL ([facility]) Note: Responsible Observer: HGB HEMOGLOB IN 100.0300 (A) IG # (AUTO) 0.0 10\\^3/uL IG # (AUTO) [facility]IEL ([facility]) Note: Responsible Observer: IG # (AUTO) IG # (AUTO) 100.1260 (A) IG % (AUTO) 0.2 % IG % (AUTO) [facility]ADIEL ([facility]) Note: Responsible Observer: IG % (AUTO) IG % (AUTO) 100.1255 (A) LYMPH # (AUTO) 2.3 k/uL Normal LYMPH # (AUTO) JADIEL ( [facility]) Note: Responsible Observer: LYMPH # (AUT O) LYMPH # (AUTO) 100.1350 (A) LYMPH % (AUTO) 24.9 % Normal LYMPH % (AUTO) [facility]IEL ( [facility]) Note: Responsible Observer: LYMPH % (AUT O) LYMPH % (AUTO) 100.1100 (A) Erythrocyte mean corpuscular hemoglobin [Entitic mass] by Automated count 27.5 PG Normal MCH [facility] ([facility]) Note: Responsible Observer: MCH MCH 100 .0600 (A) Erythrocyte mean corpuscular hemoglobin concentration [Mass/volume] by Automated count 32.0 G/DL Normal MCHC [facility] ([facility]) Note: Responsible Observer: MCHC MCHC 1 00.0650 (A) Erythrocyte mean corpuscular volume [Entitic volume] by Auto mated count 85.8 FL Normal MCV [facility] ([facility]) Note: Responsible Observer: MCV MCV 100 .0550 (A) MONO # (AUTO) 0.60 k/uL Normal MONO # (AUTO) [facility]EL ([facility]) Note: Responsible Observer: MONO # (AUTO ) MONO # (AUTO) 100.1400 (A) MONO % (AUTO) 6.5 % Normal MONO % (AUTO) [facility]EL ([facility]) Note: Responsible Observer: MONO % (AUTO ) MONO% (AUTO) 100.1150 (A) MPV 9.7 FL Normal MPV [facility] ([facility]) Note: Responsible Observer: MPV MPV 100 .0950 (A) Platelets [#/volume] in Plasma by Automated count 291 10\\^3/uL Normal PLATELET COUNT [facility] ([facility]) Note: Responsible Observer: PLT PLATELET COUNT 100.0850 (A) Erythrocytes [#/volume] in Blood by Automated count 4.44 10\\^6/uL Normal RED BLOOD COUNT [facility] ([facility]) Note: Responsible Observer: RBC RED BLOO D COUNT 100.0250 (A) Erythrocyte distribution width [Ratio] by Automated count 14.6 % Above high normal RDW [facility] ([facility]) Note: Responsible Observer: RDW RDW 100 .0700 (A) Leukocytes [#/volume] in Blood by Automated count 9.25 10\\^3/uL Normal WHITE BLOOD COUNT [facility] ([facility]) Note: Responsible Observer: WBC WHITE BL OOD COUNT 100.0150 (A) ID Date Data Source [id number] 03/13/2020 02:30:00 PM EDT [facility] Name Value Range Interpretation Code Description Data Dinora rce(s) Supporting Document(s) WHITE BLOOD COUNT 9.25 10^3/uL 4.00-10.50 N [facility] ealt RED BLOOD COUNT 4.44 10^6/uL 4.30-5.80 N [facility] th HEMOGLOBIN 12.2 G/DL 13.0-17.5 L [facility] HEMATOCRIT 38.1 % 41.0-53.0 L [facility] MCV 85.8 FL 80.0-100.0 N [facility] MCH 27.5 PG 27.0-34.0 N [facility] MCHC 32.0 G/DL 32-36 N [facility] RDW 14.6 % 11.5-14.5 H [facility] PLATELET COUNT 291 10^3/uL 130-400 N [facility] MPV 9.7 FL 8.7-13.2 N [facility] GRAN % (AUTO) 61.0 % 42.0-75.0 N [facility] LYMPH % (AUTO) 24.9 % 20.0-51.0 N [facility] MONO % (AUTO) 6.5 % 2.0-15.0 N [facility] EOS % (AUTO) 6.9 % 0.0-11.0 N [facility] BASO % (AUTO) 0.5 % 0.0-2.0 N [facility] IG % (AUTO) 0.2 % 1.00-5.00 [facility] IG # (AUTO) 0.0 10^3/uL <0.5 [facility] GRAN # (AUTO) 5.64 10^3/uL 1.50-6.50 N [facility] LYMPH # (AUTO) 2.3 k/uL 1.0-5.0 N [facility] MONO # (AUTO) 0.60 k/uL 0.20-1.50 N [facility] EOS # (AUTO) 0.64 10^3/uL 0.00-1.10 N [facility] BASO # (AUTO) 0.05 10^3/uL 0.00-0.20 N [facility] ID Date Data Source [id number] 03/13/2020 03:08:00 PM EDT [facility] Name Value Range Interpretation Code Description Data Dinora rce(s) Supporting Document(s) SODIUM 132 MEQ/L 135-145 L [facility] POTASSIUM 4.6 MEQ/L 3.5-5.3 N [facility] CHLORIDE 98 MEQ/L 94-110 N [facility] CARBON DIOXIDE 25 MEQ/L 22-33 N [facility] ANION GAP 14 5-16 N [facility] BLOOD UREA NITRO 29 MG/DL 7-25 H [facility] CREATININE 1.3 MG/DL 0.6-1.4 N [facility] GFR 54.9 ML/MIN [facility] Stage G3a - Mildly to moderately decrea sed kidney function The GFR is an estimate of the Glomerular Filtration Rate. It is an aid to assess a patient's renal function. It is not a conclusive diagnosis of kidney disease. GFR normal is >=90 The MDRD GFR calculation is considered valid between the ages of 18 and 75 years only. BUN/CREAT RATIO 22 8-36 N [facility] GLUCOSE 194 MG/DL 70-100 H [facility] CA 9.4 MG/DL 8.7-10.5 N [facility] BILIRUBIN,TOTAL 0.4 MG/DL 0.1-1.3 [facility] AST 19 U/L 5-40 N [facility] ALT 22 U/L 5-48 [facility] ALKALINE PHOSPHATASE 113 U/L 40-140 N [facility] alth TOTAL PROTEIN 6.9 G/DL 5.9-8.3 N [facility] ALBUMIN 4.4 G/DL 3.0-5.1 N [facility] GLOBULIN 2.5 G/DL 1.5-3.5 [facility] ALB/GLOB RATIO 1.8 G/DL 1.0-3.0 [facility] ID Date Data Source [id number] 03/06/2020 02:15:00 PM EDT [address] [address] Patient Name: Dario Shelton Exam Date: 03/06/20 : 1950 Ordering Doctor: Rob Gutiérrez DO Attending Doctor: Rob Gutiérrez DO CC: CT ABDOMEN AND PELVIS WITHOUT CONTRAST CLINICAL HISTORY: ELEVATED WBC COMPARISON: 10/11/2019 CONTRAST:None TECHNIQUE: Axial images were obtained of the abdomen and pelvis. Coronal and sagittal multiplanar reformats were generated and reviewed. One or more of the following dose reduction techniques were utilized in effectively lowering the radiation dose for this examination: Automated Exposure Control, Adjustment of the mA and/or kV according to patient size, or Iterative reconstruction. FINDINGS: LOWER CHEST: Unremarkable. LIVE R/BILE DUCTS: Unremarkable GALLBLADDER: There is vicarious excretion of contrast into the gallbladder and proximal cystic duct. There is no gallbladder wall thickening or pericholecystic inflammatory changes. SPLEEN: Unremarkable. PANCREAS: Unremarkable. ADRENALS: Unremarkable. KIDNEYS/URETERS: No evidence of hydronephrosis or nephrolithiasis. BOWEL: An appropriately positioned gastrostomy tube is identified. There are multiple scattered diverticula throughout the colon. There is no CT evidence of diverticulitis. The casimiro is normal in course and caliber. LYMPH NODES: Unremarkable. RETROPERITONEUM/PERITONEUM: The distal tip of a ventriculoperitoneal shunt is identified within the right lower quadrant. No free air or free fluid. VESSELS: No significant atherosclerotic disease is seen within the aorta. The aorta is normal in course and caliber. PELVIC ORGANS: Status post prostatectomy. The urinary bladder is normal in appearance. BONES: Moderate degenerative changes affect the visualized spine. Unchanged moderate L3 superior endplate and mild L4 superior endplate compression deformities. No acute osseous abnormality. SOFT TISSUES: There is a small fat-containing umbilical hernia. Small fat-containing left inguinal hernia. InterStim pulse generator identified within the subcutaneous fat overlying the right buttock. IMPRESSION: No evidence of acute intra-abdominal or pelvic abnormality to correspond with the patient's symptoms. No focal fluid collection or free air. Profe ssional interpretation performed by [facility] Medical Imaging at [facility] . End of diagnostic report: [id number] Signed: Riley Barriga MD 03/06/20 1441 Interpreted by: Riley BarrigaTranscribed by: Riley Barriga Name Value Range Interpretation Code Description Data Dinora rce(s) Supporting Document(s) ID Date Data Source [id number] 03/01/2020 11:35:00 AM EDT [facility] ([facility]) Name Value Range Interpretation Code Description Data Dinora rce(s) Supporting Document(s) Reported Physicians See Note Reported Physicians [facility] ([facility]) Note: Reported Physicians:Ordering: Rob De Jesusending: Rob Gutiérrez ID Date Data Source [id number] 03/01/2020 11:35:00 AM EDT [facility] ([facility]) Name Value Range Interpretation Code Description Data Dinora rce(s) Supporting Document(s) Albumin/Globulin [Mass Ratio] in Amniotic fluid 1.9 G/DL Normal ALB/GLOB RATIO [facility] ([facility]) Note: Responsible Observer: A/G RATIO AL B/GLOB RATIO 300.4100 (A) Albumin [Mass/volume] in Synovial fluid 4.8 G/DL Normal ALBUMIN [facility] ([facility]) Note: Responsible Observer: ALB ALBUMIN 300.3900 (A) Alkaline phosphatase isoenzyme [Units/volume] in Serum or Plasma 87 U/L Normal ALKALINE PHOSPHATASE [facility] ([facility]) Note: Responsible Observer: ALK PHOS ALK AKASH PHOSPHATASE 300.3110 (A) Alanine aminotransferase [Enzymatic activity/volume] in Seru m or Plasma 34 U/L Normal ALT [facility] ([facility]) Note: Responsible Observer: ALT/SGPT ALT 300.3100 (A) Aspartate aminotransferase [Enzymatic activity/volume] in Serum or Plasma 21 U/L Normal AST [facility] ([facility]) Note: Responsible Observer: AST/SGOT AST 300.3050 (A) Urea nitrogen/Creatinine [Mass Ratio] in Serum or Plasma 32 Normal BUN/CREAT RATIO [facility] ([facility]) Note: Responsible Observer: BUN/CREAT RA SARAH BUN/CREAT RATIO 300.0450 (A) Bilirubin.total [Mass/volume] in Serum or Plasma 0.5 MG/DL Normal BILIRUBIN,TOTAL [facility] ([facility]) Note: Responsible Observer: TOTAL BILI T OTAL BILIRUBIN 300.2700 (A) BLOOD UREA NITRO 52 MG/DL Above high normal BLOOD UREA N ITRO [facility] ([facility]) Note: Responsible Observer: BUN BLOOD UR EA NITROGEN 300.0350 (A) CA 10.1 MG/DL Normal CA [facility]IEL ([facility]) Note: Responsible Observer: CA CALCIUM 300.2200 (A) Chloride [Moles/volume] in Serum, Plasma or Blood 113 MEQ/L Above high normal CHLORIDE [facility] ([facility]) Note: Responsible Observer: CL CHLORIDE 300.0200 (A) Carbon dioxide, total [Moles/volume] in Serum or Plasma 20 MEQ/L Below low normal CARBON DIOXIDE [facility] ([facility]) Note: Responsible Observer: CO2 CARBON D IOXIDE 300.0250 (A) Anion gap in Blood 20 Above high normal ANION GAP GRE [facility] Note: Responsible Observer: ANION GAP AN ION GAP 300.0300 (A) Creatine/Creatinine [Mass Ratio] in Urine 1.6 MG/DL Above high normal CREATININE [facility] ([facility]) Note: Responsible Observer: CREAT CREATI NINE 300.0400 (A) GFR 43.2 ML/MIN GFR [facility] ([facility]) Note: Stage G3b - Moderately to severel y decreased kidney function The GFR is an estimate of the Glomerular Filtration Rate. It is an aid to assess a patient's renal function. It is not a conclusive diagnosis of kidney disease. GFR normal is >=90 The MDRD GFR calculation is considered valid between the ages of 18 and 75 years only.Responsible Observer: GFR GFR 300.0410 (A) Globulin [Mass/volume] in Serum by calculation 2.5 G/DL Normal GLOBULIN [facility] ([facility]) Note: Responsible Observer: GLOB GLOBULI N 300.4050 (A) Glucose [Presence] in Urine 220 MG/DL Above high normal G LUCOSE [facility] ([facility]) Note: Responsible Observer: GLU GLUCOSE 300.0500 (A) Potassium [Mass/volume] in Blood 5.1 MEQ/L Normal POT ASSIUM [facility] ([facility]) Note: Responsible Observer: K POTASSIUM 300.0150 (A) Sodium [Moles/volume] in Serum, Plasma or Blood 148 MEQ/L Above high normal SODIUM [facility] ([facility]) Note: Responsible Observer: NA SODIUM 3 00.0100 (A) Protein [Mass/volume] in Synovial fluid 7.3 G/DL Normal TOTAL PROTEIN [facility] ([facility]) Note: Responsible Observer: TP TOTAL PRO TEIN 300.3750 (A) ID Date Data Source [id number] 03/01/2020 11:35:00 AM EDT [facility] ([facility]) Name Value Range Interpretation Code Description Data Dinora rce(s) Supporting Document(s) BASO # (AUTO) 0.11 10\\^3/uL Normal BASO # (AUTO) [facility] ([facility]) Note: Responsible Observer: BASO # (AUTO ) BASO # (AUTO) 100.1500 (A) BASO % (AUTO) 0.8 % Normal BASO % (AUTO) [facility] ([facility]) Note: Responsible Observer: BASO % (AUTO ) BASO % (AUTO) 100.1250 (A) EOS # (AUTO) 1.22 10\\^3/uL Above high normal EOS # (AUTO) [facility] ([facility]) Note: Responsible Observer: EOS # (AUTO) EOS # (AUTO) 100.1450 (A) EOS % (AUTO) 9.2 % Normal EOS % (AUTO) [facility] ([facility]) Note: Responsible Observer: EOS % (AUTO) EOS % (AUTO) 100.1200 (A) GRAN # (AUTO) 8.52 10\\^3/uL Above high normal GRAN # (AUTO ) [facility] ([facility]) Note: Responsible Observer: GRAN # (AUTO ) GRAN #(AUTO) 100.1325 (A) GRAN % (AUTO) 64.7 % Normal GRAN % (AUTO) [facility] ([facility]) Note: Responsible Observer: GRAN % (AUTO ) GRAN % (AUTO) 100.1000 (A) Hematocrit [Volume Fraction] of Blood by Automated count 42.6 % Normal HEMATOCRIT [facility] ([facility]) Note: Responsible Observer: HCT HEMATOCR IT 100.0400 (A) Hemoglobin [Mass/volume] in Blood 13.0 G/DL Normal HE MOGLOBIN [facility] ([facility]) Note: Responsible Observer: HGB HEMOGLOB IN 100.0300 (A) IG # (AUTO) 0.0 10\\^3/uL IG # (AUTO) [facility] ([facility]) Note: Responsible Observer: IG # (AUTO) IG # (AUTO) 100.1260 (A) IG % (AUTO) 0.3 % IG % (AUTO) [facility]EL ([facility]) Note: Responsible Observer: IG % (AUTO) IG % (AUTO) 100.1255 (A) LYMPH # (AUTO) 2.6 k/uL Normal LYMPH # (AUTO) [facility] ( [facility]) Note: Responsible Observer: LYMPH # (AUT O) LYMPH # (AUTO) 100.1350 (A) LYMPH % (AUTO) 20.0 % Normal LYMPH % (AUTO) [facility] ( [facility]) Note: Responsible Observer: LYMPH % (AUT O) LYMPH % (AUTO) 100.1100 (A) Erythrocyte mean corpuscular hemoglobin [Entitic mass] by Automated count 26.9 PG Below low normal MCH [facility] ([facility]) Note: Responsible Observer: MCH MCH 100 .0600 (A) Erythrocyte mean corpuscular hemoglobin concentration [Mass/volume] by Automated count 30.5 G/DL Below low normal MCHC [facility] ([facility]) Note: Responsible Observer: MCHC MCHC 1 00.0650 (A) Erythrocyte mean corpuscular volume [Entitic volume] by Auto mated count 88.0 FL Normal MCV [facility] ([facility]) Note: Responsible Observer: MCV MCV 100 .0550 (A) MONO % (AUTO) 5.0 % Normal MONO % (AUTO) [facility] ([facility]) Note: Responsible Observer: MONO % (AUTO ) MONO% (AUTO) 100.1150 (A) MONO # (AUTO) 0.66 k/uL Normal MONO # (AUTO) [facility] ([facility]) Note: Responsible Observer: MONO # (AUTO ) MONO # (AUTO) 100.1400 (A) MPV 9.8 FL Normal MPV [facility] Note: Responsible Observer: MPV MPV 100 .0950 (A) Platelets [#/volume] in Plasma by Automated count 334 10\\^3/uL Normal PLATELET COUNT [facility] Note: Responsible Observer: PLT PLATELET COUNT 100.0850 (A) Erythrocytes [#/volume] in Blood by Automated count 4.84 10\\^6/uL Normal RED BLOOD COUNT [facility] ([facility]) Note: Responsible Observer: RBC RED BLOO D COUNT 100.0250 (A) Erythrocyte distribution width [Ratio] by Automated count 14.6 % Above high normal RDW [facility] ([facility]) Note: Responsible Observer: RDW RDW 100 .0700 (A) Leukocytes [#/volume] in Blood by Automated count 13.19 10\\^3/uL Above high normal WHITE BLOOD COUNT [facility] ([facility]) Note: Responsible Observer: WBC WHITE BL OOD COUNT 100.0150 (A) ID Date Data Source [id number] 03/01/2020 01:45:00 PM EDT [facility] Name Value Range Interpretation Code Description Data Dinora rce(s) Supporting Document(s) WHITE BLOOD COUNT 13.19 10^3/uL 4.00-10.50 H [facility] RED BLOOD COUNT 4.84 10^6/uL 4.30-5.80 N [facility] th HEMOGLOBIN 13.0 G/DL 13.0-17.5 N [facility] HEMATOCRIT 42.6 % 41.0-53.0 N [facility] MCV 88.0 FL 80.0-100.0 N [facility] MCH 26.9 PG 27.0-34.0 L [facility] MCHC 30.5 G/DL 32-36 L [facility] RDW 14.6 % 11.5-14.5 H [facility] PLATELET COUNT 334 10^3/uL 130-400 N [facility] MPV 9.8 FL 8.7-13.2 N [facility] GRAN % (AUTO) 64.7 % 42.0-75.0 N [facility] LYMPH % (AUTO) 20.0 % 20.0-51.0 N [facility] MONO % (AUTO) 5.0 % 2.0-15.0 N [facility] EOS % (AUTO) 9.2 % 0.0-11.0 N [facility] BASO % (AUTO) 0.8 % 0.0-2.0 N [facility] IG % (AUTO) 0.3 % 1.00-5.00 [facility] IG # (AUTO) 0.0 10^3/uL <0.5 [facility] GRAN # (AUTO) 8.52 10^3/uL 1.50-6.50 [facility] LYMPH # (AUTO) 2.6 k/uL 1.0-5.0 N [facility] MONO # (AUTO) 0.66 k/uL 0.20-1.50 N [facility] EOS # (AUTO) 1.22 10^3/uL 0.00-1.10 [facility] BASO # (AUTO) 0.11 10^3/uL 0.00-0.20 N [facility] ID Date Data Source [id number] 03/01/2020 03:01:00 PM EDT [facility] Name Value Range Interpretation Code Description Data Dinora rce(s) Supporting Document(s) SODIUM 148 MEQ/L 135-145 H [facility] POTASSIUM 5.1 MEQ/L 3.5-5.3 N [facility] CHLORIDE 113 MEQ/L 94-110 H [facility] CARBON DIOXIDE 20 MEQ/L 22-33 L [facility] ANION GAP 20 5-16 H [facility] BLOOD UREA NITRO 52 MG/DL 7-25 H [facility] CREATININE 1.6 MG/DL 0.6-1.4 H [facility] GFR 43.2 ML/MIN [facility] Stage G3b - Moderately to severely decr eased kidney function The GFR is an estimate of the Glomerular Filtration Rate. It is an aid to assess a patient's renal function. It is not a conclusive diagnosis of kidney disease. GFR normal is >=90 The MDRD GFR calculation is considered valid between the ages of 18 and 75 years only. BUN/CREAT RATIO 32 8-36 N [facility] GLUCOSE 220 MG/DL 70-100 H [facility] CA 10.1 MG/DL 8.7-10.5 N [facility] BILIRUBIN,TOTAL 0.5 MG/DL 0.1-1.3 N [facility] AST 21 U/L 5-40 N [facility] ALT 34 U/L 5-48 N [facility] ALKALINE PHOSPHATASE 87 U/L 40-140 [facility] TOTAL PROTEIN 7.3 G/DL 5.9-8.3 N [facility] ALBUMIN 4.8 G/DL 3.0-5.1 N [facility] GLOBULIN 2.5 G/DL 1.5-3.5 N [facility] ALB/GLOB RATIO 1.9 G/DL 1.0-3.0 N [facility] ID Date Data Source [id number] 02/27/2020 10:00:00 AM EDT [facility] ([facility]) Name Value Range Interpretation Code Description Data Dinora rce(s) Supporting Document(s) Reported Physicians See Note Reported Physicians [facility] ([facility]) Note: Reported Physicians:Ordering: Rob De Jesusending: Rob Gutiérrez Date Data Source [id number] 02/27/2020 10:00:00 AM EDT [facility] ([facility]) Name Value Range Interpretation Code Description Data Dinora rce(s) Supporting Document(s) See Note Webb See Note Tracey DUVALL ([facility]) Note: Run: 02/29/20 08 INTERFACED REPORT Name: Dario Shelton Age/Sex: 69/M Location: [facility] Acct: [id number] Unit: [id number] Status: REG REF Room/Bed: Re02/27/20 Disch: Att Dr: Rob Gutiérrez DO Specimen #: [id number] Ordered : 02/27/20 Collected : 02/27/20 By: ANA Received: 02/27/20 By: RICCO Source: URINE CC Specimen Description: Procedure Result --- --------- COLONY COUNT Final COLONY COUNT 5,000 CFU/ML URINE CULTURE Final NO SIGNIFICANT GROWTH <18 HOURS NO SIGNIFICANT GROWTH 42 HOURS URINE CULTURE Preliminary (Corrected) NO SIGNIFICANT GROWTH <18 HOURS END OF REPORT ID Date Data Source [id number] 02/27/2020 10:00:00 AM EDT [facility] ([facility]) Name Value Range Interpretation Code Description Data Dinora rce(s) Supporting Document(s) URINE EPITH RARE PER/LPF URINE EPITH [facility] ([facility]) Note: Responsible Observer: UR EPITH URI NE EPITH 200.1155 (A) APPEARANCE,UR CLEAR APPEARANCE,UR [facility] ([facility]) Note: Responsible Observer: UR APPEAR UR APPEARANCE 200.0250 (A) BILIRUBIN,UR NEGATIVE BILIRUBIN,UR [facility] ([facility]) Note: Responsible Observer: UR BILI UR B ILIRUBIN 200.0750 (A) COLOR,UR YELLOW COLOR,UR [facility] ([facility]) Note: Responsible Observer: UR COLOR UR COLOR 200.0200 (A) GLUCOSE, UR NEGATIVE MG/DL GLUCOSE, UR [facility] ([facility]) Note: Responsible Observer: UR GLU UR GL UCOSE 200.0500 (A) KETONES,UR NEGATIVE MG/DL KETONES,UR [facility] ([facility]) Note: Responsible Observer: UR KETO UR K ETONES 200.0600 (A) LEUKOCYTE ESTERASE ,UR SMALL Abnormal (applies to non-numeric results) LEUKOCYTE ESTERASE ,UR [facility] ([facility]) Note: Responsible Observer: UR JEFERSON CAROLA ASE UR LEUKOCYTE ESTERASE 200.0725 (A) MUCUS,UR RARE PER_HPF MUCUS,UR [facility] ([facility]) Note: Responsible Observer: UR MUCUS UR MUCUS 200.2300 (A) NITRATE,UR NEGATIVE NITRATE,UR [facility] ([facility]) Note: Responsible Observer: UR NIT UR NI TRATE 200.0700 (A) OCCULT BLOOD,UR NEGATIVE OCCULT BLOOD,UR [facility] ([facility]) Note: Responsible Observer: UR OCLT BLD UR OCCULT BLOOD 200.0650 (A) PH,UR 5.0 PH,UR [facility] ([facility]) Note: Responsible Observer: UR PH UR PH 200.0350 (A) PROTEIN,UR NEGATIVE MG/DL PROTEIN,UR [facility] ([facility]) Note: Responsible Observer: UR PROT UR P ROTEIN 200.0450 (A) RBC,UR 1-2 PER_HPF RBC,UR [facility] ([facility]) Note: Responsible Observer: UR RBC UR RB C 200.1005 (A) SPECIFIC GRAVITY,UR 1.011 Normal SPECIFIC GRAVITY,UR [facility] ([facility]) Note: Responsible Observer: SG URINE SPE CIFIC GRAVITY,UR 200.0410 (A) UROBILINOGEN,UR 0.2-1.0 EU_MG/DL UROBILINOGEN,UR G [facility] ([facility]) Note: Responsible Observer: UR URO UR UR OBILINOGEN 200.0900 (A) WBC,UR <5 PER_HPF WBC,UR [facility] ([facility]) Note: Responsible Observer: UR WBC UR WB C 200.1055 (A) ID Date Data Source [id number] 02/27/2020 07:38:00 PM EDT [facility] Run: 02/29/20 0801 INTERFACED REPORT Name: Dario Shelton Age/Sex: 69/M Location: [facility] Acct: [id number] Unit: [id number] Status: REG REF Room/Bed: Re02/27/20 Disch: Att Dr: Rob Gutiérrez DO Specimen #: [id number] Ordered : 02/27/20 Collected : 02/27/20 By: ANA Received: 02/27/20 By: RICCO Source: URINE CC Specimen Description: Procedure Result - COLONY COUNT Final COLONY COUNT 5,000 CFU/ML URINE CULTURE Final NO SIGNIFICANT GROWTH <18 HOURS NO SIGNIFICANT GROWTH 42 HOURS URINE CULTURE Preliminary (Corrected) NO SIGNIFICANT GROWTH <18 HOURS END OF REPORT Name Value Range Interpretation Code Description Data Dinora rce(s) Supporting Document(s) COLOR,UR YELLOW YELLOW [facility] APPEARANCE,UR CLEAR CLEAR [facility] PH,UR 5.0 5.0-8.0 [facility] SPECIFIC GRAVITY,UR 1.011 1.002-1.035 [facility] PROTEIN,UR NEGATIVE MG/DL NEGATIVE [facility] GLUCOSE, UR NEGATIVE MG/DL NEGATIVE [facility] KETONES,UR NEGATIVE MG/DL NEGATIVE [facility] OCCULT BLOOD,UR NEGATIVE NEGATIVE [facility] NITRATE,UR NEGATIVE NEGATIVE [facility] LEUKOCYTE ESTERASE ,UR SMALL NEGATIVE A [facility] BILIRUBIN,UR NEGATIVE NEGATIVE [facility] UROBILINOGEN,UR 0.2-1.0 EU MG/DL NEG-0-1.0 [facility] RBC,UR 1-2 PER HPF 0-2 [facility] WBC,UR <5 PER HPF <5 [facility] URINE EPITH RARE PER/LPF FEW-MOD [facility] MUCUS,UR RARE PER HPF NONE SEEN [facility] ID Date Data Source [id number] 02/29/2020 08:01:00 AM EDT [facility] Run: 02/29/20 08 INTERFACED REPORT Name: CatDario Age/Sex: 69/M Location: [facility] Acct: [id number] Unit: [id number] Status: REG REF Room/Bed: Re02/27/20 Disch: Att Dr: Rob Gutiérrez DO Specimen #: [id number] Ordered : 02/27/20 Collected : 02/27/20 By: ANA Received: 02/27/20 By: RICCO Source: URINE CC Specimen Description: Procedure Result - COLONY COUNT Final COLONY COUNT 5,000 CFU/ML URINE CULTURE Final NO SIGNIFICANT GROWTH <18 HOURS NO SIGNIFICANT GROWTH 42 HOURS URINE CULTURE Preliminary (Corrected) NO SIGNIFICANT GROWTH <18 HOURS END OF REPORT Name Value Range Interpretation Code Description Data Dinora rce(s) Supporting Document(s) Procedure Social History Code Duration Value Status Description Data Source(s ) Smoking 04/17/2021 12:00:00 AM EDT Never smoked tobacco (findi ng) completed Never smoked tobacco (finding) [employer] ([facility] Alcohol intake 01/07/2021 12:00:00 AM EDT Current non-d sherin of alcohol (finding) completed Current non-drinker of alcohol (finding) [facility] Tobacco use and exposure 01/07/2021 12:00:00 AM EDT Never used co mpleted Never used [facility] Smoking 01/07/2021 12:00:00 AM EDT Never smoker completed Never s moker [facility] Alcohol intake 12/19/2020 12:00:00 AM EDT Current non-d sherin of alcohol (finding) completed Current non-drinker of alcohol (finding) [facility] Alcohol intake 2020 12:00:00 AM EDT Current non-d sherin of alcohol (finding) completed Current non-drinker of alcohol (finding) [facility] Smoking 11/21/2020 12:00:00 AM EDT Never smoked tobacco (findi ng) completed Never smoked tobacco (finding) [facility] Smoking 06/20/2020 12:00:00 AM EST Never smoked tobacco (findi ng) completed Never smoked tobacco (finding) [facility] Smoking 03/04/2020 12:00:00 AM EDT Never smoked tobacco (findi ng) completed Never smoked tobacco (finding) [facility] Smoking 03/04/2020 12:00:00 AM EDT Never smoked tobacco (findi ng) completed Never smoked tobacco (finding) [facility] ([facility]) Vital Signs ID Date Data Source UNK Name Value Range Interpretation Code Description Data Source(s) Oxygen saturation in Arterial blood by Pulse oximetry 93 % 93 % [facility] ([facility]) Inhaled oxygen flow rate 0 L/min 0 L/min [facility]) Inhaled oxygen concentration 21 % 21 % [facility]) Systolic blood pressure 116 mm[Hg] 116 mm[Hg] [facility] ([facility]) Diastolic blood pressure 70 mm[Hg] 70 mm[Hg] [facility]) Heart rate 64 /min 64 /min [facility] ([facility]) Respiratory rate 20 /min 20 /min [facility]) Body temperature 98.1 [degF] 98.1 [degF] [facility] ([facility]) PhenX - pain, abdominal - type and intensity protocol 0 0 [facility]) Systolic blood pressure 110 mm[Hg] 110 mm[Hg] G [facility] ([facility]) Diastolic blood pressure 60 mm[Hg] 60 mm[Hg] [facility]) Heart rate 90 /min 90 /min [facility] Heart rate rhythm 1 1 [facility] ([facility]) Inhaled oxygen concentration 21 % 21 % [facility]) Respiratory rate 20 /min 20 /min [facility] ([facility]) Body temperature 97.2 [degF] 97.2 [degF] [facility] ([facility]) Oxygen saturation in Arterial blood by Pulse oximetry 96 % 96 % [facility] ([facility]) Inhaled oxygen flow rate 0 L/min 0 L/min [facility] ([facility]) Body height 69 [in_i] 69 [in_i] [facility] 5'9" Body weight 165.00 [lb_av] 165.00 [lb_av] [facility] ([facility] Heart rate 101 /min 101 /min [facility] ([facility] Body mass index (BMI) [Ratio] 24.4 kg/m2 24.4 k g/m2 [facility] ([facility] Heart rate 103 /min 103 /min [facility] ([employer] [facility]) Body temperature 97.7 [degF] 97.7 [degF] [facility] Oxygen saturation in Arterial blood by Pulse oximetry 96 % 96 % [facility] Inhaled oxygen flow rate 0 L/min 0 L/min [facility] Inhaled oxygen concentration 21 % 21 % [facility] ID Date Data Source [id number] 2020 04:44:14 PM [facility] Name Value Range Interpretation Code Description Data Source(s) WEIGHT RECORDED 180 lb 180 lb [facility] Body height Measured 69 in 69 in [facility] Patient Treatment Plan of Care Planned Activity Planned Date Details Description Data Source (s) Metformin hydrochloride 500 MG Oral Tablet 02/13/2021 12:00:00 AM E DT [facility] ([facility]) Losartan Potassium 25 MG Oral Tablet 02/13[facility] insulin lispro (HumaLOG) injection LOW DOSE EATING INS ULIN patients 1-8 Units 12/20/2020 08:00:00 AM [facility] dextrose 50 % IV solution 25 mL 12/18/2020 11:32:53 PM [facility] Glucagon 1 MG Injection 12/18/2020 11:32:53 PM [facility] Glucose 0.417 MG/MG Oral Gel 12/18/2020 11:32:53 PM [facility] Mupirocin 0.02 MG/MG Topical Ointment 09/09/2020 12:00:00 AM EST [facility] ([facility]) OneTouch Verio In Vitro Strip 08/13/2020 12:00:00 AM EST [facility] ([facility]) Lancets Miscellaneous 08/13/2020 12:00:00 AM EST [facility] ([facility]) OneTouch Verio In Vitro Strip 05/21/2020 12:00:00 AM EST [facility] ([facility] Mupirocin 0.02 MG/MG Topical Ointment 03/07/2020 12:00:00 AM EDT [facility] ([facility]) doxycycline hyclate 100 MG Oral Capsule 02/22/2020 12:00:00 AM ED [facility] ([facility]) OneTouch Verio In Vitro Strip 05/16/2019 12:00:00 AM EST [facility] ([facility]) Levetiracetam 1000 MG Oral Tablet 12/07/2018 12:00:00 AM T [facility] diphenhydrAMINE-APAP, sleep, (TYLENOL PM EXTRA STRENGTH PO) [facility] Diphenhydramine Hydrochloride 25 MG Oral Capsule [facility] Amlodipine 10 MG Oral Tablet [facility] Cefuroxime 250 MG Oral Tablet [facility] Hydralazine Hydrochloride 25 MG Oral Tablet [facility] 24 HR Metformin hydrochloride 500 MG Extended Release Oral Tablet [facility]
[2021-04-24 15:06] LABS: BASO % 0.2 % (0.0-1.0); EOS % 0.1 % (0.0-3.0); HEMATOCRIT 45.4 % (42.0-52.0); LYMPH # 1.2 10^3/uL (1.5-5.0); LYMPH % 9.5 % (24.0-44.0); MEAN CORPUSCULAR VOLUME 93.8 fl (80.0-96.0); MONO # 0.4 10^3/uL (0.0-0.8); MONO % 3.3 % (2.0-8.0); NEUTROPHILS # 10.8 10^3/uL (1.5-8.5); NEUTROPHILS % 86.2 % (36.0-66.0); PLATELET COUNT, AUTOMATED 282 10^3/uL (150-450); RED BLOOD COUNT 4.84 10^6/uL (4.30-6.10); WHITE BLOOD COUNT 12.5 10^3/uL (4.0-10.0)
[2021-04-24 15:35] LABS: ERYTHROCYTE SEDIMENTATION RATE 15 mm/hr (0-20)
[2021-04-24 15:39] LABS: ALBUMIN 3.6 GM/DL (3.2-5.2); BILIRUBIN,TOTAL 0.5 MG/DL (0.2-1.0); C REACTIVE PROTEIN QUANTITATIV 0.3 MG/DL (0.00-0.30); CALCIUM LEVEL 9.9 MG/DL (8.8-10.2); CREATININE FOR GFR 1.45 MG/DL (0.70-1.30); GLOMERULAR FILTRATION RATE 51.4 (>49); POTASSIUM SERUM 5.2 MEQ/L (3.5-5.1); THYROID STIMULATING HORMONE 0.928 uIU/ML (0.358-3.740); TOTAL PROTEIN 7.6 GM/DL (6.4-8.2)
[2021-04-24 15:49] LABS: RSV AMPLIFICATION NEGATIVE (NEGATIVE)
[2021-04-24] MEDS ORDERED: ISOVUE-370 76% 100ML VIAL As Ordered ONE (16:25)
--- NOTE | 2021-04-24 17:04 | REP ---
INDICATION: hx of PE's, now with hyperventolation COMPARISON: 06/02/[address] angio chest TECHNIQUE: CT angiography of the pulmonary arteries after the intravenous administration of 75 cc Isovue 370. FINDINGS: There is excellent visualization of the pulmonary arterial vasculature. There no focal filling defects present that would be considered consistent with acute pulmonary emboli. There are no pleural or pericardial effusions. There is no mediastinal or hilar adenopathy. There is no significant change in appearance of the imaged upper abdomen. Note is again made of I carious excretion of the contrast material by of gallbladder. Evaluation of the imaged osseous structures shows a biconcave grade 2/3 T11 compression fracture which has increased slightly from the prior exam. There is no significant change in appearance of the thoracic aorta. Evaluation of the lung rowan shows respiratory motion artifact obscuring the detail. This could obscure small but significant nodules. No definite new abnormal nodules, masses, or opacities have developed. IMPRESSION: 1. There is no evidence of an acute pulmonary embolus. 2. No definite evidence of acute intrathoracic disease but with some limitations as described above. 3. Other findings as described above. <Electronically signed by Jona Hurst > 04/24/21 [id number]
--- NOTE | 2021-04-24 17:08 | REP ---
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 prior colon perf from [facility]. COMPARISON: None. TECHNIQUE: Standard helical technique after the intravenous administration of 100 cc Isovue 370 FINDINGS: The liver, gallbladder, spleen, pancreas, adrenal glands, and kidneys are within normal limits. There is vicarious excretion of the contrast material by the gallbladder. The abdominal aorta and para-aortic regions are within normal limits. The bowel loops and the mesenteries are within normal limits. There is no evidence of a mass or adenopathy. There is no free fluid or free air. There is a large amount of content in the rectosigmoid vault. 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 The bones are demineralized. There is a grade 3 L4 superior endplate compression fracture. There is a grade 3 L3 superior endplate compression fracture. There is a grade 2/3 biconcave compression of T11. IMPRESSION: 1. There is no evidence of acute intraabdominal or intrapelvic disease. Findings as described above. 2. Age undetermined but old left femoral neck fracture and multiple age undetermined but probably old vertebral body compression fractures as described above. 3. Other findings as described above. <Electronically signed by Jona Hurst > 04/24/21 [id number]
--- NOTE | 2021-04-24 17:34 | REPVR ---
PROCEDURE INFORMATION: Exam: CT Head Without Contrast Exam date and time: 04/24/2021 2:13 PM Age: 70 years old Clinical indication: Other: Neuro decline; Additional info: HX of hydrocephalus w/ shunt. Now w/ neuro decline TECHNIQUE: Imaging protocol: Computed tomography of the head without contrast. Radiation optimization: All CT scans at this facility use at least one of these dose optimization techniques: automated exposure control; mA and/or kV adjustment per patient size (includes targeted exams where dose is matched to clinical indication); or iterative reconstruction. COMPARISON: CT Head without contrast 06/02/2020 11:33 PM FINDINGS: Tubes, catheters and devices: There is a left anterior craniotomy defect with a plate device. Brain: There is prominence of the cerebral sulci consistent with moderate atrophy. There is prominent calcification of carotid siphon bilaterally consistent with atherosclerotic changes. Cerebral ventricles: There is a right GATEKEEPER shunt with its tip crossing the midline and in the left lateral ventricle. There is enlargement of the lateral ventricles but unchanged since 06/02/2020. There is low density within the white matter of the right and left frontal lobes greater on the right consistent with chronic ischemic changes. Ventricles have increased in size since 2017 but unchanged since the examination of 06/02/2020. The right-sided shunt appears very similar. Paranasal sinuses: Clear maxillary sinuses. Mastoid air cells: Clear mastoid air cells. Auditory system: There is severe narrowing of the right and left external ear canal Bones/joints: Unremarkable. No acute fracture. Soft tissues: Unremarkable. IMPRESSION: Right-sided GATEKEEPER shunt unchanged in appearance since 2019. Enlargement of the lateral ventricles and 3rd ventricles very similar to the examination of 2019 but increased since 2017. Very prominent chronic ischemic change of the frontal lobes and moderate diffuse atrophy. Electronically signed by: Shukri Dillon On 04/24/2021 17:33:51 PM
== END 2021-04-24 19:31 | disposition home or self-care (01) ==
LOC: M ED 11:29
DX: G91.9 Hydrocephalus, unspecified (principal); R29.818 Other symptoms and signs involving the nervous system; Z98.2 Presence of cerebrospinal fluid drainage device; E11.9 Type 2 diabetes mellitus without complications; I10 Essential (primary) hypertension; E78.00 Pure hypercholesterolemia, unspecified; Z86.73 Personal history of transient ischemic attack (TIA), and cerebral infarction without residual deficits; Z85.46 Personal history of malignant neoplasm of prostate; Z79.84 Long term (current) use of oral hypoglycemic drugs; Z79.899 Other long term (current) drug therapy; Z88.0 Allergy status to penicillin
CPT/HCPCS: 70450; 71275; 74177; 80053; 83605; 84443; 85025; 85652; 86140; 86617; 87040; 87631; 99284; Q9967

== ENCOUNTER 2022-02-25 03:41 | Inpatient (IN) | payer MEDICARE ==
[~2022-02-25] VITALS: Ht 175.3 cm; Wt 72.6 kg
[2022-02-25] VITALS (10 sets, daily range): BP systolic 86–140; BP diastolic 53–71
[~2022-02-25 03:41] MED LIST changes: +LOSA25TA13 PO; -LOSA25TA14 PO
[2022-02-25] MEDS ORDERED: ISOVUE-370 76% 100ML VIAL As Ordered ONE (04:17)
[2022-02-25 04:20] LABS: BASO # 0.1 10^3/uL (0.0-0.2); BASO % 0.6 % (0.0-1.0); EOS # 0.4 10^3/uL (0.0-0.5); EOS % 2.4 % (0.0-3.0); HEMATOCRIT 39.1 % (42.0-52.0); HEMOGLOBIN 12.4 g/dl (13.5-17.5); LYMPH # 4.9 10^3/uL (1.5-5.0); LYMPH % 28.5 % (24.0-44.0); MEAN CORPUSCULAR HEMOGLOBIN 31.7 pg (27.0-33.0); MEAN CORPUSCULAR HGB CONC 31.7 g/dl (32.0-36.5); MONO # 0.7 10^3/uL (0.0-0.8); MONO % 3.9 % (2.0-8.0); NEUTROPHILS % 64.1 % (36.0-66.0); PLATELET COUNT, AUTOMATED 394 10^3/uL (150-450); RED BLOOD COUNT 3.91 10^6/uL (4.30-6.10); WHITE BLOOD COUNT 17.2 10^3/uL (4.0-10.0)
[2022-02-25 04:23] LABS: ABG BASE EXCESS -11.1 (-2.0-2.0); ABG HCO3 15.1 MEQ/L (22.0-26.0); ABG O2 SATURATION 99.8 % (95.0-99.0); ABG PARTIAL PRESSURE CO2 35.3 mmHg (35.0-45.0); ABG PARTIAL PRESSURE O2 310.6 mmHg (75.0-100.0); ABG STANDARD HCO3 15.8 MEQ/L (22.0-26.0); ABG TOTAL CO2 16.2 MEQ/L (23.0-31.0)
[2022-02-25] MEDS: IPRATROPIUM 0.5MG/ALBUTEROL 2.5MG INH SOL UD 3ML (DUONEB) NEB SCH ×3 (04:45→04:47)
[2022-02-25 04:48] LABS: ALBUMIN 3.3 GM/DL (3.2-5.2); BILIRUBIN,DIRECT 0.1 MG/DL (0.0-0.2); BILIRUBIN,TOTAL 0.3 MG/DL (0.2-1.0); CALCIUM LEVEL 9.5 MG/DL (8.8-10.2); CREATININE FOR GFR 1.73 MG/DL (0.70-1.30); GLOMERULAR FILTRATION RATE 41.8 (>42); POTASSIUM SERUM 4.6 MEQ/L (3.5-5.1); TOTAL PROTEIN 6.9 GM/DL (6.4-8.2)
[2022-02-25 04:52] LABS: CK-MB VALUE MASS 4.8 NG/ML (<3.6); MB/CK RELATIVE INDEX 5.22 (< OR =4)
[2022-02-25] MEDS ORDERED: FUROSEMIDE 40MG/4ML VIAL (J1940) IV ONE (04:55)
[2022-02-25] MEDS ORDERED: cefTRIAXone SOD 2 GM in D5W MINI-BAG PLUS 50 ML IV ONE (05:00)
[2022-02-25] MEDS ORDERED: HEPARIN SOD (PORCINE) 5000UNITS/ML 1ML VIAL/SYRINGE IV ONE (06:15)
[2022-02-25 06:36] LABS: CK-MB VALUE MASS 26.3 NG/ML (<3.6); MB/CK RELATIVE INDEX 7.99 (< OR =4)
[2022-02-25 06:45] LABS: PROTHROMBIN TIME 13.6 SECONDS (12.7-14.5)
[2022-02-25] MEDS ORDERED: HEPARIN DRIP 25,000 UNITS in IV 1 EA IV SCH (07:00)
[2022-02-25] MEDS ORDERED: ASPIRIN 325 MG TAB PEG ONE (07:20)
[2022-02-25] MEDS ORDERED: ASPIRIN 81 MG CHEW TABLET PEG ONE (07:50)
[2022-02-25] MEDS ORDERED: FLUID PLACE HOLDER IV ONE (08:35)
[2022-02-25] MEDS ORDERED: VANCOMYCIN HCL IV ONE (08:35)
[2022-02-25] MEDS ORDERED: GLUCAGON INJ 1MG VIAL SC PRN (08:40)
[2022-02-25] MEDS ORDERED: GLUCOSE 4GM CHEW TABLET PO PRN (08:40)
[2022-02-25] MEDS ORDERED: DEXTROSE 50% 50 ML SYRINGE IV PRN (08:40)
[2022-02-25] MEDS ORDERED: ROSU5TAB5 PO (08:57)
[2022-02-25] MEDS ORDERED: KETO2CR (08:57)
[2022-02-25] MEDS ORDERED: METF-839 PO (08:57)
[2022-02-25] MEDS ORDERED: MUPI2OI TOP (08:57)
[2022-02-25] MEDS ORDERED: ASPIRIN 81MG ENTERIC TABLET PO SCH (09:00)
[2022-02-25] MEDS ORDERED: MEROPENEM INJ 1 GM in IV 1 EA IV SCH (09:00)
[2022-02-25] MEDS ORDERED: HOME MED LIST COMPLETE! XX SCH (09:40)
[2022-02-25] MEDS ORDERED: LR 1,000 ML IV ONE (10:00)
[2022-02-25] MEDS ORDERED: HEPARIN SOD (PORCINE) 5000UNITS/ML 1ML VIAL/SYRINGE IV PRN (11:25)
[2022-02-25] MEDS ORDERED: VANCOMYCIN HCL 1,000 MG, VIAL MATE ADAPTER 1 EACH in D5W 250 ML IV ONE (12:00)
[2022-02-25] MEDS: MEROPENEM INJ 1 GM in IV 1 EA IV SCH ×2 (13:28→22:44)
[2022-02-25] MEDS: INSULIN LISPRO (NovoLOG) PER UNIT SC SCH ×2 (13:29→18:49)
[2022-02-25 16:39] LABS: APPEARANCE, URINE MANUAL CLEAR (CLEAR); BILIRUBIN, URINE MANUAL NEGATIVE (NEGATIVE); BLOOD URINE MANUAL POSITIVE (NEGATIVE); COLOR, URINE MANUAL YELLOW (YELLOW); GLUCOSE, URINE (UA) MANUAL NEGATIVE (NEGATIVE); KETONE, URINE MANUAL NEGATIVE (NEGATIVE); LEUKOCYTE ESTERASE, URINE MAN NEGATIVE (NEGATIVE); NITRITE, URINE MANUAL NEGATIVE (NEGATIVE); PROTEIN, URINE MANUAL NEGATIVE (NEGATIVE); UROBILINOGEN, URINE MANUAL NORMAL (NORMAL)
[2022-02-25 16:56] LABS: BACTERIA, URINE SMALL AMOUNT; HYALINE CAST, URINE NONE SEEN /lpf (0-1); MUCUS, URINE SMALL AMOUNT (NEGATIVE); SQUAMOUS EPITHELIAL CELL URINE SMALL AMOUNT /hpf (SMALL AMT); WBC, URINE NONE SEEN /hpf (0-3)
[2022-02-25] MEDS: CLOPIDOGREL 75 MG TAB PO SCH (18:54)
[2022-02-25] MEDS: ATORVASTATIN 20 MG TAB PO SCH (21:42)
[2022-02-26] VITALS (23 sets, daily range): BP systolic 91–117; BP diastolic 51–74
[2022-02-26 05:46] LABS: ABG BASE EXCESS -3.8 (-2.0-2.0); ABG HCO3 19.7 MEQ/L (22.0-26.0); ABG O2 SATURATION 94.5 % (95.0-99.0); ABG PARTIAL PRESSURE CO2 30.6 mmHg (35.0-45.0); ABG PARTIAL PRESSURE O2 69.6 mmHg (75.0-100.0); ABG STANDARD HCO3 21.3 MEQ/L (22.0-26.0); ABG TOTAL CO2 20.6 MEQ/L (23.0-31.0); ABG pH (ARTERIAL) 7.426 UNITS (7.350-7.450)
[2022-02-26 07:27] LABS: HEMATOCRIT 31.8 % (42.0-52.0); MEAN CORPUSCULAR HEMOGLOBIN 31.1 pg (27.0-33.0); MEAN CORPUSCULAR HGB CONC 31.8 g/dl (32.0-36.5); MEAN CORPUSCULAR VOLUME 97.8 fl (80.0-96.0); PLATELET COUNT, AUTOMATED 260 10^3/uL (150-450); RED BLOOD COUNT 3.25 10^6/uL (4.30-6.10); WHITE BLOOD COUNT 11.8 10^3/uL (4.0-10.0)
[2022-02-26] MEDS: INSULIN LISPRO (NovoLOG) PER UNIT SC SCH ×4 (07:30→23:47)
[2022-02-26 07:38] LABS: HEMOGLOBIN 10.1 g/dl (13.5-17.5)
[2022-02-26 07:57] LABS: BILIRUBIN,TOTAL 0.5 MG/DL (0.2-1.0); CALCIUM LEVEL 9.2 MG/DL (8.8-10.2); CREATININE FOR GFR 1.58 MG/DL (0.70-1.30); GLOMERULAR FILTRATION RATE 46.4 (>42); POTASSIUM SERUM 4.5 MEQ/L (3.5-5.1); TOTAL PROTEIN 6.1 GM/DL (6.4-8.2)
[2022-02-26] MEDS ORDERED: VANCOMYCIN HCL 1,000 MG, VIAL MATE ADAPTER 1 EACH in D5W 250 ML IV SCH (08:00)
[2022-02-26] MEDS: HEPARIN DRIP 25,000 UNITS in IV 1 EA IV SCH (08:35)
[2022-02-26] MEDS: PANTOPRAZOLE 40MG VIAL IV SCH (08:36)
[2022-02-26] MEDS: CLOPIDOGREL 75 MG TAB PO SCH (08:36)
[2022-02-26] MEDS ORDERED: ASPIRIN 81MG ENTERIC TABLET PO SCH (09:00)
[2022-02-26] MEDS: MEROPENEM INJ 1 GM in IV 1 EA IV SCH ×2 (11:29→22:30)
[2022-02-26] MEDS ORDERED: LEVALBUTEROL 1.25 MG/0.5 ML CONCENTRATE NEB NEB ONE (14:05)
[2022-02-26] MEDS ORDERED: FUROSEMIDE 20MG/2ML VIAL (J1940) IV ONE (16:20)
[2022-02-26 16:33] LABS: ABG BASE EXCESS -4.6 (-2.0-2.0); ABG HCO3 16.2 MEQ/L (22.0-26.0); ABG O2 SATURATION 94.1 % (95.0-99.0); ABG PARTIAL PRESSURE CO2 19.6 mmHg (35.0-45.0); ABG PARTIAL PRESSURE O2 61.9 mmHg (75.0-100.0); ABG STANDARD HCO3 20.6 MEQ/L (22.0-26.0); ABG TOTAL CO2 16.8 MEQ/L (23.0-31.0); ABG pH (ARTERIAL) 7.535 UNITS (7.350-7.450)
[2022-02-26] MEDS ORDERED: ACETAMINOPHEN TAB 650MG DOSE (2X325MG) PO ONE (16:50)
[2022-02-26] MEDS: ATORVASTATIN 20 MG TAB PO SCH (20:53)
[2022-02-26] MEDS: ALBUTEROL SULFATE 2.5 MG/0.5 ML INH NEB SOLN NEB PRN (23:53)
[2022-02-27] VITALS (36 sets, daily range): BP systolic 77–128; BP diastolic 48–76
[2022-02-27] MEDS: INSULIN LISPRO (NovoLOG) PER UNIT SC SCH ×3 (06:12→17:39)
[2022-02-27 07:02] LABS: HEMATOCRIT 33.4 % (42.0-52.0); HEMOGLOBIN 10.2 g/dl (13.5-17.5); MEAN CORPUSCULAR HEMOGLOBIN 30.5 pg (27.0-33.0); MEAN CORPUSCULAR HGB CONC 30.5 g/dl (32.0-36.5); PLATELET COUNT, AUTOMATED 290 10^3/uL (150-450); RED BLOOD COUNT 3.34 10^6/uL (4.30-6.10); WHITE BLOOD COUNT 15.2 10^3/uL (4.0-10.0)
[2022-02-27 07:18] LABS: INR 1.1; PROTHROMBIN TIME 14.6 SECONDS (12.7-14.5)
[2022-02-27 07:19] LABS: PARTIAL THROMBOPLASTIN TIME 67.9 SECONDS (25.9-37.0)
[2022-02-27 07:35] LABS: ALBUMIN 3.1 GM/DL (3.2-5.2); BILIRUBIN,TOTAL 0.6 MG/DL (0.2-1.0); CALCIUM LEVEL 9.5 MG/DL (8.8-10.2); CREATININE FOR GFR 1.92 MG/DL (0.70-1.30); POTASSIUM SERUM 4.4 MEQ/L (3.5-5.1); TOTAL PROTEIN 6.8 GM/DL (6.4-8.2)
[2022-02-27] MEDS ORDERED: NS 1,000 ML IV SCH ×2 (08:50→15:50)
[2022-02-27] MEDS: ASPIRIN 81 MG CHEW TABLET PEG SCH (09:36)
[2022-02-27] MEDS: PANTOPRAZOLE 40MG VIAL IV SCH (09:36)
[2022-02-27] MEDS: HEPARIN DRIP 25,000 UNITS in IV 1 EA IV SCH (09:36)
[2022-02-27] MEDS: CLOPIDOGREL 75 MG TAB PEG SCH (09:37)
[2022-02-27] MEDS: MIRALAX *UNIT DOSE* 17GM PACKET GT SCH (12:07)
[2022-02-27] MEDS: MEROPENEM INJ 1 GM in IV 1 EA IV SCH (12:07)
[2022-02-27] MEDS ORDERED: NS 250 ML IV ONE (16:55)
[2022-02-27] MEDS: ATORVASTATIN 20 MG TAB PO SCH (21:19)
[2022-02-28] VITALS (79 sets, daily range): BP systolic 68–140; BP diastolic 43–93
[2022-02-28] MEDS: ALBUTEROL SULFATE 2.5 MG/0.5 ML INH NEB SOLN NEB PRN ×2 (00:12→13:55)
[2022-02-28] MEDS: INSULIN LISPRO (NovoLOG) PER UNIT SC SCH ×5 (00:26→23:38)
[2022-02-28] MEDS: MEROPENEM INJ 1 GM in IV 1 EA IV SCH ×3 (00:26→22:48)
[2022-02-28 04:59] LABS: HEMATOCRIT 28.7 % (42.0-52.0); HEMOGLOBIN 9.4 g/dl (13.5-17.5); MEAN CORPUSCULAR HEMOGLOBIN 31.9 pg (27.0-33.0); MEAN CORPUSCULAR HGB CONC 32.8 g/dl (32.0-36.5); MEAN CORPUSCULAR VOLUME 97.3 fl (80.0-96.0); PLATELET COUNT, AUTOMATED 287 10^3/uL (150-450); RED BLOOD COUNT 2.95 10^6/uL (4.30-6.10)
[2022-02-28 05:41] LABS: ALBUMIN 2.8 GM/DL (3.2-5.2); BILIRUBIN,TOTAL 0.7 MG/DL (0.2-1.0); CALCIUM LEVEL 8.9 MG/DL (8.8-10.2); CREATININE FOR GFR 2.17 MG/DL (0.70-1.30); GLOMERULAR FILTRATION RATE 32.2 (>42); POTASSIUM SERUM 4.8 MEQ/L (3.5-5.1); TOTAL PROTEIN 6.1 GM/DL (6.4-8.2)
[2022-02-28 06:02] LABS: ABG BASE EXCESS -6.7 (-2.0-2.0); ABG HCO3 14.8 MEQ/L (22.0-26.0); ABG O2 SATURATION 94.7 % (95.0-99.0); ABG PARTIAL PRESSURE O2 70.5 mmHg (75.0-100.0); ABG STANDARD HCO3 18.9 MEQ/L (22.0-26.0); ABG TOTAL CO2 15.4 MEQ/L (23.0-31.0); ABG pH (ARTERIAL) 7.503 UNITS (7.350-7.450)
[2022-02-28 06:06] LABS: ABG PARTIAL PRESSURE CO2 19.3 mmHg (35.0-45.0)
[2022-02-28] MEDS ORDERED: NOREPINEPHRINE 8MG IN 500ML D5W BAG As Ordered ONE (07:51)
[2022-02-28] MEDS: ASPIRIN 81 MG CHEW TABLET PEG SCH (09:10)
[2022-02-28] MEDS: MIRALAX *UNIT DOSE* 17GM PACKET GT SCH (09:11)
[2022-02-28] MEDS: CLOPIDOGREL 75 MG TAB PEG SCH (09:11)
[2022-02-28] MEDS: PANTOPRAZOLE 40MG VIAL IV SCH (09:11)
[2022-02-28] MEDS: NOREPINEPHRINE/DEXTROSE 8 MG in IV 1 EA IV SCH (09:11)
[2022-02-28] MEDS ORDERED: FUROSEMIDE 100MG/10ML VIAL (J1940) IV ONE (16:15)
[2022-02-28] MEDS: ATORVASTATIN 20 MG TAB PO SCH (21:00)
[2022-03-01] VITALS (68 sets, daily range): BP systolic 74–117; BP diastolic 52–74
[2022-03-01] MEDS: INSULIN LISPRO (NovoLOG) PER UNIT SC SCH ×3 (05:31→17:39)
[2022-03-01 06:11] LABS: HEMATOCRIT 28.3 % (42.0-52.0); MEAN CORPUSCULAR HEMOGLOBIN 31.3 pg (27.0-33.0); MEAN CORPUSCULAR HGB CONC 31.8 g/dl (32.0-36.5); MEAN CORPUSCULAR VOLUME 98.3 fl (80.0-96.0); PLATELET COUNT, AUTOMATED 296 10^3/uL (150-450); RED BLOOD COUNT 2.88 10^6/uL (4.30-6.10)
[2022-03-01 06:40] LABS: ALBUMIN 2.7 GM/DL (3.2-5.2); BILIRUBIN,TOTAL 0.8 MG/DL (0.2-1.0); CALCIUM LEVEL 9.3 MG/DL (8.8-10.2); CREATININE FOR GFR 2.47 MG/DL (0.70-1.30); GLOMERULAR FILTRATION RATE 27.7 (>42); POTASSIUM SERUM 4.9 MEQ/L (3.5-5.1); TOTAL PROTEIN 5.9 GM/DL (6.4-8.2)
[2022-03-01] MEDS: ASPIRIN 81 MG CHEW TABLET PEG SCH (08:20)
[2022-03-01] MEDS: PANTOPRAZOLE 40MG VIAL IV SCH (08:20)
[2022-03-01] MEDS: CLOPIDOGREL 75 MG TAB PEG SCH (08:20)
[2022-03-01] MEDS: MIRALAX *UNIT DOSE* 17GM PACKET GT SCH (08:20)
[2022-03-01] MEDS ORDERED: DOBUTamine HCL 500,000 MCG in IV 1 EA IV SCH (10:30)
[2022-03-01] MEDS: MEROPENEM INJ 1 GM in IV 1 EA IV SCH ×2 (11:04→22:42)
[2022-03-01] MEDS ORDERED: ACETAMINOPHEN TAB 650MG DOSE (2X325MG) PO ONE (11:55)
[2022-03-01] MEDS: HEPARIN SOD (PORCINE) 5000UNITS/ML 1ML VIAL/SYRINGE SQ SCH ×2 (12:12→22:41)
[2022-03-01] MEDS: FUROSEMIDE injection 250 MG in D5W 225 ML IV SCH (15:40)
[2022-03-01] MEDS ORDERED: NOREPINEPHRINE 8MG IN 500ML D5W BAG As Ordered ONE (16:26)
[2022-03-01] MEDS ORDERED: IBUPROFEN 600MG TAB PO ONE (16:45)
[2022-03-01] MEDS: NOREPINEPHRINE/DEXTROSE 8 MG in IV 1 EA IV SCH (17:01)
[2022-03-01] MEDS: ATORVASTATIN 20 MG TAB PO SCH (21:00)
[2022-03-02] VITALS (98 sets, daily range): BP systolic 77–123; BP diastolic 50–75
[2022-03-02] MEDS: INSULIN LISPRO (NovoLOG) PER UNIT SC SCH ×5 (00:25→23:56)
[2022-03-02 05:35] LABS: HEMATOCRIT 27.2 % (42.0-52.0); HEMOGLOBIN 8.5 g/dl (13.5-17.5); MEAN CORPUSCULAR HEMOGLOBIN 30.8 pg (27.0-33.0); MEAN CORPUSCULAR HGB CONC 31.3 g/dl (32.0-36.5); MEAN CORPUSCULAR VOLUME 98.6 fl (80.0-96.0); PLATELET COUNT, AUTOMATED 276 10^3/uL (150-450); RED BLOOD COUNT 2.76 10^6/uL (4.30-6.10); WHITE BLOOD COUNT 12.1 10^3/uL (4.0-10.0)
[2022-03-02 06:05] LABS: ALBUMIN 2.7 GM/DL (3.2-5.2); BILIRUBIN,TOTAL 0.9 MG/DL (0.2-1.0); CALCIUM LEVEL 8.7 MG/DL (8.8-10.2); CREATININE FOR GFR 2.94 MG/DL (0.70-1.30); GLOMERULAR FILTRATION RATE 22.7 (>42); TOTAL PROTEIN 6.1 GM/DL (6.4-8.2)
[2022-03-02] MEDS: HEPARIN SOD (PORCINE) 5000UNITS/ML 1ML VIAL/SYRINGE SQ SCH ×3 (06:12→22:40)
[2022-03-02] MEDS: NOREPINEPHRINE/DEXTROSE 8 MG in IV 1 EA IV SCH ×2 (06:13→17:59)
[2022-03-02] MEDS: ASPIRIN 81 MG CHEW TABLET PEG SCH (08:17)
[2022-03-02] MEDS: CLOPIDOGREL 75 MG TAB PEG SCH (08:17)
[2022-03-02] MEDS: MIRALAX *UNIT DOSE* 17GM PACKET GT SCH (08:17)
[2022-03-02] MEDS: PANTOPRAZOLE 40MG VIAL IV SCH (08:17)
[2022-03-02 09:58] LABS: VENOUS BASE EXCESS -6.6 (-2.0-2.0); VENOUS O2 SATURATION 74.6 % (60.0-80.0); VENOUS PARTIAL PRESSURE CO2 32.6 mmHg (38.0-50.0); VENOUS PARTIAL PRESSURE O2 42.5 mmHg (30.0-50.0); VENOUS STANDARD HCO3 18.7 MEQ/L
[2022-03-02] MEDS: DOXYCYCLINE HYCLATE 100 MG in D5W MINI-BAG PLUS 100 ML IV SCH ×2 (10:28→22:54)
[2022-03-02] MEDS ORDERED: DOBUTamine HCL 500,000 MCG in IV 1 EA IV SCH (10:30)
[2022-03-02] MEDS: MEROPENEM INJ 1 GM in IV 1 EA IV SCH ×2 (12:08→23:55)
[2022-03-02] MEDS: FUROSEMIDE injection 250 MG in D5W 225 ML IV SCH (14:16)
[2022-03-02] MEDS ORDERED: VANCOMYCIN HCL 1 MG in IV FLUID PLACE HOLDER 1 EA IV SCH (16:55)
[2022-03-02] MEDS ORDERED: VANCOMYCIN HCL 750 MG, VIAL MATE ADAPTER 1 EACH in D5W 250 ML IV ONE (18:00)
[2022-03-02] MEDS ORDERED: MILRINONE/DEXTROSE 20 MG in IV 1 EA IV SCH (18:45)
[2022-03-02] MEDS ORDERED: VANCOMYCIN HCL 500 MG in D5W MINI-BAG PLUS 100 ML IV ONE (19:00)
[2022-03-02 20:30] LABS: ALBUMIN 2.7 GM/DL (3.2-5.2); BILIRUBIN,TOTAL 0.8 MG/DL (0.2-1.0); CALCIUM LEVEL 8.9 MG/DL (8.8-10.2); CREATININE FOR GFR 2.96 MG/DL (0.70-1.30); GLOMERULAR FILTRATION RATE 22.5 (>42); MAGNESIUM LEVEL 2.5 MG/DL (1.8-2.4); POTASSIUM SERUM 4.4 MEQ/L (3.5-5.1); TOTAL PROTEIN 5.8 GM/DL (6.4-8.2)
[2022-03-03] VITALS (93 sets, daily range): BP systolic 79–119; BP diastolic 51–79
[2022-03-03] MEDS: NOREPINEPHRINE/DEXTROSE 8 MG in IV 1 EA IV SCH ×2 (04:20→18:38)
[2022-03-03] MEDS: INSULIN LISPRO (NovoLOG) PER UNIT SC SCH ×3 (06:10→18:37)
[2022-03-03] MEDS: HEPARIN SOD (PORCINE) 5000UNITS/ML 1ML VIAL/SYRINGE SQ SCH ×3 (06:10→21:08)
[2022-03-03 07:01] LABS: ALBUMIN 2.7 GM/DL (3.2-5.2); C REACTIVE PROTEIN QUANTITATIV 6.47 MG/DL (0.00-0.30); CALCIUM LEVEL 8.8 MG/DL (8.8-10.2); CREATININE FOR GFR 2.96 MG/DL (0.70-1.30); GLOMERULAR FILTRATION RATE 22.5 (>42); TOTAL PROTEIN 6.1 GM/DL (6.4-8.2)
[2022-03-03 07:09] LABS: HEMATOCRIT 26.4 % (42.0-52.0); HEMOGLOBIN 8.4 g/dl (13.5-17.5); MEAN CORPUSCULAR HEMOGLOBIN 31.2 pg (27.0-33.0); MEAN CORPUSCULAR HGB CONC 31.8 g/dl (32.0-36.5); MEAN CORPUSCULAR VOLUME 98.1 fl (80.0-96.0); PLATELET COUNT, AUTOMATED 246 10^3/uL (150-450); RED BLOOD COUNT 2.69 10^6/uL (4.30-6.10)
[2022-03-03] MEDS ORDERED: NS 250 ML IV ONE (08:00)
[2022-03-03] MEDS: MIRALAX *UNIT DOSE* 17GM PACKET GT SCH (08:22)
[2022-03-03] MEDS: PANTOPRAZOLE 40MG VIAL IV SCH (08:22)
[2022-03-03] MEDS: CLOPIDOGREL 75 MG TAB PEG SCH (08:22)
[2022-03-03] MEDS: ASPIRIN 81 MG CHEW TABLET PEG SCH (08:22)
[2022-03-03 08:31] LABS: MAGNESIUM LEVEL 2.5 MG/DL (1.8-2.4); VANCOMYCIN RANDOM 21.7 UG/ML
[2022-03-03] MEDS: DOXYCYCLINE HYCLATE 100 MG in D5W MINI-BAG PLUS 100 ML IV SCH ×2 (09:49→21:09)
[2022-03-03] MEDS: MEROPENEM INJ 1 GM in IV 1 EA IV SCH ×2 (11:50→23:10)
[2022-03-03] MEDS ORDERED: VANCOMYCIN HCL 1,000 MG, VIAL MATE ADAPTER 1 EACH in D5W 250 ML IV SCH (12:00)
[2022-03-03] MEDS: VANCOMYCIN HCL 500 MG in D5W MINI-BAG PLUS 100 ML IV SCH (12:44)
[2022-03-04] VITALS (81 sets, daily range): BP systolic 78–156; BP diastolic 53–77
[2022-03-04] MEDS: INSULIN LISPRO (NovoLOG) PER UNIT SC SCH ×4 (00:26→18:09)
[2022-03-04 04:43] LABS: HEMATOCRIT 26.4 % (42.0-52.0); HEMOGLOBIN 8.5 g/dl (13.5-17.5); MEAN CORPUSCULAR HEMOGLOBIN 31.4 pg (27.0-33.0); MEAN CORPUSCULAR HGB CONC 32.2 g/dl (32.0-36.5); MEAN CORPUSCULAR VOLUME 97.4 fl (80.0-96.0); PLATELET COUNT, AUTOMATED 257 10^3/uL (150-450); RED BLOOD COUNT 2.71 10^6/uL (4.30-6.10)
[2022-03-04] MEDS: HEPARIN SOD (PORCINE) 5000UNITS/ML 1ML VIAL/SYRINGE SQ SCH ×3 (05:12→21:59)
[2022-03-04 05:29] LABS: ALBUMIN 2.7 GM/DL (3.2-5.2); BILIRUBIN,TOTAL 0.8 MG/DL (0.2-1.0); CALCIUM LEVEL 8.9 MG/DL (8.8-10.2); CREATININE FOR GFR 2.82 MG/DL (0.70-1.30); GLOMERULAR FILTRATION RATE 23.8 (>42); POTASSIUM SERUM 4.5 MEQ/L (3.5-5.1); TOTAL PROTEIN 5.9 GM/DL (6.4-8.2)
[2022-03-04] MEDS: NOREPINEPHRINE/DEXTROSE 8 MG in IV 1 EA IV SCH (08:43)
[2022-03-04] MEDS: ASPIRIN 81 MG CHEW TABLET PEG SCH (08:43)
[2022-03-04] MEDS: PANTOPRAZOLE 40MG VIAL IV SCH (08:43)
[2022-03-04] MEDS: CLOPIDOGREL 75 MG TAB PEG SCH (08:44)
[2022-03-04] MEDS ORDERED: NS 1,000 ML IV SCH (09:30)
[2022-03-04] MEDS: MIRALAX *UNIT DOSE* 17GM PACKET GT SCH (10:10)
[2022-03-04] MEDS: DOXYCYCLINE HYCLATE 100 MG in D5W MINI-BAG PLUS 100 ML IV SCH ×2 (10:20→21:59)
[2022-03-04] MEDS: MEROPENEM INJ 1 GM in IV 1 EA IV SCH (11:40)
[2022-03-04] MEDS: VANCOMYCIN HCL 500 MG in D5W MINI-BAG PLUS 100 ML IV SCH (12:29)
[2022-03-04] MEDS: NOREPINEPHRINE BITARTRATE 16 MG in D5W 484 ML IV SCH (13:34)
[2022-03-04 17:08] LABS: BODY FLUID CULTURE Not indicated. (.); LEGIONELLA ANTIGEN URINE Negative (Negative); ORGANISM ID Not indicated. (.); SPECIMEN SOURCE Urine (.); URINE STREP PNEUMONIAE ANTIGEN Negative (Negative)
[2022-03-05] VITALS (91 sets, daily range): BP systolic 81–108; BP diastolic 51–72
[2022-03-05] MEDS: MEROPENEM INJ 1 GM in IV 1 EA IV SCH ×3 (00:08→22:05)
[2022-03-05] MEDS: INSULIN LISPRO (NovoLOG) PER UNIT SC SCH ×5 (00:11→23:48)
[2022-03-05 05:35] LABS: HEMATOCRIT 27.5 % (42.0-52.0); HEMOGLOBIN 8.8 g/dl (13.5-17.5); MEAN CORPUSCULAR HEMOGLOBIN 31.1 pg (27.0-33.0); MEAN CORPUSCULAR VOLUME 97.2 fl (80.0-96.0); PLATELET COUNT, AUTOMATED 260 10^3/uL (150-450); RED BLOOD COUNT 2.83 10^6/uL (4.30-6.10); WHITE BLOOD COUNT 16.2 10^3/uL (4.0-10.0)
[2022-03-05] MEDS: HEPARIN SOD (PORCINE) 5000UNITS/ML 1ML VIAL/SYRINGE SQ SCH ×3 (06:00→22:06)
[2022-03-05 06:13] LABS: ALBUMIN 2.4 GM/DL (3.2-5.2); CALCIUM LEVEL 8.6 MG/DL (8.8-10.2); CREATININE FOR GFR 2.74 MG/DL (0.70-1.30); GLOMERULAR FILTRATION RATE 24.6 (>42); POTASSIUM SERUM 5.4 MEQ/L (3.5-5.1); TOTAL PROTEIN 5.7 GM/DL (6.4-8.2)
[2022-03-05] MEDS: MIRALAX *UNIT DOSE* 17GM PACKET GT SCH (09:12)
[2022-03-05] MEDS: CLOPIDOGREL 75 MG TAB PEG SCH (09:12)
[2022-03-05] MEDS: ASPIRIN 81 MG CHEW TABLET PEG SCH (09:12)
[2022-03-05] MEDS: DOXYCYCLINE HYCLATE 100 MG in D5W MINI-BAG PLUS 100 ML IV SCH (09:13)
[2022-03-05] MEDS: PANTOPRAZOLE 40MG VIAL IV SCH (09:13)
[2022-03-05] MEDS: HYDROCORTISONE 100 MG/2 ML VIAL (J1720 PER 1) IV SCH ×3 (10:02→22:06)
[2022-03-05] MEDS: FLUDROCORTISONE ACETATE 0.1 MG TAB PO SCH (10:02)
[2022-03-05] MEDS: SODIUM BICARBONATE 100 MEQ in D5W 1,000 ML IV SCH ×2 (10:03→23:48)
[2022-03-05] MEDS: NOREPINEPHRINE BITARTRATE 16 MG in D5W 484 ML IV SCH (13:12)
[2022-03-05] MEDS ORDERED: LEVEMIR (INSULIN DETEMIR) 1 UNITS/0.01ML SC SCH (13:53)
[2022-03-06] VITALS (88 sets, daily range): BP systolic 82–118; BP diastolic 50–77
[2022-03-06] MEDS: HYDROCORTISONE 100 MG/2 ML VIAL (J1720 PER 1) IV SCH ×4 (03:57→21:08)
[2022-03-06 05:25] LABS: HEMATOCRIT 27.3 % (42.0-52.0); HEMOGLOBIN 8.7 g/dl (13.5-17.5); MEAN CORPUSCULAR HEMOGLOBIN 30.6 pg (27.0-33.0); MEAN CORPUSCULAR HGB CONC 31.9 g/dl (32.0-36.5); MEAN CORPUSCULAR VOLUME 96.1 fl (80.0-96.0); PLATELET COUNT, AUTOMATED 254 10^3/uL (150-450); RED BLOOD COUNT 2.84 10^6/uL (4.30-6.10); WHITE BLOOD COUNT 12.9 10^3/uL (4.0-10.0)
[2022-03-06] MEDS: HEPARIN SOD (PORCINE) 5000UNITS/ML 1ML VIAL/SYRINGE SQ SCH ×3 (05:57→21:09)
[2022-03-06] MEDS: INSULIN LISPRO (NovoLOG) PER UNIT SC SCH ×3 (05:57→17:36)
[2022-03-06 05:58] LABS: VANCOMYCIN RANDOM 20.2 UG/ML
[2022-03-06 05:59] LABS: ALBUMIN 2.6 GM/DL (3.2-5.2); CALCIUM LEVEL 9.2 MG/DL (8.8-10.2); CREATININE FOR GFR 2.76 MG/DL (0.70-1.30); GLOMERULAR FILTRATION RATE 24.4 (>42); POTASSIUM SERUM 5.3 MEQ/L (3.5-5.1); TOTAL PROTEIN 5.8 GM/DL (6.4-8.2)
[2022-03-06] MEDS ORDERED: MIRALAX *UNIT DOSE* 17GM PACKET GT PRN (08:10)
[2022-03-06] MEDS: PANTOPRAZOLE 40MG VIAL IV SCH (08:50)
[2022-03-06] MEDS: FLUDROCORTISONE ACETATE 0.1 MG TAB PO SCH (08:50)
[2022-03-06] MEDS: ASPIRIN 81 MG CHEW TABLET PEG SCH (08:50)
[2022-03-06 08:56] LABS: MAGNESIUM LEVEL 2.7 MG/DL (1.8-2.4)
[2022-03-06] MEDS: MEROPENEM INJ 1 GM in IV 1 EA IV SCH (10:25)
[2022-03-06] MEDS: PATIROMER SORBITEX CALCIUM 8.4 GM POWDER PACKET (VELTASSA) PO SCH (12:40)
[2022-03-06] MEDS: FUROSEMIDE injection 250 MG in D5W 225 ML IV SCH (12:41)
[2022-03-06] MEDS: NOREPINEPHRINE BITARTRATE 16 MG in D5W 484 ML IV SCH (12:42)
[2022-03-06 13:42] LABS: C REACTIVE PROTEIN QUANTITATIV 4.14 MG/DL (0.00-0.30)
[2022-03-06] MEDS: LEVEMIR (INSULIN DETEMIR) 1 UNITS/0.01ML SC SCH (21:10)
[2022-03-07] VITALS (106 sets, daily range): BP systolic 74–139; BP diastolic 45–96
[2022-03-07] MEDS: INSULIN LISPRO (NovoLOG) PER UNIT SC SCH ×5 (00:01→23:52)
[2022-03-07] MEDS: MEROPENEM INJ 1 GM in IV 1 EA IV SCH ×3 (00:01→23:49)
[2022-03-07] MEDS ORDERED: NS 250 ML IV ONE ×3 (04:55→05:35)
[2022-03-07] MEDS ORDERED: levETIRAcetam INJection 500 MG in D5W MINI-BAG PLUS 100 ML IV ONE (04:55)
[2022-03-07] MEDS: HYDROCORTISONE 100 MG/2 ML VIAL (J1720 PER 1) IV SCH ×4 (05:11→21:36)
[2022-03-07 05:12] LABS: HEMATOCRIT 27.4 % (42.0-52.0); HEMOGLOBIN 8.6 g/dl (13.5-17.5); MEAN CORPUSCULAR HEMOGLOBIN 30.6 pg (27.0-33.0); MEAN CORPUSCULAR HGB CONC 31.4 g/dl (32.0-36.5); MEAN CORPUSCULAR VOLUME 97.5 fl (80.0-96.0); PLATELET COUNT, AUTOMATED 263 10^3/uL (150-450); RED BLOOD COUNT 2.81 10^6/uL (4.30-6.10); WHITE BLOOD COUNT 15.1 10^3/uL (4.0-10.0)
[2022-03-07 05:27] LABS: ABG HCO3 14.5 MEQ/L (22.0-26.0); ABG O2 SATURATION 99.5 % (95.0-99.0); ABG PARTIAL PRESSURE CO2 21.7 mmHg (35.0-45.0); ABG PARTIAL PRESSURE O2 239.6 mmHg (75.0-100.0); ABG STANDARD HCO3 17.9 MEQ/L (22.0-26.0); ABG TOTAL CO2 15.2 MEQ/L (23.0-31.0); ABG pH (ARTERIAL) 7.444 UNITS (7.350-7.450)
[2022-03-07 05:47] LABS: ALBUMIN 2.7 GM/DL (3.2-5.2); BILIRUBIN,TOTAL 1.3 MG/DL (0.2-1.0); CALCIUM LEVEL 8.9 MG/DL (8.8-10.2); CREATININE FOR GFR 3.03 MG/DL (0.70-1.30); GLOMERULAR FILTRATION RATE 21.9 (>42); MAGNESIUM LEVEL 2.7 MG/DL (1.8-2.4); POTASSIUM SERUM 4.9 MEQ/L (3.5-5.1); TOTAL PROTEIN 6.2 GM/DL (6.4-8.2)
[2022-03-07] MEDS: HEPARIN SOD (PORCINE) 5000UNITS/ML 1ML VIAL/SYRINGE SQ SCH ×3 (05:52→21:37)
[2022-03-07] MEDS: FLUDROCORTISONE ACETATE 0.1 MG TAB PO SCH (10:09)
[2022-03-07] MEDS: PANTOPRAZOLE 40MG VIAL IV SCH (10:09)
[2022-03-07] MEDS: ASPIRIN 81 MG CHEW TABLET PEG SCH (10:09)
[2022-03-07] MEDS ORDERED: metOLazone 5 MG TAB PO ONE (11:00)
[2022-03-07] MEDS ORDERED: FUROSEMIDE 100MG/10ML VIAL (J1940) IV ONE (11:00)
[2022-03-07] MEDS: PATIROMER SORBITEX CALCIUM 8.4 GM POWDER PACKET (VELTASSA) PO SCH (11:19)
[2022-03-07] MEDS: FUROSEMIDE injection 250 MG in D5W 225 ML IV SCH ×2 (11:20→11:46)
[2022-03-07] MEDS: NOREPINEPHRINE BITARTRATE 16 MG in D5W 484 ML IV SCH (13:54)
[2022-03-07] MEDS ORDERED: FUROSEMIDE IV SCH (17:30)
[2022-03-07] MEDS ORDERED: D5W IV SCH (17:30)
[2022-03-07] MEDS: LEVEMIR (INSULIN DETEMIR) 1 UNITS/0.01ML SC SCH (21:36)
[2022-03-08] VITALS (21 sets, daily range): BP systolic 49–144; BP diastolic 20–99
[2022-03-08] MEDS ORDERED: levETIRAcetam INJection 750 MG in D5W 100 ML IV ONE ×2
[2022-03-08] MEDS ORDERED: MIDAZOLAM INJ 2MG/2ML VIAL (J2250 PER 1MG) IV STA (00:20)
[2022-03-08] MEDS ORDERED: MIDAZOLAM INJ 2MG/2ML VIAL (J2250 PER 1MG) As Ordered ONE (00:21)
[2022-03-08 04:22] LABS: HEMATOCRIT 29.1 % (42.0-52.0); HEMOGLOBIN 8.9 g/dl (13.5-17.5)
[2022-03-08 05:12] LABS: CREATININE FOR GFR 2.89 MG/DL (0.70-1.30); GLOMERULAR FILTRATION RATE 23.1 (>42)
[2022-03-08 05:13] LABS: CALCIUM LEVEL 14.6 MG/DL (8.8-10.2); POTASSIUM SERUM 5.4 MEQ/L (3.5-5.1)
[2022-03-08] MEDS ORDERED: SODIUM BICARBONATE 8.4% INJ 50 ML SYRINGE ONE (06:02)
[2022-03-08] MEDS ORDERED: CALCIUM CHLORIDE 10% 1 GM/10 ML SYR ONE (06:02)
[2022-03-08] MEDS ORDERED: EPINEPHrine 1MG/10ML SYRINGE 1.5IN ONE (06:02)
[2022-03-08] MEDS ORDERED: levETIRAcetam INJection 750 MG in D5W 100 ML IV SCH (09:00)
== END 2022-03-08 12:30 | disposition expired | DRG 91 ==
LOC: EDBD 03:41 → M ED 03:41 → M ED INP 08:07 → ENRESERV 09:23 → M ICU 10:15
PROVIDERS: ADMIT Internal Medicine Pulmonary Disease; ATTEND Internal Medicine Critical Care Medicine
PROC: 02HV33Z Insertion of Infusion Device into Superior Vena Cava, Percutaneous Approach (ICD-10-PCS; principal; 2022-02-28)
DX: T85.730A Infection and inflammatory reaction due to ventricular intracranial (communicating) shunt, initial encounter (principal); A41.9 Sepsis, unspecified organism; I21.4 Non-ST elevation (NSTEMI) myocardial infarction; J18.9 Pneumonia, unspecified organism; J96.01 Acute respiratory failure with hypoxia; K72.00 Acute and subacute hepatic failure without coma; R65.21 Severe sepsis with septic shock; R53.2 Functional quadriplegia; J81.1 Chronic pulmonary edema; G91.2 (Idiopathic) normal pressure hydrocephalus; R47.01 Aphasia; N17.9 Acute kidney failure, unspecified; E87.4 Mixed disorder of acid-base balance; I13.0 Hypertensive heart and chronic kidney disease with heart failure and stage 1 through stage 4 chronic kidney disease, or unspecified chronic kidney disease; I50.20 Unspecified systolic (congestive) heart failure; I47.2 Ventricular tachycardia; R57.0 Cardiogenic shock; I11.0 Hypertensive heart disease with heart failure; E78.5 Hyperlipidemia, unspecified; E11.9 Type 2 diabetes mellitus without complications; E11.65 Type 2 diabetes mellitus with hyperglycemia; I25.10 Atherosclerotic heart disease of native coronary artery without angina pectoris; G40.409 Other generalized epilepsy and epileptic syndromes, not intractable, without status epilepticus; D64.9 Anemia, unspecified; Z79.899 Other long term (current) drug therapy; N18.9 Chronic kidney disease, unspecified; Z93.1 Gastrostomy status; E87.5 Hyperkalemia